=== PATIENT | female | born 1945 | race Caucasian/White ===

== ENCOUNTER → 2017-10-17 08:13 | Outpatient (CLI) | payer MEDICARE, SELFPAY ==
[2017-10-17 09:01] LABS: Absolute Lymphocyte Count 2.62 X10^3/ul (0.83-4.51); Basophil# 0.03 X10^3/uL; Basophil% 0.5 % (0-1); Eosinophil# 0.18 X10^3/uL; Eosinophils% 2.9 % (0-5); Hematocrit 42.8 % (37-47); Hemoglobin 14.3 g/dl (12.0-15.0); Lymphocyte # 2.62 X10^3/ul (4.0); Lymphocyte % 41.9 % (19-41); Mean Corp Hgb Conc 33.4 g/gl (32-36); Mean Corpuscular Hgb 28.7 pg (27.0-32.0); Mean Corpuscular Volume 85.9 fL (81-99); Mean Platelet Vol. 11.5 fl (6.2-12.0); Monocyte# 0.44 X10^3/uL; Neutrophil # 2.98 X10^3/uL (2.7-7.7); Neutrophil % 47.5 % (47-70); Platelet Count 228 K/mm3 (150-450); RBC Distribution Width CV 13.9 % (11.6-14.6); RBC Distribution Width SD 43.3 fl (35.1-43.9); Red Blood Count 4.98 M/mm3 (4.2-5.4); White Blood Count 6.3 K/mm3 (4.4-11.0)
[2017-10-17 09:02] LABS: POSITIVE COUNT NO; POSITIVE DIFFERENTIAL NO; POSITIVE MORPHOLOGY NO
[2017-10-17 09:30] LABS: Anion Gap 2 (5-15); BUN 17 mg/dL (7-18); BUN/Creat Ratio 20.1 RATIO (10-20); Calcium,Total 8.8 mg/dL (8.5-10.1); Chloride 107 mmol/L (98-107); Creatinine, Serum 0.84 mg/dL (0.55-1.02); EST Glomerular Filtration Rate 70 mL/min (>60); Est Glom Filt Rate - Afr Amer 85 mL/min (>60); Glucose 89 mg/dL (74-106); Potassium 4.4 mmol/L (3.5-5.1); Sodium Level 141 mmol/L (136-145)
== END ==
PROVIDERS: PCP Family Medicine; Visit Provider Orthopaedic Surgery
DX: Z01.818 Encounter for other preprocedural examination (principal)
CPT/HCPCS: 36415; 80048; 85025; 93005

== ENCOUNTER 2021-03-10 11:26 | Outpatient (CLI) | payer MEDICARE, SELFPAY ==
[2021-03-10 11:32] VITALS: BP 163/74; PULSE 68; RESP 16; TEMP 36.4; O2SAT 99; BMI 26.4
[2021-03-10] MEDS: 0.9% Saline Lock 10 ML Syringe IV (11:41)
[2021-03-10 12:51] VITALS: BP 149/72; PULSE 70; RESP 16; TEMP 37; O2SAT 97
[2021-03-10 13:42] VITALS: BP 153/80; PULSE 65; RESP 16; TEMP 36.7; O2SAT 98
== END 2021-03-10 23:59 | disposition home or self-care (01) ==
LOC: MS3OUT 11:28 → MS3 11:28
PROVIDERS: PCP Family Medicine; Referring Provider Nurse Practitioner Adult Health; Visit Provider Nurse Practitioner Adult Health
DX: Z23 Encounter for immunization (principal); U07.1 COVID-19
CPT/HCPCS: J7050; M0245; Q0245; A4216

== ENCOUNTER 2021-05-18 10:02 | Outpatient (CLI) | payer BC, SELFPAY ==
--- NOTE | 2021-05-18 10:04 | BI_ITS ---
MAMMOGRAPHY - BILATERAL SCREENING REASON FOR EXAM: Female, 75 years old. Routine annual screening examination. PERTINENT HISTORY: Non-contributory. TECHNIQUE: Digital bilateral breast opal (3D mammographic acquisition) in the CC and MLO projections. 2-D mediolateral oblique (MLO) and craniocaudad (CC) views of both breasts were obtained. CAD: Full Field Digital Mammography with Computer Added Detection was performed. COMPARISON: Comparison is made with prior outside examination dated 08/13/2018 and 06/12/2016. FINDINGS: Breast Composition: The breasts are heterogeneously dense, which may obscure small masses. There are no dominant masses or suspicious calcifications. Stable calcified nodular density in the retroareolar region of the left breast. No other significant abnormalities are identified. There has been no significant change since the prior study. BI/SCRN MAMM (CAD)W/OPAL BILAT IMPRESSION: Stable bilateral screening mammogram. Yearly follow-up mammogram recommended. (A) ASSESSMENT CATEGORY: BIRADS Category 2: Benign. A letter regarding these results will be sent to the patient by the facility within 30 days. Approximately 10% of breast cancers are not detected by mammography. A normal mammogram should not delay biopsy of a clinically suspicious abnormality. [id number] Electronically Signed: Vargas Yancey MD at 11:07 EDT ,
== END 2021-05-18 23:59 | disposition home or self-care (01) ==
LOC: OPBI 10:03
PROVIDERS: PCP Family Medicine; Visit Provider Internal Medicine
DX: Z12.31 Encounter for screening mammogram for malignant neoplasm of breast (principal)
CPT/HCPCS: 77063; 77067

== ENCOUNTER 2021-05-31 08:01 | Outpatient (CLI) | payer BC, SELFPAY ==
[2021-05-31 12:16] LABS: Absolute Lymphocyte Count 2.52 X10^3/uL (0.83-4.51); Absolute Neutrophil Count 3.7 X10^3/uL (2.0-7.7); Basophil# 0.04 X10^3/uL; Basophil% 0.6 % (0-1); Eosinophil# 0.21 X10^3/uL; Hematocrit 40.2 % (37-47); Lymphocyte # 2.52 X10^3/ul (0.83-4.51); Lymphocyte % 36.3 % (19-41); Mean Corp Hgb Conc 32.3 g/dL (32-36); Mean Corpuscular Volume 86.5 fL (81-99); Mean Platelet Vol. 11.6 fl (6.2-12.0); Monocyte# 0.48 X10^3/uL; Monocyte% 6.9 % (0-10); NRBC Flagged by Analyzer 0 % (0-5); Neutrophil # 3.68 X10^3/uL (2.7-7.7); Neutrophil % 53.1 % (47-70); Platelet Count 251 K/mm3 (150-450); RBC Distribution Width CV 14.6 % (11.6-14.6); Red Blood Count 4.65 M/mm3 (4.2-5.4); White Blood Count 6.9 K/mm3 (4.4-11.0)
[2021-05-31 12:40] LABS: Vitamin D,25 Hydroxy 50.4 ng/mL
[2021-05-31 12:48] LABS: ALB/GLOB Ratio 1.1 RATIO (0.9-2.4); AST(SGOT) 19 U/L (15-37); Alanine Aminotransfer ALT/SGPT 32 U/L (13-56); Albumin, Serum 3.5 g/dL (3.2-5.0); Alkaline Phosphatase 85 U/L (45-117); Anion Gap 3 (5-15); BUN 23 mg/dL (7-18); BUN/Creat Ratio 24.6 RATIO (10-20); Calcium,Total 8.9 mg/dL (8.5-10.1); Chloride 109 mmol/L (98-107); Cholesterol 254 mg/dL (200); Creatinine, Serum 0.94 mg/dL (0.55-1.02); EST Glomerular Filtration Rate 62 mL/min (>60); Est Glom Filt Rate - Afr Amer 75 mL/min (>60); Globulin 3.2 g/dL (2.2-4.2); Glucose 97 mg/dL (74-106); High Density Lipoprotein 64 mg/dL; Magnesium 2.1 mg/dL (1.6-2.6); Potassium 4.1 mmol/L (3.5-5.1); Protein, Total 6.7 g/dL (6.4-8.2); Sodium Level 140 mmol/L (136-145); T4 Free Direct 0.93 ng/dL (0.76-1.46); Thyroid Stim Hormone (TSH) 1.75 uIU/mL (0.358-3.74); Triglycerides 140 mg/dL; Very Low Density Lipoprotein 28 mg/dL (5-40)
== END 2021-05-31 23:59 | disposition home or self-care (01) ==
LOC: BIMLAB 08:03
PROVIDERS: PCP Internal Medicine; Referring Provider Internal Medicine; Visit Provider Internal Medicine
DX: I10 Essential (primary) hypertension (principal); E78.5 Hyperlipidemia, unspecified; F41.9 Anxiety disorder, unspecified; J45.909 Unspecified asthma, uncomplicated
CPT/HCPCS: 36415; 80053; 80061; 82306; 83735; 84439; 84443; 84481; 85025

== ENCOUNTER → 2021-09-14 | Outpatient (CLI) | payer MEDICARE, SELFPAY ==
[2021-09-14 13:55] LABS: Bacteria 0 SEEN /hpf (None Seen); Mucous, Urine 0 SEEN /hpf (<or=2+); Red Blood Cells-Urine 0 SEEN /hpf (0-5); Squamous Epithelial Cells - UA 0 SEEN /hpf (5-10); White Blood Cells 0 SEEN /hpf (0-5)
[2021-09-14 15:01] LABS: Absolute Lymphocyte Count 2.82 X10^3/uL (0.83-4.51); Absolute Neutrophil Count 4.1 X10^3/uL (2.0-7.7); Basophil# 0.06 X10^3/uL; Basophil% 0.8 % (0-1); Eosinophil# 0.15 X10^3/uL; Eosinophils% 1.9 % (0-5); Hematocrit 40.2 % (37-47); Lymphocyte # 2.82 X10^3/ul (0.83-4.51); Lymphocyte % 36.2 % (19-41); Mean Corp Hgb Conc 32.3 g/dL (32-36); Mean Corpuscular Hgb 28.5 pg (27.0-32.0); Mean Corpuscular Volume 88.2 fL (81-99); Mean Platelet Vol. 11.4 fl (6.2-12.0); Monocyte# 0.59 X10^3/uL; Monocyte% 7.6 % (0-10); NRBC Flagged by Analyzer 0 % (0-5); Neutrophil # 4.13 X10^3/uL (2.7-7.7); Neutrophil % 53.1 % (47-70); Platelet Count 251 K/mm3 (150-450); RBC Distribution Width CV 14.3 % (11.6-14.6); Red Blood Count 4.56 M/mm3 (4.2-5.4); White Blood Count 7.8 K/mm3 (4.4-11.0)
[2021-09-14 15:03] LABS: Color, Urine Yellow (Yellow); Glucose, Dipstick Normal (Normal); Ketone-Dipstick Negative (Negative); Leukocyte Esterase-Dipstick Negative /ul (Negative); Nitrite-Dipstick Negative (Negative); Occult Blood-Urine Negative /ul (Negative); Protein-Dipstick 15 mg/dl (Negative); Urine Bilirubin Dipstick Negative (Negative); Urine Clarity Clear (Clear); Urine Urobilinogen Normal (Normal); Urine pH 6.5 (5.0 - 8.0)
[2021-09-14 15:17] LABS: ALB/GLOB Ratio 1.1 RATIO (0.9-2.4); AST(SGOT) 17 U/L (15-37); Alanine Aminotransfer ALT/SGPT 29 U/L (13-56); Albumin, Serum 3.5 g/dL (3.2-5.0); Alkaline Phosphatase 92 U/L (45-117); Anion Gap 5 (5-15); BUN 18 mg/dL (7-18); BUN/Creat Ratio 15.4 RATIO (10-20); Calcium,Total 8.7 mg/dL (8.5-10.1); Chloride 104 mmol/L (98-107); Creatinine, Serum 1.17 mg/dL (0.55-1.02); EST Glomerular Filtration Rate 48 mL/min (>60); Est Glom Filt Rate - Afr Amer 58 mL/min (>60); Globulin 3.1 g/dL (2.2-4.2); Glucose 97 mg/dL (74-106); Potassium 4.4 mmol/L (3.5-5.1); Protein, Total 6.6 g/dL (6.4-8.2); Sodium Level 139 mmol/L (136-145)
== END | disposition home or self-care (01) ==
LOC: BIMLAB 13:50
PROVIDERS: PCP Internal Medicine; Referring Provider Physician Assistant; Visit Provider Physician Assistant
DX: R10.9 Unspecified abdominal pain (principal)
CPT/HCPCS: 36415; 80053; 81001; 85025; 87086; 87088

== ENCOUNTER → 2021-10-04 | Outpatient (CLI) | payer MEDICARE, SELFPAY ==
--- NOTE | 2021-10-04 11:45 | US_ITS ---
EXAM: US RETROPERITONEAL LIMITED, RENAL CLINICAL INDICATION: R Flank, lower abdominal pain TECHNIQUE: Limited grayscale and color Doppler sonographic evaluation of the retroperitoneum was performed. This report was created using [employer] technology. COMPARISON: None. FINDINGS: RIGHT KIDNEY: Right kidney measures 5.5 x 3.7 x 5.2 cm. The right renal cortex measures 1.1 cm. The prominence of the right renal pelvis measuring 1.5 cm. No shadowing calculus. No perinephric collection is demonstrated. LEFT KIDNEY: The left kidney measures 10.1 x 5.1 x 4.4 cm. Left renal cortex measures 1.4 cm. No hydronephrosis. No shadowing calculus. No perinephric collection is demonstrated. BLADDER: The bladder measures 9.6 x 1.0 x 8.6 cm for volume of 477 mL. The bladder wall measures 2 mm. Bilateral ureteral jets are present. US/Kidney and Bladder IMPRESSION: No acute findings in the retroperitoneum. Electronically Signed: Nico Palacios MD at 14:44 EDT ,
== END | disposition home or self-care (01) ==
LOC: US 11:44
PROVIDERS: PCP Internal Medicine; Referring Provider Internal Medicine; Visit Provider Internal Medicine
DX: R10.30 Lower abdominal pain, unspecified (principal)
CPT/HCPCS: 76770

== ENCOUNTER 2022-03-14 09:31 | Day surgery (SDC) | payer MEDICARE, SELFPAY ==
[2022-03-14 09:57] VITALS: BP 131/85; PULSE 70; RESP 18; TEMP 36.7; O2SAT 99; BMI 30.4
[2022-03-14] MEDS: Lactated Ringers 1,000 ML 15 ML IV (10:00)
--- NOTE | 2022-03-14 10:30 | HP.PCM_ITS ---
History and Physical Date of Admission: 03/14/22 Intake Vital Signs ? 09/14/2212:21 02/10/2208:19 02/24/2208:22 Height 5 ft 1 in 5 ft 1 in 5 ft 1 in Weight: ? ? 160 lb BMI ? ? 30.2 BP ? ? 147/84 H Blood Pressure Location ? ? Rt brachial Position ? ? Sitting Respiration ? ? 18 Intake Visit Reasons:?GERD/EGD Chief Complaint: GERD Medical Front Desk Specialist Required: No Is patient in pain?: No Allergies shellfish derived Allergy (Severe, Verified 02/23/22 08:23) SOBamoxicillin Allergy (Verified 02/23/22 08:23) Unknownerythromycin base [From Staticin] Allergy (Verified 02/23/22 08:23) Unknownethyl alcohol [From Staticin] Allergy (Verified 02/23/22 08:23) Unknowniodine Allergy (Verified 02/23/22 08:23) UnknownPenicillins Allergy (Verified 02/23/22 08:23) UnknownSulfa (Sulfonamide Antibiotics) Allergy (Verified 02/23/22 08:23) Unknown Medications CoQ10 PO 03/29/21 [History Confirmed 02/23/22] ascorbic acid (vitamin C) 1,000 mg tablet 1 g PO Q6H 03/29/21 [History Confirmed 02/23/22] lisinopril 5 mg tablet 10 mg PO DAILY #90 tabs 03/29/21 [Rx Confirmed 02/23/22] multivit with kugfkaow-vekq-TW-lutein 8 mg iron-400 mcg-300 mcg tablet (Centrum Silver Women) 1 tab PO DAILY 03/29/21 [History Confirmed 02/23/22] multivitamin with minerals (Hair,Skin and Nails tablet) 1 tab PO DAILY 03/29/21 [History Confirmed 02/23/22] omega-3 fatty acids 1,000 mg capsule 1,000 mg PO DAILY 03/29/21 [History Confirmed 02/23/22] vitamin B complex (B Complex-Vitamin B12 tablet) 1 tab PO DAILY 03/29/21 [History Confirmed 02/23/22] vitamin E (dl, acetate) 450 mg (1,000 unit) capsule 450 mg PO DAILY 03/29/21 [History Confirmed 02/23/22] ergocalciferol (vitamin D2) 1,250 mcg (50,000 unit) capsule 1,250 mcg PO QWEEK #12 caps 08/01/21 [Rx Confirmed 02/23/22] albuterol sulfate 90 mcg/actuation aerosol inhaler 2 inh inhalation Q6H PRN shortness of breath or wheezing #8.5 grams 11/16/21 [Rx Confirmed 02/23/22] probiotic PO 12/26/21 [History Confirmed 02/23/22] trazodone 100 mg tablet 100 mg PO QHS PRN insomnia #30 tabs 02/09/22 [Rx Confirmed 02/23/22] fluticasone propionate 110 mcg/actuation HFA aerosol inhaler (Flovent HFA) 110 mcg inhalation BID #12 grams 02/22/22 [Rx Confirmed 02/23/22] PFSH Medical History? Anxiety Hearing problem Hypertension Seasonal allergies Trigger finger Surgical History? History of carpal tunnel release History of cataract extraction History of tonsillectomy Family History? Mother Colon cancer Cancer Heart diseaseGrandmother Colon cancer CancerSister CancerBrother Heart disease Mental disorderFather?? ,? 85 yrs old Dementia Social History? Smoking Status:? Never smoker alcohol intake:? never substance use type:? does not use what type of physical activity do you participate in:? none HPI HPI HPI: Is a 76-year-old female here for epigastric pain and reflux.? Patient reports is been going on for 2 years.? She says it is intermittent.? She occasionally has epigastric pain occasionally right upper quadrant pain.? She is also had left upper quadrant pain in the past.? She also says that she experiences burning in the chest.? Patient is not on a PPI at home. ROS General General: Yes weight change and fatigue; No appetite, colon cancer, breast cancer or weakness HEENT HEENT: No difficulty swallowing, eye injury, eye surgery, swollen glands or hoarseness Endo Endocrine: No thyroid disease, diabetes mellitus, thyroid cancer, Hair loss, heat intolerance or cold intolerance Skin Skin: No rash or changing moles Breast Breast: No left breast lump, right breast lump, nipple discharge, breast pain, abnormal mammogram, abnormal US or breast enlargement Musc Musculoskeletal: No back problems, arthritis, rheumatoid arthritis, gout or joint pain Cardio Cardiovascular: Yes high blood pressure; No murmur, pacemaker, heart disease, atrial fibrillation, heart attack, heart stent, palpitations, shortness of breat with exertion or chest pain Psych Psychiatric: Yes depression and anxiety; No hearing voices Resp Respiratory: Yes shortness of breath, No sleep apnea, No cough, No COPD, Yes asthma, No emphysema and No wheezing Gastro Gastrointestinal: Yes abdominal pain, No nausea or vomiting, No diarrhea, No constipation, No blood in stool, Yes acid reflux, Yes hemorrhoids, No ulcers, No gallbladder problem and No black,tarry stools Damon Hematologic: No blood thinners, No blood disorders, No bleeding, No anemia and No blood clots Neuro Neurologic: No system reviewed and no additional complaints, except as documented, No as per HPI, No abnormal gait, No abnormal hearing, No abnormal movements, No abnormal speech, No behavioral changes, No burning sensations, No confusion, No convulsions, No disequilibrium, No dizziness, No localized weakness, No frequent falls, No headache(s), No lack of coordination, No loss of vision, No memory loss, No numbness, No other visual disturbances, No radicular pain, No restless legs, No sensory deficit, No syncope, No tingling, No tremor(s), No weakness and No other Exam Const General: cooperative Orientation: alert and oriented x3 HENMT Head: normal to inspection Neck Neck: normal visual inspection and full ROM Chest Chest palpation & inspection: normal inspection of the chest Resp Effort & Inspection: normal respiratory effort Auscultation: clear to auscultation bilaterally Cardio Rate: regular rate Rhythm: regular rhythm GI Inspection: non-distended Palpation: soft and nontender Skin General: no rashes or lesions noted Neuro General: patient alert and patient oriented x3 Extrem General: full ROM Psych Appearance: grossly normal Mental Status: mental status grossly normal Assessment and Plan Assessment and Plan (1) Chronic GERD: ?Status:?Chronic (2) Epigastric pain: ?Status:?Acute ? ? ? Orders: Orders EGD Today ? ? Plan Patient has been having epigastric pain and symptoms of GERD.? She was sent here for EGD to evaluate. I explained endoscopy in detail to the patient.? I explained the risks including but not limited to stroke or heart attack with anesthesia, perforation of the GI tract, bleeding, infection.? I explained that any of these could necessitate further emergency surgery.? The patient understands and all questions were answered sufficiently.? The patient wishes to proceed with procedure. Chirag Matthews MD Pager: [facility] [address] [place] [address] [address] [place] [address] Office: I have examined the patient and the H&P has been reviewed. There are no clinical changes since date of exam.
--- NOTE | 2022-03-14 10:45 | EGD_PTH ---
PATIENT: THOMAS HARDY LOC: EN U#:[id number] AGE/SX: 76/F ROOM: RE03/14/[address]: Dr. Chirag Matthews MD : 1945 BED: DIS: 03/14/2022 SPEC #: [id number] RECD: 03/14/22 11:51 STATUS: YRN RAJ #: [id number] TRINIDAD: 03/14/22 10:[address]: Chirag Matthews DEPT: SURGICAL PATHOLOGY RECD BY: Felicitas Ulrich ENTERED: 03/14/22 12:43 SP TYPE: EGD BIOPSY OT DR: Dr. Claudette Garrison MD Tissues: Gastric mucous membrane Procedures: Surgery Specimen Level IV HEADER OPERATION: EGD with biopsy ([facility] [place], [place]) PRE-OP DIAGNOSIS: Chronic GERD, epigastric pain TISSUE SUBMITTED: Antrum biopsy for H. pylori and path MICROSCOPIC DIAGNOSIS Gastric antrum, biopsy: Mild chronic gastritis. See comment. AM:maurice 03/15/2022 COMMENT The results of immunohistochemistry for Helicobacter pylori will be reported separately ([id number]). MICROSCOPIC DESCRIPTION Slides are reviewed. GROSS DESCRIPTION Received in fixative is one container labeled with the patient's name and designated antrum biopsy. The specimen consists of two irregular fragments of light soares soft tissue that in aggregate measure 0.6 x 0.3 x 0.1 cm. The specimen is totally submitted in one cassette. / SJ:maurice 03/14/2022 TC:3 CPT: 66741
--- NOTE | 2022-03-14 10:45 | IMM_PTH ---
PATIENT: THOMAS HARDY LOC: EN U#:[id number] AGE/SX: 76/F ROOM: RE03/14/[address]: Dr. Chirag Matthews MD : 1945 BED: DIS: 03/14/2022 SPEC #: [id number] RECD: 03/14/22 13:31 STATUS: YRN RERuss #: [id number] TRINIDAD: 03/14/22 10:[address]: Chirag Matthews DEPT: IMMUNOHISTOCHEMISTRY RECD BY: Michaela Silva ENTERED: 03/14/22 13:32 SP TYPE: IMMUNO OTHR DR: Dr. Claudette Garrison MD Tissues: Stomach, NOS Procedures: H Pylori (initial) PHYSICIAN & INSTITUTION [place] [id number] SPECIMEN INFORMATION: Tissue Source: Antrum biopsy Clinical Info: Chronic GERD, epigastric pain Specimen Number: [id number] CPT code: 26887 METHODOLOGY: Deparaffinized sections of prefer/formalin-fixed tissue or PAP/DQ stained slides are incubated with monoclonal/polyclonal antibodies/oligonucleotide probes. Localization is made via biotin free immunoperoxidase method. Appropriate controls are performed and reacted as expected. Results on target cell population are indicated in the following table: RESULTS: ANTIBODY / CLONE RESULT H Pylori (polyclonal) negative These tests were developed and their performance characteristics determined by [facility]. They may not have been cleared or approved by the U.S. Food and Drug Administration. The FDA has determined that such clearance or approval is not necessary. The above immunohistochemical/dualISH markers are ordered and reviewed by the Pathologist. INTERPRETATION: Antrum, biopsy: Negative for Helicobacter pylori organisms. AM:maurice 03/15/2022
[2022-03-14 10:50] VITALS: BP 127/59; BP 131/85; PULSE 88; RESP 16; TEMP 36.6; O2SAT 96
--- NOTE | 2022-03-14 10:53 | OP.EGD_ITS ---
Patient Name: Soledad Cheema Procedure Date: 03/14/2022 10:32 AM Date of : 1945 Age: 76 Procedure: Upper GI endoscopy Indications: Epigastric abdominal pain, Esophageal reflux Providers: Chirag Matthews MD Referring MD: Chirag Matthews MD Medicines: Monitored Anesthesia Care Patient Profile: This is a 76 year old female. Refer to note in patient chart for documentation of history and physical. Complications: No immediate complications. Estimated blood loss: Minimal. Procedure: Pre-Anesthesia Assessment: - Prior to the procedure, a History and Physical was performed, and patient medications and allergies were reviewed. The patient's tolerance of previous anesthesia was also reviewed. The risks and benefits of the procedure and the sedation options and risks were discussed with the patient. All questions were answered, and informed consent was obtained. Prior Anticoagulants: The patient has taken no previous anticoagulant or antiplatelet agents. After reviewing the risks and benefits, the patient was deemed in satisfactory condition to undergo the procedure. After obtaining informed consent, the endoscope was passed under direct vision. Throughout the procedure, the patient's blood pressure, pulse, and oxygen saturations were monitored continuously. The gastroscope was introduced through the mouth, and advanced to the third part of duodenum. The upper GI endoscopy was accomplished without difficulty. The patient tolerated the procedure well. Scope In: 10:42:46 AM Scope Out: 10:45:26 AM Total Procedure Duration Time 0 hours 2 minutes 40 seconds Findings: A medium-sized hiatal hernia was present. The stomach was normal. Biopsies were taken with a cold forceps for Helicobacter pylori testing. The examined duodenum was normal. Impression: - Medium-sized hiatal hernia. - Normal stomach. Biopsied. - Normal examined duodenum. Recommendation: - Discharge patient to home. - Resume previous diet. - Continue present medications. - Use Prilosec (omeprazole) 40 mg PO daily. - Return to my office PRN. Procedure Code(s): --- Professional --- 42215, Esophagogastroduodenoscopy, flexible, transoral; with biopsy, single or multiple Diagnosis Code(s): --- Professional --- K44.9, Diaphragmatic hernia without obstruction or gangrene R10.13, Epigastric pain K21.9, Gastro-esophageal reflux disease without esophagitis CPT copyright 2017 [employer]. All rights reserved. The codes documented in this report are preliminary and upon braille coder review may be revised to meet current compliance requirements. Chirag Matthews MD 03/14/2022 10:53:06 AM This report has been signed electronically. Number of Addenda: 0 Note Initiated On: 03/14/2022 10:32 AM
--- NOTE | 2022-03-14 10:54 | OP.CCLET_ITS ---
03/14/2022 Claudette Garrison [facility] [address] [place] [address] Re : Upper GI endoscopy procedure for Soledad Cheema Dear Dr. Garrison This procedure was performed on Monday, March 14, 2022. My impressions and recommendations are as follows: Impressions : - Medium-sized hiatal hernia. - Normal stomach. Biopsied. - Normal examined duodenum. Recommendations : - Discharge patient to home. - Resume previous diet. - Continue present medications. - Use Prilosec (omeprazole) 40 mg PO daily. - Return to my office PRN. My findings are described in the full procedure note, which is enclosed. If I can be of further assistance, please feel free to contact me at Doctor phone number(s): , Work: . Sincerely, Chirag Matthews MD 03/14/2022 10:53:06 AM This report has been signed electronically.
[2022-03-14 10:55] VITALS: BP 121/53; BP 131/85; PULSE 88; RESP 16; O2SAT 95
[2022-03-14 11:00] VITALS: BP 115/57; BP 131/85; PULSE 86; RESP 16; O2SAT 95
[2022-03-14 11:05] VITALS: BP 117/65; BP 131/85; PULSE 80; RESP 16; TEMP 37.1; O2SAT 96
[2022-03-14 11:28] VITALS: BP 131/85
== END 2022-03-14 11:57 | disposition home or self-care (01) ==
LOC: EN 09:37 → AC 09:38
PROVIDERS: PCP Internal Medicine; Referring Provider Internal Medicine; Visit Provider Surgery
PROC: 0DJ08ZZ Inspection of Upper Intestinal Tract, Via Natural or Artificial Opening Endoscopic (ICD-10-PCS; CPT 43235; principal; 2022-03-14 10:40)
DX: K29.50 Unspecified chronic gastritis without bleeding (principal); K21.9 Gastro-esophageal reflux disease without esophagitis; K44.9 Diaphragmatic hernia without obstruction or gangrene; I10 Essential (primary) hypertension; Z79.899 Other long term (current) drug therapy; Z80.0 Family history of malignant neoplasm of digestive organs
CPT/HCPCS: 43239; 88305; 88342; J7120; J2405

== ENCOUNTER → 2022-03-31 | Outpatient (CLI) | payer MEDICARE, SELFPAY ==
--- NOTE | 2022-03-31 07:45 | US_ITS ---
STUDY: ABDOMINAL ULTRASOUND - RIGHT UPPER QUADRANT REASON FOR VISIT: Female, 76 years old . Right upper quadrant/epigastric pain. TECHNIQUE: Ultrasound evaluation of the right upper quadrant was performed with real-time and static noe-scale imaging. TECHNICAL QUALITY: Adequate. COMPARISON: None. FINDINGS: Liver: The liver measures 15.8 cm. There is increased echogenicity consistent with fatty infiltration. The bile ducts are within normal limits. There is hepatic color flow. The direction of portal flow is hepatopetal. There is no demonstrated mass lesion. Gallbladder: Normal distended gallbladder. The gallbladder wall measures 2.0 mm. There is a negative sonographic Chan''s sign. There is no pericholecystic fluid. There are no gallstones. Common Bile Duct (C.B.D.): The common bile duct measures 5.0 mm. Pancreas: Normal size of the head, body and tail of the pancreas. There is normal echogenicity of the pancreas. There is no demonstrated pancreatic mass or cyst. Right Kidney: Normal size of the right kidney. The right kidney measures 9.8 cm x 4.2 cm x 4.6 cm. Normal renal cortex. The right cortex measures 1.2 cm. There is no demonstrated renal mass or cyst. There is no right hydronephrosis. US/Gallbladder IMPRESSION: Fatty infiltration of the liver. Electronically Signed: Vargas Yancey MD at 14:16 EST ,
== END | disposition home or self-care (01) ==
PROVIDERS: PCP Internal Medicine; Visit Provider Surgery
DX: R10.13 Epigastric pain (principal); K21.9 Gastro-esophageal reflux disease without esophagitis
CPT/HCPCS: 76705

== ENCOUNTER → 2022-04-26 | Outpatient (CLI) | payer MEDICARE, SELFPAY ==
--- NOTE | 2022-04-26 09:32 | NM_ITS ---
CLINICAL: 76-year-old female with history of right upper quadrant abdominal pain. RADIONUCLIDE HEPATOBILIARY SCINTIGRAPHY COMPARISON: Gallbladder ultrasound report 03/31/2022 FINDINGS: Following the intravenous administration of 5.4 mCi of 99m Tc Mebrofenin, hepatobiliary images reveal:. 1. Relatively prompt and homogeneous radiopharmaceutical concentration is noted by a normal sized liver. No parenchymal defects are identified. 2. Gallbladder activity is identified at 15 minutes post radiopharmaceutical administration. 3. Intestinal tract is not visualized are 60 minutes of pre-CCK sequential image acquisition. Small bowel is observed following CCK infusion. 4. Washout of the radiopharmaceutical by the hepatic parenchyma is qualitatively normal. Cholecystokinin (0.02 ug/kg) was administered intravenously over a 30-minute period. The post CCK gallbladder ejection fraction calculated at 20 minutes following Cholecystokinin administration was noted to be 71.0 % (normal greater than 35%). During 30 minutes of post CCK imaging, there is scintigraphic evidence of refilling of the gallbladder. ND/Hepatobilliary Img w/Pharm Int IMPRESSION: 1. A gallbladder ejection fraction calculated to be greater than 35% following the administration of Cholecystokinin makes the probability of functional hepatobiliary disease (gallbladder dyskinesia) and/or organic hepatobiliary disease (chronic acalculous cholecystitis and/or cystic duct syndrome) to be low. (Cruz Mcdaniel et al, Journal of Nuclear Medicine 32:1695, 1991). 2. A normal gallbladder ejection fraction with refilling of the gallbladder following CCK administration may represent the presence of Sphincter of Oddi dysfunction. Correlation with Sphincter of Oddi manometry may be of benefit. (Palak, J Nucl Med 38:1824, 1997). Electronically Signed: Mat Vital, at 23:29 EST ,
== END | disposition home or self-care (01) ==
LOC: NM 09:32
PROVIDERS: PCP Internal Medicine; Visit Provider Internal Medicine
DX: R10.11 Right upper quadrant pain (principal)
CPT/HCPCS: 78227; A9537; J2805

== ENCOUNTER → 2022-05-12 | Outpatient (CLI) | payer MEDICARE, SELFPAY ==
--- NOTE | 2022-05-12 08:32 | CT_ITS ---
STUDY: CT ABDOMEN AND PELVIS WITH CONTRAST REASON FOR EXAM: Female, 76 years old. Diffuse abdominal pain RADIATION DOSAGE (If Supplied By Facility): CTDIvol = ( 21.69 ) mGy, DLP = ( 1004.58 ) mGycm TECHNIQUE: Transaxial images were obtained from the dome of the diaphragm to the symphysis pubis with oral contrast. Oral and amp; IV Readi-CAT and amp; 100mL Isovue-300 was administered. Sagittal and coronal images were reconstructed. Individualized dose optimization techniques were used for this CT. COMPARISON: None. FINDINGS: The visualized lung bases are unremarkable, there is a calcified granuloma in the left lung base. The visualized portions of the heart are within normal limits. Mild fatty infiltration of liver noted. Normal gallbladder and extrahepatic biliary system. Normal spleen. Normal pancreas. Normal bilateral adrenal glands. Normal right kidney. Normal left kidney. Normal visualized stomach. Normal small intestine. Routine stool noted in the colon with scattered sigmoid diverticulosis, no CT evidence of acute diverticulitis. There is non-visualization of the appendix. Normal abdominal aorta. Normal inferior vena cava. Normal retroperitoneum. Normal urinary bladder. The uterus is present, the endometrium cannot be accurately evaluated with CT. No suspicious cystic mass or free fluid. Small fat-containing inguinal hernias noted. There are diffuse degenerative changes of the visualized lumbar spine. CT/Abdomen/Pelvis WITH Contrast IMPRESSION: Mild fatty infiltration of the liver, no discrete lesion Sigmoid diverticulosis, no CT evidence of acute diverticulitis. Uterus is present, the endometrium cannot be accurately evaluated with CT. No free intraperitoneal fluid, air, or suspicious adenopathy Electronically Signed: Shayan Odonnell MD at 9:20 EDT ,
[2022-05-12 11:50] LABS: CREATININE FINGERSTICK < 0.9 mg/dL (0.55-1.02); EGFR FINGERSTICK > 60.0000 mL/min (>60)
== END | disposition home or self-care (01) ==
LOC: CT 08:30
PROVIDERS: PCP Internal Medicine; Referring Provider Surgery; Visit Provider Surgery
DX: R10.9 Unspecified abdominal pain (principal)
CPT/HCPCS: 74177; Q9967

== ENCOUNTER → 2022-07-06 | Outpatient (CLI) | payer MEDICARE, SELFPAY ==
--- NOTE | 2022-07-06 06:54 | ECHOD_ITS ---
Reason For Study: ARRHYTHMIA Procedure This was a 2D Doppler, Color Flow transthoracic echocardiogram. Exam performed in department. Left Ventricle Normal LV size. Left ventricular systolic function is normal. The estimated ejection fraction is 60 %. Stage 1 diastolic dysfunction. No regional wall motion abnormalities noted. Right Ventricle Normal RV size. Normal systolic function. Atria Normal left atrium. Normal right atrium. Mitral Valve Normal mitral valve. Tricuspid Valve Normal tricuspid valve. Mild (1+) tricuspid valve insufficiency. Pulmonary artery systolic pressure is 34 mmHg. Aortic Valve Trisinus/trileaflet aortic valve. Pulmonic Valve Normal pulmonic valve. Great Vessels Normal aortic root. The pulmonary artery is normal size. Normal inferior vena cava. Pericardium/Pleural No pericardial effusion. MMode/2D Measurements & Calculations LVIDd: 3.9 cm IVSd: 1.1 cm Ao root diam: 3.2 cm LVIDs: 2.5 cm LVPWd: 1.0 cm RVDd: 2.7 cm FS: 36.0 % LAV(MOD-bp): 49.4 ml LVAd ap4: 24.5 cm2 LVAd ap2: 21.9 cm2 LAV(MOD-bp) Indexed: 28.2 ml/m2 LVLd ap4: 7.1 cm LVLd ap2: 7.2 cm LAV(MOD-sp2): 40.5 ml EDV(MOD-sp4): 70.0 ml EDV(MOD-sp2): 55.6 ml LAV(MOD-sp4): 50.5 ml EDV(sp4-el): 71.6 ml EDV(sp2-el): 56.5 ml LVAs ap4: 13.6 cm2 LVAs ap2: 12.0 cm2 LVLs ap4: 5.6 cm LVLs ap2: 5.8 cm ESV(MOD-sp4): 27.2 ml ESV(MOD-sp2): 21.5 ml ESV(sp4-el): 27.9 ml ESV(sp2-el): 21.3 ml EF(MOD-sp4): 61.2 % EF(MOD-sp2): 61.3 % EF(sp4-el): 61.1 % SV(MOD-sp4): 42.8 ml SV(MOD-sp2): 34.1 ml SV(sp4-el): 43.7 ml LA dimension(2D): 3.4 cm LA A4 area: 17.1 cm2 RA A4 area: 11.1 cm2 Time Measurements MV dec time: 0.35 sec Doppler Measurements & Calculations MV E max brennen: 77.6 cm/sec Lat Peak E' Brennen: 9.5 cm/sec Med Peak E' Brennen: 6.3 cm/sec MV A max brennen: 127.1 cm/sec E/E' lat: 8.2 E/E' med: 12.4 MV E/A: 0.61 MV dec slope: 222.9 cm/sec2 Ao V2 max: 177.5 cm/sec LV V1 max: 125.5 cm/sec Ao max P.6 mmHg LV V1 max P.3 mmHg Ao V2 mean: 123.8 cm/sec LV V1 mean P.5 mmHg Ao mean P.0 mmHg LV V1 mean: 87.6 cm/sec Ao V2 VTI: 39.2 cm LV V1 VTI: 28.4 cm AV (velocity ratio): 0.72 PA V2 max: 132.0 cm/sec TR max brennen: 265.1 cm/sec TR max P.1 mmHg ECHO/Echo Complete Interpretation Summary Normal LV size. Left ventricular systolic function is normal. The estimated ejection fraction is 60 %. Stage 1 diastolic dysfunction. Mild (1+) tricuspid valve insufficiency. Ordering Physician: Jaxon Mandel Referring Physician: Claudette Garrison Performed By: Dianne Frost, MOHSEN, RVT
--- NOTE | 2022-07-06 17:16 | STRESSREP ---
Stress Test Report Pharmacologic myocardial perfusion stress test. 76-year-old lady with a history of a left bundle branch block and shortness of breath Resting EKG demonstrates sinus rhythm with a rate of 64 bpm. Resting blood pressure is 138/90 mmHg. 0.4 mg of regadenoson was infused per usual protocol followed by rapid intravenous saline flush injection. Continuous EKG monitoring was performed. The maximum heart rate was 107 bpm which was 74% of max impacted heart rate the maximum workload was 1 metabolic equivalent. At rest there were no ST or T wave changes noted to suggest ischemia and at peak infusion nonspecific ST changes were noted which did not meet the criteria for ischemia. No clinical angina is noted. The final blood pressure was 150/82 mmHg. Myocardial perfusion protocol. 11.8 mCi of technetium 99m sestamibi was injected at rest. 0.4 mg of regadenoson was infused per usual protocol. At peak infusion 33.9 mCi of technetium 99m sestamibi was injected stress images were obtained stress and rest images were reconstructed and compared in the short axis vertical long and horizontal long axis. Gated images were also obtained. Perfusion SPECT analysis: Review of the stress images demonstrate normal uptake of tracer noted in all areas of the myocardium. The resting images similar demonstrated normal uptake of tracer noted in all areas of the myocardium. No areas of reversibility are noted to suggest ischemia and no previous infarct is noted. Gated SPECT analysis: The gated ejection fraction is 85%. Conclusion: Normal pharmacologic myocardial perfusion stress test. Preserved ejection fraction.
== END | disposition home or self-care (01) ==
LOC: CVS 06:53
PROVIDERS: PCP Internal Medicine; Referring Provider Internal Medicine Cardiovascular Disease; Visit Provider Internal Medicine Cardiovascular Disease
DX: R94.31 Abnormal electrocardiogram [ECG] [EKG] (principal); I44.7 Left bundle-branch block, unspecified
CPT/HCPCS: 78452; 93017; 93306; A9500; A4216; J2785

== ENCOUNTER → 2022-07-12 | Outpatient (CLI) | payer MEDICARE, SELFPAY ==
--- NOTE | 2022-07-12 08:32 | BI_ITS ---
MAMMOGRAPHY - BILATERAL SCREENING REASON FOR EXAM: Female, 76 years old. Routine annual screening examination. PERTINENT HISTORY: Non-contributory. TECHNIQUE: Digital bilateral breast opal (3D mammographic acquisition) in the CC and MLO projections. 2-D mediolateral oblique (MLO) and craniocaudad (CC) views of both breasts were obtained. CAD: Full Field Digital Mammography with Computer Added Detection was performed. COMPARISON: Comparison is made with prior study dated May 18, 2021 and June 12, 2016. FINDINGS: Breast Composition: The breasts are heterogeneously dense, which may obscure small masses. There are no dominant masses or suspicious calcifications. Stable densely calcified nodular density in the retroareolar region of the left breast. No other significant abnormalities are identified. There has been no significant change since the prior study. BI/SCRN MAMM (CAD)W/OPAL BILAT IMPRESSION: Stable bilateral screening mammogram. Yearly follow-up mammogram recommended. (A) ASSESSMENT CATEGORY: BIRADS Category 2: Benign. A letter regarding these results will be sent to the patient by the facility within 30 days. Approximately 10% of breast cancers are not detected by mammography. A normal mammogram should not delay biopsy of a clinically suspicious abnormality. [id number] Electronically Signed: Vargas Yancey MD at 10:06 EDT ,
== END | disposition home or self-care (01) ==
LOC: OPBI 08:31
PROVIDERS: PCP Internal Medicine; Referring Provider Internal Medicine; Visit Provider Internal Medicine
DX: Z12.31 Encounter for screening mammogram for malignant neoplasm of breast (principal)
CPT/HCPCS: 77063; 77067

== ENCOUNTER 2022-07-20 01:02 | Inpatient (IN) | payer MEDICARE, SELFPAY ==
[2022-07-20] VITALS (15 sets, daily range): BP systolic 127–165; BP diastolic 67–96; PULSE 71–104; RESP 14–21; TEMP 36.4–36.9; O2SAT 93–100; BMI 31.7
--- NOTE | 2022-07-20 01:35 | RAD_ITS ---
EXAM: XR CHEST, 1 VIEW CLINICAL INDICATION: CHEST PAIN TECHNIQUE: Frontal view of the chest. COMPARISON: No relevant prior studies available. FINDINGS: LUNGS AND PLEURAL SPACES: Findings of remote granulomatous infection are noted with calcified granulomas in the left lower lung. Minimal pulmonary interstitial thickening, most likely fibrotic changes. No acute pulmonary infiltrates or pleural effusions. HEART: Heart size is minimally enlarged with normal pulmonary vasculature. MEDIASTINUM: Thoracic aorta is minimally elongated and calcific. There is no mediastinal widening. BONES/JOINTS: Mild thoracic degenerative spurring. Mildly accentuated thoracic kyphosis. Severe degenerative narrowing of one of the intervertebral disc spaces at about T12/L1 level, with vacuum disc phenomenon and endplate sclerosis. No acute osseous abnormality. SOFT TISSUES: Unremarkable. RAD/Chest PA and Lateral IMPRESSION: Chronic findings as noted above. No radiographic evidence of acute cardiopulmonary disease. Electronically Signed: Fly Fuentes MD at 2:51 EDT ,
--- NOTE | 2022-07-20 05:31 | ED.VIS.CHEST ---
HPI History of Present Illness Chief Complaint: Chest Pain Informant: patient and EMS Narrative Narrative: Thank late entry to the downtime. T-sheet filled out also dictated on downtime forms. Brief no intermittent left-sided chest pain since 3 PM. 11 PM left arm jaw pain. No dyspnea nausea. Status post aspirin by EMS. Symptom-free during my exam. Hypertension and hyperlipidemia history. Normal pharmacological stress test 2 weeks ago. Prior Similar Symptoms: No PFSH PFSH Medical History Acute flank pain Anxiety COVID-19 Epigastric pain Gastric reflux Hearing problem History of stress test Lower abdominal pain Non-smoker Seasonal allergies Trigger finger Home Medications CoQ10 1 ea PO DAILY 03/29/21 [History Last Taken Unknown] ascorbic acid (vitamin C) 1,000 mg tablet 1 g PO Q6H 03/29/21 [History Last Taken Unknown] multivit with ulopazlj-oibf-UA-lutein 8 mg iron-400 mcg-300 mcg tablet (Centrum Silver Women) 1 tab PO DAILY 03/29/21 [History Last Taken Unknown] omega-3 fatty acids 1,000 mg capsule 1,000 mg PO DAILY 03/29/21 [History Last Taken Unknown] vitamin B complex (B Complex-Vitamin B12 tablet) 1 tab PO DAILY 03/29/21 [History Last Taken Unknown] vitamin E (dl, acetate) 450 mg (1,000 unit) capsule 450 mg PO DAILY 03/29/21 [History Last Taken Unknown] ergocalciferol (vitamin D2) 1,250 mcg (50,000 unit) capsule 1,250 mcg PO QWEEK #12 caps 08/01/21 [Rx Last Taken Unknown] probiotic 1 ea PO DAILY 12/26/21 [History Last Taken Unknown] omeprazole 40 mg capsule,delayed release 40 mg PO DAILY #60 caps 03/14/22 [Rx Last Taken Unknown] albuterol sulfate 90 mcg/actuation aerosol inhaler 2 inh inhalation Q8H shortness of breath or wheezing 05/11/22 [History Last Taken Unknown] lisinopril 10 mg tablet 10 mg PO DAILY #90 tabs 05/11/22 [Rx Last Taken Unknown] Flovent HFA 110 mcg/actuation aerosol inhaler (fluticasone propionate) See Rx Instructions inhalation .COMPLEX #12 grams 05/23/22 [Rx Last Taken Unknown] Allergy/AdvReac Type Severity Reaction Status Date / Time shellfish derived Allergy Severe SOB Verified 06/15/22 09:41 amoxicillin Allergy Unknown Verified 06/15/22 09:41 erythromycin base Allergy Unknown Verified 06/15/22 09:41 [From Staticin] ethyl alcohol [From Staticin] Allergy Unknown Verified 06/15/22 09:41 Penicillins Allergy Unknown Verified 06/15/22 09:41 Sulfa (Sulfonamide Allergy Unknown Verified 06/15/22 09:41 Antibiotics) statin AdvReac Pain in Uncoded 06/15/22 09:58 joints Family History Mother Colon cancer Cancer Heart disease Grandmother Colon cancer Cancer Sister Cancer Brother Heart disease Mental disorder Father , 85 yrs old Dementia Surgical History History of carpal tunnel release History of cataract extraction History of tonsillectomy Social History Smoking Status: Never smoker alcohol intake: never substance use type: does not use what type of physical activity do you participate in: none ROS ROS ED Constitutional Constitutional ED: Denies chills, fever(s) or sweats Eyes Eyes: Denies change in vision ENT ENT ED: Denies dysphagia or sore throat Cardiovascular Cardiovascular: Reports chest pain; Denies leg edema, palpitations or racing heartbeat Respiratory/Chest Respiratory/Chest: Denies cough, dyspnea or dyspnea on exertion Gastrointestinal Gastrointestinal: Denies abdominal pain, diarrhea, nausea or vomiting Genitourinary Genitourinary ED: Denies dysuria, hematuria or urinary frequency Musculoskeletal Musculoskeletal: Denies back pain, extremity pain or neck pain Integumentary Denies rash or wounds Neurologic Neurologic: Denies headache(s), paresthesias or weakness EXAM Physical Exam Const Positive well nourished and well developed General Appearance ED: well developed and NAD HEENT Reports moist mucous membranes normocephalic and atraumatic Eyes PERRL, EOMs intact bilaterally and conjunctivae normal General Eye ED: Yes normal appearance of both eyes Neck no lymphadenopathy and supple General: Negative for tenderness Chest Wall Chest: Negative for tenderness Resp normal respiratory effort and normal air movement Effort and Inspection: symmetric chest movement; Negative for respiratory distress Cardio regular rate, regular rhythm and no murmurs Peripheral Pulses: pulses 2+ throughout GI normal to inspection, nondistended, normoactive bowel sounds and non-tender Palpation: Negative for guarding or rebound tenderness present Back/Spine no CVA tenderness and no thoracic nor lumbar tenderness Extremity normal to inspection General Extremety ED: Negative for edema or tenderness General Extremity: Negative for edema Neuro oriented x3 and no sensory deficits noted Sensorium / Orientation: awake and alert Skin no rashes or lesions noted and no wounds Heart Score History: Moderately Suspicious ECG: Nonspecific Repolarization Age: >/= 65 years Risk Factors: 1 or 2 Risk Factors Troponin: >/=3 x Normal Limit Score: 7 MDM MDM MDM Narrative Medical decision making narrative: Interventions / MDM: Differential diagnosis: Acute coronary syndrome, NSTEMI Diagnosis considered but do not suspect: N/A My EKG interpretation: Sinus with new T wave inversions V4 to V6. Repeat EKG T wave inversion new V3. Imaging independently reviewed and interpreted by myself: N/A External documents reviewed: Stress and echocardiogram from 2 weeks ago normal. Test considered but not ordered:N/A ED course: Chest pains with new T wave inversions. Symptom-free. Aspirin by EMS. Initial troponin elevated at 638. Normal creatinine normal hemoglobin and platelets. Chest x-ray per radiology report negative. Unable to review due to downtime. Patient updated symptoms into her left shoulder blade EKG repeat T wave inversion on V3 there is no ST changes. Discussed with on-call marketing reps sports and entertainment Dr. Mandel, history and findings. Request Lovenox therapeutic. Plan for catheterization in the morning. Discussed with hospitalist service for admission. Re-evaluation: stable Disposition discussed with patient/family/significant other: Patient and significant other Case discussed with consulting clinician: Dr. Mandel, Dr. Menchaca Radiography Diagnostic Testing: Clinical Impression(s) from Imaging Studies Chest X-Ray 07/20/22 01:35 IMPRESSION: Chronic findings as noted above. No radiographic evidence of acute cardiopulmonary disease. Electronically Signed: Fly Fuentes MD at 2:51 EDT , Critical Care Time Critical Care Time: Yes Critical care time (excluding procedures): 30-74 minutes, Discussing w/Patient &/or Family/Product Development Consultant, Discussing w/Consultants, Arranging Admission or Transfer and Performing Direct Patient Care at Bedside Discharge Plan Dx/Rx/DC Orders Clinical Impression: Non-ST elevation UT (NSTEMI), Chest pain, Acute coronary syndrome Disposition Disposition: Acute Care [facility]
--- NOTE | 2022-07-20 07:01 | PCM.CONS.C ---
Assessment & Plan Assessment/Plan (1) Non-ST elevation [place] (NSTEMI): PLAN: She presented with a non-ST elevation myocardial infarction and underwent a cardiac catheterization this morning which demonstrated high-grade LAD lesion. She also had a moderate right coronary artery lesion. She will undergo PCI of the above and afterwards will be treated with beta-johnna and high intensity statin. (2) LBBB (left bundle branch block): PLAN: She has a left bundle branch block which appears to be new. We will continue current medical therapy. Thank you for allowing me to participate in the care of your patient. Please don't hesitate to call if any issues arise. HPI Consult Data Date of Consult: 07/20/22 HPI Narrative HPI Narrative: THOMAS HARDY, is a 76 F who presents to the emergency room complaining of chest discomfort radiating to her left arm and the left side of her jaw. She had been seen in the cardiology office in May of this year with no previous cardiac history who has been having some epigastric discomfort and thought that it was time for her to get a cardiac evaluation done.? She does have a history of hypertension as well as some shortness of breath with exertion.? She has also gained a significant amount of weight.? She did have a coronary calcium score performed in May 2018 demonstrating a total calcium score of 0.? She also had a lipid profile performed with a total cholesterol 254 HDL of 64 and LDL of 162.? She has not been tolerant of any statins.? She has had no dizziness or diaphoresis no near syncope or syncope.? Her physical exam here today demonstrates clear lung paula regular rate and rhythm and no pedal edema.? An electrocardiogram done demonstrated sinus rhythm with a rate of 73 bpm and left bundle branch block which is new. She underwent a pharmacologic myocardial perfusion stress test which was noted to be normal. She has had some stress in her family but then presented to the emergency room her EKG demonstrated left bundle branch block and her cardiac enzymes came back as abnormal. [facility] Medical History Acute flank pain Anxiety COVID-19 Epigastric pain Gastric reflux Hearing problem History of stress test Lower abdominal pain Non-smoker Seasonal allergies Trigger finger Home Medications albuterol sulfate 90 mcg/actuation aerosol inhaler 2 inh inhalation Q8H shortness of breath or wheezing 05/11/22 [History Last Taken 07/19/22] ergocalciferol (vitamin D2) 1,250 mcg (50,000 unit) capsule 50,000 unit PO QWEEK supplement 07/20/22 [History Last Taken Unknown] fluticasone propionate 110 mcg/actuation HFA aerosol inhaler (Flovent HFA) See Rx Instructions inhalation .COMPLEX shortness of breath 07/20/22 [History Last Taken Unknown] lisinopril 10 mg tablet 10 mg PO DAILY blood pressure 07/20/22 [History Last Taken 07/19/22] omeprazole 40 mg capsule,delayed release 40 mg PO DAILY GI 07/20/22 [History Last Taken 07/19/22] Allergy/AdvReac Type Severity Reaction Status Date / Time shellfish derived Allergy Severe SOB Verified 06/15/22 09:41 amoxicillin Allergy Unknown Verified 06/15/22 09:41 erythromycin base Allergy Unknown Verified 06/15/22 09:41 [From Staticin] ethyl alcohol [From Staticin] Allergy Unknown Verified 06/15/22 09:41 Penicillins Allergy Unknown Verified 06/15/22 09:41 Sulfa (Sulfonamide Allergy Unknown Verified 06/15/22 09:41 Antibiotics) [id number] Reductase AdvReac Pain in Verified 07/20/22 05:36 Inhibitor joints Family History Mother Colon cancer Cancer Heart disease Grandmother Colon cancer Cancer Sister Cancer Brother Heart disease Mental disorder Father , 85 yrs old Dementia Surgical History History of carpal tunnel release History of cataract extraction History of tonsillectomy Social History Smoking Status: Never smoker alcohol intake: never substance use type: does not use what type of physical activity do you participate in: none ROS Constitutional Constitutional: Denies fever(s) or weight loss Eyes Eyes: Reports systems reviewed and no addt'l complaints, except as documented ENT HEENT: Reports systems reviewed and no addt'l complaints, except as documented Cardiovascular Cardiovascular: Reports chest pain at rest; Denies chest pain with activity, dyspnea at rest, dyspnea on exertion, edema, palpitations or paroxysmal nocturnal dyspnea Respiratory/Chest Respiratory/Chest: Denies dyspnea on exertion, productive cough, shortness of breath at rest or shortness of breath with exertion Gastrointestinal Gastrointestinal: Denies change in bowel habits, nausea, vomiting or weight changes Genitourinary Genitourinary: Denies difficulty urinating Musculoskeletal Musculoskeletal: Denies joint stiffness or muscle weakness Integumentary Integumentary: Denies lesions Neurologic Neurologic: Denies dizziness or syncope Psychiatric Psychiatric: Denies anxiety Endocrine Endocrinology: Denies excessive sweating or fatigue Hematologic/Lymphatic Hematologic/Lymphatic: Denies anemia Allergic/Immunologic Allergic/Immunologic: Denies seasonal rhinorrhea Physical Exam Const alert, oriented x3 and no apparent distress General Appearance: cooperative HEENT hearing grossly normal bilaterally Head and Scalp: atraumatic Eyes EOMs intact bilaterally Neck General: normal visual inspection Chest inspection of chest normal and palpation of chest normal Resp normal respiratory effort Auscultation: clear to auscultation bilaterally Cardio regular rate, regular rhythm, S1 normal heart sound and S2 normal heart sound Jugular Venous Distention: JVD GI normal to inspection, nondistended, normoactive bowel sounds Extremity normal capillary refill and no pedal edema Peripheral Pulses: Yes pulses 2+ throughout and femoral pulses present Skin no rashes or lesions noted Neuro oriented x3 and CN's II-XII intact bilaterally Psych Appearance: grossly normal and appropriate Risk Stratification Risk Stratification Applicable: Yes Age >/= 65: Yes >/= 3 CAD Risk Factors (HTN, HLD, DM, family hx of CAD, or current smoker): Yes Aspirin Use in the Past 7 Days: No Severe Angina (>/= episodes in 24 hours): Yes EKG ST Changes >/= 0.5mm: No Positive Cardiac Marker: Yes JOSEFA Risk Stratification Score: 4 JOSEFA % Risk: 20% Risk Objective Data Vital Signs: Vital Signs Temp Pulse Resp BP Pulse Ox O2 Del Method 97.8 F 91 15 152/82 H 97 Room Air 07/20/22 03:37 07/20/22 03:37 07/20/22 03:37 07/20/22 03:37 07/20/22 03:37 07/20/22 03:37 Oxygen Delivery Method Room Air Weight: 167 lb 15.876 oz Body Mass Index (BMI) 31.7 Lab / Micro Data Result Diagrams: 07/20/22 07:45 07/20/22 07:45 Cardiology Labs/Tests Rhythm: EKG: ECHO: Stress Test: Cardiac Cath: PCI: CT Surgery: Holter monitor: EPS: PPM: CXR: Chest CT Scan: Radiography Diagnostic Testing: Radiology Impression Chest X-Ray 07/20/22 01:35 IMPRESSION: Chronic findings as noted above. No radiographic evidence of acute cardiopulmonary disease. Electronically Signed: Fly Fuentes MD at 2:51 EDT ,
--- NOTE | 2022-07-20 07:58 | NURSING ---
to lab aide per bed pt family lizbet
[2022-07-20 07:59] LABS: Absolute Lymphocyte Count 2.63 X10^3/uL (0.83-4.51); Absolute Neutrophil Count 5.1 X10^3/uL (2.0-7.7); Basophil# 0.05 X10^3/uL; Basophil% 0.6 % (0-1); Eosinophil# 0.13 X10^3/uL; Eosinophils% 1.5 % (0-5); Hematocrit 39.3 % (37-47); Hemoglobin 12.8 g/dL (12.0-15.0); Lymphocyte # 2.63 X10^3/ul (0.83-4.51); Lymphocyte % 30.9 % (19-41); Mean Corp Hgb Conc 32.6 g/dL (32-36); Mean Corpuscular Hgb 27.9 pg (27.0-32.0); Mean Corpuscular Volume 85.6 fL (81-99); Mean Platelet Vol. 11.2 fl (6.2-12.0); Monocyte# 0.59 X10^3/uL; Monocyte% 6.9 % (0-10); NRBC Flagged by Analyzer 0 % (0-5); Neutrophil # 5.08 X10^3/uL (2.7-7.7); Neutrophil % 59.7 % (47-70); Platelet Count 258 K/mm3 (150-450); RBC Distribution Width CV 14.2 % (11.6-14.6); RBC Distribution Width SD 44.5 fl (35.1-43.9); Red Blood Count 4.59 M/mm3 (4.2-5.4); White Blood Count 8.5 K/mm3 (4.4-11.0)
[2022-07-20 08:26] LABS: Anion Gap 5 (5-15); BUN 18 mg/dL (7-18); BUN/Creat Ratio 24.5 RATIO (10-20); Calcium,Total 8.3 mg/dL (8.5-10.1); Chloride 113 mmol/L (98-107); Cholesterol 252 mg/dL (200); Creatinine, Serum 0.74 mg/dL (0.55-1.02); EST Glomerular Filtration Rate 82 mL/min (>60); Est Glom Filt Rate - Afr Amer 99 mL/min (>60); Estimated Creatinine Clearance 36.12 ml/min; Glucose 107 mg/dL (74-106); High Density Lipoprotein 59 mg/dL; Potassium 4.1 mmol/L (3.5-5.1); Sodium Level 144 mmol/L (136-145); Triglycerides 110 mg/dL; Very Low Density Lipoprotein 22 mg/dL (5-40)
[2022-07-20 08:31] LABS: Troponin-I HS 2213 pg/mL (3.0-54.0)
--- NOTE | 2022-07-20 09:30 | PN.HOSP_ITS ---
Reason for Visit Reason for Visit: Diagnoses Non-ST elevation (NSTEMI) myocardial infarction (07/20/22) Left bundle-branch block, unspecified (07/20/22) Subjective Subjective Presently laying in bed not having chest pain but when she was up moving earlier had some tingling to her back and arm as she had prior to arrival. 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 Objective Data Objective Data Vital Signs: Vital Signs Temp Pulse Resp BP Pulse Ox O2 Del Method 97.6 F L 83 16 150/77 H 97 Room Air 07/20/22 07:34 07/20/22 07:34 07/20/22 07:34 07/20/22 07:34 07/20/22 07:34 07/20/22 07:38 Oxygen Delivery Method Room Air Weight: 76.2 kg Body Mass Index (BMI) 31.7 Lab / Micro Data Result Diagrams: 07/20/22 07:45 07/20/22 07:45 Labs: Laboratory Results - last 24 hr 07/20/22 07:45: WBC 8.5, RBC 4.59, Hgb 12.8, Hct 39.3, MCV 85.6, MCH 27.9, MCHC 32.6, RDW Std Deviation 44.5 H, RDW Coeff of Cesar 14.2, Plt Count 258, MPV 11.2, Immature Gran % (Auto) 0.400, Neut % (Auto) 59.7, Lymph % (Auto) 30.9, Perkins % (Auto) 6.9, Eos % (Auto) 1.5, Baso % (Auto) 0.6, Absolute Neuts (auto) 5.1, Absolute Lymphs (auto) 2.63, Nucleated RBC % 0 07/20/22 07:45: Sodium 144, Potassium 4.1, Chloride 113 H, Carbon Dioxide 26.0, Anion Gap 5, BUN 18, Creatinine 0.74, Estim Creat Clear Calc 36.12, Est GFR (MDRD) Af Amer 99, Est GFR (MDRD) Non-Af 82, BUN/Creatinine Ratio 24.5 H, Glucose 107 H, Calcium 8.3 L, Triglycerides 110, Cholesterol 252 H, LDL Cholesterol 171 H, VLDL Cholesterol 22, HDL Cholesterol 59 07/20/22 07:45: Troponin I High Sens 2213 H* Radiography Diagnostic Testing: Radiology Impression Chest X-Ray 07/20/22 01:35 IMPRESSION: Chronic findings as noted above. No radiographic evidence of acute cardiopulmonary disease. Electronically Signed: Fly Fuentes MD at 2:51 EDT , Physical Exam Narrative General: Alert, oriented, no apparent distress HEENT: Atraumatic, normocephalic Eyes: Anicteric, normal conjunctiva, extraocular movements grossly intact Neck: Supple Respiratory: Clear to auscultation bilaterally, normal respiratory effort Cardiovascular: Regular rate and rhythm GI: Soft, nontender, nondistended Extremities: No edema Musculoskeletal: Moving all extremities Neuro: No overt focal neurological deficits Skin: No rashes appreciated Psych: Tearful Assessment & Plan Assessment/Plan (1) Non-ST elevation [place] (NSTEMI): (2) LBBB (left bundle branch block): PLAN: Plan #NSTEMI -Concern for type I with chest pain and elevated troponin -Heart cath with high-grade LAD lesion and moderate RCA -We will undergo PCI and be medically treated with beta-johnna high intensity statin -Continue aspirin as well, Brilinta, lisinopril -Cardiology following -Echo ordered #GERD -Continue PPI #DVT ppx: SCDs Didi Cox MD Time spent in the patient's overall evaluation,decision-making process, review of diagnostic data, adjustment of management, discussion with other providers, nursing nursing and ancillary staff involved in patient's care documentation, 30 minutes Charges/Coding Visit Charges Inpatient E&M: 13180 [facility] L2
--- NOTE | 2022-07-20 10:00 | EKG12_ITS ---
Test Reason : AM EKG Blood Pressure : / mmHG Vent. Rate : 074 BPM Atrial Rate : 074 BPM P-R Int : 128 ms QRS Dur : 118 ms QT Int : 484 ms P-R-T Axes : 033 011 145 degrees QTc Int : 537 ms Normal sinus rhythm Incomplete left bundle branch block ST & T wave abnormality, consider anterolateral ischemia Prolonged QT Abnormal ECG When compared with ECG of 20-JUL-2022 03:47, MANUAL COMPARISON REQUIRED, DATA IS UNCONFIRMED Confirmed by BRENDA NEELY, MANDY ([id number]), commissioning editor AMA TALAVERA ([id number]) on 07/21/2022 1:31:15 PM Referred By: Confirmed By:MANDY GUTIERREZ MD
[2022-07-20 10:02] LABS: BUN 22 mg/dL (7-18); BUN/Creat Ratio 27.2 RATIO (10-20); Creatinine, Serum 0.81 mg/dL (0.55-1.02); EST Glomerular Filtration Rate 73 mL/min (>60); Est Glom Filt Rate - Afr Amer 88 mL/min (>60); Estimated Creatinine Clearance 44.59 ml/min; Glucose 115 mg/dL (74-106)
[2022-07-20 10:04] LABS: Chloride 112 mmol/L (98-107); Potassium 3.9 mmol/L (3.5-5.1); Sodium Level 143 mmol/L (136-145); Troponin-I HS 658 pg/mL (3.0-54.0)
[2022-07-20 10:05] LABS: Anion Gap 5 (5-15)
[2022-07-20 10:07] LABS: Troponin-I HS 1648 pg/mL (3.0-54.0)
[2022-07-20] MEDS: 0.9% Normal Saline 1,000 ML 70 ML IV (10:18)
[2022-07-20 10:26] LABS: Absolute Lymphocyte Count 2.16 X10^3/uL (0.83-4.51); Absolute Neutrophil Count 3.5 X10^3/uL (2.0-7.7); Basophil# 0.04 X10^3/uL; Basophil% 0.6 % (0-1); Eosinophil# 0.19 X10^3/uL; Hematocrit 35.8 % (37-47); Lymphocyte # 2.16 X10^3/ul (0.83-4.51); Lymphocyte % 33.8 % (19-41); Mean Corp Hgb Conc 33.5 g/dL (32-36); Mean Corpuscular Hgb 28.7 pg (27.0-32.0); Mean Corpuscular Volume 85.6 fL (81-99); Mean Platelet Vol. 10.6 fl (6.2-12.0); Monocyte# 0.53 X10^3/uL; Monocyte% 8.3 % (0-10); NRBC Flagged by Analyzer 0 % (0-5); Neutrophil # 3.46 X10^3/uL (2.7-7.7); Neutrophil % 54.1 % (47-70); Platelet Count 219 K/mm3 (150-450); RBC Distribution Width CV 14.2 % (11.6-14.6); Red Blood Count 4.18 M/mm3 (4.2-5.4); White Blood Count 6.4 K/mm3 (4.4-11.0)
[2022-07-20] MEDS: Carvedilol 3.125 MG TABLET PO ×2 (11:13→20:58)
[2022-07-20] MEDS: Lisinopril 5 MG Tablet PO (11:13)
[2022-07-20] MEDS: Pantoprazole Sodium 40 MG Tablet PO (11:13)
--- NOTE | 2022-07-20 11:18 | CL.D_ITS ---
Patient Name: THOMAS HARDY Study Date: 07/20/2022 Performing: Jaxon Mandel MD Ht: 61 inches 154.94 cm : 1945 Wt: 167.99 lbs 76.2 kg Age: 76 Gender: female BSA: 1.75 PROCEDURE(S) PERFORMED DC01-(34471)LHC/COR/LV IC12-(22938/C9600)JUSTINO W/WO PTCA, SINGLE CORONARY ARTERY CLINICAL PROFILE AND INDICATIONS Indications: Worsening Angina Heart Failure: None Stress/Imaging Date: 07/06/22Stress Test with SPECT MPI: Negative CAD Presentations: Non-STEMI. Symptom onset Date/Time: 07/20/22 Time Not Available CONCLUSIONS High-grade single-vessel LAD disease with mild to moderate right coronary artery stenosis. Left ventricular systolic dysfunction out of proportion to coronary disease. RECOMMENDATIONS Referred for immediate PCI DESCRIPTION OF PROCEDURE The patient arrived to the procedure lab. The risks and benefits of the procedure as well as a full description of our services here and current unavailability of surgical backup were fully explained to the patient and/or their significant other prior to the catheterization. The Timeout was completed, verifying the correct patient and procedure. The patient's procedural site was prepped and draped in the usual fashion. Local anesthetic was given subcutaneously to right radial region with Lidocaine 2%. Using a modified Seldinger technique, arterial access was obtained via the right radial artery, a 6Fr sheath was inserted. Left Coronary Artery selective angiography was performed in multiple views using a 5 Fr. 4.0 [place] catheter. Right Coronary Artery selective angiography was then performed in multiple views using a 5 Fr. 4.0 [place] catheter. Left Ventriculography was performed in MAYA projection using a 5 Fr. Pigtail catheter. LV to AO pullback pressures were then recorded.The arterial sheath was pulled and a TR Band was applied for hemostasis w/ 9ml air CORONARY ANGIOGRAPHY DOMINANCE: Right Dominant LEFT HEART ASSESSMENT Left Ventricular Ejection Fraction: by LV Gram 40 % Anterior Hypokinesis - Severe Depressed Left Ventricular systolic function Consistent with Takotsubo cardiomyopathy. LEFT MAIN: Angiographically normal LEFT ANTERIOR DESCENDING ARTERY: MID LAD: EcCentric 80% soft plaque stenosis. CIRCUMFLEX ARTERY: Angiographically normal RIGHT CORONARY ARTERY: Moderate 40% significant disease noted COMPLICATIONS No Complications PROCEDURE MEDICATIONS Versed 1 mg IV Fentanyl 50 mcg IV Oxygen: 2 L/min via nasal cannula Baby Aspirin (81mg) 1 Tabs PO 07/20/2022 08:14:00 Benadryl 50 mg IV 07/20/2022 08:14:08 Brilinta 180 mg PO @ 07/20/2022 08:49:14 Heparin given IA 07/20/2022 08:26:17 Heparin 3000 unit(s) IV 07/20/2022 09:06:20 Nitro 100 mcg IC 07/20/2022 09:09:16 Solu-medrol 125 mg IV 07/20/2022 08:14:17 SUMMARY OF HEMODYNAMIC DATA Time AIR REST ECG 08:07:10 AO 151/83 (113) SA 08:40:52 LV 152/36, 44 08:46:16 LV 158/38, 45 08:46:23 LV 163/40, 48 08:46:51 LV 142/36, 44 08:47:30 LV 158/40, 46 08:47:38 LVp 161/41, 53 08:47:43 AOp 164/99 (127) 08:47:48 AO 174/99 (131) 09:00:17 Signed By Jaxon Mandel MD On 07/20/2022 11:17:43 Signed By Jaxon Mandel MD On 07/20/2022 08:57:44 Jaxon Mandel MD
--- NOTE | 2022-07-20 11:19 | CL.I_ITS ---
Patient Name: THOMAS HARDY Study Date: 07/20/2022 Performing: Elías Rubalcava MD Ht: 61 inches 154.94 cm : 1945 Wt: 167.99 lbs 76.2 kg Age: 76 Gender: female BSA: 1.75 PROCEDURE(S) PERFORMED IC12-(25553/C9600)JUSTINO W/WO PTCA, SINGLE CORONARY ARTERY CLINICAL PROFILE AND CO-MORBIDITIES Indications: Worsening Angina Heart Failure: None Stress/Imaging Date: 07/06/22 Stress Test with SPECT MPI: Negative CAD Presentations: Non-STEMI. Symptom onset Date/Time: 07/20/22 Time Not Available CONCLUSIONS Successful JUSTINO to mLAD RECOMMENDATIONS DESCRIPTION OF PROCEDURE The patient arrived to the procedure lab. The risks and benefits of the procedure as well as a full description of our services here and current unavailability of surgical backup were fully explained to the patient and/or their significant other prior to the catheterization. The Timeout was completed, verifying the correct patient and procedure. The patient's procedural site was prepped and draped in the usual fashion. Local anesthetic was given subcutaneously to right radial region with Lidocaine 2% Using a modified Seldinger technique,arterial access was obtained via the right radial artery, a 6Fr sheath was inserted. Left Coronary Artery selective angiography was performed in multiple views using a 5 Fr. 4.0 [place] catheter. Right Coronary Artery selective angiography was then performed in multiple views using a 5 Fr. 4.0 [place] catheter. Left Ventriculography was performed in MAYA projection using a 5 Fr. Pigtail catheter. LV to AO pullback pressures were then recorded.The images were reviewed and options discussed. A decision was then made to proceed with an Intervention, IVUS or other adjunct procedure. XB 3.0 Guide catheter was inserted and engaged into the LCA. BMW Guide wire was advanced to the LAD. Resolute Nithin 2.75x12 Drug Eluting stent was inserted. Angiogram performed post stent deployment. The arterial sheath was pulled and a TR Band was applied for hemostasis w/ 9ml air INTERVENTION INFORMATION LESION SITE: LAD (Mid) Lesion Complexity: High/C, chronic total occlusion: No, lesion at bifurcation: No, thrombus present: No, lesion length: 11 mm, culprit lesion: No, Previously treated lesion: No Pre Stenosis: 80 % Pre intervention JOSEFA flow: 3 PROCEDURE: Drug Eluting Stent Post Stenosis: 0 % Post intervention JOSEFA flow: 3 Lesion Devices: Monae .014 190cm BMW Brillion Straight Cordis 6 Fr XB3.0 100cm Guide Catheter Medtronic Resolute Nithin RX JUSTINO 2.75x12 COMPLICATIONS No Complications PROCEDURE MEDICATIONS Versed 1 mg IV Fentanyl 50 mcg IV Oxygen: 2 L/min via nasal cannula Baby Aspirin (81mg) 1 Tabs PO 07/20/2022 08:14:00 Benadryl 50 mg IV 07/20/2022 08:14:08 Brilinta 180 mg PO @ 07/20/2022 08:49:14 Heparin given IA 07/20/2022 08:26:17 Heparin 3000 unit(s) IV 07/20/2022 09:06:20 Nitro 100 mcg IC 07/20/2022 09:09:16 Solu-medrol 125 mg IV 07/20/2022 08:14:17 SUMMARY OF HEMODYNAMIC DATA Time AIR REST ECG 08:07:10 AO 151/83 (113) SA 08:40:52 LV 152/36, 44 08:46:16 LV 158/38, 45 08:46:23 LV 163/40, 48 08:46:51 LV 142/36, 44 08:47:30 LV 158/40, 46 08:47:38 LVp 161/41, 53 08:47:43 AOp 164/99 (127) 08:47:48 AO 174/99 (131) 09:00:17 Signed By Elías Rubalcava MD On 07/20/2022 11:18:29 Signed By Elías Rubalcava MD On 07/20/2022 11:12:03 Elías Rubalcava MD
[2022-07-20] MEDS: Albuterol 2.5 MG/3 ML VIAL.NEB. INHALATION ×2 (11:20→19:09)
--- NOTE | 2022-07-20 12:18 | CRPHASE1_ITS ---
Patient Communication Former Patient:: Phase I PHII Cardiac Rehab Discussed with Patient:: Yes Guide to Cardiac Rehab Given to Patient:: Yes Cardiac Rehab Facility Choice List Given to Patient:: Yes Para Operator:: Tonia Rubalcava Refer Phase II Cardiac Rehab:: Yes Guide to Cardiac Rehab Mailed to Patient by CR Staff:: Yes Cardiac Rehabilitation Info Cardiac Rehabilitation Program Information: Cardiac Rehab The cardiac rehab team at [facility] consists of highly skilled exercise physiologists, nurses, respiratory therapists and physicians working together with you. Our purpose is to help you have a full recovery and achieve the goals you set for yourself. Over the years many of our patients have returned to activities they assumed they would never do again! We can help restore your confidence and motivation to make lifestyle changes that can have a significant impact on your health and quality of life! We can help answer questions and concerns you may have about exercise, lifestyle, medications, diet, stress and anxiety which are common following a hospitalization. WE monitor ECG and vital signs during exercise and discuss your progress with you and report to your physician(s). Cardiac Rehab is proven to help reduce readmissions, improve functional capacity and lower recurrence of problems with your heart. Our Cardiac Rehab program is Certified by the [place] [employer]-Vascular and Pulmonary [employer] (AACVPR) and Accredited by the [place] [employer] through our [facility]. You can contact us at . We invite you to call us with your questions or to get started in our program. If you have other questions or concerns be sure to ask your physician/provider during your follow-up visit. WE look forward to seeing you!
--- NOTE | 2022-07-20 12:19 | CRPH1.INSTRU ---
General Education CAD and cardiac anatomy and function:: Patient communicates acknowledgment Explanation of diagnoses and procedures:: Patient communicates acknowledgment Sign/Symptoms of [place]:: Patient communicates acknowledgment Antiplatelet therapy: Patient communicates acknowledgment Smoking Patient Nicotine/Smoking Risk Factors Are:: Non-smoker Recommendations Include:: Second-hand smoke recommendation Nicotine/Smoking Response Code:: Patient communicates acknowledgment Dyslipidemia Recommendations Include:: Lipid profile not available Dyslipidemia Response Code:: Patient communicates acknowledgment Overweight/Obesity Patient Overweight/Obesity Risk Factors Are:: Obesity - > or = 30 Recommendations Include:: Weight loss of 5-10%, Reduced calorie diet, Exercise 5-7 times/week Overweight/Obesity:: Patient communicates acknowledgment Hypertension Recommendations Include:: Maintain BP <130/85 Hypertension:: Patient communicates acknowledgment Heart Disease Recommendations Include:: Educated family members of their risk Heart Disease Response Code:: Patient communicates acknowledgment Diabetes Patient Diabetes Risk Factors Are:: No documented hx of diabetes Diabetes:: Patient communicates acknowledgment Metabolic Syndrome Recommendations Include:: Does not meet criteria Metabolic Syndrome Response Code:: Patient communicates acknowledgment Sedentary Recommendations Include:: Benefits of regular exercise, Monitored Outpatient Cardiac Rehab Sedentary Response Code:: Patient communicates acknowledgment Stress Recommendations Include:: Identification of stressors, and assessment of coping skills, Stress management techniques Stress Response Code:: Patient communicates acknowledgment
--- NOTE | 2022-07-20 14:30 | CASEMGMT ---
RN CM Face to Face with patient for initial transition planning/care coordination assessment. RN CM introduced self and role at [facility]. Patient lying in bed, alert and oriented. Patient willing to participate in assessment and is able to answer all questions appropriately. Care providers, pharmacy, and demographics verified. Patient wishes to discharge home, denies need for home health at this time. Patient states she has no further needs or concerns at this time. CM to follow for discharge planning needs that may arise. PCP: Bladimir Specialists: Ministerio ore grader Preferred Pharmacy: [email or web address] Insurance: [facility] Prescription Benefit: yes Living Will/HPOA: yes, Elvis Cheema LNOK: , son Living Arrangements: Patient lives with in a single story home with 2 steps to enter the home. Patient states she is independent at home. Transportation: self, DME/HHC: Patient denies DME in the home. No preivous HHC or SNF. Disposition Plan: Patient to discharge home with family support and follow-up plans in place. Sri GUTIERREZ, RN, CM
[2022-07-20] MEDS: TICAGRELOR 90 MG TABLET PO (20:58)
[2022-07-21 03:00] VITALS: BP 145/78; PULSE 95; RESP 17; TEMP 36.6; O2SAT 98
[2022-07-21] MEDS: Albuterol 2.5 MG/3 ML VIAL.NEB. INHALATION ×2 (03:37→10:28)
[2022-07-21 03:38] VITALS: PULSE 75; RESP 18
[2022-07-21 05:48] LABS: Hematocrit 40.2 % (37-47); Hemoglobin 13.1 g/dL (12.0-15.0); Mean Corp Hgb Conc 32.6 g/dL (32-36); Mean Corpuscular Volume 85.9 fL (81-99); Mean Platelet Vol. 11.3 fl (6.2-12.0); Platelet Count 279 K/mm3 (150-450); RBC Distribution Width CV 14.2 % (11.6-14.6); Red Blood Count 4.68 M/mm3 (4.2-5.4); White Blood Count 14.7 K/mm3 (4.4-11.0)
[2022-07-21 06:29] LABS: ALB/GLOB Ratio 1.1 RATIO (0.9-2.4); AST(SGOT) 17 U/L (15-37); Alanine Aminotransfer ALT/SGPT 27 U/L (13-56); Albumin, Serum 3.1 g/dL (3.2-5.0); Alkaline Phosphatase 95 U/L (45-117); Anion Gap 8 (5-15); BUN 19 mg/dL (7-18); BUN/Creat Ratio 22.3 RATIO (10-20); Calcium,Total 8.6 mg/dL (8.5-10.1); Chloride 110 mmol/L (98-107); Creatinine, Serum 0.85 mg/dL (0.55-1.02); EST Glomerular Filtration Rate 69 mL/min (>60); Est Glom Filt Rate - Afr Amer 83 mL/min (>60); Estimated Creatinine Clearance 42.49 ml/min; Globulin 2.9 g/dL (2.2-4.2); Glucose 109 mg/dL (74-106); Sodium Level 143 mmol/L (136-145)
[2022-07-21 09:00] VITALS: BP 128/106; PULSE 70; RESP 18; TEMP 36.6; O2SAT 98
[2022-07-21] MEDS: Aspirin E.C. 81 MG Tablet PO (09:13)
[2022-07-21] MEDS: Pantoprazole Sodium 40 MG Tablet PO (09:14)
[2022-07-21] MEDS: TICAGRELOR 90 MG TABLET PO (09:14)
[2022-07-21] MEDS: Carvedilol 3.125 MG TABLET PO (09:14)
[2022-07-21] MEDS: Lisinopril 5 MG Tablet PO (09:14)
[2022-07-21 10:28] VITALS: PULSE 80; RESP 18; O2SAT 99
--- NOTE | 2022-07-21 11:59 | DS.PCM_ITS ---
Providers Date of Admission: 07/20/22 Date of Discharge: 07/21/22 Primary Care Physician: Dr. Claudette Garrison MD Consultations 07/20/22 05:37 Consult: Cardiology Routine Consulting Provider: Ancelmo Menchaca Reason for Consult: NSTEMI EMERGENT Consult: No MD Notified: Yes Date Notified: 07/20/22 Time Notified: 05:37 Method of Notification: ED Physician Initiated Reason For Visit: NSTEMI Diagnosis Discharge Diagnosis (1) Non-ST elevation NV (NSTEMI): Status: Acute Code(s): I21.4 - Non-ST elevation (NSTEMI) myocardial infarction (2) LBBB (left bundle branch block): Status: Acute Code(s): I44.7 - Left bundle-branch block, unspecified (3) History of coronary artery stent placement: Status: Acute Code(s): Z95.5 - Presence of coronary angioplasty implant and graft (4) Takotsubo cardiomyopathy: Status: Acute Code(s): I51.81 - Takotsubo syndrome Plan #NSTEMI type I #Coronary artery disease with stent to LAD 07/20/2022 Medications at Discharge Home Medications albuterol sulfate 90 mcg/actuation aerosol inhaler 2 inh inhalation Q8H shortness of breath or wheezing 05/11/22 ergocalciferol (vitamin D2) 1,250 mcg (50,000 unit) capsule 50,000 unit PO QWEEK supplement 07/20/22 fluticasone propionate 110 mcg/actuation HFA aerosol inhaler (Flovent HFA) See Rx Instructions inhalation .COMPLEX shortness of breath 07/20/22 lisinopril 10 mg tablet 10 mg PO DAILY blood pressure 07/20/22 omeprazole 40 mg capsule,delayed release 40 mg PO DAILY GI 07/20/22 aspirin 81 mg tablet,delayed release 81 mg PO BREAKFAST 30 days #30 tabs carvedilol 3.125 mg tablet 3.125 mg PO BID 30 days #60 tabs 07/21/22 ticagrelor 90 mg tablet (Brilinta) 90 mg PO BID 30 days #60 tabs 07/21/22 Hospital Course Procedures - (Heart cath) Summary of Care Provided Minutes Spent on Discharge: 32 Hospital Course: 76-year-old female with history of anxiety presented to [facility] 07/19/2022 due to left-sided chest pain that started at 3 PM that day and at 11 PM she had left arm and jaw pain and presented to the hospital. She was given aspirin and EMS and was symptom-free at the time of evaluation. Had normal pharmacologic stress test 2 weeks prior but in ED had elevated troponin of 638 and EKG with T wave inversions on V3 but no ST changes. Given therapeutic Lovenox and cardiology consulted. She had heart cath with high- grade single-vessel LAD disease with mild to moderate right coronary artery stenosis and an EF of 40% with anterior hypokinesis consistent with Takotsubo cardiomyopathy. She had PCI to LAD and started on aspirin, Brilinta, lisinopril. Discussed with cardiology and they can repeat formal echo in 3 months. On day of discharge patient feeling well with no complaints and symptoms completely resolved. Discharge instructions as follows: -You will need to follow-up with cardiology upon discharge, please call the office of Dr. Mandel upon discharge to schedule your hospital follow-up appointment ) -Several additional medications been added to your medication list.? You will need to take carvedilol and Brilinta twice daily and aspirin 81 mg once daily.? These prescriptions have been sent to [facility] pharmacy on file -Do only light and easy activities for 2 to 3 days after your stent placement, ask for help with chores and errands while you recover and have someone drive you to your appointments. -Unless your job involves lifting you may return to normal activities within 2 days -Please take your medications as prescribed, do not skip doses -Check your incisions every day for signs of infection which would include redness, swelling, leaking.? It is normal to have a small bruise or bump where the catheter was placed but a bruise that is getting larger is not normal.? Please tell your healthcare team about this.? Please proceed to the emergency department if you have uncontrollable bleeding from the site. -It is important to eat a diet that is low in fat, salt, and cholesterol -You will be set up with cardiac rehab upon discharge, it is important that you follow-up -Okay to shower from the day after your heart catheterization but keep your incision site clean and dry. -Please call your primary care provider's office upon discharge to schedule a hospital follow up within 1 week. -For any concerning signs or symptoms please call 911 or proceed to the nearest emergency department Physical Exam Narrative General: Alert, oriented, no apparent distress HEENT: Atraumatic, normocephalic Eyes: Anicteric, normal conjunctiva, extraocular movements grossly intact Neck: Supple Respiratory: Clear to auscultation bilaterally, normal respiratory effort Cardiovascular: Regular rate and rhythm GI: Soft, nontender, nondistended Extremities: No edema Musculoskeletal: Moving all extremities Neuro: No overt focal neurological deficits Skin: No rashes appreciated Psych: Cooperative Weight / BMI Weight Weight: 76.2 kg Body Mass Index (BMI) 31.7 ABG / Lab / Microbiology Data Result Diagrams: 07/21/22 05:32 07/21/22 05:32 Laboratory: Laboratory Results - last 24 hr 07/21/22 05:32: WBC 14.7 H, RBC 4.68, Hgb 13.1, Hct 40.2, MCV 85.9, MCH 28.0, MCHC 32.6, RDW Std Deviation 44.0 H, RDW Coeff of Cesar 14.2, Plt Count 279, MPV 11.3 07/21/22 05:32: Sodium 143, Potassium 4.0, Chloride 110 H, Carbon Dioxide 25.0, Anion Gap 8, BUN 19 H, Creatinine 0.85, Estim Creat Clear Calc 42.49, Est GFR (MDRD) Af Amer 83, Est GFR (MDRD) Non-Af 69, BUN/Creatinine Ratio 22.3 H, Glucose 109 H, Calcium 8.6, Total Bilirubin 0.70, AST 17, ALT 27, Alkaline Phosphatase 95, Total Protein 6.0 L, Albumin 3.1 L, Globulin 2.9, Albumin/Globulin Ratio 1.1 D/C Instructions Discharge Diet: - (DASH diet) Call your doctor if your incision/area has: Increased Redness and Foul Smelling Discharge Call your doctor if you observe: Fever of 101 or Higher, Numbness or Tingling, Dizziness, Chest pain and Increased palpitations (irregular heartbeat) Meaningful Use Info Meaningful Use Diagnoses (Choose all that apply): AMI AMI/Post PCI/Angioplasty Aspirin given w/in 24hrs of arrival?: Yes ASA at discharge?: Yes Statins at discharge?: Yes Neo/ARB at discharge?: Yes Beta Donnell at discharge?: Yes Done w/ Acute NV measure.: Yes Discharge Plan Admission Admit Date/Time: 07/20/22 05:35 Primary Reason for Your Visit: Chest pain Attending Provider: Didi Cox Primary Care Provider: Claudette Garrison Consulting Providers: Ancelmo Menchaca Instructions Patient Instructions: Heart Attack Dc Additional Instructions / Restrictions: DISCHARGE INSTRUCTIONS PLEASE READ *Please take this with you to your next doctors appointment* -You will need to follow-up with cardiology upon discharge, please call the office of Dr. Mandel upon discharge to schedule your hospital follow-up appointment ) -Several additional medications been added to your medication list. You will need to take carvedilol and Brilinta twice daily and aspirin 81 mg once daily. These prescriptions have been sent to [facility] pharmacy on file -Do only light and easy activities for 2 to 3 days after your stent placement, ask for help with chores and errands while you recover and have someone drive you to your appointments. -Unless your job involves lifting you may return to normal activities within 2 days -Please take your medications as prescribed, do not skip doses -Check your incisions every day for signs of infection which would include redness, swelling, leaking. It is normal to have a small bruise or bump where the catheter was placed but a bruise that is getting larger is not normal. Please tell your healthcare team about this. Please proceed to the emergency department if you have uncontrollable bleeding from the site. -It is important to eat a diet that is low in fat, salt, and cholesterol -You will be set up with cardiac rehab upon discharge, it is important that you follow-up -Okay to shower from the day after your heart catheterization but keep your incision site clean and dry. -Please call your primary care provider's office upon discharge to schedule a hospital follow up within 1 week. -For any concerning signs or symptoms please call 911 or proceed to the nearest emergency department Discharge Orders/Prescriptions Prescriptions: New aspirin 81 mg Tablet,Delayed Release (Dr/Ec) 81 mg PO BREAKFAST 30 Days Qty: 30 0RF carvedilol 3.125 mg Tablet 3.125 mg PO BID 30 Days Qty: 60 0RF Brilinta 90 mg Tablet 90 mg PO BID 30 Days Qty: 60 0RF Continued albuterol sulfate 90 mcg/actuation HFA aerosol inhaler 2 inh inhalation Q8H ergocalciferol (vitamin D2) 1,250 mcg (50,000 unit) capsule 50,000 unit PO QWEEK Label Comments: 1 CAPSULE BY MOUTH ONCE WEEKLY omeprazole 40 mg capsule,delayed release(DR/EC) 40 mg PO DAILY lisinopril 10 mg tablet 10 mg PO DAILY fluticasone propionate [Flovent HFA] 110 mcg/actuation HFA aerosol inhaler See Rx Instructions inhalation .COMPLEX Rx Instructions: inhaled 4x daily; Name brand only 30 day supply 12 refills Referrals / Follow Up: Jaxon Mandel MD [Med Staff - Active Staff] - Within 2 Weeks (You will need to follow-up with cardiology upon discharge, please call the office of Dr. Mandel upon discharge to schedule your hospital follow-up appointment (ph [phone])) Claudette Garrison MD [Primary Care Provider] - Within 1 Week Disposition Disposition (needs filled in before D/C Order can be placed): Home, Self Care Charges/Coding Visit Charges Inpatient E&M: 70533 Disch Hosp >30min
--- NOTE | 2022-07-21 12:13 | CASEMGMT ---
Patient is discharging on Brilinta. Brilinta savings card provided to patient. Patient had no further questions or concerns at this time.
== END 2022-07-21 13:50 | disposition home or self-care (01) | DRG 247 ==
LOC: ED 04:43 → PCU 06:09
PROVIDERS: Specialist; Admitting Provider Hospitalist; Emergency Provider Emergency Medicine; PCP Internal Medicine; Visit Provider Internal Medicine
DX: I21.4 Non-ST elevation (NSTEMI) myocardial infarction (principal); I51.81 Takotsubo syndrome; I25.10 Atherosclerotic heart disease of native coronary artery without angina pectoris; I10 Essential (primary) hypertension; E78.5 Hyperlipidemia, unspecified; K21.9 Gastro-esophageal reflux disease without esophagitis; Z79.899 Other long term (current) drug therapy; Z95.5 Presence of coronary angioplasty implant and graft
CPT/HCPCS: 36415; 71046; 80048; 80053; 80061; 84484; 85025; 85027; 92928; 93005; 93458; 94640; 96372; 99152; 99153; 99285; J7030; A4216; C1769; C1874; C1887; C1894; C9600; J1327; Q9967

== ENCOUNTER → 2022-08-09 | Outpatient (CLI) | payer MEDICARE, SELFPAY ==
--- NOTE | 2022-08-09 14:08 | CR.ITP_ITS ---
Diagnosis - General Information Admitting Diagnosis: PCI w/coronary stenting Secondary Diagnosis: GERD, Hearing problems, Anxiety, COVID-19 2 years ago. Personal Learning Style:: Written Barriers to Learning: Hearing Impairment Stage of change r/t lifestyle modifications:: Action Gave educational material for:: Treating Heart Disease, Emotions & Heart Disease, Stress Management & Relaxation, Sleep Disorders & Heart Disease, How The Heart Works, What it means to have Heart Disease, How Coronary Artery Disease is Diagnosed, Heart Procedures, What Heart Medications Do, Risk Factors & Modifications, Living an Active Life, Nutrition - Education/Goals Individual Counseling: Initial Assessment: Overweight/Obesity Cardiac Rehabilitation Goals: 1. Maintain the individual as the primary focus of care. 2. To improve the patient's quality of life. 3. Identification of cardiac risk factors and provide cardiac risk factor management. 4. Enhance the psychosocial status of the patient. 5. Reconditioning enough to allow the patient to resume customary activities. 6. Control symptoms of cardiac disease Personal Goals: Initial Assessment: Improve management of stress and emotions, Improve energy level, Improve knowledge of cardiac disease, Improve muscle strength and endurance, Improve diet and eating habits (eat healthier), Control risk factors (learn risk factor modification) Scale for measuring improvement of personal goals: Enter appropriate number in Comments. 2 = Unchanged. 3 = Slightly Better. 4 = Moderate Improvement. 5 = Met my Goal - Diagnosis & Disease Process Outcomes/Goals: Pt IDs own risk factors & lifestyle modifications by Session 10, Verbalizes symptoms of angina & response by session 3., Pt independently manages Plan/Interventions: Assist Pt to ID & engage in lifestyle modification to reduce CVD risk, Instruct on individual risk factors, Review symptoms of angina & emergency actions, Review secondary diagnosis & identify educational needs. - Safety Referral to Physical Therapy: No Referral to [facility] Case Management: No Fall Risk Assessed:: Yes Assistive Devices:: None Exercise - Initial Assessment - Visit Date of Eval: 08/09/22 Session #:: 0 - Pre-cardiac rehab evaluation Mets: Pre-: >7 METS for 30 minutes by discharge - Physician Prescribed Exercise Modalities: Treadmill, Airdyne, NuStep Frequency: 3x/week for 12 weeks [36 sessions] Intensity: 60-80% of age predicted maximum heart rate reserve Duration: 30 - 45 minutes Current METSs:: 3.0 Target Heart Rate:: 86-101 Resting Blood Pressure: 128/77 EKG Type: NSR Current Physical Activity or Exercising minutes: Active during the day - Outcomes & Goals Goals:: Verbalizes understanding of THR, RPE & goal METS by session 6, Documents in home exercise log/reports 30 min aerobic 5 day/wk by DC, Demonstrates accurate pulse taking by DC - Intervention & Plan Exercise Program Goals: Instruct on personal THR & RPE, Instruct on MET level & personal MET goal, Show patient to take own pulse /validate performance until accurate, Instruct on home exercise - Physical Activity Home Exercise Physical Activity - Home Exercise: Safe Exercise, Warm-up, Self-monitoring, Cool-Down, Home Exercise > 30 min Daily, Sitting Time <3 hours/daily - Outcomes & Goals Outcomes/Goals: Demonstrates correct Warm-up/exercise Cool-Down (S3) if = 2.5 METs, Verbalizes symptoms of exercise intolerance by Session 3 (S3), Demonstrate safe equipment use (S3) & follows exercise prescrition (6) - Intervention & Plan Plan/Intervention: Instruct warm-up & cool-down if exercising at > 2 METs, Instruct on symptoms of exercise intolerance & actions to take, Instruct & monitor on saf, Assess intial functional capacity & safety risk Nutrition - Initial Assessment - Program Goals Nutrition Program Goals: LDL <100 optimal. 100 - 129 Near optimal. 130 - 159 Borderline High. 160 - 189 High. Total Cholesterol <200 desirable. 200 - 239 Borderline High. >/= 240 High. HDL < 40 Low >/=60 High. Triglycerides <150 desirable. <199 optimal. VlDL 5 - 40. HgbA1C <7%. BMI <25 Patient has diagnosis of Hyperlipidemia (ICD E78)?: Yes - Visit Date of Assessment:: 08/09/22 Session #:: 0 - Cholesterol/Lipids (Other Core Measures) Triglycerides (mg/dL): 110 Total Cholesterol (mg/dL): 252 LDL Cholesterol (mg/dL): 171 HDL Cholesterol (mg/dL): 59 Determine presence & major risk factors that modify LDL goal: Hypertension or hypertensive medication, Family history of premature CHD in Male < 55 years: female <65 yearsFa, Age men > 45 years; women >/= 55 years Outcomes/Goals: Pt IDs own risk factors & lifestyle modifications by Session 10, Verbalizes symptoms of angina & response by session 3., Pt independently manages Intervention/Plan: Instruct on personal lipid levels & lipid goals/NCEP guidelines, Instruct on cholesterol Referral to dietitian:: Yes - Diabetes (Other Core Measures) Diabetes Type: Not Applicable - Weight Mgt (Other Care) Not Applicable: No Height: 5 ft 1 in Weight:: 167 lb BMI: 31.5 Diagnosis Overweight/Obesity BMI> 30% ICD-10 E66: Yes Diagnosis High BMI/Morbid Obesity BMI> 35% ICD-10 Z68: No Outcomes/Goals: Pt sets, maintains & shows weight loss goal & trend during rehab Intervention/Plan: Instruct on ideal BMI & set weight loss goal w/patient, Assist pt to ID & incorporate diet changes for weight loss by S9, Refer to Structured Weight Loss program as appropriate, Encourage goal of using 250- 300dcal per session for weight loss - Healthy Eating Habits Will attend diet classes:: Yes Outcomes/Goals:: Consume diet rich in vegs,fruits,whole grain/high fiber,fish,lean meat, Limit sat/trans fats,cholesterol & added salts & sugars Intervention/Plan:: Assess current eating habits - Education Gave educational materials for:: Healthy eating Nutrition - 30-Day Assessment Nutrition - 60-Day Assessment Nutrition - 90-Day Assessment Nutrition - Final Assessment Core - Initial Assessment - Visit Date of Eval: 08/09/22 Session #:: 0 - Medication Compliance Preventative Medication(s):: Aspirin, Clopidogrel/P2Y12 inhibit, Statin/lipid, Beta johnna H/O mental health issues: depression, anxiety, or addiction?: No Doesn?t believe in the benefits of treatment?: No Believes medications are unnecessary or harmful?: No Has a concern about medication side effects?: No Expresses concern over the cost of medications?: No Outcomes/Goals: Verbalizes medications,desired effect & common side effects @ DC, Pt self-reports following medication regimen, Keeps card in wallet w/medications listed by DC Interventions/plans: Instruct on medication effects & side effects, Review medication list w/patient every two weeks, Instruct importance of taking meds as ordered & assist problem solving - Tobacco Use Tobacco Use: Non-smoker - Hypertension Hypertension Diagnosis:: Hypertension ICD-10 I10 Resting Blood Pressure:: 128/77 [place] [employer] Hypertension Guidelines: [place] [employer] Hypertension Guidelines. Normal BP Less than 120/80. Elevated BP 120/80. Hypertension Stage 1: BP 130-139/80-89. Hypertesnion Stage 2: BP 140 or higher/90 or higher. Hypertension Crisis: BP higher than 180/120 Outcomes/Goals: Able to verbalize/achieve optimal blood pressure <130/80, Incorporates diet changes & exercise for blood pressure control by DC Interventions/plan: Instruct on optimal blood pressure, hypertension & medications, Instruct on effects of sodium, alcohol, stress, exercise &hypertension - Tobacco Cessation Referral Smoking Cessation Referral:: No Individual Education/Counseling:: No Education Schedule Given:: Yes Core - 30-Day Assessment Core - 60-Day Assessment Core - 90 Day Assessment Core - Final Assessment Psychosocial - Initial Assess - VIsit Date of Eval: 08/09/22 Session #:: 0 Not Applicable: Yes History of previous Mental disease:: No History of Emotional Disorders: Anxious - Psychosocial Test Tool Used:: [employer] Power QOL Cardiac, PHQ-9 Questionnaire phq-9 Severity: Severity. 1-4 Minimal Depression. 5-9 Mild Depression. 10-14 Moderate Depression. 15-19 Moderately Sever Depression. 20-27 Severe Depression. Rule: - Referral to Behavioral Health PS - Interventions: Yes Attend Stress Management Classes, No Referral to Behavioral Health if PHQ-9 score >9:, No Referral to [facility], No Referral to Physician if PHQ-9 if score is 5-9: - Outcomes/Goals: See list Psychosocial Outcomes/Goals:: ID's personal stressors & 2 strategies to manage stress by discharge - Intervention/Plan: See List Interventions/Plan:: Assess stressors,coping strategies & signs of derpression on admission, Instruct/assist pt to develop coping & personal stress Mgt strategies, Instruct patient to recognize signs & symptoms of depression, Instruct patient to recog Psychosocial - 30-Day Assess Psychosocial - 60-Day Assess Psychosocial - 90-Day Assess Psychosocial - Final Assessmen Patient Health Questionnaire Initial Assessment 1. Little interest or pleasure in doing things: Not at all 2. Feeling down, depressed, or hopeless: More than half the days 3. Trouble falling or staying asleep, or sleeping too much: Several days 4. Feeling tired or having little energy: Nearly every day 5. Poor appetite or overeating: More than half the days 6. Feeling bad about yourself -- or that you are a failure or have let yourself or your family down: Several days 7. Trouble concentrating on things, such as reading the newspaper or watching television: Several days 8. Moving or speaking so slowly that other people could have noticed. Or the opposite - being so fidgety or restless that you have been moving around a lot more than usual: Not at all 9. Thoughts that you would be better off , or of hurting yourself in some way: Not at all Total Score: 10 CARMITA-Q SV Test - Statements CAD is a disease of the arteries in the heart: False Examples of risk factors for heart disease: True Angina is chest pain or discomfort: I Don't Know The benefits of resistance training include: True Eating more meat and dairy products: False Anti-platelet medications such as aspirin are important: True The only effective way to manage stress: False An exercise warm-up slowly increases heart rate: I Don't Know Prepared, processed foods usually have high sodium: True Depression is common after a heart attack: True The statin medications lower cholesterol: True To control blood pressure, lower the amount of sodium: True If someone gets chest discomfort during walking: False Transfats are partially hydrogenated vegetable oils: True Sleep apnea that is not treated increases the risk: I Don't Know To control cholesterol, one should become a vegetarian: False Someone knows if he/she is exercising at the right level: False Diabetes cannot be prevented with exercise & health eating: False Stress is a large risk for heart attack: True A diet that can help lower blood pressure is rich in: True - Total Score Total Correct Responses: 16 Self-Efficacy Initial Assessment We would like to know how confident you are in doing certain activities. Please select your confidence level for:: Select your confidence level for the following using the scale 1-10 where 1 is not at all confident and 10 is totally confident. Your score is the average of all 6 responses. Fatigue: How confident are you that you can keep the fatigue caused by your disease from interfering with the things you want to do? Select Number: 5 Physical Discomfort or Pain: How confident are you that you can keep the physical discomfort or pain of your disease from interfering with the things you want to do? Select Number: 5 Emotional Distress: How confident are you that you can keep the emotional distress caused by your disease from interfering with the things you want to do? Select Number: 3 Other Symptoms or Health Problems: How confident are you that you can keep other symptoms or health problems from interfering with the things you want to do? Select Number: 4 Different Tasks and Activities: How confident are you that you can do the different tasks and activities needed to manage your health condition so as to reduce your need to see a doctor? Select Number: 7 Medication: How confident are you that you can do things other than just taking medication to reduce how much your illness affects your everyday life? Select Number: 4 Total Score:: 4 Nutrition Survey - Nutrition Survey Initial Have you lost >10 lbs over the past 2 months without trying?: No Are you following a special diet at home for diabetes, low fat, or low salt?: No Are you interested in meeting with a dietitian for help understanding your diet?: Yes Do you eat less than 3 meals a day?: Yes Do you eat fatty meats (kent, sausage, ribs, etc), fried foods, desserts, large amounts of salad dressings, margarine, butter, or cheese most days?: Yes Do you have food allergies? [Enter types in comment field]: Yes - Shellfish Do you eat in restaurants more than 3 times a week?: Yes Do you season food with salt, seasoning salt, or garlic salt?: Yes Do you used canned, boxed, frozen meals, or soups, seasoning packets?: Yes Total Score:: 7
--- NOTE | 2022-08-09 14:09 | PCM.CR.HP2 ---
CR - History & Physical - General Arrival date:: 08/09/22 Arrival time:: 14:10 Date of Referral:: 07/20/22 Date of CR Evaluation:: 08/09/22 Referring Physician: Dr. Mandel Primary Diagnosis: PCI /coronary stenting - History of Present Cardiac Event Onset Date: Enter Onset Date of cardiac illnesses in Comment field below Acute Myocardial Infarction within 12 months:: Yes - NSTEMI w/eleveated cardiac enzymes PTCA or coronary stenting:: Yes Type of Symptoms:: Acute flank pain radiating to left arm, brought to ER by squad adn admitted. Normal stress test then had heart cath. Interventions with present event:: Heart cath preliminary to PCI intervention Were there any complications?: Bruising up forearm from site of cath - Sleep Disorder Evaluation Hx of Sleep Apnea: No Do you snore loudly (louder than talking or can be heard through closed doors)?: Yes Do you often feel tired/ fatigued/ sleepy during daytime?: Yes Has anyone observed you stop breathing during sleep?: No History of Hypertension (for STOP score): No STOP Results: Positive - Medications Home Medications: Ambulatory Orders Medication Instructions Recorded ergocalciferol (vitamin D2) 1,250 50,000 unit PO QWEEK supplement 07/20/22 mcg (50,000 unit) capsule fluticasone propionate 110 See Rx Instructions inhalation 07/20/22 mcg/actuation HFA aerosol inhaler .COMPLEX shortness of breath (Flovent HFA) lisinopril 10 mg tablet 10 mg PO DAILY blood pressure 07/20/22 omeprazole 40 mg capsule,delayed 40 mg PO DAILY GI 07/20/22 release aspirin 81 mg tablet,delayed 81 mg PO BREAKFAST 30 days #30 tabs 07/21/22 release carvedilol 3.125 mg tablet 3.125 mg PO BID 30 days #60 tabs 07/21/22 ticagrelor 90 mg tablet (Brilinta) 90 mg PO BID 30 days #60 tabs 07/21/22 albuterol sulfate 90 mcg/actuation 2 inh inhalation Q8H PRN shortness 07/27/22 aerosol inhaler of breath or wheezing - Allergies Allergies/Adverse Reactions: Allergies shellfish derived Allergy (Severe, Verified 07/27/22 09:48) SOB amoxicillin Allergy (Verified 07/27/22 09:48) Unknown erythromycin base [From Staticin] Allergy (Verified 07/27/22 09:48) Unknown ethyl alcohol [From Staticin] Allergy (Verified 07/27/22 09:48) Unknown Penicillins Allergy (Verified 07/27/22 09:48) Unknown Sulfa (Sulfonamide Antibiotics) Allergy (Verified 07/27/22 09:48) Unknown Ulmxssp-[id number] Reductase Inhibitor Adverse Reaction (Verified 07/27/22 09:48) Pain in joints Advanced Directives - Advanced Directives Power of Machinist Apprentice: Yes Living Will: Yes Advance Directives Information Provided: No Advance Directives on File: No - Patient does not believe they are on file. DNR Order?:: No - MOLST See MOLST form: No Past Medical History - Covid-19 Screening Fever: No Unexplained muscle aches: No Current respiratory symptoms: Yes - H/O allergies Upper respiratory infections symptoms: Yes - Seasonal Allergies - chronic rhinitis Gastro-intestinal symptoms: Yes - H/O GERD Fzw-Tocw-Affrza symptoms: No Has tested positive for COVID-19 in last 30 days: No Date of testin08/09/22 - Patient had one vaccination, no other vaccines or Boosters Had contact w/person w/symptoms or Covid-19 (+) last 14 days: No Has High Risk Exposures ID'd by Health dept/Inf Control team: No 65 years or older:: Yes Lives in Assisted Living facility:: No Has a chronic lung disease or moderate to severe asthma:: No Has a serious heart condition:: No Immunocompromised:: No Severely obese (Body Mass Index of 40 or higher):: No Diabetic:: No Has chronic kidney disease undergoing dialysis:: No Has liver disease:: No - Past Medical Illness Medical History: Past Medical History (Last Reviewed 07/27/22 @ 09:50 by Kevin Saravia) Acute flank pain R10.9 Anxiety F41.9 Atherosclerosis of coronary artery of un[place] heart without angina pectoris I25.10 Chest pain R07.9 COVID-19 U07.1 Epigastric pain R10.13 Gastric reflux K21.9 Hearing problem H91.90 History of stress test Z92.89 >20 yrs ago LBBB (left bundle branch block) I44.7 Lower abdominal pain R10.30 Non-smoker Z78.9 Seasonal allergies J30.2 Trigger finger M65.30 - Past Surgical History Surgical History: Past Surgical History (Last Reviewed 07/27/22 @ 09:50 by Kevin Saravia) History of carpal tunnel release Z98.890 History of cataract extraction Z98.49 History of coronary artery stent placement Onset Date: 07/20/22 Z95.5 [id number] w/ 2.75 x 12mm Resolute Nithin RX JUSTINO 07/20/22 History of tonsillectomy Z90.89 - Family History Summary Family History: Family History (Last Reviewed 07/27/22 @ 09:50 by Kevin Saravia) Mother Colon cancer Cancer Heart disease Grandmother Colon cancer Cancer Sister Cancer Brother Heart disease Mental disorder Father , 85 yrs old Dementia Social History - Smoking History Smoking Status: Never smoker Hx Tobacco Use: No Hx Smoking Exposure: Yes - both parents smoked as a child - Alcohol Use Alcohol Usage: No - Substance Abuse Hx Substance Use: No - Occupation Occupation (List type of work in comments):: 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 Left click = Reports ([place]) Review of Present Symptoms: Reports: Shortness of Breath at Rest, Shortness of Breath with Exertion - worsens with activities, Fatigue, Appetite - Normal - Okay for me but it's not good, Sleep - Normal. Denies: Angina, Dizziness/Lightheadedness, Heart Arrhythmia/Irregularities, Appetite - Special Diet, Sexual Changes - Pain Is Patient Pain Free?: Yes Pain Location: none Pain Level: 0/10 Risk Factor Assessment - Vital Signs Temperature: 98.4 F Respiratory Rate: 14 Pulse Ox: 97 Blood Pressure: 128/77 - Pulse Pulse Rate: 65 Pulse Rhythm: Regular - Hypertension Blood Pressure Sitting - Left Arm: 128/77 - Stress Stress: Recent - Blood Cholesterol/Lipids Total Cholesterol (mg/dL) Goal = less than 200 mg/dL: 252 HDL Cholesterol (mg/dL) Goal = less than 40 mg/dL: 59 LDL Cholesterol (mg/dL) Goal = less than 70 mg/dL: 171 Triglycerides (mg/dL) Goal = less than 150 mg/dL: 110 - Obesity Height: 5 ft 1 in Weight:: 167 lb Weight in Pounds: 167.0 lbs Weight Source: Stated by Patient Body Mass Index (BMI): 31.5 Nutritional Referral for Obesity: Yes - Physical Inactivity Physical Inactivity: None - but is ohysically active - Risk Stratification Risk Guidelines: Lowest Risk: Risk Factor for Smoking, Risk Factor for Diabetes, Risk Factor for Hypertension, Risk Factor for Sedentary Lifestyle, Risk Factor for Depression, Moderate Risk: Risk Factor for Dyslipidemia, Highest Risk: Risk Factor for Obesity - Family History Family History: Family History (Last Reviewed 07/27/22 @ 09:50 by Kevin Saravia) Mother Colon cancer Cancer Heart disease Grandmother Colon cancer Cancer Sister Cancer Brother Heart disease Mental disorder Father Dementia Motivation - Motivation to Participate On a scale of 1 to 10, how prepared are you to commit to attending program?: 9 What do you see as barriers to successfully being able to complete the program?: job What do you see as the benefits of succesfully completing the program? In other words, what do you hope to get out of participating in the program?: Health, getting better, taking better care of myself Are there issues you are dealing with that will interfere with completing the program?: no Do you have a spouse or signficant other, family or friends who will help support you to complete the program?: Yes
[2022-08-09 14:47] VITALS: BP 128/77; PULSE 65; RESP 14; TEMP 36.9; O2SAT 97; BMI 31.5
[2022-08-09 15:27] VITALS: BP 128/77; BMI 31.5
== END | disposition home or self-care (01) ==
LOC: CR 13:46
PROVIDERS: PCP Internal Medicine; Referring Provider Internal Medicine Cardiovascular Disease; Visit Provider Internal Medicine Cardiovascular Disease
DX: Z95.5 Presence of coronary angioplasty implant and graft (principal)

== ENCOUNTER → 2022-08-24 | Outpatient (CLI) | payer MEDICARE, SELFPAY ==
[2022-08-09 15:27] VITALS: BMI 31.5
--- NOTE | 2022-08-25 10:55 | PFT ---
INTRODUCTION: The patient is a 76-year-old female that presents for pulmonary function studies secondary to a diagnosis of dyspnea. Respiratory therapy reported good patient effort. Bronchodilators were used during testing. INTERPRETATION: Forced expiration spirometry demonstrates the presence of a severe large airways obstructive ventilatory defect. There was a significant response to aerosolized bronchodilators. Spirograms are of fair quality but do not plateau indicating slow emptying of the lungs. Body plethysmography was performed and revealed an elevated RV to 198% of predicted, indicative of underlying air trapping. Diffusing capacity by single breath CO was reduced to 48% of predicted. 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
== END | disposition home or self-care (01) ==
PROVIDERS: PCP Internal Medicine; Referring Provider Internal Medicine; Visit Provider Internal Medicine
DX: R06.09 Other forms of dyspnea (principal)
CPT/HCPCS: 94060; 94726; 94729

== ENCOUNTER 2022-08-25 09:30 | Outpatient (RCR) | payer MEDICARE, SELFPAY ==
[2022-08-09 15:04] VITALS: BMI 31.5
== END 2022-08-25 23:59 ==
LOC: CR 09:30
PROVIDERS: PCP Internal Medicine; Referring Provider Internal Medicine Cardiovascular Disease; Visit Provider Internal Medicine Cardiovascular Disease
DX: I25.10 Atherosclerotic heart disease of native coronary artery without angina pectoris (principal); Z95.5 Presence of coronary angioplasty implant and graft; I21.4 Non-ST elevation (NSTEMI) myocardial infarction
CPT/HCPCS: 93798

== ENCOUNTER 2022-09-25 09:30 | Outpatient (RCR) | payer MEDICARE, SELFPAY ==
[2022-08-09 15:27] VITALS: BMI 31.5
--- NOTE | 2022-09-08 11:42 | CR.ITP_ITS ---
Exercise - Initial Assessment Visit Session #:: 11 Nutrition - Initial Assessment Weight Mgt (Other Care) Height: 5 ft 1 in Weight:: 162 lb 8 oz BMI: 30.7 Psychosocial - Initial Assess VIsit Date of Eval: 09/08/22 Session #:: 11 History of Emotional Disorders: Anxious Target Goals Target Goals Patient Health Questionnaire PHQ-9 Screening 30-Day Re-eval Assessment: 1. Little interest or pleasure in doing things: Not at all 2. Feeling down, depressed, or hopeless: More than half the days 3. Trouble falling or staying asleep, or sleeping too much: Several days 4. Feeling tired or having little energy: Nearly every day 5. Poor appetite or overeating: More than half the days 6. Feeling bad about yourself -- or that you are a failure or have let yourself or your family down: Several days 7. Trouble concentrating on things, such as reading the newspaper or watching television: Several days 8. Moving or speaking so slowly that other people could have noticed. Or the opposite - being so fidgety or restless that you have been moving around a lot more than usual: Not at all 9. Thoughts that you would be better off , or of hurting yourself in some way: Not at all Total Score: 10 Self-Efficacy 6-Item Scale 30-Day Re-eval Assessment: We would like to know how confident you are in doing certain activities. Please select your confidence level for: Fatigue Select Number: 5 Physical Discomfort or Pain Select Number: 5 Emotional Distress Select Number: 3 Other Symptoms or Health Problems Select Number: 4 Different Tasks and Activities Select Number: 7 Medication Select Number: 4 Total Score:: 4 Nutrition Survey Nutrition Survey Instructions Scoring Instructions Exercise - 30-day Assessment Visit Date of Eval: 09/08/22 Session #:: 11 Physician Prescribed Exercise Modalities: Treadmill, NuStep and SciFit Frequency: 3x/week for 12 weeks [36 sessions] Intensity: 60-80% of age predicted maximum heart rate reserve Current METSs:: 3.5 Target Heart Rate:: 86-101 Current RPE:: 12-16 Maximum Excercise HR:: 104 Resting Blood Pressure: 148/74 Maximum Exercise Blood Pressure: 174/84 EKG Type: NSAR to ST with twave inversion and rare pac Outcomes & Goals Goals:: Verbalizes understanding of THR, RPE & goal METS by session 6, Documents in home exercise log/reports 30 min aerobic 5 day/wk by DC, Demonstrates accurate pulse taking by DC and Other additional outcome/goals: see below Intervention & Plan Exercise Program Goals: Instruct on personal THR & RPE, Instruct on MET level & personal MET goal, Show patient to take own pulse /validate performance until ac curate, Instruct on home exercise and Other additional plan/int 30-day Reassessments 30 day Reassessments:: Progressing Reassessment Notes & Comments:: pulse taking demonstrated Physical Activity Home Exercise Physical Activity - Home Exercise: Safe Exercise, Warm-up, Self-monitoring, Cool-Down, Home Exercise > 30 min Daily and Sitting Time <3 hours/daily Outcomes & Goals Outcomes/Goals: Demonstrates correct Warm-up/exercise Cool-Down (S3) if = 2.5 METs, Verbalizes symptoms of exercise intolerance by Session 3 (S3), Demonstrate safe equipment use (S3) & follows exercise prescrition (6) and Other: See below Intervention & Plan Plan/Intervention: Instruct warm-up & cool-down if exercising at > 2 METs, Instruct on symptoms of exercise intolerance & actions to take, Instruct & monitor on saf, Assess intial functional capacity & safety risk and Other See below 30-day Reassessments 30 day Reassessments:: Progressing Reassessment Notes & Comments:: walking at home encouraged Nutrition - 30-Day Assessment Program Goals Nutrition Program Goals Patient has diagnosis of Hyperlipidemia (ICD E78)?: Yes Visit Date of Eval: 09/08/22 Session #:: 11 Cholesterol/Lipids (Other Core Measures) Determine presence & major risk factors that modify LDL goal: Hypertension or hypertensive medication, Low HDL cholesterol <40 mg/dL*, Family history of premature CHD in Male < 55 years: female <65 yearsFa and Age men > 45 years; women >/= 55 years Outcomes/Goals: Pt IDs own risk factors & lifestyle modifications by Session 10, Verbalizes symptoms of angina & response by session 3., Pt independently manages and Other Additional Outcomes/Goals: Intervention/Plan: Advocate for lipid panel cholesterol medication if applicable, Instruct on personal lipid levels & lipid goals/NCEP guidelines, Instruct on cholesterol and Other additional plan/int Referral to dietitian:: Yes 30-day Reassessments:: Progressing Reassessment Notes & Comments:: risk factors reviewed Diabetes (Other Core Measures) Diabetes Type: Not Applicable Weight Mgt (Other Care) Height: 5 ft 1 in Weight:: 162 lb 8 oz BMI: 30.7 Diagnosis Overweight/Obesity BMI> 30% ICD-10 E66: Yes Diagnosis High BMI/Morbid Obesity BMI> 35% ICD-10 Z68: No Outcomes/Goals: Pt sets, maintains & shows weight loss goal & trend during rehab and Other additional outcomes/goals Intervention/Plan: Instruct on ideal BMI & set weight loss goal w/patient, Assist pt to ID & incorporate diet changes for weight loss by S9, Refer to Structured Weight Loss program as appropriate, Encourage goal of using 250- 300dcal per session for weight loss and Other additional plan/interventions 30 day Reassessments:: Progressing Reassessment Notes & Comments:: pt attending nutrition class Healthy Eating Habits Outcomes/Goals:: Consume diet rich in vegs,fruits,whole grain/high fiber,fish, lean meat, Limit sat/trans fats,cholesterol & added salts & sugars and Other additional outcome/goals: Intervention/Plan:: Assess current eating habits and Other Additional osmar n/interventions 30-day Reassessments:: Progressing Reassessment Notes & Comments:: pt attending nutrition class Education Gave educational materials for:: Signs & symptoms of hypoglycemia, Signs & symptoms of hyperglycemia, Relate diabetes to coronary artery disease and Healthy eating Nutrition - 60-Day Assessment Weight Mgt (Other Care) Height: 5 ft 1 in Weight:: 162 lb 8 oz BMI: 30.7 Core - 30-Day Assessment Visit Date of Eval: 09/08/22 Session #:: 11 Medication Compliance Preventative Medication(s):: Aspirin, Clopidogrel/P2Y12 inhibit, Statin/lipid and Beta johnna H/O mental health issues: depression, anxiety, or addiction?: No Doesn?t believe in the benefits of treatment?: No Believes medications are unnecessary or harmful?: No Has a concern about medication side effects?: No Expresses concern over the cost of medications?: No Outcomes/Goals: Verbalizes medications,desired effect & common side effects @ DC, Pt self-reports following medication regimen, Keeps card in wallet w/medications listed by DC and Other additional outcome/goals: Interventions/plans: Instruct on medication effects & side effects, Review medication list w/patient every two weeks, Instruct importance of taking meds as ordered & assist problem solving and Other additional 30-day Reassessments:: Progressing Reassessment Notes & Comments:: pt encouraged to take meds Tobacco Use Tobacco Use: Non-smoker Hypertension Hypertension Diagnosis:: Hypertension ICD-10 I10 Resting Blood Pressure:: 148/74 [employer] Hypertension Guidelines Peak Exercise Blood Pressure:: 174/84 Outcomes/Goals: Able to verbalize/achieve optimal blood pressure <130/80, Incorporates diet changes & exercise for blood pressure control by DC and Other additional outcomes/goals Interventions/plan: Instruct on optimal blood pressure, hypertension & medications, Instruct on effects of sodium, alcohol, stress, exercise &hypertension and Other additional plan/interventions 30 day Reassessments:: Progressing Reassessment Notes & Comments:: pt encouraged to take his meds Tobacco Cessation Referral Individual Education/Counseling:: No Education Schedule Given:: Yes Core - Final Assessment Hypertension [employer] Hypertension Guidelines Reassessment Notes & Comments:: pt encouraged to take his meds Core - 90 Day Assessment Hypertension [employer] Hypertension Guidelines Reassessment Notes & Comments:: pt encouraged to take his meds Psychosocial - 30-Day Assess Target Goals Target Goals Psychosocial - 60-Day Assess Target Goals Target Goals Psychosocial - 90-Day Assess Target Goals Target Goals Psychosocial - Final Assessmen Target Goals Target Goals Nutrition - 90-Day Assessment Weight Mgt (Other Care) Height: 5 ft 1 in Weight:: 162 lb 8 oz BMI: 30.7 Nutrition - Final Assessment Weight Mgt (Other Care) Height: 5 ft 1 in Weight:: 162 lb 8 oz BMI: 30.7
[2022-09-08 11:57] VITALS: BP 148/74; BMI 30.7
== END 2022-09-25 23:59 ==
LOC: CR 09:30
PROVIDERS: PCP Internal Medicine; Referring Provider Internal Medicine Cardiovascular Disease; Visit Provider Internal Medicine Cardiovascular Disease
DX: Z95.5 Presence of coronary angioplasty implant and graft (principal); I21.4 Non-ST elevation (NSTEMI) myocardial infarction; I25.10 Atherosclerotic heart disease of native coronary artery without angina pectoris
CPT/HCPCS: 93798

== ENCOUNTER 2022-10-07 00:30 | Emergency (ER) | payer MEDICARE, SELFPAY ==
[2022-09-08 11:57] VITALS: BMI 30.7
[2022-10-07 00:32] VITALS: BP 215/88; PULSE 62; RESP 18; TEMP 36.2; O2SAT 100; BMI 30.2
--- NOTE | 2022-10-07 00:35 | EKG12_ITS ---
Test Reason : CP Blood Pressure : / mmHG Vent. Rate : 062 BPM Atrial Rate : 062 BPM P-R Int : 124 ms QRS Dur : 116 ms QT Int : 450 ms P-R-T Axes : 020 001 125 degrees QTc Int : 456 ms Normal sinus rhythm Cannot rule out Anterior infarct , age undetermined ST & T wave abnormality, consider lateral ischemia Abnormal ECG Confirmed by ALBA NEELY, DA ([id number]), graphic editor GREG CALLE ([id number]) on 10/09/2022 8:51:29 AM Referred By: Jennifer Confirmed By:CALIXTO WILLIS MD
--- NOTE | 2022-10-07 00:35 | RAD_ITS ---
INDICATION: chest pain EXAMINATION/TECHNIQUE: X-RAY - XR Chest 1 View COMPARISON: 07/20/2022. FINDINGS: LINES/DEVICES: None. LUNGS: No consolidation or evidence of an effusion. No evidence of edema or a pneumothorax. Stable calcified left lower lung granuloma. MEDIASTINUM AND CARDIOVASCULAR STRUCTURES: Cardiac silhouette is normal in size and contour. Mediastinum is unremarkable. BONES AND SOFT TISSUES: No acute abnormality. RAD/Chest 1 View (Portable) IMPRESSION: No evidence of acute cardiopulmonary disease. Electronically Signed: Arthur Husain DO at 1:14 EDT ,
[2022-10-07 00:58] LABS: Absolute Lymphocyte Count 3.79 X10^3/uL (0.83-4.51); Absolute Neutrophil Count 3.3 X10^3/uL (2.0-7.7); Basophil# 0.06 X10^3/uL; Basophil% 0.7 % (0-1); Eosinophil# 0.31 X10^3/uL; Eosinophils% 3.8 % (0-5); Hematocrit 42.1 % (37-47); Hemoglobin 13.7 g/dL (12.0-15.0); Lymphocyte # 3.79 X10^3/ul (0.83-4.51); Lymphocyte % 46.7 % (19-41); Mean Corp Hgb Conc 32.5 g/dL (32-36); Mean Corpuscular Hgb 28.4 pg (27.0-32.0); Mean Corpuscular Volume 87.3 fL (81-99); Mean Platelet Vol. 11.4 fl (6.2-12.0); Monocyte# 0.65 X10^3/uL; NRBC Flagged by Analyzer 0 % (0-5); Neutrophil % 40.7 % (47-70); Platelet Count 233 K/mm3 (150-450); RBC Distribution Width CV 13.8 % (11.6-14.6); RBC Distribution Width SD 44.1 fl (35.1-43.9); Red Blood Count 4.82 M/mm3 (4.2-5.4); White Blood Count 8.1 K/mm3 (4.4-11.0)
--- NOTE | 2022-10-07 01:03 | ED.VIS.CHEST ---
HPI History of Present Illness Chief Complaint: Chest Pain [facility] Medical History Acute flank pain Anxiety Atherosclerosis of coronary artery of enterprise heart without angina pectoris Chest pain COVID-19 Epigastric pain Gastric reflux Hearing problem History of stress test LBBB (left bundle branch block) Lower abdominal pain Non-smoker Seasonal allergies Trigger finger Home Medications fluticasone propionate 110 mcg/actuation HFA aerosol inhaler (Flovent HFA) See Rx Instructions inhalation .COMPLEX shortness of breath 07/20/22 [History Last Taken Unknown] aspirin 81 mg tablet,delayed release 81 mg PO BREAKFAST #90 tabs 08/15/22 [Rx Last Taken Unknown] clopidogrel 75 mg tablet (Plavix) 75 mg PO QDAY #93 tabs 08/15/22 [Rx Last Taken Unknown] lisinopril 20 mg tablet 20 mg PO DAILY blood pressure #90 tabs 08/15/22 [Rx Last Taken Unknown] ergocalciferol (vitamin D2) 1,250 mcg (50,000 unit) capsule 50,000 unit PO QWEEK supplement #12 caps 09/14/22 [Rx Last Taken Unknown] albuterol sulfate 90 mcg/actuation aerosol inhaler 2 inh inhalation Q8H PRN shortness of breath or wheezing #8.5 grams 09/18/22 [Rx Last Taken Unknown] carvedilol 3.125 mg tablet 6.25 mg (2 x 3.125 mg) PO BID 90 days #360 tabs 09/18/22 [Rx Last Taken Unknown] famotidine 40 mg tablet (Pepcid) 40 mg PO DAILY #90 tabs 09/18/22 [Rx Last Taken Unknown] Allergy/AdvReac Type Severity Reaction Status Date / Time shellfish derived Allergy Severe SOB Verified 10/07/22 00:31 amoxicillin Allergy Unknown Verified 08 00:31 erythromycin base Allergy Unknown Verified 10/07/22 00:31 [From Staticin] ethyl alcohol [From Staticin] Allergy Unknown Verified 10/07/22 00:31 Penicillins Allergy Unknown Verified 10/07/22 00:31 Sulfa (Sulfonamide Allergy Unknown Verified 10/07/22 00:31 Antibiotics) [id number] Reductase AdvReac Pain in Verified 10/07/22 00:31 Inhibitor joints Family History Mother Colon cancer Cancer Heart disease Grandmother Colon cancer Cancer Sister Cancer Brother Heart disease Mental disorder Father , 85 yrs old Dementia Surgical History History of carpal tunnel release History of cataract extraction History of coronary artery stent placement (07/20/22) History of tonsillectomy Social History Smoking Status: Never smoker alcohol intake: never substance use type: does not use what type of physical activity do you participate in: none EXAM Physical Exam Const Vital Signs: 10/07/22 00:32 10/07/22 00:32 10/07/22 00:48 Temperature 97.1 F L Temperature Source Temporal Pulse Rate 62 Respiratory Rate 18 Respiratory Effort Short of Breath Blood Pressure 215/88 H Blood Pressure Mean 130 Pulse Ox 100 Oxygen Delivery Method Room Air Heart Score History: Slightly/Non-Suspicious ECG: Nonspecific Repolarization Age: >/= 65 years Troponin: >/=3 x Normal Limit Score: 5 MDM MDM MDM Narrative Medical decision making narrative: HISTORY OF PRESENT ILLNESS: 76-year-old female here with chest pain that started approximately 2 and half hours prior to arrival. Notes she had a heart attack approximately 2 months ago. She further states she notes a catching on her left breast. Denies any pleuritic chest pain. Denies any syncope. Denies any radiating component. Denies any bleeding diathesis. The patient denies recent surgery in the last 4 weeks or immobilization in the last 3 days, denies previous diagnosis of DVT or PE, hemoptysis, unilateral leg swelling or malignancy with treatment the last 6 months. No estrogen use noted. Patient denies sudden onset of pain, no tearing sensation, no migratory symptoms, no new numbness, weakness or loss of sensation. Patient denies family history or personal history of Marfan syndrome or Luisa-Danlos. denies any cough fever or chills. REVIEW OF SYSTEMS: Pertinent positives: Chest pain Pertinent negatives: Shortness of breath, fatigue, focal weakness PHYSICAL EXAM: Nursing triage notes reviewed, Vital signs reviewed Constitutional: please see mdm HENT: MMM Eyes: Pupils equal round and reactive to light, Extraocular muscles intact Neck: No stridor, no JVD, full neck ROM Lungs: Clear to auscultation, No wheezing or rales. No increased work of breathing, no conversational dyspnea, no accessory muscle use, no nasal flaring. No respiratory distress noted Heart: Regular rate and rhythm, No murmurs, No rubs and No gallops, 2+ distal pulses (radial, femoral, posterior tibial) in all extremities Abdomen: Soft, there is no tenderness, rigidity, rebound or guarding, no obvious peritoneal signs, no palpable pulsatile abdominal masses, no auscultated abdominal bruit : No CVAT Extremities: No edema Neuro: No focal neurological deficits, cranial nerves II through XII intact, 5/5 strength in all extremities. Intact sensation to light touch in all extremities, 2+ reflexes bilateral patella tendons. Normal gait. No ataxia. Skin: No rash or lesions noted MEDICAL DECISION MAKING: Chief Complaint: Chest pain External records reviewed: Reviewed the patient's catheterization report from 07/20/[address] Mandel, diagnosed with NSTEMI at that time noted high-grade LAD disease. Patient underwent PCI at that time. Factors affecting care: Takotsubo's cardiomyopathy, CAD status post stent, asthma, anxiety, hyperlipidemia, GERD Social determinants of health: Elderly ALL IMAGES (IF OBTAINED) HAVE BEEN PERSONALLY REVIEWED AND INTERPRETED BY MYSELF. EKG with normal sinus rhythm, left axis deviation, normal intervals, no obvious STEMI however there are T wave inversions noted laterally, similar to prior EKG in June 2022 MDM Narrative: Patient initially hypertensive otherwise hemodynamically stable, afebrile and nontoxic-appearing. There are no focal cardiopulmonary abnormalities noted on exam. I considered the following differential diagnosis: ACS, arrhythmia, anemia, electrolyte disturbance, pneumonia, PE, dissection, hypertensive emergency Initial EKG, troponin x2 was negative for STEMI or evidence of NSTEMI. She had no significant anemia, electrolyte abnormalities. Chest x-ray negative for pneumonia or evidence of heart failure. Given the patient's recent catheterization history of hypertension, advanced age her heart score was 5 (moderate risk, 12 to 16.6% risk of Mace over the next 6 weeks). My clinical gestalt tells me her risk is even higher given recent stent. I communicated this to the patient. I offered the patient admission. Patient stated she felt fine now would like to go home and follow-up as an outpatient. Elevated blood pressure reading was communicated to the patient as well. We discussed risk and benefits discussed risk of heart attack, stroke, loss of life or limb. Patient expressed understanding. Patient was alert and oriented x3 and had capacity to make own medical decisions and was discharged in stable condition to follow with her PCP and her drafter assistant the next available appointment. Strict return precautions were discussed. The patient and/or family, caregivers express understanding. The patient and/or family, caregivers agrees with the plan. Shared decision making: I will have a discussion with the patient and or visitors regarding risk/benefits of further testing or admission. They will be made aware of of the risk/benefits inherent in this decision they will be given the opportunity to voice understanding. Total critical care time today provided was at least 0 minutes. This excludes separately billable procedures. Critical care time (if documented) is secondary to the patient having high probability of clinically significant/life threatening deterioration in the patient's condition which required my urgent intervention. Lab Data Labs: Laboratory Results - last 24 hr 10/07/22 10/07/22 00:49 03:00 WBC 8.1 RBC 4.82 Hgb 13.7 Hct 42.1 MCV 87.3 MCH 28.4 MCHC 32.5 RDW Std Deviation 44.1 H RDW Coeff of Cesar 13.8 Plt Count 233 MPV 11.4 Immature Gran % (Auto) 0.100 Neut % (Auto) 40.7 L Lymph % (Auto) 46.7 H [place] % (Auto) 8.0 Eos % (Auto) 3.8 Baso % (Auto) 0.7 Absolute Neuts (auto) 3.3 Absolute Lymphs (auto) 3.79 Nucleated RBC % 0 Sodium 139 Potassium 4.0 Chloride 107 Carbon Dioxide 29.0 Anion Gap 3 L BUN 16 Creatinine 1.04 H Estim Creat Clear Calc 34.73 Est GFR (MDRD) Af Amer 66 Est GFR (MDRD) Non-Af 55 L BUN/Creatinine Ratio 15.4 Glucose 102 Calcium 9.1 Troponin I High Sens 5 6 Radiography Diagnostic Testing: Clinical Impression(s) from Imaging Studies Chest X-Ray 10/07/22 00:35 IMPRESSION: No evidence of acute cardiopulmonary disease. Electronically Signed: Arthur Husain DO at 1:14 EDT , Discharge Plan Triage Chief Complaint: Chest Pain ED Provider: Parminder Rodriguez Dx/Rx/DC Orders Clinical Impression: Chest pain, History of heart artery stent, History of CAD (coronary artery disease), Hypertension Instructions: Chest Pain [facility] Prescriptions: No Action clopidogrel [Plavix] 75 mg tablet 75 mg PO QDAY Qty: 93 3RF Rx Instructions: 300mg once on day one (4 pills), 75mg daily starting day 2 (1 pill) aspirin 81 mg tablet,delayed release (DR/EC) 81 mg PO BREAKFAST Qty: 90 3RF lisinopril 20 mg tablet 20 mg PO DAILY Qty: 90 3RF fluticasone propionate [Flovent HFA] 110 mcg/actuation HFA aerosol inhaler See Rx Instructions inhalation .COMPLEX Rx Instructions: inhaled 4x daily; Name brand only 30 day supply 12 refills ergocalciferol (vitamin D2) 1,250 mcg (50,000 unit) capsule 50,000 unit PO QWEEK Qty: 12 3RF albuterol sulfate 90 mcg/actuation HFA aerosol inhaler 2 inh inhalation Q8H PRN (Reason: shortness of breath or wheezing) Qty: 8.5 2RF famotidine [Pepcid] 40 mg tablet 40 mg PO DAILY Qty: 90 1RF carvedilol 3.125 mg tablet 6.25 mg PO BID 90 Days Qty: 360 3RF Primary Care Provider: Claudette Garrison Referrals: Claudette Garrison MD [Primary Care Provider] - Activity Restrictions/Additional Instructions: Thank you for trusting us with your care today! Please take Tylenol (2 pills, 650 mg) every 6 hours as needed for pain and/or fever control. Please return to the emergency department if your symptoms change or worsen. Specifically develop worsening chest pain, chest pressure, shortness of breath, fatigue, decreased exercise tolerance, numbness, tingling, if you lose consciousness. Please follow with your primary care physician and/or drafter assistant for further outpatient evaluation and management.
[2022-10-07 01:22] LABS: Anion Gap 3 (5-15); BUN 16 mg/dL (7-18); BUN/Creat Ratio 15.4 RATIO (10-20); Calcium,Total 9.1 mg/dL (8.5-10.1); Chloride 107 mmol/L (98-107); Creatinine, Serum 1.04 mg/dL (0.55-1.02); EST Glomerular Filtration Rate 55 mL/min (>60); Est Glom Filt Rate - Afr Amer 66 mL/min (>60); Estimated Creatinine Clearance 34.73 ml/min; Glucose 102 mg/dL (74-106); Sodium Level 139 mmol/L (136-145); Troponin-I HS (w/2H Reflex) 5 pg/mL (3.0-54.0)
[2022-10-07 02:55] LABS: Reflex Troponin-HS? (from REC) Y
[2022-10-07 03:29] LABS: Troponin-I HS 6 pg/mL (3.0-54.0)
[2022-10-07] MEDS: Aspirin 325 MG Tablet PO (03:48)
[2022-10-07 03:49] VITALS: BP 127/78; PULSE 79; RESP 18; O2SAT 98
== END 2022-10-07 03:58 | disposition home or self-care (01) ==
PROVIDERS: Emergency Provider Emergency Medicine; PCP Internal Medicine; Visit Provider Emergency Medicine
DX: R07.9 Chest pain, unspecified (principal); E78.5 Hyperlipidemia, unspecified; I10 Essential (primary) hypertension; I25.10 Atherosclerotic heart disease of native coronary artery without angina pectoris; J45.909 Unspecified asthma, uncomplicated; F41.9 Anxiety disorder, unspecified; K21.9 Gastro-esophageal reflux disease without esophagitis; I25.2 Old myocardial infarction; Z95.5 Presence of coronary angioplasty implant and graft
CPT/HCPCS: 71045; 80048; 84484; 85025; 93005; 99285; A4216

== ENCOUNTER 2022-10-23 09:30 | Outpatient (RCR) | payer MEDICARE, SELFPAY ==
[2022-09-08 11:57] VITALS: BMI 30.7
[2022-09-26 00:39] VITALS: BP 148/74
--- NOTE | 2022-10-09 11:20 | CR.ITP_ITS ---
Nutrition - Initial Assessment Weight Mgt (Other Care) Height: 5 ft 1 in Weight:: 160 lb BMI: 30.2 Psychosocial - Initial Assess Target Goals Target Goals Patient Health Questionnaire PHQ-9 Screening 60-Day Re-eval Assessment: 1. Little interest or pleasure in doing things: Not at all 2. Feeling down, depressed, or hopeless: More than half the days 3. Trouble falling or staying asleep, or sleeping too much: Several days 4. Feeling tired or having little energy: Nearly every day 5. Poor appetite or overeating: More than half the days 6. Feeling bad about yourself -- or that you are a failure or have let yourself or your family down: Several days 7. Trouble concentrating on things, such as reading the newspaper or watching television: Several days 8. Moving or speaking so slowly that other people could have noticed. Or the opposite - being so fidgety or restless that you have been moving around a lot more than usual: Not at all 9. Thoughts that you would be better off , or of hurting yourself in some way: Not at all Total Score: 10 Self-Efficacy 6-Item Scale 60-Day Re-eval Assessment: We would like to know how confident you are in doing certain activities. Please select your confidence level for: Fatigue Select Number: 5 Physical Discomfort or Pain Select Number: 5 Emotional Distress Select Number: 3 Other Symptoms or Health Problems Select Number: 4 Different Tasks and Activities Select Number: 7 Medication Select Number: 4 Total Score:: 4 Nutrition Survey Nutrition Survey Instructions Scoring Instructions Exercise - 60-day Assessment Visit Date of Eval: 10/09/22 Session #:: 24 Physician Prescribed Exercise Modalities: Treadmill, NuStep and SciFit Frequency: 3x/week for 12 weeks [36 sessions] Intensity: 60-80% of age predicted maximum heart rate reserve Duration: 30 - 45 minutes Current METSs:: 4 Target Heart Rate:: 94-123 Current RPE:: 12-13 Maximum Excercise HR:: 99 Resting Blood Pressure: 144/82 Maximum Exercise Blood Pressure: 160/88 EKG Type: NSR/BBB with Twave inversion. Rare/isolated pac's and pvc's Outcomes & Goals Goals:: Verbalizes understanding of THR, RPE & goal METS by session 6, Documents in home exercise log/reports 30 min aerobic 5 day/wk by DC, Demonstrates accurate pulse taking by DC and Other additional outcome/goals: see below Intervention & Plan Exercise Program Goals: Instruct on personal THR & RPE, Instruct on MET level & personal MET goal, Show patient to take own pulse /validate performance until accurate, Instruct on home exercise and Other additional plan/int 30-day Reassessments 30 day Reassessments:: Progressing Reassessment Notes & Comments:: RPE explained Physical Activity Home Exercise Physical Activity - Home Exercise: Safe Exercise, Warm-up, Self-monitoring, Cool-Down, Home Exercise > 30 min Daily and Sitting Time <3 hours/daily Outcomes & Goals Outcomes/Goals: Demonstrates correct Warm-up/exercise Cool-Down (S3) if = 2.5 METs, Verbalizes symptoms of exercise intolerance by Session 3 (S3), Demonstrate safe equipment use (S3) & follows exercise prescrition (6) and Other: See below Intervention & Plan Plan/Intervention: Instruct warm-up & cool-down if exercising at > 2 METs, Instruct on symptoms of exercise intolerance & actions to take, Instruct & monitor on saf, Assess intial functional capacity & safety risk and Other See below 30-day Reassessments 30 day Reassessments:: Progressing Reassessment Notes & Comments:: warm up encouraged Nutrition - 30-Day Assessment Weight Mgt (Other Care) Height: 5 ft 1 in Weight:: 160 lb BMI: 30.2 Nutrition - 60-Day Assessment Program Goals Nutrition Program Goals Patient has diagnosis of Hyperlipidemia (ICD E78)?: Yes Visit Date of Eval: 10/09/22 Session #:: 24 Cholesterol/Lipids (Other Core Measures) Determine presence & major risk factors that modify LDL goal: Hypertension or hypertensive medication, Low HDL cholesterol <40 mg/dL*, Family history of premature CHD in Male < 55 years: female <65 yearsFa and Age men > 45 years; women >/= 55 years Outcomes/Goals: Pt IDs own risk factors & lifestyle modifications by Session 10, Verbalizes symptoms of angina & response by session 3., Pt independently manages and Other Additional Outcomes/Goals: Intervention/Plan: Advocate for lipid panel cholesterol medication if applicable, Instruct on personal lipid levels & lipid goals/NCEP guidelines, Instruct on cholesterol and Other additional plan/int Referral to dietitian:: Yes 30-day Reassessments:: Progressing Reassessment Notes & Comments:: pt to attend nutrition class Diabetes (Other Core Measures) Diabetes Type: Not Applicable Weight Mgt (Other Care) Height: 5 ft 1 in Weight:: 160 lb BMI: 30.2 Diagnosis Overweight/Obesity BMI> 30% ICD-10 E66: Yes Diagnosis High BMI/Morbid Obesity BMI> 35% ICD-10 Z68: No Outcomes/Goals: Pt sets, maintains & shows weight loss goal & trend during rehab and Other additional outcomes/goals Intervention/Plan: Instruct on ideal BMI & set weight loss goal w/patient, Assist pt to ID & incorporate diet changes for weight loss by S9, Refer to Structured Weight Loss program as appropriate, Encourage goal of using 250- 300dcal per session for weight loss and Other additional plan/interventions 30 day Reassessments:: Progressing Reassessment Notes & Comments:: pt has lost weight Healthy Eating Habits Will attend diet classes:: Yes Outcomes/Goals:: Consume diet rich in vegs,fruits,whole grain/high fiber,fish,l solo meat, Limit sat/trans fats,cholesterol & added salts & sugars and Other additional outcome/goals: Intervention/Plan:: Assess current eating habits and Other Additional plan /interventions 30-day Reassessments:: Progressing Reassessment Notes & Comments:: pt to attend nutrition class Education Gave educational materials for:: Signs & symptoms of hypoglycemia, Signs & symptoms of hyperglycemia, Relate diabetes to coronary artery disease and Healthy eating Core - 60-Day Assessment Visit Date of Eval: 10/09/22 Session #:: 24 Medication Compliance Preventative Medication(s):: Aspirin, Clopidogrel/P2Y12 inhibit, Statin/lipid and Beta johnna H/O mental health issues: depression, anxiety, or addiction?: No Doesn?t believe in the benefits of treatment?: No Believes medications are unnecessary or harmful?: No Has a concern about medication side effects?: No Expresses concern over the cost of medications?: No Outcomes/Goals: Verbalizes medications,desired effect & common side effects @ DC, Pt self-reports following medication regimen, Keeps card in wallet w/medications listed by DC and Other additional outcome/goals: Interventions/plans: Instruct on medication effects & side effects, Review medication list w/patient every two weeks, Instruct importance of taking meds as ordered & assist problem solving and Other additional 30-day Reassessments:: Progressing Reassessment Notes & Comments:: pt encouraged to take her meds Tobacco Use Tobacco Use: Non-smoker Hypertension Hypertension Diagnosis:: Hypertension ICD-10 I10 Resting Blood Pressure:: 144/82 [place] [employer] Hypertension Guidelines Peak Exercise Blood Pressure:: 160/88 Outcomes/Goals: Able to verbalize/achieve optimal blood pressure <130/80, Incorporates diet changes & exercise for blood pressure control by DC and Other additional outcomes/goals Interventions/plan: Instruct on optimal blood pressure, hypertension & medications, Instruct on effects of sodium, alcohol, stress, exercise &hypertension and Other additional plan/interventions 30 day Reassessments:: Progressing Reassessment Notes & Comments:: pt is encouraged to take her meds Tobacco Cessation Referral Smoking Cessation Referral:: No Individual Education/Counseling:: No Education Schedule Given:: Yes Psychosocial - 30-Day Assess Target Goals Target Goals Psychosocial - 60-Day Assess VIsit Date of Eval: 10/09/22 Session #:: 24 History of Emotional Disorders: Anxious Target Goals Target Goals Psychosocial - 90-Day Assess Target Goals Target Goals Psychosocial - Final Assessmen Target Goals Target Goals Nutrition - 90-Day Assessment Weight Mgt (Other Care) Height: 5 ft 1 in Weight:: 160 lb BMI: 30.2 Nutrition - Final Assessment Weight Mgt (Other Care) Height: 5 ft 1 in Weight:: 160 lb BMI: 30.2
[2022-10-09 11:31] VITALS: BP 144/82; BMI 30.2
== END 2022-10-26 23:59 ==
LOC: CR 09:30
PROVIDERS: PCP Internal Medicine; Referring Provider Internal Medicine Cardiovascular Disease; Visit Provider Internal Medicine Cardiovascular Disease
DX: I25.10 Atherosclerotic heart disease of native coronary artery without angina pectoris (principal); Z95.5 Presence of coronary angioplasty implant and graft; I21.4 Non-ST elevation (NSTEMI) myocardial infarction
CPT/HCPCS: 93798

== ENCOUNTER 2022-11-10 09:30 | Outpatient (RCR) | payer MEDICARE, SELFPAY ==
[2022-10-09 11:31] VITALS: BMI 30.2
[2022-10-27 00:38] VITALS: BP 144/82; BP 148/74
--- NOTE | 2022-11-08 07:16 | CR.ITP_ITS ---
Nutrition - Initial Assessment Weight Mgt (Other Care) Height: 5 ft 1 in Weight:: 160 lb BMI: 30.2 Psychosocial - Initial Assess Target Goals Target Goals Patient Health Questionnaire PHQ-9 Screening 90-Day Re-eval Assessment: 1. Little interest or pleasure in doing things: Not at all 2. Feeling down, depressed, or hopeless: More than half the days 3. Trouble falling or staying asleep, or sleeping too much: Several days 4. Feeling tired or having little energy: Nearly every day 5. Poor appetite or overeating: More than half the days 6. Feeling bad about yourself -- or that you are a failure or have let yourself or your family down: Several days 7. Trouble concentrating on things, such as reading the newspaper or watching television: Several days 8. Moving or speaking so slowly that other people could have noticed. Or the opposite - being so fidgety or restless that you have been moving around a lot more than usual: Not at all 9. Thoughts that you would be better off , or of hurting yourself in some way: Not at all Total Score: 10 Self-Efficacy 6-Item Scale 90-Day Re-eval Assessment: We would like to know how confident you are in doing certain activities. Please select your confidence level for: Fatigue Select Number: 5 Physical Discomfort or Pain Select Number: 5 Emotional Distress Select Number: 3 Other Symptoms or Health Problems Select Number: 4 Different Tasks and Activities Select Number: 7 Medication Select Number: 4 Total Score:: 4 Nutrition Survey Nutrition Survey Instructions Scoring Instructions Exercise - 90-day Assessment Visit Date of Eval: 11/08/22 Session #:: 34 Physician Prescribed Exercise Modalities: Treadmill, NuStep and SciFit Frequency: 3x/week for 12 weeks [36 sessions] Intensity: 60-80% of age predicted maximum heart rate reserve Duration: 30 - 45 minutes Current METSs:: 4 Target Heart Rate:: 94-123 Current RPE:: 12-14 Maximum Excercise HR:: 94 Resting Blood Pressure: 118/78 Maximum Exercise Blood Pressure: 134/80 EKG Type: SB to NSR w/BBB w/Twave inversion Outcomes & Goals Goals:: Verbalizes understanding of THR, RPE & goal METS by session 6, Documents in home exercise log/reports 30 min aerobic 5 day/wk by DC, Demonstrates accurate pulse taking by DC and Other additional outcome/goals: see below Intervention & Plan Exercise Program Goals: Instruct on personal THR & RPE, Instruct on MET level & personal MET goal, Show patient to take own pulse /validate performance until accurate, Instruct on home exercise and Other additional plan/int 30-day Reassessments 30 day Reassessments:: Met Physical Activity Home Exercise Physical Activity - Home Exercise: Safe Exercise, Warm-up, Self-monitoring, Cool-Down, Home Exercise > 30 min Daily and Sitting Time <3 hours/daily Outcomes & Goals Outcomes/Goals: Demonstrates correct Warm-up/exercise Cool-Down (S3) if = 2.5 METs, Verbalizes symptoms of exercise intolerance by Session 3 (S3), Demonstrate safe equipment use (S3) & follows exercise prescrition (6) and Other: See below Intervention & Plan Plan/Intervention: Instruct warm-up & cool-down if exercising at > 2 METs, Instruct on symptoms of exercise intolerance & actions to take, Instruct & monitor on saf, Assess intial functional capacity & safety risk and Other See below 30-day Reassessments 30 day Reassessments:: Met Nutrition - 30-Day Assessment Program Goals Nutrition Program Goals Patient has diagnosis of Hyperlipidemia (ICD E78)?: Yes Visit Date of Eval: 11/08/22 Session #:: 34 Cholesterol/Lipids (Other Core Measures) Determine presence & major risk factors that modify LDL goal: Hypertension or hypertensive medication, Low HDL cholesterol <40 mg/dL*, Family history of premature CHD in Male < 55 years: female <65 yearsFa and Age men > 45 years; women >/= 55 years Outcomes/Goals: Pt IDs own risk factors & lifestyle modifications by Session 10, Verbalizes symptoms of angina & response by session 3., Pt independently manages and Other Additional Outcomes/Goals: Intervention/Plan: Advocate for lipid panel cholesterol medication if applicable, Instruct on personal lipid levels & lipid goals/NCEP guidelines, Instruct on cholesterol and Other additional plan/int Diabetes (Other Core Measures) Diabetes Type: Not Applicable Weight Mgt (Other Care) Height: 5 ft 1 in Weight:: 160 lb BMI: 30.2 Diagnosis Overweight/Obesity BMI> 30% ICD-10 E66: Yes Outcomes/Goals: Pt sets, maintains & shows weight loss goal & trend during rehab and Other additional outcomes/goals Intervention/Plan: Instruct on ideal BMI & set weight loss goal w/patient, Assist pt to ID & incorporate diet changes for weight loss by S9, Refer to Structured Weight Loss program as appropriate, Encourage goal of using 250- 300dcal per session for weight loss and Other additional plan/interventions Healthy Eating Habits Will attend diet classes:: Yes Outcomes/Goals:: Consume diet rich in vegs,fruits,whole grain/high fiber,fish,lean meat, Limit sat/trans fats,cholesterol & added salts & sugars and Other additional outcome/goals: Intervention/Plan:: Assess current eating habits and Other Additional plan/interventions 30-day Reassessments:: Met Education Gave educational materials for:: Signs & symptoms of hypoglycemia, Signs & symptoms of hyperglycemia, Relate diabetes to coronary artery disease and Healthy eating Nutrition - 60-Day Assessment Weight Mgt (Other Care) Height: 5 ft 1 in Weight:: 160 lb BMI: 30.2 Core - 90 Day Assessment Visit Date of Eval: 11/08/22 Session #:: 34 Medication Compliance Preventative Medication(s):: Aspirin, Clopidogrel/P2Y12 inhibit, Ticagrelor/P2Y1 2 inhibitor and Statin/lipid Doesn?t believe in the benefits of treatment?: No Believes medications are unnecessary or harmful?: No Has a concern about medication side effects?: No Expresses concern over the cost of medications?: No Outcomes/Goals: Verbalizes medications,desired effect & common side effects @ DC, Pt self-reports following medication regimen, Keeps card in wallet w/medications listed by DC and Other additional outcome/goals: Interventions/plans: Instruct on medication effects & side effects, Review medication list w/patient every two weeks, Instruct importance of taking meds as ordered & assist problem solving and Other additional 30-day Reassessments:: Met Tobacco Use Tobacco Use: Non-smoker Hypertension Hypertension Diagnosis:: Hypertension ICD-10 I10 Resting Blood Pressure:: 118/78 [place] [employer] Hypertension Guidelines Peak Exercise Blood Pressure:: 134/80 Outcomes/Goals: Able to verbalize/achieve optimal blood pressure <130/80, Incorporates diet changes & exercise for blood pressure control by DC and Other additional outcomes/goals Interventions/plan: Instruct on optimal blood pressure, hypertension & medications, Instruct on effects of sodium, alcohol, stress, exercise &hypertension and Other additional plan/interventions 30 day Reassessments:: Met Tobacco Cessation Referral Smoking Cessation Referral:: No Individual Education/Counseling:: No Education Schedule Given:: Yes Psychosocial - 30-Day Assess Target Goals Target Goals Psychosocial - 60-Day Assess Target Goals Target Goals Psychosocial - 90-Day Assess VIsit Date of Eval: 11/08/22 Session #:: 34 History of Emotional Disorders: Anxious Target Goals Target Goals Psychosocial - Final Assessmen Target Goals Target Goals Nutrition - 90-Day Assessment Weight Mgt (Other Care) Height: 5 ft 1 in Weight:: 160 lb BMI: 30.2 Nutrition - Final Assessment Weight Mgt (Other Care) Height: 5 ft 1 in Weight:: 160 lb BMI: 30.2
[2022-11-08 07:20] VITALS: BP 118/78
[2022-11-08 07:25] VITALS: BP 118/78; BMI 30.2
== END 2022-11-25 23:59 ==
LOC: CR 09:30
PROVIDERS: PCP Internal Medicine; Referring Provider Internal Medicine Cardiovascular Disease; Visit Provider Internal Medicine Cardiovascular Disease
DX: I25.10 Atherosclerotic heart disease of native coronary artery without angina pectoris (principal); Z95.5 Presence of coronary angioplasty implant and graft; I21.4 Non-ST elevation (NSTEMI) myocardial infarction
CPT/HCPCS: 93798

== ENCOUNTER → 2022-11-20 | Outpatient (CLI) | payer MEDICARE, SELFPAY ==
[2022-10-09 11:31] VITALS: BMI 30.2
[2022-11-08 07:25] VITALS: BMI 30.2
--- NOTE | 2022-11-20 12:42 | ECHOL_ITS ---
Reason For Study: TAKOTSUBO SYNDROME Procedure This was a limited 2D transthoracic echocardiogram. Exam performed in department. Left Ventricle Normal LV size. Left ventricular systolic function is normal. The estimated ejection fraction is 65 %. No regional wall motion abnormalities noted. Right Ventricle Normal RV size. Normal systolic function. Atria Normal left atrium. Normal right atrium. Aortic Valve Trisinus/trileaflet aortic valve. Mild focal aortic valve calcification. Great Vessels Normal aortic root. The pulmonary artery is normal size. Normal inferior vena cava. Pericardium/Pleural No pericardial effusion. MMode/2D Measurements & Calculations LVIDd: 3.9 cm IVSd: 1.0 cm Ao root diam: 2.9 cm LVIDs: 2.0 cm LVPWd: 1.0 cm RVDd: 2.8 cm FS: 48.3 % LAV(MOD-bp): 57.2 ml LVAd ap4: 24.6 cm2 LVAd ap2: 25.5 cm2 LAV(MOD-bp) Indexed: 33.9 ml/m2 LVLd ap4: 7.7 cm LVLd ap2: 7.6 cm LAV(MOD-sp2): 50.5 ml EDV(MOD-sp4): 65.4 ml EDV(MOD-sp2): 70.5 ml LAV(MOD-sp4): 58.6 ml EDV(sp4-el): 66.6 ml EDV(sp2-el): 72.2 ml LVAs ap4: 14.3 cm2 LVAs ap2: 13.0 cm2 LVLs ap4: 6.0 cm LVLs ap2: 6.1 cm ESV(MOD-sp4): 29.2 ml ESV(MOD-sp2): 24.3 ml ESV(sp4-el): 29.0 ml ESV(sp2-el): 23.6 ml EF(MOD-sp4): 55.3 % EF(MOD-sp2): 65.5 % EF(sp4-el): 56.5 % SV(MOD-sp4): 36.2 ml SV(MOD-sp2): 46.2 ml SV(sp4-el): 37.6 ml LA A4 area: 18.8 cm2 LA dimension(2D): 3.0 cm RA A4 area: 12.9 cm2 ECHO/Echo, Limited Study Interpretation Summary Normal LV size. Left ventricular systolic function is normal. The estimated ejection fraction is 65 %. Compared to previous study, the left ventricular systolic function is the same. . Ordering Physician: Karen Sanabria Referring Physician: Claudette Garrison Performed By: Dianne Frost RDCS, RVT
== END | disposition home or self-care (01) ==
PROVIDERS: PCP Internal Medicine; Referring Provider Nurse Practitioner Gerontology; Visit Provider Nurse Practitioner Gerontology
DX: I51.81 Takotsubo syndrome (principal)
CPT/HCPCS: 93308

== ENCOUNTER → 2022-12-12 | Outpatient (CLI) | payer MEDICARE, SELFPAY ==
[2022-11-08 07:25] VITALS: BMI 30.2
[2022-12-12 08:19] LABS: Absolute Lymphocyte Count 2.19 X10^3/uL (0.83-4.51); Absolute Neutrophil Count 3.2 X10^3/uL (2.0-7.7); Basophil# 0.04 X10^3/uL; Basophil% 0.6 % (0-1); Eosinophil# 0.21 X10^3/uL; Eosinophils% 3.4 % (0-5); Hematocrit 42.3 % (37-47); Hemoglobin 13.4 g/dL (12.0-15.0); Lymphocyte # 2.19 X10^3/ul (0.83-4.51); Lymphocyte % 35.5 % (19-41); Mean Corp Hgb Conc 31.7 g/dL (32-36); Mean Corpuscular Hgb 27.9 pg (27.0-32.0); Mean Corpuscular Volume 87.9 fL (81-99); Mean Platelet Vol. 11.5 fl (6.2-12.0); Monocyte# 0.51 X10^3/uL; Monocyte% 8.3 % (0-10); NRBC Flagged by Analyzer 0 % (0-5); Neutrophil % 51.9 % (47-70); Platelet Count 240 K/mm3 (150-450); RBC Distribution Width CV 14.6 % (11.6-14.6); RBC Distribution Width SD 47.3 fl (35.1-43.9); Red Blood Count 4.81 M/mm3 (4.2-5.4); White Blood Count 6.2 K/mm3 (4.4-11.0)
[2022-12-12 08:46] LABS: Insulin 13.4 mU/L (2.6-37.6); Vitamin D,25 Hydroxy 45.9 ng/mL
[2022-12-12 08:59] LABS: ALB/GLOB Ratio 1.1 RATIO (0.9-2.4); AST(SGOT) 9 U/L (15-37); Alanine Aminotransfer ALT/SGPT 22 U/L (13-56); Albumin, Serum 3.4 g/dL (3.2-5.0); Alkaline Phosphatase 95 U/L (45-117); Anion Gap 6 (5-15); BUN 17 mg/dL (7-18); BUN/Creat Ratio 20.1 RATIO (10-20); Calcium,Total 8.9 mg/dL (8.5-10.1); Chloride 110 mmol/L (98-107); Cholesterol 249 mg/dL (200); Creatinine, Serum 0.85 mg/dL (0.55-1.02); EST Glomerular Filtration Rate 69 mL/min (>60); Est Glom Filt Rate - Afr Amer 84 mL/min (>60); Globulin 3.1 g/dL (2.2-4.2); Glucose 96 mg/dL (74-106); High Density Lipoprotein 66 mg/dL; Potassium 4.1 mmol/L (3.5-5.1); Protein, Total 6.5 g/dL (6.4-8.2); Sodium Level 142 mmol/L (136-145); Thyroid Stim Hormone (TSH) 1.41 uIU/mL (0.358-3.74); Triglycerides 96 mg/dL; Very Low Density Lipoprotein 19 mg/dL (5-40)
[2022-12-12 11:48] LABS: Hemoglobin A1c 5.5 % (3.8-5.6)
== END | disposition home or self-care (01) ==
LOC: LAB 07:46
PROVIDERS: PCP Internal Medicine; Referring Provider Internal Medicine; Visit Provider Internal Medicine
DX: R63.5 Abnormal weight gain (principal); I10 Essential (primary) hypertension; E55.9 Vitamin D deficiency, unspecified; K21.9 Gastro-esophageal reflux disease without esophagitis; R73.9 Hyperglycemia, unspecified; Z13.220 Encounter for screening for lipoid disorders
CPT/HCPCS: 36415; 80053; 80061; 82306; 83036; 83525; 84443; 85025

== ENCOUNTER → 2023-02-14 | Outpatient (CLI) | payer MEDICARE, SELFPAY ==
[2023-01-19 11:08] VITALS: BMI 30.2
== END | disposition home or self-care (01) ==
LOC: LABSPEC 10:18
PROVIDERS: PCP Internal Medicine; Referring Provider Physician Assistant Surgical; Visit Provider Physician Assistant Surgical
DX: N39.0 Urinary tract infection, site not specified (principal)
CPT/HCPCS: 87086; 87088

== ENCOUNTER 2023-04-03 00:19 | Emergency (ER) | payer MEDICARE, SELFPAY ==
[2023-01-19 11:08] VITALS: BMI 30.2
[2023-04-03 00:20] VITALS: BP 202/89; PULSE 70; RESP 16; TEMP 36.2; O2SAT 98; BMI 30.4
--- OUTSIDE RECORDS SUMMARY | 2023-04-03 00:40 | XMS RPT_ITS | CCD ---
Author Name Unknown Address [address] [place] [address] Organization [facility] Care Team Providers Care Manager Ship Name Role Phone JUAN CARLOS ÁLVAREZ DR Attending Unavailable JUAN CARLOS ÁLVAREZ DR Primary Care Unavailable JUAN CARLOS ÁLVAREZ DR Admitting Unavailable Results Test Name Value Interpretation Reference Range Facil ity Encounters Encounter Date Encounter Type Care Provider Facility Start: 01-24-2022 End: 01-24-2022 ambulatory JUAN CARLOS [facility]LVAREZ [facility] Payers Date Payer Category Payer Unknown [id number] Medicare [id number] Clinical Notes 05-28-2020 to 04-29-2021 Note Date & Type Note Facility 04-29-2021 Note HNO ID: [id number] Author: Chris MCGINNIS Service: ? Author Type: ? Type: Progress Notes Filed: 04/29/2021 1:40 PM Note Text: POPULATION HEALTH NAVIGATION OUTREACH Action/FYI Patient no longer sees PCP at [facility]. Pt identified by name and : YES, via phone Outreach Outcome/Action Spoke to patient or caregiver: PCP confirmed / updated PCP field updated Navigation Signature: Chris MCGINNIS April 29, 2021 1:32 PM POPULATION HEALTH NAVIGATION OUTREACH Action/FYI Left msg AND sent mychart. Pt identified by name and : NO Outreach Outcome/Action Unable to reach patient: Left message MyChart message sent Reason for Outreach Care Gap or Scheduling/Wellness visits Payer: Payor: JULISSA BLUE CROSS [employer] BLUE [employer]IELD / Plan: ANTHEM MED[employer]LUE HMO / Product Type: HMO / Care Gap Reviewed:: Follow-up appointment Controlling Blood Pressure Reminder: Reminder note to check Health Maintenance for items below Health Maintenance items due: SPIROMETRY Never done HEPATITIS C SCREENING Never done BP CONTROLLED (<130/80) Never done SHINGRIX VACCINE(2 of 3) due on 12/29/2011 DTAP,TDAP,TD(2 - Td or Tdap) due on 09/05/2017 ADVANCE DIRECTIVE DISCUSSION Never done COVID-19 VACCINE(2 - Pfizer 3-dose series) due on 03/08/2021 Message Sent to Practice: No Navigation Signature: Chris Handy [facility] April 29, 2021 12:25 PM [facility] 04-29-2021 Note Patient Outreach (NE TNAV) THOMAS HARDY ([id number]) 1945 F Date Time Provider Department 04/29/21 CHRIS HANDY ([facility]) CHARLENE During your visit today, we recorded the following information about you: Chris Handy [facility] 04/29/2021 1:40 PM Addendum POPULATION HEALTH NAVIGATION OUTREACH Action/FYI Patient no longer sees PCP at [facility]. Pt identified by name and : YES, via phone Outreach Outcome/Action Spoke to patient or caregiver: PCP confirmed / updated PCP field updated Navigation Signature: Chris Handy [facility] April 29, 2021 1:32 PM POPULATION HEALTH NAVIGATION OUTREACH Action/FYI Left msg AND sent Thirstyhart. Pt identified by name and : NO Outreach Outcome/Action Unable to reach patient: Left message MyChart message sent Reason for Outreach Care Gap or Scheduling/Wellness visits Payer: Payor: hyaqu AND [employer] / Plan: [employer] HMO / Product Type: HMO / Care Gap Reviewed:: Follow-up appointment Controlling Blood Pressure Reminder: Reminder note to check Health Maintenance for items below Health Maintenance items due: SPIROMETRY Never done HEPATITIS C SCREENING Never done BP CONTROLLED (<130/80) Never done SHINGRIX VACCINE(2 of 3) due on 12/29/2011 DTAP,TDAP,TD(2 - Td or Tdap) due on 09/05/2017 ADVANCE DIRECTIVE DISCUSSION Never done COVID-19 VACCINE(2 - Pfizer 3-dose series) due on 03/08/2021 Message Sent to Practice: No Navigation Signature: Chris Handy [facility] April 29, 2021 12:25 PM Allergies As of Date: 04/29/2021 Noted Allergy Reaction AMOXICILLIN 02/06/2005 2 - Rash 9 - Itching PENICILLINS 02/06/2005 2 - Rash 9 - Itching SULFA (SULFONAMIDE ANTIBIOTICS) 02/06/2005 2 - Rash 9 - Itching ATORVASTATIN 09/30/2014 5 - Intolerance Comments: joint pain hand R IODINE 04/06/2005 7 - Swelling Comments: swelling to shellfish [id number] REDUCTASE INHIBIT*03/06/2018 17 - Myalgia Date Reviewed: 03/22/2021 Reviewed by: Debra Mancuso MA - Fully Assessed Reason for Visit: Population Health Navigation Outreach [3910] Cmt: Julissa outreach Prescriptions as of 04/29/2021 - sertraline (ZOLOFT) 50 mg tablet Take 1 tablet by mouth once daily. - fluticasone (FLOVENT) 110 mcg/actuation inhaler Inhale 2 Puffs as instructed twice daily. - omeprazole (PRILOSEC) 20 mg capsule TAKE 1 CAPSULE BY MOUTH EVERY DAY NEEDED - albuterol HFA (VENTOLIN HFA) 90 mcg/actuation inhaler Inhale 2 Puffs as instructed every 4 hours as needed for wheezing/shortness of breath. - L. acidophilus-L. rhamnosus (FLORAJEN WOMEN) 15 billion cell cap Take 1 capsule by mouth once daily. - ergocalciferol 50,000 unit capsule (VITAMIN D2, DRISDOL) Take 1 capsule by mouth one time a week. TAKE ON MONDAYS - ascorbic acid, vitamin C, (VITAMIN C) 500 mg tablet Take 500 mg by mouth once daily. - VITAMIN E ACETATE ORAL Take by mouth. - lisinopril (PRINIVIL) 10 mg tablet Take 1 tablet by mouth once daily. - coenzyme Q10 (COQ-10) 100 mg cap capsule Take 100 mg by mouth twice daily. - omega-3 fatty acids/vitamin e(FISH OIL 1,000 MG CAP) 2 cap daily - DAILY MULTIVITAMIN TAB Take one(1) tablet daily. Problem List As Of Date 04/29/2021 Noted Resolved Unspecified asthma(493.90) [J45.909] 07/25/2005 11/06/2015 Adjustment disorder with depressed mood [F43.21]07/25/2005 Allergic rhinitis, cause unspecified [J30.9] 09/22/2005 01/16/2017 Essential hypertension [I10] 01/01/2007 Mixed hyperlipidemia [E78.2] 04/10/2007 Unspecified Osteoporosis [M81.0] 04/10/2007 01/26/2009 ATROPHIC VAGINITIS [N95.2] 04/28/2008 Disorder of bone and cartilage [M89.9, M94.9] 04/28/2008 Osteopenia [M85.80] 01/26/2009 Lesion of nose [J34.89] 07/07/2010 01/16/2017 Osteoarthritis [M19.90] 05/17/2012 11/06/2015 Idiopathic scoliosis and kyphoscoliosis [M41.20]04/09/2013 Backache, unspecified [M54.9] 04/09/2013 01/16/2017 Primary osteoarthritis involving multiple joint*11/06/2015 Adhesive bursitis of left shoulder [M75.02] 04/08/2018 Acute pain of right shoulder [M25.511] 04/08/2018 Moderate persistent asthma, uncomplicated [J45.*04/23/2020 Encounter Status:Closed by CHRIS PEÑA on 04/29/21 [facility] 03-22-2021 Note HNO ID: [id number] Author: RT Enrico(R) Service: Nuclear Medicine Author Type: Technologist Type: Progress Notes Filed: 03/22/2021 2:22 PM Note Text: Radiology Service Progress Note PATIENT NAME: Thomas Hardy DATE OF SERVICE: March 22, 2021 TIME: 2:13 PM PATIENT IDENTITY VERIFICATION COMPLETED USING TWO (2) IDENTIFIERS: Name and Date of confirmed by patient verbally. FALL SCREENING: Has the patient had 2 falls in the last year or 1 fall with injury or currently using an Ambulatory Assistive Device (Walker, Cane, Wheelchair, Crutches, etc.)? No PATIENT GENDER DATA: Female. status: : No status: NO. PATIENT RELEVANT IMPLANT DATA REVIEWED: Not Applicable RADIOLOGY DEPARTMENT: General X-ray: Exam(s) Completed: Chest X-Ray PERIPHERAL IV DATA: Not applicable SIGNED BY: Jillian Romero, (R) March 22, 2021 2:13 PM [facility] 03-22-2021 Note HNO ID: [id number] Author: Annalise Stanley APRN.LATIN TEACHER Service: ? Author Type: Nurse Practitioner Type: Progress Notes Filed: 03/22/2021 3:39 PM Note Text: This note was created using NoteWriter. Subjective Thomas Hardy is a 75 year old female. 75 year old female with PMH HTN, hyperlipidemia, asthma, and scoliosis presents with concerns for cough and sinus pain Acute onset of symptoms 1 month ago +cold like symptoms. +sore throat +nasal congestion +cough +sinus pressure. States 16 days ago tested positive for COVID. She underwent monoclonal ATB therapy, 1 1/2 weeks ago Has utilized Mucinex and Coricidin D. Presents today with continued cough and sinus pressure just want to make sure nothing in my chest The history is provided by the patient. No english as a second language teacher was used. Cough This is a new problem. The current episode started more than 1 week ago. The problem occurs constantly. The problem has not changed since onset.The cough is non-productive. There has been no fever. Associated symptoms include ear congestion and headaches. Pertinent negatives include no chest pain, no chills, no sweats, no weight loss, no ear pain, no rhinorrhea, no sore throat, no myalgias, no shortness of breath, no wheezing and no eye redness. She has tried nothing for the symptoms. She is not a smoker. Her past medical history is significant for asthma. Her past medical history does not include bronchitis, pneumonia, bronchiectasis, COPD or emphysema. Past medical history comments: COVID. PAST MEDICAL HISTORY Diagnosis Date - Arthritis - Asthma - Disorder of bone and cartilage, unspecified - Diverticulosis of colon (without mention of hemorrhage) - Dysthymic disorder Depression (non-psychotic)/anxiety - Family history of malignant neoplasm of gastrointestinal tract - Unspecified asthma(493.90) - Unspecified essential hypertension PAST SURGICAL HISTORY Procedure Laterality Date - COLONOSCOPY FLX DX W/COLLJ SPEC WHEN PFRMD 2000 flex sigmoid - COLONOSCOPY FLX DX W/COLLJ SPEC WHEN PFRMD 12/03/2008 - COLONOSCOPY FLX DX W/COLLJ SPEC WHEN PFRMD 12/15/2013 Colonoscopy - COLONOSCOPY FLX DX W/COLLJ SPEC WHEN PFRMD 03/24/2019 Colonoscopy - COLONOSCOPY FLX DX W/COLLJ SPEC WHEN PFRMD 09/21/2020 - DILATION AND CURETTAGE DXAND/THER NONOBSTETRIC Dilation AND curettage - NEUROPLASTY AND/TRANSPOS MEDIAN NRV CARPAL TUNNE 1976 AND 1977 Carpal tunnel decomp - PAST SURGICAL HISTORY OF RT. WRIST TENDON RELEASE - PAST SURGICAL HISTORY OF 07/2004 trigger thumb/lt. - TONSILLECTOMY HX - TONSILLECTOMY PRIMARY/SECONDARY Tonsillectomy ALLERGIES Amoxicillin, Penicillins, Sulfa (Sulfonamide Antibiotics), Atorvastatin, Iodine, and Wsaqanq-Xyw-Eee Reductase Inhibitors MEDICATIONS doxycycline (VIBRA-TABS) 100 mg tablet Take 1 tablet by mouth twice daily for 10 days. sertraline (ZOLOFT) 50 mg tablet Take 1 tablet by mouth once daily. fluticasone (FLOVENT) 110 mcg/actuation inhaler Inhale 2 Puffs as instructed twice daily. omeprazole (PRILOSEC) 20 mg capsule TAKE 1 CAPSULE BY MOUTH EVERY DAY NEEDED albuterol HFA (VENTOLIN HFA) 90 mcg/actuation inhaler Inhale 2 Puffs as instructed every 4 hours as needed for wheezing/shortness of breath. L. acidophilus-L. rhamnosus (FLORAJEN WOMEN) 15 billion cell cap Take 1 capsule by mouth once daily. ergocalciferol 50,000 unit capsule (VITAMIN D2, DRISDOL) Take 1 capsule by mouth one time a week. TAKE ON MONDAYS ascorbic acid, vitamin C, (VITAMIN C) 500 mg tablet Take 500 mg by mouth once daily. VITAMIN E ACETATE ORAL Take by mouth. lisinopril (PRINIVIL) 10 mg tablet Take 1 tablet by mouth once daily. coenzyme Q10 (COQ-10) 100 mg cap capsule Take 100 mg by mouth twice daily. omega-3 fatty acids/vitamin e(FISH OIL 1,000 MG CAP) 2 cap daily DAILY MULTIVITAMIN TAB Take one(1) tablet daily. FAMILY HISTORY Problem Relation Age of Onset - Colon Cancer Mother 85 - Heart Mother colon cancer - Alzheimer's Disease Father AGE 83 - Colon Cancer Maternal Grandmother - Cancer Maternal Grandmother colon Social History Tobacco Use - Smoking status: Never Smoker - Smokeless tobacco: Never Used Substance Use Topics - Alcohol use: No - Drug use: No Review of Systems Constitutional: Negative for chills, diaphoresis, fatigue, fever and weight loss. HENT: Positive for congestion, postnasal drip, sinus pressure and sinus pain. Negative for ear pain, rhinorrhea and sore throat. Eyes: Negative for pain, discharge, redness and itching. Respiratory: Positive for cough. Negative for apnea, choking, chest tightness, shortness of breath and wheezing. Cardiovascular: Negative for chest pain, palpitations and leg swelling. Gastrointestinal: Negative for abdominal pain, diarrhea, nausea and vomiting. Musculoskeletal: Negative for arthralgias, back pain and myalgias. Skin: Negative for color change, pallor, rash and wound. (more content not included)... [facility] 03-06-2021 Note HNO ID: [id number] Author: Asha Leal APRN.LATIN TEACHER Service: ? Author Type: Nurse Practitioner Type: Progress Notes Filed: 03/06/2021 8:33 AM Note Text: CC: Patient presents with: Cough: sinus pressure, fever, chills, body aches x1 week HPI: Thomas Hardy is a 75 year old female who presents to the office with complaint of cough, nonproductive and sinus symptoms for a week. Symptoms are worsening Associated symptoms includes body aches, fever and chills. Denies dyspnea, nausea, vomiting and diarrhea. Treatments tried include nothing so far. with no relief of symptoms. Sick contacts: unknown. History of asthma, frequent episodes of bronchitis, chronic bronchitis, bronchiectasis or COPD: No Smoker: No Seasonal/environmental allergies: No The ROS is otherwise negative. The patient's pmh, medications, allergies, and past visits are reviewed. PHYSICAL EXAM: BP 128/82 Pulse (!) 122 Temp (!) 38.2 ?C (100.7 ?F) Resp 22 Wt 66.6 kg (146 lb 12.8 oz) SpO2 93% BMI 27.74 kg/m? General appearance: alert, cooperative, pleasant, in no acute distress Head: Normocephalic Eyes: EOM's intact, conjunctiva pink and moist, no icterus, sclera white, non-injected Heart: Negative. RRR without obvious murmur, gallop, or rubs. No ectopy. Lungs: clear to auscultation, without rales or wheeze, good air exchange PAST MEDICAL HISTORY Diagnosis Date - Arthritis - Asthma - Disorder of bone and cartilage, unspecified - Diverticulosis of colon (without mention of hemorrhage) - Dysthymic disorder Depression (non-psychotic)/anxiety - Family history of malignant neoplasm of gastrointestinal tract - Unspecified asthma(493.90) - Unspecified essential hypertension PAST SURGICAL HISTORY Procedure Laterality Date - COLONOSCOP W/ OR W/O [facility] SPEC 2000 flex sigmoid - COLONOSCOP W/ OR W/O [facility] SPEC 12/03/2008 - COLONOSCOP W/ OR W/O [facility] SPEC 12/15/2013 Colonoscopy - COLONOSCOP W/ OR W/O [facility] SPEC 03/24/2019 Colonoscopy - COLONOSCOP W/ OR W/O [facility] SPEC 09/21/2020 - DANDC, DIAG AND/OR THERAPEUTIC Dilation AND curettage - PAST SURGICAL HISTORY OF RT. WRIST TENDON RELEASE - PAST SURGICAL HISTORY OF 07/2004 trigger thumb/lt. - REMOVAL OF TONSILS,<12 Y/O Tonsillectomy - REVISE MEDIAN N/CARPAL TUNNEL SURG 1976 AND 1977 Carpal tunnel decomp - TONSILLECTOMY HX ALLERGIES Amoxicillin, Penicillins, Sulfa (Sulfonamide Antibiotics), Atorvastatin, Iodine, and Tojzdpz-Jnt-Cse Reductase Inhibitors MEDICATIONS predniSONE (DELTASONE) 20 mg tablet Take 2 tablets by mouth once daily for 4 days. sertraline (ZOLOFT) 50 mg tablet Take 1 tablet by mouth once daily. fluticasone (FLOVENT) 110 mcg/actuation inhaler Inhale 2 Puffs as instructed twice daily. omeprazole (PRILOSEC) 20 mg capsule TAKE 1 CAPSULE BY MOUTH EVERY DAY NEEDED albuterol HFA (VENTOLIN HFA) 90 mcg/actuation inhaler Inhale 2 Puffs as instructed every 4 hours as needed for wheezing/shortness of breath. L. acidophilus-L. rhamnosus (FLORAJEN WOMEN) 15 billion cell cap Take 1 capsule by mouth once daily. ergocalciferol 50,000 unit capsule (VITAMIN D2, DRISDOL) Take 1 capsule by mouth one time a week. TAKE ON MONDAYS ascorbic acid, vitamin C, (VITAMIN C) 500 mg tablet Take 500 mg by mouth once daily. VITAMIN E ACETATE ORAL Take by mouth. lisinopril (PRINIVIL) 10 mg tablet Take 1 tablet by mouth once daily. coenzyme Q10 (COQ-10) 100 mg cap capsule Take 100 mg by mouth twice daily. omega-3 fatty acids/vitamin e(FISH OIL 1,000 MG CAP) 2 cap daily DAILY MULTIVITAMIN TAB Take one(1) tablet daily. FAMILY HISTORY Problem Relation Age of Onset - Colon Cancer Mother 85 - Heart Mother colon cancer - Alzheimer's Disease Father AGE 83 - Colon Cancer Maternal Grandmother - Cancer Maternal Grandmother colon Social History Tobacco Use - Smoking status: Never Smoker - Smokeless tobacco: Never Used Substance Use Topics - Alcohol use: No - Drug use: No ASSESSMENT/PLAN: 1. Suspected COVID-19 virus infection - ICD9: V01.79, ICD10: Z20.822 - COVID WITH FLUA+B, ROUTINE Prescription instructions reviewed with patient as applicable. Prednisone bust prescribed. Potential red flag symptoms discussed with the patient. Reviewed appropriate action plan to take if red flag symptoms occur. Patient agreeable to treatment plan. Asha Leal APRN.[facility] 02-14-2021 Note HNO ID: [id number] Author: Sameer Randhawa MD Service: ? Author Type: Physician Type: Progress Notes Filed: 02/14/2021 5:59 PM Note Text: Patient presents with: Headache: loss of smell x 11:00am, exposure HPI: Noticed loss of smell today. Positive symptoms: improved headache, loss of smell, Negative symptoms: Cough, Shortness of breath, Sore throat, Nasal Congestion, Rhinorrhea, Fever, Chills, Malaise, Nausea, Vomiting, Diarrhea, Has not had known COVID-19 disease or vaccine (planning to get the vaccine today). She went out to eat with a friend who tested positive for Covid last week. MEDICATIONS: Current Outpatient Medications Medication Sig - sertraline (ZOLOFT) 50 mg tablet Take 1 tablet by mouth once daily. - fluticasone (FLOVENT) 110 mcg/actuation inhaler Inhale 2 Puffs as instructed twice daily. - omeprazole (PRILOSEC) 20 mg capsule TAKE 1 CAPSULE BY MOUTH EVERY DAY NEEDED - albuterol HFA (VENTOLIN HFA) 90 mcg/actuation inhaler Inhale 2 Puffs as instructed every 4 hours as needed for wheezing/shortness of breath. - ergocalciferol 50,000 unit capsule (VITAMIN D2, DRISDOL) Take 1 capsule by mouth one time a week. TAKE ON MONDAYS - ascorbic acid, vitamin C, (VITAMIN C) 500 mg tablet Take 500 mg by mouth once daily. - VITAMIN E ACETATE ORAL Take by mouth. - coenzyme Q10 (COQ-10) 100 mg cap capsule Take 100 mg by mouth twice daily. - omega-3 fatty acids/vitamin e(FISH OIL 1,000 MG CAP) 2 cap daily - DAILY MULTIVITAMIN TAB Take one(1) tablet daily. - L. acidophilus-L. rhamnosus (FLORAJEN WOMEN) 15 billion cell cap Take 1 capsule by mouth once daily. - lisinopril (PRINIVIL) 10 mg tablet Take 1 tablet by mouth once daily. No current facility-administered medications for this visit. ALLERGIES: ALLERGIES Allergen Reactions - Amoxicillin Rash, Itching - Penicillins Rash, Itching - Sulfa (Sulfonamide * Rash, Itching - Atorvastatin Intolerance joint pain hand R - Iodine Swelling swelling to shellfish - Eskfize-Yzq-Oby Red* Myalgia VITALS: BP 122/80 Pulse 62 Temp 36.9 ?C (98.5 ?F) Resp 16 Wt 66.2 kg (146 lb) SpO2 96% BMI 27.59 kg/m? PHYSICAL EXAM: GEN: Pleasant, in no acute distress. HEENT: PERRL, EOMI, conjunctiva clear Neck: supple, no thyromegaly, no lymphadenopathy LUNGS: No cough, no increased WOB ASSESSMENT/PLAN: 1. Loss of sense of smell - ICD9: 781.1, ICD10: R43.0 (primary diagnosis) 2. Exposure to confirmed case of COVID-19 - ICD9: V01.79, ICD10: Z20.822 - suspect COVID-19. - Discussed supportive care treatment with home isolation, rest, cold medicine, and analgesia. - Red flags to seek further treatment include chest pain, shortness of breath, and lethargy; in the ER if severe. Vaccine may be received once feeling better. - 2019 CORONAVIRUS Sameer Randhawa MD [facility] 10-19-2020 Note HNO ID: [id number] Author: Vladimir Max PA-C Service: ? Author Type: Physician Trimming Cutter Type: Progress Notes Filed: 10/19/2020 10:19 AM Note Text: 74 year old female with c/o Current meds: Sertraline 50mg daily Change in medication No. Currently in counseling? No. Any Medication side effects? No. Sleep disturbance? No. Sleeping well. Loss of interest in usual pleasurable activities?No. Sense of guilt, shame, low self esteem?No. Energy: good though tired after all day work at [place]. Trouble with concentration? No. Changes in appetite? No. Changes in weight? No Psychomotor retardation: No Suicidal thoughts: No Racing thoughts? No. Interpersonal/ family conflicts? No. Irritability? No. HTN: Current meds: Lisinopril 10mg daily Patient is compliant with meds Yes Monitors bp at home: No. If yes, readings: Denies side effects: No. Chest pain: No. Dyspnea: No. Edema: No. Palpitations: No. Syncope: No. Headache: No. Dizziness: No. Last 3 Encounter BP Readings: Date: BP: 10/18/2020 140/74 08/09/2020 137/67 08/09/2020 130/68 Last 2 Encounter Wt Readings: Date: Wt: 10/18/2020 63 kg (139 lb) 08/09/2020 66.6 kg (146 lb 12.8 oz) Asthma Current meds: Albuterol MDI Fluticasone 110mcg 2 puffs q12h PULM: Worsening shortness of breath: No. Has had rough season this year Cough: Yes. Wheezing: occasional. Smoking: No. Compliant with medications: No. Using rescue inhaler twice a day most of the summer but tapering off recently. No chest pain, leg swelling Dr. Katelyn Canales. Diverticulosis Bowels are back to normal Eating well Lost 13lbs but has stabilized. Cataract October Dr. Dasilva, [facility] [place] Dr. Bosch. HISTORIES FAMILY HISTORY Problem Relation Age of Onset - Colon Cancer Mother 85 - Heart Mother colon cancer - Alzheimer's Disease Father AGE 83 - Colon Cancer Maternal Grandmother - Cancer Maternal Grandmother colon PAST MEDICAL HISTORY Diagnosis Date - Arthritis - Asthma - Disorder of bone and cartilage, unspecified - Diverticulosis of colon (without mention of hemorrhage) - Dysthymic disorder Depression (non-psychotic)/anxiety - Family history of malignant neoplasm of gastrointestinal tract - Unspecified asthma(493.90) - Unspecified essential hypertension PAST SURGICAL HISTORY Procedure Laterality Date - COLONOSCOP W/ OR W/O [facility] SPEC 2000 flex sigmoid - COLONOSCOP W/ OR W/O [facility] SPEC 12/03/2008 - COLONOSCOP W/ OR W/O [facility] SPEC 12/15/2013 Colonoscopy - COLONOSCOP W/ OR W/O [facility] SPEC 03/24/2019 Colonoscopy - COLONOSCOP W/ OR W/O [facility] SPEC 09/21/2020 - DANDC, DIAG AND/OR THERAPEUTIC Dilation AND curettage - PAST SURGICAL HISTORY OF RT. WRIST TENDON RELEASE - PAST SURGICAL HISTORY OF 07/2004 trigger thumb/lt. - REMOVAL OF TONSILS,<12 Y/O Tonsillectomy - REVISE MEDIAN N/CARPAL TUNNEL SURG 1976 AND 1977 Carpal tunnel decomp - TONSILLECTOMY HX Social History Tobacco Use - Smoking status: Never Smoker - Smokeless tobacco: Never Used Substance Use Topics - Alcohol use: No - Drug use: No ACTIVE PROBLEM LIST Adjustment Disorder With Depressed Mood Essential Hypertension Mixed Hyperlipidemia Postmenopausal Atrophic Vaginitis Disorder of Bone and Cartilage Osteopenia Scoliosis (And Kyphoscoliosis), Idiopathic Primary Osteoarthritis Involving Multiple Joints Adhesive Bursitis of Left Shoulder Acute Pain of Right Shoulder Moderate Persistent Asthma, Uncomplicated Current Outpatient Medications Medication Sig Dispense Refill - omeprazole (PRILOSEC) 20 mg capsule Take 1 capsule by mouth as needed. 30 capsule 2 - polyethylene glycol 3350 (MIRALAX, GLYCOLAX) 17 gram/dose powder Use as directed for Miralax / Gatorade Bowel Prep Kit 238 g 0 - Bisacodyl (DULCOLAX) 5 mg tab Use as directed for Miralax / Gatorade Bowel Prep Kit 4 tablet 0 - L. acidophilus-L. rhamnosus (FLORAJEN WOMEN) 15 billion cell cap Take 1 capsule by mouth once daily. 30 capsule 0 - ergocalciferol 50,000 unit capsule (VITAMIN D2, DRISDOL) Take 1 capsule by mouth one time a week. TAKE ON MONDAYS 4 capsule 12 - sertraline (ZOLOFT) 50 mg tablet Take 1 tablet by mouth once daily. (Patient not taking: Reported on 10/18/2020 ) 30 tablet 5 - ascorbic acid, vitamin C, (VITAMIN C) 500 mg tablet Take 500 mg by mouth once daily. - VITAMIN E ACETATE ORAL Take by mouth. - lisinopril (PRINIVIL) 10 mg tablet Take 1 tablet by mouth once daily. 90 tablet 3 - albuterol HFA (VENTOLIN HFA) 90 mcg/actuation inhaler Inhale 2 Puffs as instructed every 4 hours as needed for Wheezing/Shortness of Breath. 18 g 5 - fluticasone (FLOVENT) 110 mcg/actuation inhaler Inhale 2 Puffs as instructed twice daily. 1 Inhaler 12 - coenzyme Q10 (COQ-10) 100 mg cap capsule Take 100 mg by mouth twice daily. - omega-3 fatty acids/vitamin e(FISH OIL 1,000 MG CAP) 2 cap daily 1 0 - DAILY M (more content not included)... [facility] 10-18-2020 Note HNO ID: [id number] Author: Katelyn Canales APRN.LATIN TEACHER Service: ? Author Type: Nurse Practitioner Type: Progress Notes Filed: 10/18/2020 4:23 PM Note Text: DEPARTMENT OF GASTROENTEROLOGY - FOLLOW UP VISIT HISTORY OF PRESENT ILLNESS Thomas Hardy is a 74 year old female who presents today for follow up of colonoscopy. The patient was seen by Nanette on for upper endoscopy for symptoms of Clinically significant diarrhea of unexplained origin. The procedures were performed with Midazolam 5 mg IV, Fentanyl 100 micrograms IV sedation. The procedure report has been reviewed and findings as follows: Impression: ? - The examined portion of the ileum was normal. ? - The entire examined colon is normal. Biopsied. ? - Diverticulosis in the entire examined colon. ? - The distal rectum and anal verge are normal on ? retroflexion view. FINAL DIAGNOSIS 1. Terminal ileum, biopsy (A) - Small bowel mucosa with no diagnostic abnormality. 2. Random colon, biopsy (B) - Colonic mucosa with focally increased intraepithelial lymphocytes (see comment). COMMENT 2. 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 However, intraepithelial lymphocytosis is a nonspecific histologic finding that can also be seen in the setting of infection or in association with certain medications, including NSAIDs. Correlation with clinical and endoscopic findings is recommended. Reports symptoms of resolved having formed BM daily. Having heartburn, regurgitation with certain spices and foods - She is not taking anything currently except will take TUMS is symptoms of reflux happens at bedtime. I have reviewed the procedure and pathology reports, as well as the images, with the patient. Discussed with patient follow up colonoscopy in 5 years for colon cancer surveillance d/t family history of first degree relative mother diagnosed with colon cancer. PAST MEDICAL HISTORY Diagnosis Date - Arthritis - Asthma - Disorder of bone and cartilage, unspecified - Diverticulosis of colon (without mention of hemorrhage) - Dysthymic disorder Depression (non-psychotic)/anxiety - Family history of malignant neoplasm of gastrointestinal tract - Unspecified asthma(493.90) - Unspecified essential hypertension PAST SURGICAL HISTORY Procedure Laterality Date - COLONOSCOP W/ OR W/O [facility] SPEC 2000 flex sigmoid - COLONOSCOP W/ OR W/O [facility] SPEC 12/03/2008 - COLONOSCOP W/ OR W/O [facility] SPEC 12/15/2013 Colonoscopy - COLONOSCOP W/ OR W/O [facility] SPEC 03/24/2019 Colonoscopy - COLONOSCOP W/ OR W/O [facility] SPEC 09/21/2020 - DANDC, DIAG AND/OR THERAPEUTIC Dilation AND curettage - PAST SURGICAL HISTORY OF RT. WRIST TENDON RELEASE - PAST SURGICAL HISTORY OF 07/2004 trigger thumb/lt. - REMOVAL OF TONSILS,<12 Y/O Tonsillectomy - [facility] N/CARPAL TUNNEL SURG 1976 AND 1977 Carpal tunnel decomp - TONSILLECTOMY HX Current Outpatient Medications Medication Sig Dispense Refill - ergocalciferol 50,000 unit capsule (VITAMIN D2, DRISDOL) Take 1 capsule by mouth one time a week. TAKE ON MONDAYS 4 capsule 12 - ascorbic acid, vitamin C, (VITAMIN C) 500 mg tablet Take 500 mg by mouth once daily. - VITAMIN E ACETATE ORAL Take by mouth. - lisinopril (PRINIVIL) 10 mg tablet Take 1 tablet by mouth once daily. 90 tablet 3 - albuterol HFA (VENTOLIN HFA) 90 mcg/actuation inhaler Inhale 2 Puffs as instructed every 4 hours as needed for Wheezing/Shortness of Breath. 18 g 5 - fluticasone (FLOVENT) 110 mcg/actuation inhaler Inhale 2 Puffs as instructed twice daily. 1 Inhaler 12 - coenzyme Q10 (COQ-10) 100 mg cap capsule Take 100 mg by mouth twice daily. - omega-3 fatty acids/vitamin e(FISH OIL 1,000 MG CAP) 2 cap daily 1 0 - DAILY MULTIVITAMIN TAB Take one(1) tablet daily. 0 - omeprazole (PRILOSEC) 20 mg capsule Take 1 capsule by mouth as needed. 30 capsule 2 - polyethylene glycol 3350 (MIRALAX, GLYCOLAX) 17 gram/dose powder Use as directed for Miralax / Gatorade Bowel Prep Kit 238 g 0 - Bisacodyl (DULCOLAX) 5 mg tab Use as directed for Miralax / Gatorade Bowel Prep Kit 4 tablet 0 - L. acidophilus-L. rhamnosus (FLORAJEN WOMEN) 15 billion cell cap Take 1 capsule by mouth once daily. 30 capsule 0 - sertraline (ZOLOFT) 50 mg tablet Take 1 tablet by mouth once daily. (Patient not taking: Reported on 10/18/2020 ) 30 tablet 5 No current facility-administered medications for this visit. ALLERGIES Allergen Reactions - Amoxicillin Rash, Itching - Penicillins Rash, Itching - Sulfa (Sulfonamide * Rash, Itching - Atorvastatin Intolerance joint pain hand R - Iodine Swelling swelling to shellfish - Vycgvae-Qrf-Cyh Red* Myalgia PHYSICAL EXAMINATION BP 140/74 Pulse 61 Wt 139 lb (63.1kg) SpO2 97% Gen (more content not included)... [facility] 07-28-2020 Note HNO ID: [id number] Author: Sandra Chang PA-C Service: ? Author Type: Physician Trimming Cutter Type: Progress Notes Filed: 07/28/2020 12:57 PM Note Text: This note was created using NoteWriter. Subjective Thomas Hardy is a 74 year old female. HPI Patient presents with diarrhea for 2 weeks. She had called her doctor who suggested she try an [id number] antidiarrheal. She used that for 5 days ago and it did seem to work for a few days but yesterday the diarrhea started back again. She states she is having 3 or 4 bouts of watery stools a day. No blood in her stool. She denies abdominal pain or back pain. No fever or chills. No vomiting or nausea. States she is drinking and eating but sometimes when she eats it just goes straight through her. She denies any recent antibiotics. No recent travel. She does have well water at home. She denies any other contacts being sick. No one at home is sick. She does eat out 1-2 times per week. She did have a normal colonoscopy in 2019. She denies chronic diarrhea. No lightheadedness or dizziness. She denies any medication changes recently. Review of Systems Constitutional: Negative. HENT: Negative. Respiratory: Negative. Cardiovascular: Negative. Gastrointestinal: Positive for diarrhea. Negative for abdominal pain, blood in stool, nausea and vomiting. All other systems reviewed and are negative. PAST MEDICAL HISTORY Diagnosis Date - Disorder of bone and cartilage, unspecified - Diverticulosis of colon (without mention of hemorrhage) - Dysthymic disorder Depression (non-psychotic)/anxiety - Family history of malignant neoplasm of gastrointestinal tract - Unspecified asthma(493.90) - Unspecified essential hypertension Current Outpatient Medications Medication Sig Dispense Refill - ergocalciferol 50,000 unit capsule (VITAMIN D2, DRISDOL) Take 1 capsule by mouth one time a week. TAKE ON MONDAYS 4 capsule 12 - sertraline (ZOLOFT) 50 mg tablet Take 1 tablet by mouth once daily. 30 tablet 5 - ascorbic acid, vitamin C, (VITAMIN C) 500 mg tablet Take 500 mg by mouth once daily. - VITAMIN E ACETATE ORAL Take by mouth. - lisinopril (PRINIVIL) 10 mg tablet Take 1 tablet by mouth once daily. 90 tablet 3 - albuterol HFA (VENTOLIN HFA) 90 mcg/actuation inhaler Inhale 2 Puffs as instructed every 4 hours as needed for Wheezing/Shortness of Breath. 18 g 5 - fluticasone (FLOVENT) 110 mcg/actuation inhaler Inhale 2 Puffs as instructed twice daily. 1 Inhaler 12 - coenzyme Q10 (COQ-10) 100 mg cap capsule Take 100 mg by mouth twice daily. - omega-3 fatty acids/vitamin e(FISH OIL 1,000 MG CAP) 2 cap daily 1 0 - DAILY MULTIVITAMIN TAB Take one(1) tablet daily. 0 - L. acidophilus-L. rhamnosus (FLORAJEN WOMEN) 15 billion cell cap Take 1 capsule by mouth once daily. 30 capsule 0 No current facility-administered medications for this visit. PAST SURGICAL HISTORY Procedure Laterality Date - COLONOSCOP W/ OR W/O [facility] SPEC 2000 flex sigmoid - COLONOSCOP W/ OR W/O [facility] SPEC 12/03/08 - COLONOSCOP W/ OR W/O [facility] SPEC 12/15/13 Colonoscopy - COLONOSCOP W/ OR W/O [facility] SPEC 03/24/2019 Colonoscopy - DANDC, DIAG AND/OR THERAPEUTIC Dilation AND curettage - PAST SURGICAL HISTORY OF RT. WRIST TENDON RELEASE - PAST SURGICAL HISTORY OF 07/31 trigger thumb/lt. - REMOVAL OF TONSILS,<12 Y/O Tonsillectomy - [facility] N/CARPAL TUNNEL SURG 1976 AND 1977 Carpal tunnel decomp FAMILY HISTORY Problem Relation Age of Onset - Heart Mother colon cancer - Alzheimer's Disease Father AGE 83 - Cancer Maternal Grandmother colon Social History Tobacco Use - Smoking status: Never Smoker - Smokeless tobacco: Never Used Substance Use Topics - Alcohol use: No - Drug use: No Objective BP 112/86 Pulse 63 Temp 36.4 ?C (97.6 ?F) (Left Tympanic) Resp 16 Wt 68.6 kg (151 lb 3.2 oz) SpO2 95% BMI 28.18 kg/m? Physical Exam Vitals reviewed. Constitutional: Appearance: Normal appearance. HENT: Head: Normocephalic and atraumatic. Mouth/Throat: Mouth: Mucous membranes are moist. Pharynx: Oropharynx is clear. Cardiovascular: Rate and Rhythm: Normal rate and regular rhythm. Heart sounds: Normal heart sounds. Pulmonary: Effort: Pulmonary effort is normal. Breath sounds: Normal breath sounds. Abdominal: General: Abdomen is flat. There is no distension. Palpations: Abdomen is soft. Tenderness: There is no abdominal tenderness. There is no guarding or rebound. Skin: General: Skin is warm and dry. Findings: No rash. Neurological: Mental Status: She is alert. Assessment and Plan ASSESSMENT/PLAN: 1. Diarrhea, unspecified type - ICD9: 787.91, ICD10: R19.7 Will check stool studies. Start probiotic. Will check cmp as well to assess electrolytes. Encouraged to push fluids. May use loperamide sparingly. If not improving could consider primary care vs GI followup. Patient agreeable with this plan (more content not included)... [facility] 07-12-2020 Note HNO ID: [id number] Author: Vladimir Max PA-C Service: ? Author Type: Physician Trimming Cutter Type: Progress Notes Filed: 08/10/2020 4:17 AM Note Text: Audio only was used for evaluation of this patient. Location of patient: [place] Patient was offered a virtual/telemedicine appointment in lieu of an office visit due to recommendations to reduce patient exposure to COVID-19. Patient is aware of limitations of performing the visit without a face to face visit in the office setting and agrees. Patient was offered a virtual/telemedicine appointment in lieu of an office visit due to recommendations to reduce patient exposure to COVID-19. Patient is aware of limitations of performing the visit without a face to face visit in the office setting and agrees. 74 year old female with c/o Still has some shakiness, not as bad as 3-4 weeks ago: only if holding something Still having a few sleepless nights. Anxiety is well controlled, a few times felt she might get anxious but was able to manage. Back to work on weekends. A lot happier with this medication. Brother . Sister with bone marrow transplant HISTORIES FAMILY HISTORY Problem Relation Age of Onset - Heart Mother colon cancer - Alzheimer's Disease Father AGE 83 - Cancer Maternal Grandmother colon PAST MEDICAL HISTORY Diagnosis Date - Disorder of bone and cartilage, unspecified - Diverticulosis of colon (without mention of hemorrhage) - Dysthymic disorder Depression (non-psychotic)/anxiety - Family history of malignant neoplasm of gastrointestinal tract - Unspecified asthma(493.90) - Unspecified essential hypertension PAST SURGICAL HISTORY Procedure Laterality Date - COLONOSCOP W/ OR W/O [facility] SPEC 2000 flex sigmoid - COLONOSCOP W/ OR W/O [facility] SPEC 12/03/08 - COLONOSCOP W/ OR W/O [facility] SPEC 12/15/13 Colonoscopy - COLONOSCOP W/ OR W/O [facility] SPEC 03/24/2019 Colonoscopy - DANDC, DIAG AND/OR THERAPEUTIC Dilation AND curettage - PAST SURGICAL HISTORY OF RT. WRIST TENDON RELEASE - PAST SURGICAL HISTORY OF 07/31 trigger thumb/lt. - REMOVAL OF TONSILS,<12 Y/O Tonsillectomy - [facility] N/CARPAL TUNNEL SURG 1976 AND 1977 Carpal tunnel decomp Social History Tobacco Use - Smoking status: Never Smoker - Smokeless tobacco: Never Used Substance Use Topics - Alcohol use: No - Drug use: No ACTIVE PROBLEM LIST Adjustment Disorder With Depressed Mood Essential Hypertension Mixed Hyperlipidemia Postmenopausal Atrophic Vaginitis Disorder of Bone and Cartilage Osteopenia Scoliosis (And Kyphoscoliosis), Idiopathic Primary Osteoarthritis Involving Multiple Joints Adhesive Bursitis of Left Shoulder Acute Pain of Right Shoulder Moderate Persistent Asthma, Uncomplicated Current Outpatient Medications Medication Sig Dispense Refill - ergocalciferol 50,000 unit capsule (VITAMIN D2, DRISDOL) Take 1 capsule by mouth one time a week. TAKE ON MONDAYS 4 capsule 12 - sertraline (ZOLOFT) 50 mg tablet Take 1 tablet by mouth once daily. 30 tablet 5 - sertraline (ZOLOFT) 25 mg tablet Take 1 tablet by mouth once daily. 30 tablet 2 - ascorbic acid, vitamin C, (VITAMIN C) 500 mg tablet Take 500 mg by mouth once daily. - VITAMIN E ACETATE ORAL Take by mouth. - lisinopril (PRINIVIL) 10 mg tablet Take 1 tablet by mouth once daily. 90 tablet 3 - albuterol HFA (VENTOLIN HFA) 90 mcg/actuation inhaler Inhale 2 Puffs as instructed every 4 hours as needed for Wheezing/Shortness of Breath. 18 g 5 - fluticasone (FLOVENT) 110 mcg/actuation inhaler Inhale 2 Puffs as instructed twice daily. 1 Inhaler 12 - coenzyme Q10 (COQ-10) 100 mg cap capsule Take 100 mg by mouth twice daily. - omega-3 fatty acids/vitamin e(FISH OIL 1,000 MG CAP) 2 cap daily 1 0 - DAILY MULTIVITAMIN TAB Take one(1) tablet daily. 0 No current facility-administered medications for this visit. SPIROMETRY Never done SHINGRIX VACCINE(2 of 3) due on 12/29/2011 ADVANCE DIRECTIVE DISCUSSION due on 12/29/2013 DTAP,TDAP,TD(2 - Td or Tdap) due on 09/05/2017 DEPRESSION SCREENING due on 05/17/2018 MAMMOGRAM due on 08/14/2019 EXAM: There were no vitals taken for this visit. Pleasant adult woman in no acute distress. Alert and oriented all spheres. Normal affect and cognition. Speech normal. No deficits to learning or comprehension. Speaking in full sentences. ASSESSMENT/PLAN: 1. Panic attack - ICD9: 300.01, ICD10: F41.0 (primary diagnosis) 2. Adjustment disorder with depressed mood - ICD9: 309.0, ICD10: F43.21 Doing well on sertraline. Continue med, recheck 3 months 3. Tremor - ICD9: 781.0, ICD10: R25.1 Sounds like essential tremor, very sporadic Not identifies in literature r/t sertraline. Evaluate in person if persistent or worsening. Call time 7 minutes Vladimir Max PA-C [facility] 06-14-2020 Note HNO ID: [id number] Author: Vladimir Gunter (Teo) Mansoor Service: ? Author Type: Physician Trimming Cutter Type: Progress Notes Filed: 06/14/2020 9:31 AM Note Text: 74 year old female with c/o PSYCH: Current medications (s): sertraline 25mg daily Recent change in therapy? Yes. If yes, what results? Brother in hospital x 12 days, going into hospice. Went back to work [employer] twice yesterday. Today shaking, cold sweat, still no calmed down. Last mirtazepine was 06/02/20 Currently in counseling? No. If yes, summary of recent therapy: Currently tolerating medications well: No . If no, complicactions: Side effects: Yes. Sleep issues: Sleeping more. Interest/ Activity: normal Guilt/ Self image: no problems Energy changes: No. Appetite changes: No. Has lost 2 lbs. Current depression: No. Current anxiety: Yes. Suicidal ideation: No. HISTORIES FAMILY HISTORY Problem Relation Age of Onset - Heart Mother colon cancer - Alzheimer's Disease Father AGE 83 - Cancer Maternal Grandmother colon PAST MEDICAL HISTORY Diagnosis Date - Disorder of bone and cartilage, unspecified - Diverticulosis of colon (without mention of hemorrhage) - Dysthymic disorder Depression (non-psychotic)/anxiety - Family history of malignant neoplasm of gastrointestinal tract - Unspecified asthma(493.90) - Unspecified essential hypertension PAST SURGICAL HISTORY Procedure Laterality Date - COLONOSCOP W/ OR W/O [facility] SPEC 2000 flex sigmoid - COLONOSCOP W/ OR W/O [facility] SPEC 12/03/08 - COLONOSCOP W/ OR W/O [facility] SPEC 12/15/13 Colonoscopy - COLONOSCOP W/ OR W/O [facility] SPEC 03/24/2019 Colonoscopy - DANDC, DIAG AND/OR THERAPEUTIC Dilation AND curettage - PAST SURGICAL HISTORY OF RT. WRIST TENDON RELEASE - PAST SURGICAL HISTORY OF 07/31 trigger thumb/lt. - REMOVAL OF TONSILS,<12 Y/O Tonsillectomy - [facility] N/CARPAL TUNNEL SURG 1976 AND 1977 Carpal tunnel decomp Social History Tobacco Use - Smoking status: Never Smoker - Smokeless tobacco: Never Used Substance Use Topics - Alcohol use: No - Drug use: No ACTIVE PROBLEM LIST Adjustment Disorder With Depressed Mood Essential Hypertension Mixed Hyperlipidemia Postmenopausal Atrophic Vaginitis Disorder of Bone and Cartilage Osteopenia Scoliosis (And Kyphoscoliosis), Idiopathic Primary Osteoarthritis Involving Multiple Joints Adhesive Bursitis of Left Shoulder Acute Pain of Right Shoulder Moderate Persistent Asthma, Uncomplicated Current Outpatient Medications Medication Sig Dispense Refill - sertraline (ZOLOFT) 25 mg tablet Take 1 tablet by mouth once daily. 30 tablet 2 - ascorbic acid, vitamin C, (VITAMIN C) 500 mg tablet Take 500 mg by mouth once daily. - VITAMIN E ACETATE ORAL Take by mouth. - mirtazapine (REMERON) 15 mg tablet Take 1 tablet by mouth daily at bedtime. 90 tablet 1 - lisinopril (PRINIVIL) 10 mg tablet Take 1 tablet by mouth once daily. 90 tablet 3 - albuterol HFA (VENTOLIN HFA) 90 mcg/actuation inhaler Inhale 2 Puffs as instructed every 4 hours as needed for Wheezing/Shortness of Breath. 18 g 5 - ergocalciferol 50,000 unit capsule (VITAMIN D2, DRISDOL) Take 1 capsule by mouth one time a week. TAKE ON MONDAYS 4 capsule 12 - fluticasone (FLOVENT) 110 mcg/actuation inhaler Inhale 2 Puffs as instructed twice daily. 1 Inhaler 12 - coenzyme Q10 (COQ-10) 100 mg cap capsule Take 100 mg by mouth twice daily. - omega-3 fatty acids/vitamin e(FISH OIL 1,000 MG CAP) 2 cap daily 1 0 - DAILY MULTIVITAMIN TAB Take one(1) tablet daily. 0 No current facility-administered medications for this visit. SPIROMETRY Completed SHINGRIX VACCINE(2 of 3) due on 12/29/2011 ADVANCE DIRECTIVE DISCUSSION due on 12/29/2013 DTAP,TDAP,TD(2 - Td) due on 09/05/2017 DEPRESSION SCREENING due on 05/17/2018 MAMMOGRAM due on 08/14/2019 EXAM: There were no vitals taken for this visit. Pleasant adult woman in no acute distress. Alert and oriented all spheres. Normal affect and cognition. Speech normal. No deficits to learning or comprehension. Speaking in full sentences. ASSESSMENT/PLAN: 1. Panic attack - ICD9: 300.01, ICD10: F41.0 (primary diagnosis) - SERTRALINE 50 MG TABLET 2. Adjustment disorder with depressed mood - ICD9: 309.0, ICD10: F43.21 - SERTRALINE 50 MG TABLET Again reviewed onset of action, 3-4 weeks for med to stabililize. May take at night. Has ativan for emergencies. Patient agreeable and doesn't want to be dependent on ativan again. 11 minute call [facility] 05-28-2020 Note HNO ID: [id number] Author: Vladimir Gunter (Pa-C) Mansoor Service: ? Author Type: Physician Trimming Cutter Type: Progress Notes Filed: 05/28/2020 2:19 PM Note Text: 74 year old female with c/o Had screening blood flow carotid duplex and NOAH's at [facility]: suggested moderate carotid artery disease. Wants further evaluation A little lightheaded once awhile. No syncope. Weaning off mirtazepine. Night before last didn't slep at all but first time in 2-3 weeks. Had caffeine that afternoon. Think sertraline is working. No panic episodes. HISTORIES FAMILY HISTORY Problem Relation Age of Onset - Heart Mother colon cancer - Alzheimer's Disease Father AGE 83 - Cancer Maternal Grandmother colon PAST MEDICAL HISTORY Diagnosis Date - Disorder of bone and cartilage, unspecified - Diverticulosis of colon (without mention of hemorrhage) - Dysthymic disorder Depression (non-psychotic)/anxiety - Family history of malignant neoplasm of gastrointestinal tract - Unspecified asthma(493.90) - Unspecified essential hypertension PAST SURGICAL HISTORY Procedure Laterality Date - COLONOSCOP W/ OR W/O [facility] SPEC 2000 flex sigmoid - COLONOSCOP W/ OR W/O [facility] SPEC 12/03/08 - COLONOSCOP W/ OR W/O [facility] SPEC 12/15/13 Colonoscopy - COLONOSCOP W/ OR W/O [facility] SPEC 03/24/2019 Colonoscopy - DANDC, DIAG AND/OR THERAPEUTIC Dilation AND curettage - PAST SURGICAL HISTORY OF RT. WRIST TENDON RELEASE - PAST SURGICAL HISTORY OF 07/31 trigger thumb/lt. - REMOVAL OF TONSILS,<12 Y/O Tonsillectomy - [facility] N/CARPAL TUNNEL SURG 1976 AND 1977 Carpal tunnel decomp Social History Tobacco Use - Smoking status: Never Smoker - Smokeless tobacco: Never Used Substance Use Topics - Alcohol use: No - Drug use: No ACTIVE PROBLEM LIST Adjustment Disorder With Depressed Mood Essential Hypertension Mixed Hyperlipidemia Postmenopausal Atrophic Vaginitis Disorder of Bone and Cartilage Osteopenia Scoliosis (And Kyphoscoliosis), Idiopathic Primary Osteoarthritis Involving Multiple Joints Adhesive Bursitis of Left Shoulder Acute Pain of Right Shoulder Moderate Persistent Asthma, Uncomplicated Current Outpatient Medications Medication Sig Dispense Refill - sertraline (ZOLOFT) 25 mg tablet Take 1 tablet by mouth once daily. 30 tablet 2 - ascorbic acid, vitamin C, (VITAMIN C) 500 mg tablet Take 500 mg by mouth once daily. - VITAMIN E ACETATE ORAL Take by mouth. - mirtazapine (REMERON) 15 mg tablet Take 1 tablet by mouth daily at bedtime. 90 tablet 1 - lisinopril (PRINIVIL) 10 mg tablet Take 1 tablet by mouth once daily. 90 tablet 3 - albuterol HFA (VENTOLIN HFA) 90 mcg/actuation inhaler Inhale 2 Puffs as instructed every 4 hours as needed for Wheezing/Shortness of Breath. 18 g 5 - ergocalciferol 50,000 unit capsule (VITAMIN D2, DRISDOL) Take 1 capsule by mouth one time a week. TAKE ON MONDAYS 4 capsule 12 - fluticasone (FLOVENT) 110 mcg/actuation inhaler Inhale 2 Puffs as instructed twice daily. 1 Inhaler 12 - coenzyme Q10 (COQ-10) 100 mg cap capsule Take 100 mg by mouth twice daily. - omega-3 fatty acids/vitamin e(FISH OIL 1,000 MG CAP) 2 cap daily 1 0 - DAILY MULTIVITAMIN TAB Take one(1) tablet daily. 0 No current facility-administered medications for this visit. SPIROMETRY Completed SHINGRIX VACCINE(2 of 3) due on 12/29/2011 ADVANCE DIRECTIVE DISCUSSION due on 12/29/2013 DTAP,TDAP,TD(2 - Td) due on 09/05/2017 DEPRESSION SCREENING due on 05/17/2018 MAMMOGRAM due on 08/14/2019 EXAM: BP 112/62 Pulse 80 Resp 16 Pleasant adult woman in no acute distress. Alert and oriented all spheres. Normal affect and cognition. Speech normal. No deficits to learning or comprehension. Skin warm, dry, pink to lips and nailbeds. Normal turgor. Respirations regular and unlabored. Carotids 2/4+ without bruits. Chest CTA. HRRR without murmur or gallop. Extrem: no clubbing or cyanosis. Edema: none. Extremities are warm and pink with prompt capillary refill. ASSESSMENT/PLAN: 1. Lightheadedness - ICD9: 780.4, ICD10: R42 (primary diagnosis) 2. Abnormal carotid duplex scan - ICD9: 794.39, ICD10: R94.39 - US CAROTID ARTERIES [facility] See orders and/or patient instructions. Patient ( or Guardian) expressed understanding of instructions on review. Vladimir Max PA-C [facility] Summary Purpose Family History No Family History Records FoundNo Family History Records Found Advance Directives No Advanced Directives Records FoundNo Advanced Directives Records Found Additional Source Comments INFORMATION SOURCE (unrecogn ized section and content) DATE CREATED AUTHOR AUTHOR'S ORGANIZ ATION 01/25/2022 [facility] PERTAINING TO PATIENTS WHO ARE OR HAVE BEEN ENROLLED IN A CHEMICAL DEPENDENCY/SUBSTANCEABUSE PROGRAM, SOME INFORMATION MAY BE OMITTED. This clinical summary was aggregated from multiple sources. Caution should be exercised in using it in the provision of clinical care. This summary normalizes information from multiple sources, and as a consequence, information in this document may materially change the coding, format and clinical context of patient data. In addition, data may be omitted in some cases. CLINICAL DECISIONS SHOULD BE BASED ON THE PRIMARY CLINICAL RECORDS. [facility]. provides no warranty or guarantee of the accuracy or completeness of information in this document.
--- NOTE | 2023-04-03 00:57 | RAD_ITS ---
INDICATION: chest pain EXAMINATION/TECHNIQUE: X-RAY - XR Chest 1 View COMPARISON: 10/07/2022. FINDINGS: LINES/DEVICES: None. LUNGS: No consolidation or evidence of an effusion. No evidence of edema or a pneumothorax. Calcified granuloma in the left lower lobe. MEDIASTINUM AND CARDIOVASCULAR STRUCTURES: Round contour of right hilum. Mediastinum is unremarkable. BONES AND SOFT TISSUES: No acute abnormality. RAD/Chest 1 View (Portable) IMPRESSION: 1. No evidence of acute cardiopulmonary disease. 2. Rounded contour of the right hilum possibly representing a prominent right main pulmonary artery. Recommend follow-up with CT of the chest. Electronically Signed: Arthur Husain DO at 1:55 EST ,
--- NOTE | 2023-04-03 00:58 | EDS_ITS ---
HPI History of Present Illness Chief Complaint: Chest Pain Informant: patient Onset/Context/Timing Onset: Today (around 2 hrs prior to eval) Activity at onset: gradual, onset and activity on onset (rest, lying down) Timing: Continuous Quality: Positive for Dull Location: Left Chest (With radiation into the periscapular area and left shoulder with tingling down the left upper extremity ) Current Severity: Mild Maximum Severity: Moderate Worsened By: Nothing; Not Worsened By Breathing Relieved By: Nothing Associated Symptoms: Positive for Dyspnea (a little) and - (chills); Negative for Nausea, Vomiting, Diaphoresis, Cough, Lightheadedness or Palpitations Narrative Narrative: 77-year-old female states she started having left-sided chest discomfort with radiation down her left arm, dull nonpleuritic discomfort, feels the same as it did last June when she needed a stent placed. She states there was another artery that had a 40% blockage that did not need stenting at that time. No recent illness. No leg pain or swelling. She is coming compliant with her aspirin and clopidogrel, she took an extra baby aspirin tonight prior to coming here but no other medications. The discomfort is still there but mild. [facility] Medical History Acute flank pain Anxiety Atherosclerosis of coronary artery of [place] heart without angina pectoris Chest pain COVID-19 Epigastric pain Gastric reflux Hearing problem History of stress test Impacted cerumen of both ears LBBB (left bundle branch block) Lower abdominal pain Non-smoker Otitis externa of both ears Seasonal allergies Trigger finger Home Medications ergocalciferol (vitamin D2) 1,250 mcg (50,000 unit) capsule 50,000 unit PO QWEEK supplement #12 caps 09/14/22 [Rx Last Taken Unknown] albuterol sulfate 90 mcg/actuation aerosol inhaler 2 inh inhalation Q8H PRN shortness of breath or wheezing #8.5 grams 09/18/22 [Rx Last Taken Unknown] budesonide-formoterol HFA 160 mcg-4.5 mcg/actuation aerosol inhaler (Symbicort) 2 puff inhalation BID #10.2 grams 10/26/22 [Rx Last Taken Unknown] aspirin 81 mg tablet,delayed release 81 mg PO BREAKFAST #90 tabs 11/13/22 [Rx Last Taken Unknown] clopidogrel 75 mg tablet (Plavix) 75 mg PO QDAY #90 tabs 11/13/22 [Rx Last Taken Unknown] lisinopril 20 mg tablet 20 mg PO DAILY blood pressure #90 tabs 01/01/23 [Rx Last Taken Unknown] ezetimibe 10 mg tablet (Zetia) 10 mg PO DAILY #30 tabs 01/25/23 [Rx Last Taken Unknown] famotidine 40 mg tablet (Pepcid) 40 mg PO DAILY #90 tabs 03/14/23 [Rx Last Taken Unknown] carvedilol 6.25 mg tablet 12.5 mg (2 x 6.25 mg) PO BID #60 tabs 04/03/23 [Rx Last Taken Unknown] isosorbide mononitrate 30 mg tablet,extended release 24 hr 30 mg PO DAILY #30 tabs 04/03/23 [Rx Last Taken Unknown] Allergy/AdvReac Type Severity Reaction Status Date / Time shellfish derived Allergy Severe SOB Verified 04/03/23 00:19 amoxicillin Allergy Unknown Verified 04/03/23 00:19 erythromycin base Allergy Unknown Verified 04/03/23 00:19 [From Staticin] ethyl alcohol [From Staticin] Allergy Unknown Verified 04/03/23 00:19 Penicillins Allergy Unknown Verified 04/03/23 00:19 Sulfa (Sulfonamide Allergy Unknown Verified 04/03/23 00:19 Antibiotics) Vyuqfax-UKC-NjM Reductase AdvReac Pain in Verified 04/03/23 00:19 Inhibitor joints Family History Mother Colon cancer Cancer Heart disease Grandmother Colon cancer Cancer Sister Cancer Brother Heart disease Mental disorder Father , 85 yrs old Dementia Surgical History History of carpal tunnel release History of cataract extraction History of coronary artery stent placement (07/20/22) History of tonsillectomy Social History Smoking Status: Never smoker alcohol intake: never substance use type: does not use what type of physical activity do you participate in: none ROS ROS ED Constitutional Constitutional ED: Reports chills; Denies fever(s) Eyes Eyes: Denies change in vision or diplopia ENT ENT ED: Denies rhinorrhea or sore throat Cardiovascular Cardiovascular: Reports as per HPI, chest pain and radiating jaw, neck or arm pain; Denies orthopnea or palpitations Respiratory/Chest Respiratory/Chest: Denies cough, dyspnea on exertion or orthopnea Gastrointestinal Gastrointestinal: Denies abdominal pain, diarrhea, nausea or vomiting Genitourinary Genitourinary ED: Denies dysuria or hematuria Musculoskeletal Musculoskeletal: Denies back pain or neck pain Integumentary Denies abscess or rash Neurologic Neurologic: Denies headache(s), paresthesias or weakness Psychiatric Psychiatric: Denies anxiety or suicidal thoughts EXAM Physical Exam Const Vital Signs: 04/03/23 00:20 04/03/23 00:22 04/03/23 01:04 Temperature 97.2 F L Temperature Source Temporal Pulse Rate 70 Respiratory Rate 16 Respiratory Effort Normal Non-Labored Blood Pressure 202/89 H Blood Pressure Mean 126 Pulse Ox 98 Oxygen Delivery Method Room Air Room Air 04/03/23 01:38 04/03/23 01:47 04/03/23 03:18 Temperature 97.5 F L 97.5 F L Temperature Source Temporal Pulse Rate 57 L 71 69 Respiratory Rate 11 L 15 13 Respiratory Effort Blood Pressure 168/78 H 134/68 H 134/68 H Blood Pressure Mean 108 90 90 Pulse Ox 100 99 99 Oxygen Delivery Method Room Air Room Air Positive well nourished and well developed General Appearance ED: well developed and NAD HEENT Reports moist mucous membranes normocephalic and atraumatic Eyes PERRL and EOMs intact bilaterally Neck full ROM and supple Chest Wall inspection of chest normal and palpation of chest normal Resp normal respiratory effort and clear to auscultation bilaterally Cardio regular rate, regular rhythm and no murmurs Peripheral Pulses: pulses 2+ throughout GI non-tender and non-distended Auscultation: normoactive bowel sounds Palpation: soft Back/Spine no CVA tenderness General Back: other FROM Extremity normal to inspection General Extremety ED: Negative for edema, pulses abnormal or tenderness General Extremity: Negative for edema or pulses abnormal Neuro oriented x3, CN's II-XII intact bilaterally and no sensory deficits noted Sensorium / Orientation: awake and alert Motor Exam: strength 5/5 throughout Skin no rashes or lesions noted and no wounds Heart Score History: Highly Suspicious ECG: Nonspecific Repolarization Age: >/= 65 years Risk Factors: >/= 3 Risk Factors or History of CAD Troponin: </= Normal Limit Score: 7 MDM MDM MDM Narrative Medical decision making narrative: Aspirin and nitroglycerin ordered. However, patient said her chest was feeling better and declined an offer for nitroglycerin, and on reevaluation after her initial round of testing returned, she states she is almost completely better, but still has some residual discomfort in her left arm but the tingling is gone. Since she did not get the nitroglycerin and her blood pressure on recheck is still around 200 systolic, I am ordering hydralazine, her heart score is high, she and at this point tells me that she has had this discomfort several times last month, and she also had it for months or so ago, she was sent home from the ER this past month never followed up with anybody. She is high risk, has a history of coronary disease and will discuss with hospitalist for inpatient observation further evaluation, patient is understandably concerned. Hospitalist asked me to discuss with cardiology. Dr. Espinosa was on-call, discus sed with him, we did a second troponin and it came back basically normal, the initial measurement at 5 and the second measurement 2 hours later at 6 for a delta of 1 both in the single digits which is very reassuring. Given this, he states he does not think that she needs to have a urgent/emergent heart cath, and recommends doing some medication changes and having the patient follow-up in the office. I discussed this with the patient and she is comfortable with that. The patient states that she was on lisinopril 10 mg before her heart attack, and subsequently she has been on lisinopril 20 mg and her blood pressure has been somewhat elevated compared to her normal ever since. We gave her hydralazine which brought her high blood pressure down to 134/68. Dr. Espinosa advised doubling her lisinopril, doubling her Coreg, and adding Imdur. Patient states she is not wanting to increase her lisinopril if possible, I am fine with leaving that alone at 20 mg for now and doubling her Coreg to 12.5 mg twice daily and adding Imdur 30 and following up as an outpatient. She is comfortable with that plan. History & Record Review Additional record(s) reviewed:: Prior outpatient record (Cardiology December 2022: Continue medical management, RCA 40% lesion on catheterization 06/2022, [facility]) Lab Data Attestation: I reviewed the patient's lab results. Labs: Laboratory Results - last 24 hr 04/03/23 04/03/23 00:31 03:00 WBC 8.1 RBC 4.78 Hgb 13.4 Hct 40.5 MCV 84.7 MCH 28.0 MCHC 33.1 RDW Std Deviation 42.5 RDW Coeff of Cesar 13.6 Plt Count 245 MPV 11.1 Immature Gran % (Auto) 0.400 Neut % (Auto) 46.6 L Lymph % (Auto) 40.7 [place] % (Auto) 9.0 Eos % (Auto) 2.8 Baso % (Auto) 0.5 Absolute Neuts (auto) 3.8 Absolute Lymphs (auto) 3.29 Nucleated RBC % 0 APTT 28.7 Sodium 141 Potassium 4.3 Chloride 109 H Carbon Dioxide 27.0 Anion Gap 5 BUN 21 H Creatinine 0.91 Estim Creat Clear Calc 47.31 Est GFR (MDRD) Af Amer 77 Est GFR (MDRD) Non-Af 64 BUN/Creatinine Ratio 23.2 H Glucose 112 H Calcium 9.1 Troponin I High Sens 5 6 Radiography Chest X-Ray - ED: 1 View, Read by ED Physician, No Acute Disease and Chronic Changes Diagnostic Testing: Clinical Impression(s) from Imaging Studies Chest X-Ray 04/03/23 00:57 IMPRESSION: 1. No evidence of acute cardiopulmonary disease. 2. Rounded contour of the right hilum possibly representing a prominent right main pulmonary artery. Recommend follow-up with CT of the chest. Electronically Signed: Arthur Husain DO at 1:55 EST , Rhythm Strip Rhythm Strip: Sinus Rhythm Rate: 70 Ectopy: None EKG Initial EKG: Attestation: I personally reviewed and interpreted this EKG as follows: Interpretation: Sinus Rhythm, No Acute Injury Pattern, LBBB (incomplete) and Inverted T-Waves (1, aVL) Prior: Unchanged Management Discussion w/another healthcare provider: Hospitalist Discharge Plan Triage Chief Complaint: Chest Pain ED Provider: Samir Donald Dx/Rx/DC Orders Clinical Impression: Chest pain, History of coronary artery stent placement, History of CAD (coronary artery disease), Accelerated hypertension Instructions: Hypertension Dc, ED Chest Pain, Uncertain Cause Prescriptions: New isosorbide mononitrate 30 mg tablet extended release 24 hr 30 mg PO DAILY Qty: 30 0RF Continued budesonide-formoterol [Symbicort] 160-4.5 mcg/actuation HFA aerosol inhaler 2 puff inhalation BID Qty: 10.2 6RF ezetimibe [Zetia] 10 mg tablet 10 mg PO DAILY Qty: 30 11RF ergocalciferol (vitamin D2) 1,250 mcg (50,000 unit) capsule 50,000 unit PO QWEEK Qty: 12 3RF albuterol sulfate 90 mcg/actuation HFA aerosol inhaler 2 inh inhalation Q8H PRN (Reason: shortness of breath or wheezing) Qty: 8.5 2RF aspirin 81 mg tablet,delayed release (DR/EC) 81 mg PO BREAKFAST Qty: 90 3RF clopidogrel [Plavix] 75 mg tablet 75 mg PO QDAY Qty: 90 3RF lisinopril 20 mg tablet 20 mg PO DAILY Qty: 90 3RF famotidine [Pepcid] 40 mg tablet 40 mg PO DAILY Qty: 90 1RF Changed carvedilol 6.25 mg tablet 12.5 mg PO BID Qty: 60 11RF Rx Instructions: must administer with a meal/food Primary Care Provider: Claudette Garrison Referrals: Claudette Garrison MD [Primary Care Provider] - Bobo Espinosa MD [Med Staff - Active Staff] - As soon as possible (call for appt) Disposition Disposition: Home, Self Care
[2023-04-03] MEDS: Aspirin 81 MG TAB.CHEW 162 MG PO (01:02)
[2023-04-03 01:04] LABS: Absolute Lymphocyte Count 3.29 X10^3/uL (0.83-4.51); Absolute Neutrophil Count 3.8 X10^3/uL (2.0-7.7); Basophil# 0.04 X10^3/uL; Basophil% 0.5 % (0-1); Eosinophil# 0.23 X10^3/uL; Eosinophils% 2.8 % (0-5); Hematocrit 40.5 % (37-47); Hemoglobin 13.4 g/dL (12.0-15.0); Lymphocyte # 3.29 X10^3/ul (0.83-4.51); Lymphocyte % 40.7 % (19-41); Mean Corp Hgb Conc 33.1 g/dL (32-36); Mean Corpuscular Volume 84.7 fL (81-99); Mean Platelet Vol. 11.1 fl (6.2-12.0); Monocyte# 0.73 X10^3/uL; NRBC Flagged by Analyzer 0 % (0-5); Neutrophil # 3.76 X10^3/uL (2.7-7.7); Neutrophil % 46.6 % (47-70); Platelet Count 245 K/mm3 (150-450); RBC Distribution Width CV 13.6 % (11.6-14.6); RBC Distribution Width SD 42.5 fl (35.1-43.9); Red Blood Count 4.78 M/mm3 (4.2-5.4); White Blood Count 8.1 K/mm3 (4.4-11.0)
[2023-04-03 01:09] LABS: Partial Thromboplast Time 28.7 Seconds (24.1-36.2)
[2023-04-03 01:19] LABS: Anion Gap 5 (5-15); BUN 21 mg/dL (7-18); BUN/Creat Ratio 23.2 RATIO (10-20); Calcium,Total 9.1 mg/dL (8.5-10.1); Chloride 109 mmol/L (98-107); Creatinine, Serum 0.91 mg/dL (0.55-1.02); EST Glomerular Filtration Rate 64 mL/min (>60); Est Glom Filt Rate - Afr Amer 77 mL/min (>60); Estimated Creatinine Clearance 47.31 ml/min; Glucose 112 mg/dL (74-106); Potassium 4.3 mmol/L (3.5-5.1); Sodium Level 141 mmol/L (136-145); Troponin-I HS (w/2H Reflex) 5 pg/mL (3.0-54.0)
[2023-04-03 01:38] VITALS: BP 168/78; PULSE 57; RESP 11; TEMP 36.4; O2SAT 100
[2023-04-03] MEDS: hydrALAZINE 20 MG/ML Vial 10 MG IV (01:43)
[2023-04-03 01:47] VITALS: BP 134/68; PULSE 71; RESP 15; TEMP 36.4; O2SAT 99
[2023-04-03 03:00] LABS: Reflex Troponin-HS? (from REC) Y
[2023-04-03] MEDS: Mag Hydrox/Al Hydrox/Simeth 30 ML UDC PO (03:16)
[2023-04-03 03:18] VITALS: BP 134/68; PULSE 69; RESP 13; O2SAT 99
[2023-04-03 03:18] LABS: Troponin-I HS 6 pg/mL (3.0-54.0)
== END 2023-04-03 03:42 | disposition home or self-care (01) ==
PROVIDERS: Emergency Provider Emergency Medicine; PCP Internal Medicine; Visit Provider Emergency Medicine
DX: R07.9 Chest pain, unspecified (principal); Z95.5 Presence of coronary angioplasty implant and graft; I25.10 Atherosclerotic heart disease of native coronary artery without angina pectoris; I10 Essential (primary) hypertension; K21.9 Gastro-esophageal reflux disease without esophagitis; Z79.82 Long term (current) use of aspirin; Z79.899 Other long term (current) drug therapy
CPT/HCPCS: 71045; 80048; 84484; 85025; 85730; 93005; 96374; 99285; A4216

== ENCOUNTER → 2023-04-23 | Outpatient (CLI) | payer MEDICARE, SELFPAY ==
[2023-01-19 11:08] VITALS: BMI 30.2
--- NOTE | 2023-04-23 12:20 | RAD_ITS ---
INDICATION: shortness of breath EXAMINATION/TECHNIQUE: X-RAY - XR Chest 2 Views COMPARISON: April 03 2023. FINDINGS: LINES/DEVICES: None. LUNGS: Lungs are symmetrically hyperexpanded with coarsened interstitium. No consolidation, florid edema or effusion. No pneumothorax. Left lateral lower lung calcified granuloma. MEDIASTINUM AND CARDIOVASCULAR STRUCTURES: Cardiac silhouette not enlarged. BONES AND SOFT TISSUES: Unremarkable. RAD/Chest PA and Lateral IMPRESSION: Findings compatible with chronic obstructive pulmonary disease. No radiographic evidence of consolidative pneumonia or florid edema. Electronically Signed: Harish Hampton MD at 23:08 EST ,
[2023-04-23 13:11] LABS: Anion Gap 4 (5-15); BUN 26 mg/dL (7-18); BUN/Creat Ratio 31.7 RATIO (10-20); Calcium,Total 9.1 mg/dL (8.5-10.1); Chloride 110 mmol/L (98-107); Creatinine, Serum 0.82 mg/dL (0.55-1.02); EST Glomerular Filtration Rate 72 mL/min (>60); Est Glom Filt Rate - Afr Amer 87 mL/min (>60); Glucose 107 mg/dL (74-106); Potassium 4.5 mmol/L (3.5-5.1); Sodium Level 139 mmol/L (136-145)
[2023-04-23 13:19] LABS: BNP,B-Type NATRIURETIC PEPTIDE 48.7 pg/mL (0-100)
[2023-04-23 14:15] LABS: AST(SGOT) 12 U/L (15-37); Alanine Aminotransfer ALT/SGPT 23 U/L (13-56); Albumin, Serum 3.4 g/dL (3.2-5.0); Alkaline Phosphatase 89 U/L (45-117); Bilirubin, Direct 0.13 mg/dL (0.00-0.30); Cholesterol 207 mg/dL (200); Globulin 2.9 g/dL (2.2-4.2); High Density Lipoprotein 64 mg/dL; Protein, Total 6.3 g/dL (6.4-8.2); Triglycerides 158 mg/dL; Very Low Density Lipoprotein 32 mg/dL (5-40)
--- OUTSIDE RECORDS SUMMARY | 2023-04-23 20:32 | XMS RPT_ITS | CCD ---
Author Name Unknown Address [address] [place] [address] Organization [facility] Care Team Providers Care Telegraph Service Clerk Name Role Phone JUAN CARLOS ÁLVAREZ DR Attending Unavailable JUAN CARLOS ÁLVAREZ DR Primary Care Unavailable JUAN CARLOS ÁLVAREZ DR Admitting Unavailable Results Test Name Value Interpretation Reference Range Facil ity Encounters Encounter Date Encounter Type Care Provider Facility Start: 01-24-2022 End: 01-24-2022 ambulatory JUAN CARLOS ÁLVAREZ Nav [facility] Payers Date Payer Category Payer Unknown [id number] Medicare [id number] Clinical Notes 05-28-2020 to 04-29-2021 Note Date & Type Note Facility 04-29-2021 Note HNO ID: [id number] Author: Chris MCGINNIS Service: ? Author Type: ? Type: Progress Notes Filed: 04/29/2021 1:40 PM Note Text: POPULATION HEALTH NAVIGATION OUTREACH Action/FYI Patient no longer sees PCP at [facility]. Pt identified by name and : [...] to Practice: No Navigation Signature: Chris Handy [facility] April 29, 2021 12:25 PM [facility] 04-29-2021 Note Patient Outreach (NE TNAV) THOMAS HARDY ([id number]) 1945 F Date Time Provider Department 04/29/21 CHRIS HANDY ([facility]) CHARLENE During your visit today, we recorded the following information about you: Chris Handy [facility] 04/29/2021 1:40 PM Addendum POPULATION HEALTH NAVIGATION OUTREACH Action/FYI Patient no longer sees PCP at [facility]. Pt identified by name and : YES, via phone Outreach Outcome/Action Spoke to patient or caregiver: PCP confirmed / updated PCP field updated Navigation Signature: Chris Handy [facility] April 29, 2021 1:32 PM POPULATION HEALTH NAVIGATION OUTREACH Action/FYI Left msg AND sent Eleven Jameshart. Pt identified by name and : NO Outreach Outcome/Action Unable to reach patient: Left message MyChart message sent Reason for Outreach Care Gap or Scheduling/Wellness visits Payer: Payor: [employer] / Plan: [employer] HMO / Product Type: HMO / Care [...] 7 - Swelling Comments: swelling to shellfish [id number] REDUCTASE INHIBIT*03/06/2018 17 - Myalgia Date Reviewed: [...] Encounter Status:Closed by CHRIS PEÑA on 04/29/21 [facility] 03-22-2021 Note HNO ID: [id number] Author: RT Enrico(R) Service: Nuclear Medicine Author [...] Romero, (R) March 22, 2021 2:13 PM [facility] 03-22-2021 Note HNO ID: [id number] Author: Annalise Stanley APRN.BRAIN SURGEON Service: ? Author Type: Nurse Practitioner Type: [...] history is provided by the patient. No translator and interpreter was used. Cough This is a new [...] Penicillins, Sulfa (Sulfonamide Antibiotics), Atorvastatin, Iodine, and Udagfmm-Xmw-Qmx Reductase Inhibitors MEDICATIONS doxycycline (VIBRA-TABS) 100 mg [...] rash and wound. (more content not included)... [facility] 03-06-2021 Note HNO ID: [id number] Author: Asha Leal APRN.BRAIN SURGEON Service: ? Author Type: Nurse Practitioner Type: [...] Laterality Date - COLONOSCOP W/ OR W/O [facility] SPEC 2000 flex sigmoid - COLONOSCOP W/ OR W/O [facility] SPEC 12/03/2008 - COLONOSCOP W/ OR W/O [facility] SPEC 12/15/2013 Colonoscopy - COLONOSCOP W/ OR W/O [facility] SPEC 03/24/2019 Colonoscopy - COLONOSCOP W/ OR W/O [facility] SPEC 09/21/2020 - DANDC, DIAG AND/OR THERAPEUTIC Dilation AND curettage - PAST SURGICAL HISTORY OF RT. WRIST TENDON RELEASE - PAST SURGICAL HISTORY OF 07/2004 trigger thumb/lt. - REMOVAL OF TONSILS,<12 Y/O Tonsillectomy - [facility] N/CARPAL TUNNEL SURG 1976 AND 1977 Carpal tunnel decomp - TONSILLECTOMY HX ALLERGIES Amoxicillin, Penicillins, Sulfa (Sulfonamide Antibiotics), Atorvastatin, Iodine, and Ldrtrqs-Bzl-Xjo Reductase Inhibitors MEDICATIONS predniSONE (DELTASONE) 20 mg [...] Patient agreeable to treatment plan. Asha Leal APRN.[facility] 02-14-2021 Note HNO ID: [id number] Author: Sameer Randhawa MD Service: ? Author [...] - Iodine Swelling swelling to shellfish - Nhxgnjw-Knz-Wpm Red* Myalgia VITALS: BP 122/80 Pulse 62 [...] better. - 2019 CORONAVIRUS Sameer Randhawa MD [facility] 10-19-2020 Note HNO ID: [id number] Author: Vladimir Max PA-C Service: ? Author Type: Physician Monument Installer Type: Progress Notes Filed: 10/19/2020 10:19 AM [...] but has stabilized. Cataract October Dr. Dasilva, [facility] [place] Dr. Bosch. HISTORIES FAMILY HISTORY Problem Relation [...] Laterality Date - COLONOSCOP W/ OR W/O [facility] SPEC 2000 flex sigmoid - COLONOSCOP W/ OR W/O [facility] SPEC 12/03/2008 - COLONOSCOP W/ OR W/O [facility] SPEC 12/15/2013 Colonoscopy - COLONOSCOP W/ OR W/O [facility] SPEC 03/24/2019 Colonoscopy - COLONOSCOP W/ OR W/O [facility] SPEC 09/21/2020 - DANDC, DIAG AND/OR THERAPEUTIC [...] - DAILY M (more content not included)... [facility] 10-18-2020 Note HNO ID: [id number] Author: Katelyn Canales APRN.BRAIN SURGEON Service: ? Author Type: Nurse Practitioner Type: [...] Laterality Date - COLONOSCOP W/ OR W/O [facility] SPEC 2000 flex sigmoid - COLONOSCOP W/ OR W/O [facility] SPEC 12/03/2008 - COLONOSCOP W/ OR W/O [facility] SPEC 12/15/2013 Colonoscopy - COLONOSCOP W/ OR W/O [facility] SPEC 03/24/2019 Colonoscopy - COLONOSCOP W/ OR W/O [facility] SPEC 09/21/2020 - DANDC, DIAG AND/OR THERAPEUTIC [...] - Iodine Swelling swelling to shellfish - Yjmcoxe-Tdv-Lir Red* Myalgia PHYSICAL EXAMINATION BP 140/74 Pulse 61 Wt 139 lb (63.1kg) SpO2 97% Gen (more content not included)... [facility] 07-28-2020 Note HNO ID: [id number] Author: Sandra Chang PA-C Service: ? Author Type: Physician Monument Installer Type: Progress Notes Filed: 07/28/2020 12:57 PM Note Text: This note was created using NoteWriter. Subjective Thomas Hardy is a 74 year old female. HPI Patient presents with diarrhea for 2 weeks. She had called her doctor who suggested she try an hmbl-bqe-elpjish antidiarrheal. She used that for 5 days [...] Laterality Date - COLONOSCOP W/ OR W/O [facility] SPEC 2000 flex sigmoid - COLONOSCOP W/ OR W/O [facility] SPEC 12/03/08 - COLONOSCOP W/ OR W/O [facility] SPEC 12/15/13 Colonoscopy - COLONOSCOP W/ OR W/O [facility] SPEC 03/24/2019 Colonoscopy - DANDC, DIAG AND/OR [...] with this plan (more content not included)... [facility] 07-12-2020 Note HNO ID: [id number] Author: Vladimir Max PA-C Service: ? Author Type: Physician Monument Installer Type: Progress Notes Filed: 08/10/2020 4:17 AM Note Text: Audio only was used for evaluation of this patient. Location of patient: [place] Patient was offered a virtual/telemedicine appointment in [...] Laterality Date - COLONOSCOP W/ OR W/O [facility] SPEC 2000 flex sigmoid - COLONOSCOP W/ OR W/O [facility] SPEC 12/03/08 - COLONOSCOP W/ OR W/O [facility] SPEC 12/15/13 Colonoscopy - COLONOSCOP W/ OR W/O [facility] SPEC 03/24/2019 Colonoscopy - DANDC, DIAG AND/OR [...] Call time 7 minutes Vladimir Max PA-C [facility] 06-14-2020 Note HNO ID: [id number] Author: Vladimir Gunter (Teo) Mansoor Service: ? Author Type: Physician Monument Installer Type: Progress Notes Filed: 06/14/2020 9:31 AM Note Text: 74 year old female with c/o PSYCH: Current medications (s): sertraline 25mg daily Recent change in therapy? Yes. If yes, what results? Brother in hospital x 12 days, going into hospice. Went back to work [employer] twice yesterday. Today shaking, cold sweat, still [...] Laterality Date - COLONOSCOP W/ OR W/O [facility] SPEC 2000 flex sigmoid - COLONOSCOP W/ OR W/O [facility] SPEC 12/03/08 - COLONOSCOP W/ OR W/O [facility] SPEC 12/15/13 Colonoscopy - COLONOSCOP W/ OR W/O [facility] SPEC 03/24/2019 Colonoscopy - DANDC, DIAG AND/OR [...] dependent on ativan again. 11 minute call [facility] 05-28-2020 Note HNO ID: [id number] Author: Vladimir Gunter (Pa-C) Mansoor Service: ? Author Type: Physician Monument Installer Type: Progress Notes Filed: 05/28/2020 2:19 PM Note Text: 74 year old female with c/o Had screening blood flow carotid duplex and NOAH's at community outreach [facility]: suggested moderate carotid artery disease. Wants further [...] Laterality Date - COLONOSCOP W/ OR W/O [facility] SPEC 2000 flex sigmoid - COLONOSCOP W/ OR W/O [facility] SPEC 12/03/08 - COLONOSCOP W/ OR W/O [facility] SPEC 12/15/13 Colonoscopy - COLONOSCOP W/ OR W/O [facility] SPEC 03/24/2019 Colonoscopy - DANDC, DIAG AND/OR [...] of instructions on review. Vladimir Max PA-C [facility] Summary Purpose Family History No Family History Records FoundNo Family History Records Found Advance Directives No Advanced Directives Records FoundNo Advanced Directives Records Found Additional Source Comments INFORMATION SOURCE (unrecogn ized section and content) DATE CREATED AUTHOR AUTHOR'S ORGANIZ ATION 01/25/2022 [facility] FOR RECORDS PERTAINING TO PATIENTS WHO [...] BE BASED ON THE PRIMARY CLINICAL RECORDS. [facility]. provides no warranty or guarantee of the accuracy or completeness of information in this document.
== END | disposition home or self-care (01) ==
PROVIDERS: Physician Assistant Medical; PCP Internal Medicine; Referring Provider Nurse Practitioner Acute Care; Visit Provider Nurse Practitioner Acute Care
DX: R06.09 Other forms of dyspnea (principal); E78.5 Hyperlipidemia, unspecified; I10 Essential (primary) hypertension
CPT/HCPCS: 36415; 71046; 80048; 80061; 80076; 83880

== ENCOUNTER → 2023-04-25 | Outpatient (CLI) | payer MEDICARE, SELFPAY ==
[2023-01-19 11:08] VITALS: BMI 30.2
[2023-04-25 09:20] LABS: AST(SGOT) 11 U/L (15-37); Alanine Aminotransfer ALT/SGPT 23 U/L (13-56); Albumin, Serum 3.6 g/dL (3.2-5.0); Alkaline Phosphatase 91 U/L (45-117); Bilirubin, Direct 0.17 mg/dL (0.00-0.30); Cholesterol 227 mg/dL (200); Globulin 3.1 g/dL (2.2-4.2); High Density Lipoprotein 72 mg/dL; Protein, Total 6.7 g/dL (6.4-8.2); Triglycerides 115 mg/dL; Very Low Density Lipoprotein 23 mg/dL (5-40)
== END | disposition home or self-care (01) ==
LOC: LAB 08:10
PROVIDERS: PCP Internal Medicine; Visit Provider Physician Assistant Medical
DX: E78.2 Mixed hyperlipidemia (principal)
CPT/HCPCS: 36415; 80061; 80076

== ENCOUNTER → 2023-06-07 | Outpatient (CLI) | payer MEDICARE, SELFPAY ==
[2023-01-19 11:08] VITALS: BMI 30.2
--- NOTE | 2023-06-09 12:13 | STRESSREP_ITS ---
Stress Test Report Date: 06/07/2023 Procedure: Pharmacologic stress nuclear imaging study Indications: Dyspnea on exertion Consent: Per the patient Procedure: The patient underwent pharmacologic (Regadenoson) evaluation with a peak heart rate of 109 beats per minute (76%predicted maximal heart rate) and a peak blood pressure of 152/86 mmHg. The baseline ECG demonstrated normal sinus rhythm, left bundle branch block. EKG during lexiscan infusion revealed no significant ischemic changes. EKG post infusion revealed no significant ischemic changes [There were no cardiac dysrhythmias pretest, during pharmacologic infusion, or recovery]. [There was no complaint of chest discomfort during pharmacologic infusion or recovery]. The examination was discontinued secondary to completion of protocol. Impression: 1. Lexiscan stress test test is negative for Lexiscan infusion induced EKG changes of ischemia. 2. Lexiscan stress test test is negative for Lexiscan infusion induced chest pain. 3. Results of the nuclear portion of the test is as below Myocardial perfusion imaging study: Technique: The patient was injected with 11.9 millicuries of technetium 99m Cardiolite and subsequently rest SPECT Cardiolite nuclear imaging was obtained in the horizontal long, vertical long, and short axis views. The patient underwent pharmacologic [Regadenoson 0.4mg] evaluation. Please see above for details. The patient was injected with 33.8 millicuries of technetium 99m Cardiolite and subsequently stress SPECT Cardiolite nuclear imaging was obtained in the horizontal long, vertical long, and short axis views. A gated Cardiolite study at peak stress was obtained. Interpretation: Rest and stress SPECT Cardiolite nuclear imaging status post realignment, normalization, and attenuation correction demonstrate no evidence of significant ischemia or infarction. Gated images reveal no significant regional wall motion abnormalities. The reported LVEF is greater than 70%. Impression: 1. There is no evidence of significant ischemia or infarction. 2. Estimated ejection fraction is greater than 70%. This note was generated with [employer] software. It may contain incorrect words, spelling, and punctuation that were not noted in checking the note before signing.
== END | disposition home or self-care (01) ==
LOC: CVS 06:29
PROVIDERS: PCP Internal Medicine; Referring Provider Nurse Practitioner Gerontology; Visit Provider Nurse Practitioner Gerontology
DX: R06.09 Other forms of dyspnea (principal)
CPT/HCPCS: 78452; 93017; A9500; J2785

== ENCOUNTER → 2023-07-16 | Outpatient (CLI) | payer MEDICARE, SELFPAY ==
[2023-01-19 11:08] VITALS: BMI 30.2
--- NOTE | 2023-07-16 09:49 | BI_ITS ---
MAMMOGRAPHY - BILATERAL SCREENING 3-D TOMOSYNTHESIS REASON FOR EXAM: Female, 77 years old. Breast cancer screening PERTINENT HISTORY: No significant family history. TECHNIQUE: 2-D mammograms and 3-D Tomosynthesis of the breast (s) were performed. CAD was performed. COMPARISON: 07/12/2022 FINDINGS: The breast composition is heterogeneously dense that can obscure small breast masses. Scattered benign calcifications are seen. No dense spiculated masses or suspicious microcalcifications are identified. No architectural distortion is identified. There is no skin thickening or retraction. There has been no significant change since the prior study. BI/SCRN MAMM (CAD)W/OPAL BILAT IMPRESSION: No mammographic signs of malignancy. Routine yearly mammograms recommended. ASSESSMENT CATEGORY: BIRADS Category 1: Negative. A letter regarding these results will be sent to the patient by the facility within 30 days. FOLLOW UP RECOMMENDATION: Yearly follow up mammogram recommended. (A) Approximately 10% of breast cancers are not detected by mammography. A normal mammogram should not delay biopsy of a clinically suspicious abnormality. Electronically Signed: Mat Mata MD at 14:07 EDT ,
== END | disposition home or self-care (01) ==
LOC: OPBI 09:49
PROVIDERS: PCP Internal Medicine; Referring Provider Internal Medicine; Visit Provider Internal Medicine
DX: Z12.31 Encounter for screening mammogram for malignant neoplasm of breast (principal)
CPT/HCPCS: 77063; 77067

== ENCOUNTER 2023-07-20 20:22 | Inpatient (IN) | payer MEDICARE, SELFPAY ==
[2023-01-19 11:08] VITALS: BMI 30.2
[2023-07-20] VITALS (14 sets, daily range): BP systolic 123–156; BP diastolic 65–102; PULSE 74–91; RESP 12–20; TEMP 36.1–36.6; O2SAT 96–99; BMI 32.0
--- NOTE | 2023-07-20 20:34 | EKG12_ITS ---
Test Reason : ADM EKG Blood Pressure : / mmHG Vent. Rate : 079 BPM Atrial Rate : 079 BPM P-R Int : 116 ms QRS Dur : 122 ms QT Int : 408 ms P-R-T Axes : 043 019 082 degrees QTc Int : 467 ms Normal sinus rhythm Non-specific intra-ventricular conduction delay Nonspecific T wave abnormality Abnormal ECG When compared with ECG of 20-JUL-2023 20:24, MANUAL COMPARISON REQUIRED, DATA IS UNCONFIRMED Confirmed by ALBA NEELY, DA ([id number]), telegraph editor AMA TALAVERA ([id number]) on 07/26/2023 6:39:17 AM Referred By: Adria Kern Confirmed By:CALIXTO WILLIS MD
--- NOTE | 2023-07-20 20:38 | RAD_ITS ---
EXAM: XR CHEST, 1 VIEW CLINICAL INDICATION: chest pain TECHNIQUE: Frontal view of the chest. COMPARISON: 04/23/2023 FINDINGS: LUNGS AND PLEURAL SPACES: There is a calcified granuloma in the left lung base. No pneumothorax. No effusion. HEART: Unremarkable. Cardiac silhouette not enlarged. MEDIASTINUM: Central airways and mediastinal contour are unremarkable. BONES/JOINTS: Unremarkable. No acute fracture. SOFT TISSUES: Unremarkable. RAD/Chest 1 View (Portable) IMPRESSION: No acute findings in the chest. Electronically Signed: Nico Palacios MD at 21:18 EDT ,
[2023-07-20 20:47] LABS: Absolute Lymphocyte Count 3.53 X10^3/uL (0.83-4.51); Absolute Neutrophil Count 8.1 X10^3/uL (2.0-7.7); Basophil# 0.02 X10^3/uL; Basophil% 0.2 % (0-1); Eosinophil# 0.01 X10^3/uL; Eosinophils% 0.1 % (0-5); Hematocrit 40.2 % (37-47); Hemoglobin 13.9 g/dL (12.0-15.0); Lymphocyte # 3.53 X10^3/ul (0.83-4.51); Lymphocyte % 27.3 % (19-41); Mean Corp Hgb Conc 34.6 g/dL (32-36); Mean Corpuscular Hgb 29.1 pg (27.0-32.0); Mean Corpuscular Volume 84.3 fL (81-99); Mean Platelet Vol. 11.6 fl (6.2-12.0); Monocyte# 1.24 X10^3/uL; Monocyte% 9.6 % (0-10); NRBC Flagged by Analyzer 0 % (0-5); Neutrophil # 8.09 X10^3/uL (2.7-7.7); Neutrophil % 62.4 % (47-70); Platelet Count 334 K/mm3 (150-450); RBC Distribution Width SD 43.2 fl (35.1-43.9); Red Blood Count 4.77 M/mm3 (4.2-5.4); White Blood Count 12.9 K/mm3 (4.4-11.0)
--- NOTE | 2023-07-20 20:53 | EDS_ITS ---
HPI <Dr. Ronald Staley MD - Last Filed: 07/20/23 21:56> History of Present Illness Chief Complaint: Chest Pain Detail of Chief Complaint: Patient presents with burning chest discomfort rating to left shoulder and Informant: patient Onset/Context/Timing Onset: Hours Activity at onset: sudden and rest Timing: Intermittent (Duration 45 minutes.) Quality: Positive for Aching, Burning and Indigestion Location: Substernal Current Severity: Gone Maximum Severity: Severe Worsened By: Exertion Relieved By: Nothing Associated Symptoms: Positive for Nausea, Diaphoresis, Dyspnea and Lightheadedness; Negative for Vomiting, Cough, Fever, Acid Reflux or Palpitations Narrative Narrative: Patient states she was along well with her . She developed aching burning indigestion pain that was severe with diaphoresis, shortness of breath, nausea and radiation to the left shoulder and arm. This was the pain she experienced last year on July 19 when she was diagnosed with an SC. She had a stent placed. She believes it was in her LAD. Will review prior records. Review of prior records indicates the stent was placed on July 20. Patient is presently pain-free. She denies headache, visual, ocular auditory symptoms. She presently denies chest pain or shortness of breath. She denies nausea. She denies black or maroon-colored stool. She denies urologic symptoms. Patient had a stress test 2 to 3 months ago that was normal. She had a stress test prior to her SC that was normal. Prior Similar Symptoms: Yes and With Prior SC Recent Illness/Hospitalization: No CVD Risk Factors: Positive for Hypertension, Diabetes and Hypercholesterolemia; Negative for Smoking PE Risk Factors: Negative for Recent Travel/Surgery, Recent Immobilization, Prior DVT or PE, Cancer or OCP + Smoking + >/=35 TAD Risk Factors: Positive for Hypertension; Negative for Marfan's Syndrome or Family History [facility] <Dr. Ronald Staley MD - Last Filed: 07/20/23 21:56> [facility] Medical History Viral URI Otitis externa of both ears Impacted cerumen of both ears Atherosclerosis of coronary artery of unga heart without angina pectoris Chest pain LBBB (left bundle branch block) Gastric reflux Non-smoker History of stress test Epigastric pain Lower abdominal pain Acute flank pain Trigger finger Hearing problem Anxiety Seasonal allergies COVID-19 Home Medications ?Medication ?Instructions ?Recorded ?Last Taken ?Type aspirin 81 mg tablet,delayed 81 mg PO BREAKFAST #90 tabs 11/13/22 Unknown Rx release clopidogrel 75 mg tablet (Plavix) 75 mg PO QDAY #90 tabs 11/13/22 Unknown Rx lisinopril 20 mg tablet 20 mg PO DAILY blood pressure #90 01/01/23 Unknown Rx tabs ezetimibe 10 mg tablet (Zetia) 10 mg PO DAILY #30 tabs 01/25/23 Unknown Rx famotidine 40 mg tablet (Pepcid) 40 mg PO DAILY #90 tabs 03/14/23 Unknown Rx carvedilol 6.25 mg tablet 6.25 mg PO BID 04/04/23 Unknown History albuterol sulfate 90 mcg/actuation 2 inh inhalation Q8H PRN shortness 05/04/23 Unknown Rx aerosol inhaler of breath or wheezing #8.5 grams ergocalciferol (vitamin D2) 1,250 50,000 unit PO QWEEK supplement 05/04/23 Unknown Rx mcg (50,000 unit) capsule #12 caps amlodipine 5 mg tablet 5 mg PO QHS #90 tabs 05/10/23 Unknown Rx isosorbide mononitrate 30 mg 30 mg PO QAM #90 tabs 05/10/23 Unknown Rx tablet,extended release 24 hr budesonide-formoterol HFA 160 2 puff inhalation BID #10.2 grams 06/04/23 Unknown Rx mcg-4.5 mcg/actuation aerosol inhaler (Symbicort) Allergy/AdvReac Type Severity Reaction Status Date / Time shellfish derived Allergy Severe SOB Verified 07/20/23 20:23 amoxicillin Allergy Unknown Verified 07/20/23 20:23 erythromycin base (From Allergy Unknown Verified 07/20/23 20:23 Staticin) ethyl alcohol (From Staticin) Allergy Unknown Verified 07/20/23 20:23 Penicillins Allergy Unknown Verified 07/20/23 20:23 Sulfa (Sulfonamide Allergy Unknown Verified 07/20/23 20:23 Antibiotics) [id number] Reductase AdvReac Pain in Verified 07/20/23 20:23 Inhibitor joints Family History Mother Colon cancer Cancer Heart disease Grandmother Colon cancer Cancer Sister Cancer Brother Heart disease Mental disorder Father , 85 yrs old Dementia Surgical History History of coronary artery stent placement (07/20/22) History of cataract extraction History of carpal tunnel release History of tonsillectomy Social History Smoking Status: Never smoker alcohol intake: never substance use type: does not use caffeine: Yes Type: carbonated beverages and coffee Number of servings: 1 what type of physical activity do you participate in: none ROS <Dr. Ronald Staley MD - Last Filed: 07/20/23 21:56> ROS ED Constitutional Constitutional ED: Denies chills, fever(s), subjective, sweats or weight loss Eyes Eyes: Reports none ENT ENT ED: Denies ear pain or rhinorrhea Cardiovascular Cardiovascular: Reports as per HPI, chest pain and palpitations; Denies orthopnea, paroxysmal nocturnal dyspnea or racing heartbeat Respiratory/Chest Respiratory/Chest: Reports dyspnea, dyspnea on exertion and other Details: Dyspnea got worse with walking from the bench to her car which was 3 blocks. ; Denies cough, orthopnea or paroxysmal nocturnal dyspnea Gastrointestinal Gastrointestinal: Reports abdominal pain; Denies constipation, melena, nausea or vomiting Genitourinary Genitourinary ED: Denies dysuria, hematuria or urinary frequency Musculoskeletal Musculoskeletal: Denies arthralgias or myalgias Integumentary Denies rash Neurologic Neurologic: Denies headache(s), paresthesias or weakness Endocrine Endocrinology: Denies cold intolerance or heat intolerance Hematologic/Lymphatic Hematologic/Lymphatic: Denies easy bleeding or easy bruising Allergic/Immunologic Allergic/Immunologic ED: Denies mouth swelling or tongue swelling EXAM <Dr. Ronald Staley MD - Last Filed: 07/20/23 21:56> Physical Exam Const Vital Signs: 07/20/23 20:23 07/20/23 20:28 07/20/23 20:38 Temperature 97 F L Temperature Source Temporal Pulse Rate 91 Respiratory Rate 17 Blood Pressure 156/102 H 154/84 H Blood Pressure Mean 120 107 Pulse Ox 99 Oxygen Delivery Method Room Air 07/20/23 21:23 07/20/23 22:00 07/20/23 22:08 Temperature Temperature Source Pulse Rate 76 80 86 Respiratory Rate 19 H 16 20 H Blood Pressure 153/84 H 145/90 H Blood Pressure Mean 107 108 Pulse Ox 97 96 98 Oxygen Delivery Method Room Air Room Air 07/20/23 22:15 07/20/23 22:27 07/20/23 22:30 Temperature Temperature Source Pulse Rate 82 90 Respiratory Rate 19 H 17 Blood Pressure 154/82 H 144/76 H Blood Pressure Mean 101 95 Pulse Ox 98 98 Oxygen Delivery Method Room Air 07/20/23 22:45 07/20/23 23:00 07/20/23 23:00 Temperature 98 F Temperature Source Pulse Rate 74 75 74 Respiratory Rate 13 12 16 Blood Pressure 123/76 H 123/76 H Blood Pressure Mean 89 91 Pulse Ox 97 97 97 Oxygen Delivery Method Room Air 07/20/23 23:35 Temperature Temperature Source Pulse Rate 77 Respiratory Rate Blood Pressure 130/65 H Blood Pressure Mean Pulse Ox Oxygen Delivery Method Positive well nourished and well developed General Appearance ED: well developed and NAD HEENT Reports TM's clear and moist mucous membranes normocephalic and atraumatic Tympanic Membrane ED: Yes TM's clear Eyes PERRL and EOMs intact bilaterally General Eye ED: Yes pale conjunctiva and scleral icterus Neck no lymphadenopathy, supple and no JVD Chest Wall inspection of chest normal and palpation of chest normal Resp normal respiratory effort and clear to auscultation bilaterally Cardio regular rate, regular rhythm, S1 normal heart sound, S2 normal heart sound and no murmurs Peripheral Pulses: pulses 2+ throughout GI normal to inspection, nondistended, normoactive bowel sounds, soft to palpation, non-tender, non-distended and no masses; Negative for hepatosplenomegaly Back/Spine no CVA tenderness Extremity normal to inspection General Extremety ED: Negative for edema or pulses abnormal General Extremity: Negative for edema or pulses abnormal Neuro oriented x3 and CN's II-XII intact bilaterally Sensorium / Orientation: awake and alert Psych mental status grossly normal Mood & Affect: Negative for depressed or anxious Skin no rashes or lesions noted and no wounds <Dr. Jesus Andujar, DO - Last Filed: 07/21/23 00:06> Physical Exam Const Vital Signs: 07/20/23 20:23 07/20/23 20:28 07/20/23 20:38 Temperature 97 F L Temperature Source Temporal Pulse Rate 91 Respiratory Rate 17 Blood Pressure 156/102 H 154/84 H Blood Pressure Mean 120 107 Pulse Ox 99 Oxygen Delivery Method Room Air 07/20/23 21:23 07/20/23 22:00 07/20/23 22:08 Temperature Temperature Source Pulse Rate 76 80 86 Respiratory Rate 19 H 16 20 H Blood Pressure 153/84 H 145/90 H Blood Pressure Mean 107 108 Pulse Ox 97 96 98 Oxygen Delivery Method Room Air Room Air 07/20/23 22:15 07/20/23 22:27 07/20/23 22:30 Temperature Temperature Source Pulse Rate 82 90 Respiratory Rate 19 H 17 Blood Pressure 154/82 H 144/76 H Blood Pressure Mean 101 95 Pulse Ox 98 98 Oxygen Delivery Method Room Air 07/20/23 22:45 07/20/23 23:00 07/20/23 23:00 Temperature 98 F Temperature Source Pulse Rate 74 75 74 Respiratory Rate 13 12 16 Blood Pressure 123/76 H 123/76 H Blood Pressure Mean 89 91 Pulse Ox 97 97 97 Oxygen Delivery Method Room Air 07/20/23 23:35 Temperature Temperature Source Pulse Rate 77 Respiratory Rate Blood Pressure 130/65 H Blood Pressure Mean Pulse Ox Oxygen Delivery Method <Dr. Ronald Staley MD - Last Filed: 07/20/23 21:56> Heart Score History: Highly Suspicious ECG: Nonspecific Repolarization Age: >/= 65 years Risk Factors: >/= 3 Risk Factors or History of CAD Score: 7 <Dr. Jesus Andujar DO - Last Filed: 07/21/23 00:06> Heart Score Score: 7 MDM <Dr. Ronald Staley MD - Last Filed: 07/20/23 21:56> MDM MDM Narrative Medical decision making narrative: Patient has a very concerning story for non-ST elevation SC. Since she is pain- free she was not treated with nitroglycerin paste or drip. She was given baby aspirin she generally takes 81 mg daily. She is on Plavix. Chest x-ray was obtained to assess for any pulmonary pathology or mediastinal pathology. CBC to assess H&H. BMP to assess renal function. Troponin and 2-hour troponin. Patient was informed that she will require admission to the hospital. History & Record Review Additional record(s) reviewed:: Prior inpatient record, Prior outpatient record, Prior ED visit and Prior labs Lab Data Attestation: I reviewed the patient's lab results. Lab results narrative: White count is 12.9 thousand. H&H is unremarkable. Differential is normal. Basic metabolic panel is unremarkable. BUN is elevated at 40 with creatinine 1.14 with an estimated GFR 49. Glucose is elevated 148 with a normal CO2 anion gap. First troponin is normal at 15. Second is pending. Labs: Laboratory Results - last 24 hr 07/20/23 07/20/23 20:25 22:26 WBC 12.9 H RBC 4.77 Hgb 13.9 Hct 40.2 MCV 84.3 MCH 29.1 MCHC 34.6 RDW Std Deviation 43.2 RDW Coeff of Cesar 14.0 Plt Count 334 MPV 11.6 Immature Gran % (Auto) 0.400 Neut % (Auto) 62.4 Lymph % (Auto) 27.3 [place] % (Auto) 9.6 Eos % (Auto) 0.1 Baso % (Auto) 0.2 Absolute Neuts (auto) 8.1 H Absolute Lymphs (auto) 3.53 Nucleated RBC % 0 PT 13.5 INR 1.0 APTT 24.4 Sodium 139 Potassium 4.7 Chloride 107 Carbon Dioxide 22.0 Anion Gap 10 BUN 40 H Creatinine 1.14 H Estim Creat Clear Calc 38.75 Est GFR (MDRD) Af Amer 59 L Est GFR (MDRD) Non-Af 49 L BUN/Creatinine Ratio 35.1 H Glucose 148 H Calcium 9.3 Troponin I High Sens 15 1018 H* Radiography Chest X-Ray - ED: 1 View, Read by ED Physician, Unchanged, Normal, Heart, Lungs (Chronic changes.), Mediastinum and Bony Structures Diagnostic Testing: Clinical Impression(s) from Imaging Studies Chest X-Ray 07/20/23 20:38 IMPRESSION: No acute findings in the chest. Electronically Signed: Nico Palacios MD at 21:18 EDT , EKG Initial EKG: Attestation: I personally reviewed and interpreted this EKG as follows: Interpretation: Sinus Rhythm (Rate is 92. There is evidence of an incomplete right bundle branch block. [place] interval 234 ms. QS duration 106 ms. QT duration 360 ms. [place] is normal. There is no ossific ST-T wave changes. Will need to compare to prior.) <Dr. Jesus Andujar, DO - Last Filed: 07/21/23 00:06> [facility] Lab Data Labs: Laboratory Results - last 24 hr 07/20/23 07/20/23 20:25 22:26 WBC 12.9 H RBC 4.77 Hgb 13.9 Hct 40.2 MCV 84.3 MCH 29.1 MCHC 34.6 RDW Std Deviation 43.2 RDW Coeff of Cesar 14.0 Plt Count 334 MPV 11.6 Immature Gran % (Auto) 0.400 Neut % (Auto) 62.4 Lymph % (Auto) 27.3 [place] % (Auto) 9.6 Eos % (Auto) 0.1 Baso % (Auto) 0.2 Absolute Neuts (auto) 8.1 H Absolute Lymphs (auto) 3.53 Nucleated RBC % 0 PT 13.5 INR 1.0 APTT 24.4 Sodium 139 Potassium 4.7 Chloride 107 Carbon Dioxide 22.0 Anion Gap 10 BUN 40 H Creatinine 1.14 H Estim Creat Clear Calc 38.75 Est GFR (MDRD) Af Amer 59 L Est GFR (MDRD) Non-Af 49 L BUN/Creatinine Ratio 35.1 H Glucose 148 H Calcium 9.3 Troponin I High Sens 15 1018 H* Radiography Diagnostic Testing: Clinical Impression(s) from Imaging Studies Chest X-Ray 07/20/23 20:38 IMPRESSION: No acute findings in the chest. Electronically Signed: Nico Palacios MD at 21:18 EDT , Chest x-ray as interpreted by the emergency medicine physician reveals no acute infiltrate pneumothorax or pleural effusion Management Discussion w/another healthcare provider: Hospitalist and Liner Helper Treatment and Re-Evaluation :: Patient was signed out to me while awaiting her delta troponin. Her initial troponin was 15 but the delta had elevated to 1018 correlating with a non-STEMI. This fits her history of present illness and the fact she had a heart cath secondary to CAD and 80% blockage roughly 1 year ago. The case was discussed with lead printer Dr. Espinosa who recommends a heparin drip and Nitropaste. At this time as the patient is pain-free there is no need for emergent heart catheterization however this will most likely occur over the next 1 to 2 days. Plan of care was discussed with the patient who is agreeable to it. Medicine/hospitalist was contacted secondary to the need for admission who agrees to except the patient at this time <Dr. Jesus Andujar, DO - Last Filed: 07/21/23 00:06> Critical Care Time Critical Care Time: Yes Critical care time (excluding procedures): Discussing w/Patient &/or Family/Can Filling And Closing Machine Tender, Discussing w/Consultants and - (Please note critical care time of 31 minutes) Discharge Plan Triage Chief Complaint: Chest Pain ED Provider: Jesus Andujar Dx/Rx/DC Orders Clinical Impression: Acute non-ST elevation myocardial infarction (NSTEMI), Benign essential hypertension, HLD (hyperlipidemia), CAD (coronary artery disease) Prescriptions: No Action ezetimibe [Zetia] 10 mg tablet 10 mg PO DAILY Qty: 30 11RF carvedilol 6.25 mg tablet 6.25 mg PO BID Rx Instructions: must administer with a meal/food aspirin 81 mg tablet,delayed release (DR/EC) 81 mg PO BREAKFAST Qty: 90 3RF clopidogrel [Plavix] 75 mg tablet 75 mg PO QDAY Qty: 90 3RF lisinopril 20 mg tablet 20 mg PO DAILY Qty: 90 3RF famotidine [Pepcid] 40 mg tablet 40 mg PO DAILY Qty: 90 1RF ergocalciferol (vitamin D2) 1,250 mcg (50,000 unit) capsule 50,000 unit PO QWEEK Qty: 12 3RF albuterol sulfate 90 mcg/actuation HFA aerosol inhaler 2 inh inhalation Q8H PRN (Reason: shortness of breath or wheezing) Qty: 8.5 2RF isosorbide mononitrate 30 mg tablet extended release 24 hr 30 mg PO QAM Qty: 90 3RF amlodipine 5 mg tablet 5 mg PO QHS Qty: 90 3RF budesonide-formoterol [Symbicort] 160-4.5 mcg/actuation HFA aerosol inhaler 2 puff inhalation BID Qty: 10.2 6RF Primary Care Provider: Claudette Garrison Referrals: Claudette Garrison MD [Primary Care Provider] - Print Language: Turkish Disposition Disposition: Acute Care Hospital [facility]
[2023-07-20 21:07] LABS: Anion Gap 10 (5-15); BUN 40 mg/dL (7-18); BUN/Creat Ratio 35.1 RATIO (10-20); Calcium,Total 9.3 mg/dL (8.5-10.1); Chloride 107 mmol/L (98-107); Creatinine, Serum 1.14 mg/dL (0.55-1.02); EST Glomerular Filtration Rate 49 mL/min (>60); Est Glom Filt Rate - Afr Amer 59 mL/min (>60); Estimated Creatinine Clearance 38.75 ml/min; Glucose 148 mg/dL (74-106); Potassium 4.7 mmol/L (3.5-5.1); Sodium Level 139 mmol/L (136-145); Troponin-I HS (w/2H Reflex) 15 pg/mL (3.0-54.0)
[2023-07-20 22:43] LABS: Reflex Troponin-HS? (from REC) Y
[2023-07-20 23:07] LABS: Troponin-I HS 1018 pg/mL (3.0-54.0)
[2023-07-20] MEDS: Heparin Injection (Vial) 5,000 UNIT/ML VIAL 4000 UNIT IV (23:33)
[2023-07-20] MEDS: HEPARIN/D5w 25,000 UNITS 25,000 UNITS/250 ML IV.SOLN. 9 UNITS CONT INF (23:33)
[2023-07-20] MEDS: Nitroglycerin Oint 1 INCH PACKET TD (23:35)
[2023-07-20 23:40] LABS: Partial Thromboplast Time 24.4 Seconds (24.1-36.2); Prothrombin Time (Protime)PT. 13.5 SECONDS (11.7-14.9)
[2023-07-21] VITALS (16 sets, daily range): BP systolic 107–146; BP diastolic 61–88; PULSE 64–80; RESP 15–18; TEMP 36.4; O2SAT 95–100; BMI 30.7
--- NOTE | 2023-07-21 00:01 | HP.PCM.HOS_ITS ---
HPI - General General Date of Admission: 07/21/23 Date of Service: 07/21/23 Chief Complaint: Chest Pain. HPI Narrative THOMAS HARDY, is a 77 F with a past medical history of essential hypertension, hyperlipidemia; with intolerance to statins on ezetimibe, obesity; BMI 32 this admission, CAD; s/p LAD stent on BASA and Plavix (06/2022), history of Takotsubo's cardiomyopathy, chronic LBBB, history of asthma-COPD overlap syndrome; on Symbicort and as needed albuterol, history of COVID-19, history of cataract; s/p extraction, history of vitamin D deficiency, generalized anxiety, GERD, osteoarthritis and recent negative Lexiscan nuclear stress test in March 2023 who presents who presents to [facility] ER complaining of chest pain. Ms. Hardy reports her symptoms began earlier in the day while she was walking with her about 3 blocks from a bench to her car when she noted an aching, burning indigestion-type pain that was severe and radiating to her Left shoulder and arm with nothing seeming to make the pain better or worse. She also admits to associated shortness of breath, diaphoresis and nausea with darkened urine but no dysuria. She denies associated fever, chills, vomiting, diarrhea or constipation and she states she is chest pain-free at this time. In the ER she was noted to have an initial troponin of 15 pg/mL followed by a second troponin of 1,018 pg/mL and a third troponin of 2,425 pg/mL consistent with non-ST elevation OR with incidentally noted leukocytosis of 12.9 present on admission likely due to acute stress response and she was then admitted to the PCU for ongoing care for stay that is expected to extend beyond 2 midnights. [facility] Medical History Viral URI Otitis externa of both ears Impacted cerumen of both ears Atherosclerosis of coronary artery of [place] heart without angina pectoris Chest pain LBBB (left bundle branch block) Gastric reflux Non-smoker History of stress test Epigastric pain Lower abdominal pain Acute flank pain Trigger finger Hearing problem Anxiety Seasonal allergies COVID-19 Home Medications ?Medication ?Instructions ?Recorded ?Last Taken ?Type aspirin 81 mg tablet,delayed 81 mg PO BREAKFAST #90 tabs 11/13/22 Unknown Rx release clopidogrel 75 mg tablet (Plavix) 75 mg PO QDAY #90 tabs 11/13/22 Unknown Rx lisinopril 20 mg tablet 20 mg PO DAILY blood pressure #90 01/01/23 Unknown Rx tabs ezetimibe 10 mg tablet (Zetia) 10 mg PO DAILY #30 tabs 01/25/23 Unknown Rx famotidine 40 mg tablet (Pepcid) 40 mg PO DAILY #90 tabs 03/14/23 Unknown Rx carvedilol 6.25 mg tablet 6.25 mg PO BID 04/04/23 Unknown History albuterol sulfate 90 mcg/actuation 2 inh inhalation Q8H PRN shortness 05/04/23 Unknown Rx aerosol inhaler of breath or wheezing #8.5 grams ergocalciferol (vitamin D2) 1,250 50,000 unit PO QWEEK supplement 05/04/23 07/20/23 08:00 Rx mcg (50,000 unit) capsule #12 caps amlodipine 5 mg tablet 5 mg PO QHS #90 tabs 05/10/23 Unknown Rx isosorbide mononitrate 30 mg 30 mg PO QAM #90 tabs 05/10/23 Unknown Rx tablet,extended release 24 hr budesonide-formoterol HFA 160 2 puff inhalation BID #10.2 grams 06/04/23 Unknown Rx mcg-4.5 mcg/actuation aerosol inhaler (Symbicort) Allergy/AdvReac Type Severity Reaction Status Date / Time shellfish derived Allergy Severe SOB Verified 07/20/23 20:23 amoxicillin Allergy Unknown Verified 07/20/23 20:23 erythromycin base (From Allergy Unknown Verified 07/20/23 20:23 Staticin) ethyl alcohol (From Staticin) Allergy Unknown Verified 07/20/23 20:23 Penicillins Allergy Unknown Verified 07/20/23 20:23 Sulfa (Sulfonamide Allergy Unknown Verified 07/20/23 20:23 Antibiotics) [facility]ubm-RKC-IzC Reductase AdvReac Pain in Verified 07/20/23 20:23 Inhibitor joints Family History Mother Colon cancer Cancer Heart disease Grandmother Colon cancer Cancer Sister Cancer Brother Heart disease Mental disorder Father , 85 yrs old Dementia Surgical History History of coronary artery stent placement (07/20/22) History of cataract extraction History of carpal tunnel release History of tonsillectomy Social History Smoking Status: Never smoker alcohol intake: never substance use type: does not use caffeine: Yes Type: carbonated beverages and coffee Number of servings: 1 what type of physical activity do you participate in: none ROS ROS Narrative Review of systems: General: Patient denies fever or chills. HENT: Denies headache, denies stuffy nose, denies sore throat EYES: Denies changes in vision or discharge from eyes. Resp: Patient admits to shortness of breath that coincided with her chest pain with dyspnea getting worse with exertion. Cardiac: Patient admits to chest pain as per HPI. GI: Denies abdominal pain, denies changes in bowel, had some nausea : Patient admits to darkened urine for the past few days but she denies dysuria as per HPI. Extremity: Denies swelling Musculoskeletal: Feels somewhat generally weak and unwell but denies arthralgias or myalgias. Neuro: Patient denies associated headache, paresthesias or focal neurologic deficits. Heme: Denies any bleeding or bruising Skin: Denies rashes Psychiatric: No complaints voiced related uncontrolled depression or anxiety. Endocrine: No polyuria, polydipsia or polyphagia. The rest of the 14 point ROS was negative except for positives in HPI. Vital Signs Vital Signs Vital Signs: 07/20/23 20:23 07/20/23 20:28 07/20/23 20:38 Temperature 97 F L Temperature Source Temporal Pulse Rate 91 Respiratory Rate 17 Blood Pressure 156/102 H 154/84 H Blood Pressure Mean 120 107 Pulse Ox 99 Oxygen Delivery Method Room Air 07/20/23 21:23 07/20/23 22:00 07/20/23 22:08 Temperature Temperature Source Pulse Rate 76 80 86 Respiratory Rate 19 H 16 20 H Blood Pressure 153/84 H 145/90 H Blood Pressure Mean 107 108 Pulse Ox 97 96 98 Oxygen Delivery Method Room Air Room Air 07/20/23 22:15 07/20/23 22:27 07/20/23 22:30 Temperature Temperature Source Pulse Rate 82 90 Respiratory Rate 19 H 17 Blood Pressure 154/82 H 144/76 H Blood Pressure Mean 101 95 Pulse Ox 98 98 Oxygen Delivery Method Room Air 07/20/23 22:45 07/20/23 23:00 07/20/23 23:00 Temperature 98 F Temperature Source Pulse Rate 74 75 74 Respiratory Rate 13 12 16 Blood Pressure 123/76 H 123/76 H Blood Pressure Mean 89 91 Pulse Ox 97 97 97 Oxygen Delivery Method Room Air 07/20/23 23:35 Temperature Temperature Source Pulse Rate 77 Respiratory Rate Blood Pressure 130/65 H Blood Pressure Mean Pulse Ox Oxygen Delivery Method Weight Weight: 169 lb 5.04 oz Body Mass Index (BMI) 32.0 Physical Exam Const alert, oriented x3, no apparent distress, average body habitus and healthy appearing General Appearance: cooperative HEENT normocephalic, head/scalp atraumatic, hearing grossly normal bilaterally and moist oral mucous membranes Eyes PERRL and EOMs intact bilaterally Neck no lymphadenopathy and supple Resp normal respiratory effort, no retractions, no use of accessory muscles and clear to auscultation bilaterally Cardio regular rate and regular rhythm GI normal to inspection, nondistended, normoactive bowel sounds, soft to palpation, non-tender, non-distended and hepatosplenomegaly Extremity normal to inspection and full ROM Skin Skin Narrative: Patient has evidence of jaundice or rash. Neuro oriented x3, CN's II-XII intact bilaterally, moves all extremities and no focal motor deficits Sensorium / Orientation: awake, alert, oriented to person, oriented to place and oriented to time Psych affect normal Results Medical Records Data Attestation: I reviewed the patient's medical records Lab / Micro Data Attestation: I reviewed the patient's lab results. 07/20/23 20:25 07/20/23 20:25 Labs: Laboratory Results - last 24 hr 07/20/23 20:25: WBC 12.9 H, RBC 4.77, Hgb 13.9, Hct 40.2, MCV 84.3, MCH 29.1, MCHC 34.6, RDW Std Deviation 43.2, RDW Coeff of Cesar 14.0, Plt Count 334, MPV 11.6, Immature Gran % (Auto) 0.400, Neut % (Auto) 62.4, Lymph % (Auto) 27.3, [place] % (Auto) 9.6, Eos % (Auto) 0.1, Baso % (Auto) 0.2, Absolute Neuts (auto) 8.1 H, Absolute Lymphs (auto) 3.53, Nucleated RBC % 0, PT 13.5, INR 1.0, APTT 24.4, Sodium 139, Potassium 4.7, Chloride 107, Carbon Dioxide 22.0, Anion Gap 10, BUN 40 H, Creatinine 1.14 H, Estim Creat Clear Calc 38.75, Est GFR (MDRD) Af Amer 59 L, Est GFR (MDRD) Non-Af 49 L, BUN/Creatinine Ratio 35.1 H, Glucose 148 H, Calcium 9.3, Troponin I High Sens 15 07/20/23 22:26: Troponin I High Sens 1018 H* Imaging Radiology Impression Chest X-Ray 07/20/23 20:38 IMPRESSION: No acute findings in the chest. Electronically Signed: Nico Palacios MD at 21:18 EDT , Assessment & Plan Assessment/Plan (1) Acute non-ST elevation myocardial infarction (NSTEMI): (2) CAD (coronary artery disease): QUALIFIERS: Coronary Disease-Associated Artery/Lesion type: [place] artery [place] vs. transplanted heart: [place] heart Associated angina: with unstable angina Qualified Code(s): I25.110 - Atherosclerotic heart disease of [place] coronary artery with unstable angina pectoris (3) History of coronary artery stent placement: (4) Asthma-COPD overlap syndrome: (5) SOB (shortness of breath): (6) HLD (hyperlipidemia): QUALIFIERS: Hyperlipidemia type: mixed hyperlipidemia Qualified Code(s): E78.2 - Mixed hyperlipidemia (7) Benign essential hypertension: PLAN: Plan 1. Non-ST elevation OR; evidenced by initial troponin of 15 pg/mL followed by a second troponin of 1,018 pg/mL along with angina provoked by exertion in the setting of known CAD; status post LAD stent (06/2022) and recent negative Lexiscan nuclear stress test in March 2023 with LVEF ~70% - Admit to PCU. Continue baby aspirin and Plavix as previous plus add IV heparin as per cardiology recommendations. We will avoid statins with listed allergy. Serialize troponin. Check echocardiogram to evaluate LVEF. Finally, we will consult [facility] to see this patient on rounds in the a.m. for further recommendations regarding [facility] this admission with help appreciated in advance. 2. Leukocytosis of 12.9 present on admission likely due to acute stress response - Checked UA C&S which was negative for signs of acute infection. Chest x-ray negative for acute infiltrate. Otherwise, continue supportive care and check daily CBC to monitor trend. 3. Essential hypertension - Resume home regimen plus give as needed IV hydralazine for systolic blood pressure greater than 160 mmHg. 4. Hyperlipidemia; with intolerance to statins on ezetimibe - Continue ezetimibe and check lipid profile in light of #1. 5. Obesity; BMI 32 this admission - Weight loss will be recommended. 6. History of Takotsubo's cardiomyopathy - Noted. 7. Chronic LBBB - Noted. 8. History of asthma-COPD overlap syndrome; on Symbicort and as needed albuterol - Stable with no evidence of acute flare at this time. Continue home regimen. 9. History of COVID-19 - Noted. 10. History of cataract; s/p extraction - Noted. 11. History of vitamin D deficiency - Noted. 12. Generalized anxiety - Stable. 13. GERD - Continue famotidine as previous. 14. Osteoarthritis - Give Tylenol as needed. 15. DVT prophylaxis - Patient on IV heparin for #1. Total time: Approximately 75 minutes. Charges/Coding Visit Charges Inpatient E&M: 03297 Init Hosp L3
--- NOTE | 2023-07-21 00:39 | EKG12_ITS ---
Test Reason : POST PCI Blood Pressure : / mmHG Vent. Rate : 064 BPM Atrial Rate : 064 BPM P-R Int : 102 ms QRS Dur : 120 ms QT Int : 470 ms P-R-T Axes : 030 008 081 degrees QTc Int : 484 ms Sinus rhythm with short WA Cannot rule out Anterior infarct , age undetermined Abnormal ECG When compared with ECG of 21-JUL-2023 07:02, MANUAL COMPARISON REQUIRED, DATA IS UNCONFIRMED Confirmed by ALBA NEELY, DA ([id number]), video effects editor AMA TALAVERA ([id number]) on 07/26/2023 6:38:51 AM Referred By: Adria Kern Confirmed By:CALIXTO WILLIS MD
[2023-07-21] MEDS: Albuterol 2.5 MG/3 ML VIAL.NEB. INHALATION ×4 (02:39→20:24)
[2023-07-21 02:51] LABS: Troponin-I HS 2425 pg/mL (3.0-54.0)
[2023-07-21 04:02] LABS: Color, Urine Yellow (Yellow); Glucose, Dipstick Normal (Normal); Ketone-Dipstick Negative (Negative); Leukocyte Esterase-Dipstick Negative /ul (Negative); Nitrite-Dipstick Negative (Negative); Occult Blood-Urine Negative /ul (Negative); Protein-Dipstick Negative (Negative); Specific Gravity, Urine 1.005 (1.002-1.030); Urine Bilirubin Dipstick Negative (Negative); Urine Clarity Clear (Clear); Urine Urobilinogen Normal (Normal)
[2023-07-21 05:51] LABS: Hematocrit 38.5 % (37-47); Hemoglobin 12.5 g/dL (12.0-15.0); Mean Corp Hgb Conc 32.5 g/dL (32-36); Mean Corpuscular Volume 86.3 fL (81-99); Mean Platelet Vol. 11.3 fl (6.2-12.0); Platelet Count 259 K/mm3 (150-450); RBC Distribution Width CV 14.2 % (11.6-14.6); RBC Distribution Width SD 44.7 fl (35.1-43.9); Red Blood Count 4.46 M/mm3 (4.2-5.4); White Blood Count 13.3 K/mm3 (4.4-11.0)
--- NOTE | 2023-07-21 05:55 | ECHOCS_ITS ---
Reason For Study: CHEST PAIN Procedure This was a 2D Doppler, Color Flow transthoracic echocardiogram. Contrast injection was performed. Exam performed portable in patient room. Left Ventricle Mildly dilated left ventricle. The estimated ejection fraction is 25 %. There is evidence of diastolic dysfunction. Base of the LV and mid inferior wall are jhon well. Rest of the LV is severely hypokinetic to akinetic. Right Ventricle Normal RV size. Normal systolic function. Atria The left and right atria are normal. No doppler evidence for ASD. Mitral Valve There is moderate mitral annular calcification. There is no mitral valve stenosis. No mitral valve insufficiency. Tricuspid Valve There is no tricuspid stenosis. Trivial tricuspid valve insufficiency. Pulmonary artery systolic pressure is 30 mmHg. Aortic Valve Trisinus/trileaflet aortic valve. Aortic sclerosis, no stenosis. There is no aortic stenosis. No aortic valve insufficiency. Pulmonic Valve There is no pulmonic valvular stenosis. No pulmonic valve insufficiency. Great Vessels Normal aortic root. Pericardium/Pleural No pericardial effusion. Medication Diluted definity 2.5ml given slow IV push to enhance endocardial definition. MMode/2D Measurements & Calculations LVIDd: 4.0 cm IVSd: 1.1 cm LVOT diam: 1.9 cm LVIDs: 2.4 cm LVPWd: 0.89 cm RVDd: 3.3 cm FS: 40.6 % LVOT area: 2.8 cm2 Ao root diam: 3.0 cm LAV(MOD-bp): 44.2 ml LVAd ap4: 29.8 cm2 LAV(MOD-bp) Indexed: 25.1 ml/m2 LVLd ap4: 7.6 cm LAV(MOD-sp2): 43.3 ml EDV(MOD-sp4): 92.9 ml LAV(MOD-sp4): 39.0 ml EDV(sp4-el): 99.1 ml LVAs ap4: 23.4 cm2 LVLs ap4: 7.2 cm ESV(MOD-sp4): 63.2 ml ESV(sp4-el): 64.4 ml EF(MOD-sp4): 31.9 % EF(sp4-el): 35.0 % LVAd ap2: 32.4 cm2 SV(MOD-sp4): 29.7 ml SV(MOD-sp2): 42.2 ml LVLd ap2: 7.8 cm EDV(MOD-sp2): 107.8 ml EDV(sp2-el): 114.0 ml LVAs ap2: 24.5 cm2 LVLs ap2: 7.4 cm ESV(MOD-sp2): 65.6 ml ESV(sp2-el): 69.4 ml EF(MOD-sp2): 39.1 % SV(sp4-el): 34.6 ml LA dimension(2D): 3.6 cm LA A4 area: 16.1 cm2 RA A4 area: 10.4 cm2 TAPSE: 1.7 cm Time Measurements MV dec time: 0.19 sec Doppler Measurements & Calculations MV E max brennen: 80.5 cm/sec Lat Peak E' Brennen: 8.0 cm/sec Med Peak E' Brennen: 7.2 cm/sec MV A max brennen: 121.9 cm/sec E/E' lat: 10.1 E/E' med: 11.2 MV E/A: 0.66 Ao V2 max: 131.2 cm/sec LV V1 max: 105.7 cm/sec MV dec slope: 432.1 cm/sec2 Ao max P.9 mmHg LV V1 max P.5 mmHg Ao V2 mean: 83.6 cm/sec LV V1 mean P.7 mmHg Ao mean P.3 mmHg LV V1 mean: 77.6 cm/sec Ao V2 VTI: 27.0 cm LV V1 VTI: 21.9 cm AV (velocity ratio): 0.81 DOLORES(I,D): 2.3 cm2 DOLORES(V,D): 2.2 cm2 SV(LVOT): 61.2 ml PA V2 max: 92.6 cm/sec TR max brennen: 271.7 cm/sec TR max P.5 mmHg ECHO/Echo Complete W/ Contrast Interpretation Summary The estimated ejection fraction is 25 %. There is evidence of diastolic dysfunction. Base of the LV and mid inferior wall are jhon well. Rest of the LV is se verely hypokinetic to akinetic. Ordering Physician: Rudi Mirza Referring Physician: Claudette Garrison M.D. Performed By: Kassidy Lamb RDCS
[2023-07-21 06:08] LABS: Scan Indicated on CBC? Y/N NO
[2023-07-21 06:20] LABS: Partial Thromboplast Time 144.7 Seconds (24.1-36.2)
[2023-07-21 06:21] LABS: Troponin-I HS 2329 pg/mL (3.0-54.0)
[2023-07-21 06:29] LABS: ALB/GLOB Ratio 1.2 RATIO (0.9-2.4); AST(SGOT) 19 U/L (15-37); Alanine Aminotransfer ALT/SGPT 25 U/L (13-56); Albumin, Serum 3.2 g/dL (3.2-5.0); Alkaline Phosphatase 71 U/L (45-117); Anion Gap 6 (5-15); BUN 34 mg/dL (7-18); BUN/Creat Ratio 44.6 RATIO (10-20); Calcium,Total 8.4 mg/dL (8.5-10.1); Chloride 111 mmol/L (98-107); Cholesterol 205 mg/dL (200); Creatinine, Serum 0.76 mg/dL (0.55-1.02); EST Glomerular Filtration Rate 78 mL/min (>60); Est Glom Filt Rate - Afr Amer 94 mL/min (>60); Estimated Creatinine Clearance 54.03 ml/min; Globulin 2.7 g/dL (2.2-4.2); Glucose 113 mg/dL (74-106); High Density Lipoprotein 69 mg/dL; Potassium 4.8 mmol/L (3.5-5.1); Protein, Total 5.9 g/dL (6.4-8.2); Sodium Level 141 mmol/L (136-145); Thyroid Stim Hormone (TSH) 1.23 uIU/mL (0.358-3.74); Triglycerides 85 mg/dL; Very Low Density Lipoprotein 17 mg/dL (5-40)
--- NOTE | 2023-07-21 06:49 | EKG12_ITS ---
Test Reason : AM EKG Blood Pressure : / mmHG Vent. Rate : 070 BPM Atrial Rate : 070 BPM P-R Int : 126 ms QRS Dur : 116 ms QT Int : 462 ms P-R-T Axes : 049 007 166 degrees QTc Int : 498 ms Normal sinus rhythm Anterior infarct , age undetermined ST & T wave abnormality, consider inferolateral ischemia Abnormal ECG When compared with ECG of 21-JUL-2023 12:03, MANUAL COMPARISON REQUIRED, DATA IS UNCONFIRMED Confirmed by ALBA NEELY, DA ([id number]), newspaper editor managing AMA TALAVERA ([id number]) on 07/26/2023 6:37:57 AM Referred By: Adria Kern Confirmed By:CALIXTO WILLIS MD
[2023-07-21] MEDS: Budesonide Respules 0.5 MG/2 ML AMPUL.NEB. INHALATION ×2 (07:07→20:24)
--- NOTE | 2023-07-21 08:39 | PCM.CONS.C ---
Assessment & Plan Assessment/Plan (1) Acute non-ST elevation myocardial infarction (NSTEMI): PLAN: The patient's EKG had subtle ST segment elevations in V1 through V3 that now are consistent with an evolving septal infarct with T wave inversions across the precordium and with positive enzymes and an echo showing anterior wall hypokinesis this is consistent with an acute ischemic event. Patient has a history of a previous 2.75 mm stent in the mid LAD in June 2022 and a history of tachycardia sobbing syndrome. Apparently at the time of that stenting procedure her LV dysfunction was out of proportion of the myocardium in jeopardy from the LAD lesion. The patient does not smoke she is never smoked, she has a history of hyperlipidemia and is intolerant of statin therapy due to joint pains. The patient has a history of hypertension that is adequately controlled on her current medical therapy including Coreg and amlodipine. I would recommend the patient undergo urgent left heart catheterization. The procedure risk/benefit and alternatives were explained to the patient in detail she voiced understanding and agrees to proceed. (2) SOB (shortness of breath): PLAN: Patient has a history of COPD and asthma and now with new anterior wall changes there are 3 possibilities of her shortness of breath. Her shortness of breath did improve with aerosol treatment in the emergency room last evening. (3) Benign essential hypertension: PLAN: Patient's blood pressure is adequately controlled on the current medical therapy. She should be continued on the amlodipine and carvedilol. (4) HLD (hyperlipidemia): QUALIFIERS: Hyperlipidemia type: mixed hyperlipidemia Qualified Code(s): E78.2 - Mixed hyperlipidemia PLAN: The patient is intolerant of statin therapy by her report due to his joint pains. She is on ezetimibe. Cholesterol total was 205 triglycerides 85 LDL 119 which is markedly improved from 132 in March 2023. HDL is 69. The patient was not interested in injectable therapy when seen in the office May 2023. PLAN: Plan 1. Urgent left heart catheterization Dr. Rubalcava will be performing the procedure today. 2. Continue current medical therapy except holding IV heparin for cath. 3. Will consider a trial of low-dose statin therapy with coenzyme Q 10 in the ambulatory setting after discharge. HPI Consult Data Date of Consult: 07/21/23 HPI Narrative HPI Narrative: THOMAS HARDY, is a 77 F who presents with a history of episodic chest discomfort that started yesterday around 1500 hrs. It resolved after couple hours then she went out with her last evening and around 1900 hrs. the symptoms recurred. She reported to the emergency room where she was evaluated and given her COPD history and she complaining of shortness of breath was treated with aerosol treatment with resolution of her shortness of breath and improvement in her chest symptoms. An EKG was reportedly negative for any acute ischemic changes. The patient had a history of a negative pharmacologic nuclear stress test May 2023. She does have a diagnosis of chronic obstructive pulmonary disease. She has a history of hypercholesterolemia and a known history of coronary artery disease and actually Takotsubo syndrome as well. She is status post stenting of the mid LAD July 19, 2022. She had represented to the emergency department with chest discomfort March 2023 her troponins were negative x 2 medications were adjusted including adding Imdur and cardiac catheterization as an outpatient was discussed but not undertaken. She subsequently had a negative stress test May 2023. The patient's first set of enzymes were 1000 delta troponin went up to 2000. The patient is EKG showed subtle ST segment elevations in V1 through V3 with prominent T waves. Subsequent EKGs have showed evolving T waves to where they are now inverted in V1 through V3. Echocardiogram done this morning shows anterior wall hypokinesis. The patient continues to complain of some chronic shortness of breath. She reports the chest symptoms she had around 1500 hrs. in 1900 hrs. have markedly improved but have not totally resolved. [facility] Medical History Viral URI Otitis externa of both ears Impacted cerumen of both ears Atherosclerosis of coronary artery of [place] heart without angina pectoris Chest pain LBBB (left bundle branch block) Gastric reflux Non-smoker History of stress test Epigastric pain Lower abdominal pain Acute flank pain Trigger finger Hearing problem Anxiety Seasonal allergies COVID-19 Home Medications ?Medication ?Instructions ?Recorded ?Last Taken ?Type aspirin 81 mg tablet,delayed 81 mg PO BREAKFAST #90 tabs 11/13/22 Unknown Rx release clopidogrel 75 mg tablet (Plavix) 75 mg PO QDAY #90 tabs 11/13/22 Unknown Rx lisinopril 20 mg tablet 20 mg PO DAILY blood pressure #90 01/01/23 Unknown Rx tabs ezetimibe 10 mg tablet (Zetia) 10 mg PO DAILY #30 tabs 01/25/23 Unknown Rx famotidine 40 mg tablet (Pepcid) 40 mg PO DAILY #90 tabs 03/14/23 Unknown Rx carvedilol 6.25 mg tablet 6.25 mg PO BID 04/04/23 Unknown History albuterol sulfate 90 mcg/actuation 2 inh inhalation Q8H PRN shortness 05/04/23 Unknown Rx aerosol inhaler of breath or wheezing #8.5 grams ergocalciferol (vitamin D2) 1,250 50,000 unit PO QWEEK supplement 05/04/23 07/20/23 08:00 Rx mcg (50,000 unit) capsule #12 caps amlodipine 5 mg tablet 5 mg PO QHS #90 tabs 05/10/23 Unknown Rx isosorbide mononitrate 30 mg 30 mg PO QAM #90 tabs 05/10/23 Unknown Rx tablet,extended release 24 hr budesonide-formoterol HFA 160 2 puff inhalation BID #10.2 grams 06/04/23 Unknown Rx mcg-4.5 mcg/actuation aerosol inhaler (Symbicort) Allergy/AdvReac Type Severity Reaction Status Date / Time shellfish derived Allergy Severe SOB Verified 07/20/23 20:23 amoxicillin Allergy Unknown Verified 07/20/23 20:23 erythromycin base (From Allergy Unknown Verified 07/20/23 20:23 Staticin) ethyl alcohol (From Staticin) Allergy Unknown Verified 07/20/23 20:23 Penicillins Allergy Unknown Verified 07/20/23 20:23 Sulfa (Sulfonamide Allergy Unknown Verified 07/20/23 20:23 Antibiotics) [id number]-[id number]-[id number] Reductase AdvReac Pain in Verified 07/20/23 20:23 Inhibitor joints Family History Mother Colon cancer Cancer Heart disease Grandmother Colon cancer Cancer Sister Cancer Brother Heart disease Mental disorder Father , 85 yrs old Dementia Surgical History History of coronary artery stent placement (07/20/22) History of cataract extraction History of carpal tunnel release History of tonsillectomy Social History Smoking Status: Never smoker alcohol intake: never substance use type: does not use caffeine: Yes Type: carbonated beverages and coffee Number of servings: 1 what type of physical activity do you participate in: none ROS Constitutional Constitutional: Reports systems reviewed and no addt'l complaints, except as documented Eyes Eyes: Reports systems reviewed and no addt'l complaints, except as documented ENT HEENT: Reports systems reviewed and no addt'l complaints, except as documented Cardiovascular Cardiovascular: Reports as per HPI Respiratory/Chest Respiratory/Chest: Reports as per HPI Gastrointestinal Gastrointestinal: Reports systems reviewed and no addt'l complaints, except as documented Genitourinary Genitourinary: Reports systems reviewed and no addt'l complaints, except as documented Musculoskeletal Musculoskeletal: Reports systems reviewed and no addt'l complaints, except as documented Integumentary Integumentary: Reports systems reviewed and no addt'l complaints, except as documented Neurologic Neurologic: Reports systems reviewed and no addt'l complaints, except as documented Psychiatric Psychiatric: Reports systems reviewed and no addt'l complaints, except as documented Endocrine Endocrinology: Reports systems reviewed and no addt'l complaints, except as documented Hematologic/Lymphatic Hematologic/Lymphatic: Reports systems reviewed and no addt'l complaints, except as documented Allergic/Immunologic Allergic/Immunologic: Reports systems reviewed and no addt'l complaints, except as documented Physical Exam Const alert and oriented x3 HEENT normocephalic Eyes EOMs intact bilaterally Neck no JVD Chest inspection of chest normal Resp Auscultation: diminished lung sounds bilateral lower Cardio regular rate, regular rhythm, S1 normal heart sound, S2 normal heart sound, no murmurs, no rub and no gallops Peripheral Pulses: radial pulses present bilateral 2+, femoral pulses present bilateral (No bruits), posterior tibial pulses present bilateral 1+ and dorsalis pedis pulses present bilateral 1+ GI soft to palpation and non-tender Extremity no pedal edema Skin no rashes or lesions noted Skin Narrative: Sun exposure soares. Neuro Neuro Narrative: Alert and oriented x 3 Psych mental status grossly normal Risk Stratification Risk Stratification Applicable: Yes Age >/= 65: Yes >/= 3 CAD Risk Factors (HTN, HLD, DM, family hx of CAD, or current smoker): Yes Aspirin Use in the Past 7 Days: Yes Severe Angina (>/= episodes in 24 hours): Yes EKG ST Changes >/= 0.5mm: Yes Positive Cardiac Marker: Yes JOSEFA Risk Stratification Score: 6 JOSEFA % Risk: 41% Risk Charges/Coding Visit Charges Inpatient E&M: 91082 Init Hosp L3 Objective Data Vital Signs: Vital Signs Temp Pulse Resp BP Pulse Ox O2 Del Method 97.6 F L 80 16 128/81 H 98 Room Air 07/21/23 05:39 07/21/23 07:08 07/21/23 07:08 07/21/23 05:39 07/21/23 07:08 07/21/23 07:08 Oxygen Delivery Method Room Air Weight: 162 lb 4.163 oz Body Mass Index (BMI) 30.7 Intake & Output: Intake and Output for Last 24 Hours 07/19/23 07/20/23 07/21/23 23:59 23:59 23:59 Intake Total 0 / 0 61.65 / 61.65 Balance 0 / 0 61.65 / 61.65 Lab / Micro Data Attestation: I reviewed the patient's lab results. 07/21/23 05:30 07/21/23 05:30 Labs: Laboratory Results - last 24 hr 07/20/23 20:25: WBC 12.9 H, RBC 4.77, Hgb 13.9, Hct 40.2, MCV 84.3, MCH 29.1, MCHC 34.6, RDW Std Deviation 43.2, RDW Coeff of Cesar 14.0, Plt Count 334, MPV 11.6, Immature Gran % (Auto) 0.400, Neut % (Auto) 62.4, Lymph % (Auto) 27.3, [place] % (Auto) 9.6, Eos % (Auto) 0.1, Baso % (Auto) 0.2, Absolute Neuts (auto) 8.1 H, Absolute Lymphs (auto) 3.53, Nucleated RBC % 0, PT 13.5, INR 1.0, APTT 24.4, Sodium 139, Potassium 4.7, Chloride 107, Carbon Dioxide 22.0, Anion Gap 10, BUN 40 H, Creatinine 1.14 H, Estim Creat Clear Calc 38.75, Est GFR (MDRD) Af Amer 59 L, Est GFR (MDRD) Non-Af 49 L, BUN/Creatinine Ratio 35.1 H, Glucose 148 H, Calcium 9.3, Troponin I High Sens 15 07/20/23 22:26: Troponin I High Sens 1018 H* 07/21/23 02:16: Troponin I High Sens 2425 H* 07/21/23 03:20: Urine Color Yellow, Urine Clarity Clear, Urine pH 7.0, Ur Specific [place] 1.005, Urine Protein Negative, Urine Glucose (UA) Normal, Urine Ketones Negative, Urine Occult Blood Negative, Urine Nitrite Negative, Urine Bilirubin Negative, Urine Urobilinogen Normal, Ur Leukocyte Esterase Negative 07/21/23 05:30: WBC 13.3 H, RBC 4.46, Hgb 12.5, Hct 38.5, MCV 86.3, MCH 28.0, MCHC 32.5 D, RDW Std Deviation 44.7 H, RDW Coeff of Cesar 14.2, Plt Count 259, MPV 11.3, APTT 144.7 H*, Sodium 141, Potassium 4.8, Chloride 111 H, Carbon Dioxide 24.0, Anion Gap 6, BUN 34 H, Creatinine 0.76, Estim Creat Clear Calc 54.03, Est GFR (MDRD) Af Amer 94, Est GFR (MDRD) Non-Af 78, BUN/Creatinine Ratio 44.6 H, Glucose 113 H, Calcium 8.4 L, Total Bilirubin 0.50, AST 19, ALT 25, Alkaline Phosphatase 71, Troponin I High Sens 2329 H*, Total Protein 5.9 L, Albumin 3.2, Globulin 2.7, Albumin/Globulin Ratio 1.2, Triglycerides 85, Cholesterol 205 H, LDL Cholesterol 119, VLDL Cholesterol 17, HDL Cholesterol 69, TSH 1.23 Rhythm Strip Rhythm Strip: Sinus Rhythm Rate: 80 Cardiology Labs/Tests 07/20/23 20:25: WBC 12.9 H, RBC 4.77, Hgb 13.9, Hct 40.2, MCV 84.3, MCH 29.1, MCHC 34.6, Plt Count 334, MPV 11.6, Immature Gran % (Auto) 0.400, Neut % (Auto) 62.4, Lymph % (Auto) 27.3, [place] % (Auto) 9.6, Eos % (Auto) 0.1, Baso % (Auto) 0.2, Absolute Neuts (auto) 8.1 H, Nucleated RBC % 0, PT 13.5, INR 1.0, APTT 24.4, Sodium 139, Potassium 4.7, Chloride 107, Carbon Dioxide 22.0, Anion Gap 10, BUN 40 H, Creatinine 1.14 H, Est GFR (MDRD) Af Amer 59 L, Est GFR (MDRD) Non-Af 49 L, BUN/Creatinine Ratio 35.1 H, Glucose 148 H, Calcium 9.3 07/21/23 03:20: Urine Color Yellow, Urine Clarity Clear, Urine pH 7.0, Ur Specific [place] 1.005, Urine Protein Negative, Urine Glucose (UA) Normal, Urine Ketones Negative, Urine Occult Blood Negative, Urine Nitrite Negative, Urine Bilirubin Negative, Urine Urobilinogen Normal, Ur Leukocyte Esterase Negative 07/21/23 05:30: WBC 13.3 H, RBC 4.46, Hgb 12.5, Hct 38.5, MCV 86.3, MCH 28.0, MCHC 32.5 D, Plt Count 259, MPV 11.3, APTT 144.7 H*, Sodium 141, Potassium 4.8, Chloride 111 H, Carbon Dioxide 24.0, Anion Gap 6, BUN 34 H, Creatinine 0.76, Est GFR (MDRD) Af Amer 94, Est GFR (MDRD) Non-Af 78, BUN/Creatinine Ratio 44.6 H, Glucose 113 H, Calcium 8.4 L, Total Bilirubin 0.50, Triglycerides 85, Cholesterol 205 H, LDL Cholesterol 119, VLDL Cholesterol 17, HDL Cholesterol 69 Rhythm: EKG: ECHO: Stress Test: Cardiac Cath: PCI: CT Surgery: Holter monitor: EPS: PPM: CXR: Chest CT Scan: Radiography Diagnostic Testing: Radiology Impression Chest X-Ray 07/20/23 20:38 IMPRESSION: No acute findings in the chest. Electronically Signed: Nico Palacios MD at 21:18 EDT ,
--- NOTE | 2023-07-21 08:46 | CASEMGMT ---
RN CM Assessment: Face to Face with pt for initial transition planning/care coordination assessment. RN CM introduced self and role at [facility], pt voices understanding and consents to assessment. Pt is A&O x4 and answers all questions appropriately at this time. Care providers, pharmacy, and demographics verified/updated. Admitting Dx: STEMI PCP: Dr. Garrison Specialists: [facility] Insurance: Anthem Medicare Prescription Benefit: yes LNOK: Spouse Elvis Living Arrangements: Pt lives at home with spouse. Home is a single story ranch with no steps to enter. Pt is independent with ADLs and IADLs. Pt is still working. Transportation: Pt drives self and denies concerns with transportation. DME: None HHC/SNF: No history Pt states no concerns with going home at time of dc. Pt states no further concerns/needs. CM to follow. Advised pt to ask CM if any further question/concerns/needs arise, voices understanding. Pt Goal: Home Plan: Home with no skilled needs. Liyah Barker MSN, RN, CCM
[2023-07-21] MEDS: Carvedilol 6.25 MG Tablet PO ×2 (09:04→17:29)
[2023-07-21] MEDS: Clopidogrel Bisulfate 75 MG Tablet PO (09:04)
[2023-07-21] MEDS: Ezetimibe 10 MG Tablet PO (09:05)
[2023-07-21] MEDS: 0.9% Normal Saline (1000mL) 1,000 ML 15 ML IV (09:05)
[2023-07-21] MEDS: Lisinopril 20 MG Tablet PO (09:05)
[2023-07-21] MEDS: Isosorbide Mononitrate 30 MG Tablet PO (09:05)
[2023-07-21] MEDS: Aspirin E.C. 81 MG Tablet PO (09:05)
[2023-07-21] MEDS: Famotidine 20 MG Tablet PO (09:05)
[2023-07-21] MEDS: 0.9% Saline Lock 10 ML Syringe IV ×2 (09:06→21:37)
--- NOTE | 2023-07-21 10:25 | NURSING ---
Called report to Karen Valverde RN in test lab technician
--- NOTE | 2023-07-21 11:51 | CRPHASE1 ---
Patient Communication Patient Information Former Patient:: Phase I PHII Cardiac Rehab Discussed with Patient:: Yes Guide to Cardiac Rehab Given to Patient:: Yes Cardiac Rehab Facility Choice List Given to Patient:: Yes Communication to Cardiac Rehab Upholstery Covers Inspector:: Tonia Rubalcava Sessions:: 36 sessions - 3 days/wk, 12 weeks Cardiac Rehabilitation Info Program Information Cardiac Rehabilitation Program Information: Cardiac Rehab The cardiac rehab team at [facility] consists of highly skilled exercise physiologists, nurses, respiratory therapists and physicians working together with you. Our purpose is to help you have a full recovery and achieve the goals you set for yourself. Over the years many of our patients have returned to activities they assumed they would never do again! We can help restore your confidence and motivation to make lifestyle changes that can have a significant impact on your health and quality of life! We can help answer questions and concerns you may have about exercise, lifestyle, medications, diet, stress and anxiety which are common following a hospitalization. WE monitor ECG and vital signs during exercise and discuss your progress with you and report to your physician(s). Cardiac Rehab is proven to help reduce readmissions, improve functional capacity and lower recurrence of problems with your heart. Our Cardiac Rehab program is Certified by the [place] [employer]-Vascular and Pulmonary [employer] (AACVPR) and Accredited by the [place] [employer] through our [facility]. You can contact us at . We invite you to call us with your questions or to get started in our program. If you have other questions or concerns be sure to ask your physician/provider during your follow-up visit. WE look forward to seeing you!
--- NOTE | 2023-07-21 11:53 | CRPH1.INSTRU ---
General Education Discussed with Patient CAD and cardiac anatomy and function:: Patient communicates acknowledgment Explanation of diagnoses and procedures:: Patient communicates acknowledgment Sign/Symptoms of [place]:: Patient communicates acknowledgment Antiplatelet therapy: Patient communicates acknowledgment Proper use of NTG-SL: Patient communicates acknowledgment Emergency procedures and activation of EMS: Patient communicates acknowledgment Compliance of all prescribed medications: Patient communicates acknowledgment Smoking Risk Factors Patient Nicotine/Smoking Risk Factors Are:: Never smoked Response Code Nicotine/Smoking Response Code:: Patient communicates acknowledgment Dyslipidemia Risk Factors Patient Dyslipidemia Risk Factors Are:: Total Cholesterol, Triglycerides, HDL and LDL Recommendations Recommendations Include:: Lipid profile not available, Reviewed NCEP/ATP guidelines and Therapeutic Lifestyle Change dietary guidelines Response Code Dyslipidemia Response Code:: Patient communicates acknowledgment Overweight/Obesity Risk Factors Patient Overweight/Obesity Risk Factors Are:: Overweight = 26-29 Recommendations Recommendations Include:: Weight loss of 5-10%, Reduced calorie diet and Exercise 5-7 times/week Response Code Overweight/Obesity:: Patient communicates acknowledgment Hypertension Recommendations Recommendations Include:: Maintain BP <130/85, Decrease/maintain normal body weight and Moderation of ETOH Response Code Hypertension:: Patient communicates acknowledgment Heart Disease Risk Factors Patient Heart Disease Risk Factors Are:: Family history of heart disease < 65 years old and Previous cardiac event Recommendations Recommendations Include:: Educated family members of their risk and Educated family members of importance of prevention of heart disease Response Code Heart Disease Response Code:: Patient communicates acknowledgment Metabolic Syndrome Recommendations Recommendations Include:: Encouraged follow-up with Primary Care Physician Response Code Metabolic Syndrome Response Code:: Patient communicates acknowledgment Sedentary Risk Factors Patient Sedentary Risk Factors Are:: Lack of regular exercise Recommendations Recommendations Include:: Aerobic exercise 5-7 times/week for 20-30 minutes continuously, Benefits of regular exercise, Discussed home walking program and Monitored Outpatient Cardiac Rehab Response Code Sedentary Response Code:: Patient communicates acknowledgment Stress Risk Factors Patient Stress Risk Factors Are:: Patient denies stress as a risk factor Recommendations Recommendations Include:: Identification of stressors, and assessment of coping skills and Stress management techniques Response Code Stress Response Code:: Patient communicates acknowledgment
--- NOTE | 2023-07-21 12:00 | EKG12_ITS ---
Test Reason : Blood Pressure : / mmHG Vent. Rate : 075 BPM Atrial Rate : 075 BPM P-R Int : 112 ms QRS Dur : 106 ms QT Int : 398 ms P-R-T Axes : 023 019 088 degrees QTc Int : 444 ms Normal sinus rhythm Nonspecific ST and T wave abnormality Abnormal ECG When compared with ECG of 21-JUL-2023 01:39, MANUAL COMPARISON REQUIRED, DATA IS UNCONFIRMED Confirmed by ALBA NEELY, DA ([id number]), features editor AMA TALAVERA ([id number]) on 07/26/2023 6:38:42 AM Referred By: Adria Kern Confirmed By:CALIXTO WILLIS MD
--- NOTE | 2023-07-21 12:36 | CL.I_ITS ---
Patient Name: THOMAS HARDY Study Date: 07/21/2023 Performing: Elías Rubalcava MD Ht: 61 inches 154.94 cm : 1945 Wt: 162.5 lbs 73.6 kg Age: 77 Gender: female BSA: 1.73 PROCEDURE(S) PERFORMED DC02-([id number])LHC/COR IC01-([id number])PTCA, SINGLE CORONARY ARTERY CLINICAL PROFILE AND CO-MORBIDITIES Indications: ACS <= 24 hrs, NSTEMI Heart Failure: None CONCLUSIONS CAD as described. Successful Cutting Balloon angioplasty to in-stent restenosis of mid LAD. RECOMMENDATIONS DESCRIPTION OF PROCEDURE The patient arrived to the procedure lab. The risks and benefits of the procedure as well as a full description of our services here and lack of surgical backup were fully explained to the patient and/or their significant other prior to the catheterization. The Timeout was completed, verifying the correct patient and procedure. The patient's procedural site was prepped and draped in the usual fashion. Local anesthetic was given subcutaneously to right radial region with Lidocaine 2%. Using a modified Seldinger technique, arterial access was obtained via the right radial artery, a 6Fr sheath was inserted.. Left Coronary Artery selective angiography was performed in multiple views using a 5 Fr. JL3.5 catheter. Right Coronary Artery selective angiography was then performed in multiple views using a 5 Fr. JR 4 catheterThe images were reviewed and options discussed. A decision was then made to proceed with an Intervention, IVUS or other adjunct procedure. XB 3.0 Guide catheter was inserted and engaged into the LCA. BMW Guide wire was advanced to the LAD. Emerge 2.75x12 Balloon catheter was inserted. PTCA balloon inflated at 8 atms for 11 secs. Angiogram performed post balloon dilatation. Whisper Guide wire was advanced to the LAD. Lanett 2.50x10 Cutting balloon catheter was inserted Lanett 2.50x10 Cutting balloon catheter was inserted Angiogram performed post balloon dilatation. The arterial sheath was pulled and a TR Band was applied for hemostasis w/ 12ml air CORONARY ANGIOGRAPHY DOMINANCE: Right Dominant LEFT MAIN: Mild luminal irregularities LEFT ANTERIOR DESCENDING ARTERY: MID LAD: 99 % instent retenosis CIRCUMFLEX ARTERY: Mild luminal irregularities RIGHT CORONARY ARTERY: MID RCA: 50 % Stenosis INTERVENTION INFORMATION LESION SITE: LAD (Mid) Lesion Complexity: High/C, chronic total occlusion: No, lesion at bifurcation: No, thrombus present: No, lesion length: 12 mm, culprit lesion: Yes, Previously treated lesion: Yes, Timeframe of previous treatment: 6-12 months, Previously treated with a stent: Yes Stent Type: with JUSTINO, In-stent Thrombosis: No, In-stent restenosis: Yes Pre Stenosis: 99 % Pre intervention JOSEFA flow: 2 PROCEDURE: Balloon Angioplasty, Cutting Balloon Angioplasty Post Stenosis: 0 % Post intervention JOSEFA flow: 3 Lesion Devices: Monae .014 190cm BMW [place] Straight Cordis 6 Fr XB3.0 100cm Guide Catheter Andrew Sci EMERGE MR 2.75x12 BALLOON COMPLICATIONS No Complications PROCEDURE MEDICATIONS Versed 0.5 mg IV Fentanyl 25 mcg IV Oxygen: 2 L/min via nasal cannula Benadryl 50 mg IV @ 07/21/2023 10:23:33 Heparin given IA 07/21/2023 10:38:50 Heparin 2000 unit(s) IV 07/21/2023 10:51:16 Nitro 200 mcg IC 07/21/2023 10:59:37 Nitro 200 mcg IC 07/21/2023 11:11:20 Solu-medrol 125 mg IV 07/21/2023 10:23:41 SUMMARY OF HEMODYNAMIC DATA Time AIR REST ECG 10:23:10 AO 114/73 (91) SA 10:44:06 Signed By Elías Rubalcava MD On 07/21/2023 12:35:18 Elías Rubalcava MD
--- NOTE | 2023-07-21 13:38 | PCM.PN.HOSP ---
Reason for Visit Reason for Visit: Diagnoses Mixed hyperlipidemia (07/21/23) Hyperlipidemia, unspecified (07/21/23) Essential (primary) hypertension (07/21/23) Non-ST elevation (NSTEMI) myocardial infarction (07/21/23) Atherosclerotic heart disease of [place] coronary artery without angina pectoris (07/21/23) Atherosclerotic heart disease of [place] coronary artery with unstable angina pectoris (07/21/23) Chronic obstructive pulmonary disease, unspecified (07/21/23) Shortness of breath (07/21/23) Presence of coronary angioplasty implant and graft (07/21/23) Objective Data Objective Data Vital Signs: Vital Signs Temp Pulse Resp BP Pulse Ox O2 Del Method 97.6 F L 77 18 134/68 H 100 Room Air 07/21/23 09:03 07/21/23 13:25 07/21/23 13:25 07/21/23 13:00 07/21/23 13:00 07/21/23 13:00 Oxygen Delivery Method Room Air Weight: 162 lb 4.163 oz Body Mass Index (BMI) 30.7 Intake & Output: Intake and Output for Last 24 Hours 07/19/23 07/20/23 07/21/23 23:59 23:59 23:59 Intake Total 0 / 0 134.65 / 134.65 Balance 0 / 0 134.65 / 134.65 Lab / Micro Data 07/21/23 05:30 07/21/23 05:30 Labs: Laboratory Results - last 24 hr 07/20/23 20:25: WBC 12.9 H, RBC 4.77, Hgb 13.9, Hct 40.2, MCV 84.3, MCH 29.1, MCHC 34.6, RDW Std Deviation 43.2, RDW Coeff of Cesar 14.0, Plt Count 334, MPV 11.6, Immature Gran % (Auto) 0.400, Neut % (Auto) 62.4, Lymph % (Auto) 27.3, [place] % (Auto) 9.6, Eos % (Auto) 0.1, Baso % (Auto) 0.2, Absolute Neuts (auto) 8.1 H, Absolute Lymphs (auto) 3.53, Nucleated RBC % 0, PT 13.5, INR 1.0, APTT 24.4, Sodium 139, Potassium 4.7, Chloride 107, Carbon Dioxide 22.0, Anion Gap 10, BUN 40 H, Creatinine 1.14 H, Estim Creat Clear Calc 38.75, Est GFR (MDRD) Af Amer 59 L, Est GFR (MDRD) Non-Af 49 L, BUN/Creatinine Ratio 35.1 H, Glucose 148 H, Calcium 9.3, Troponin I High Sens 15 07/20/23 22:26: Troponin I High Sens 1018 H* 07/21/23 02:16: Troponin I High Sens 2425 H* 07/21/23 03:20: Urine Color Yellow, Urine Clarity Clear, Urine pH 7.0, Ur Specific Reeves 1.005, Urine Protein Negative, Urine Glucose (UA) Normal, Urine Ketones Negative, Urine Occult Blood Negative, Urine Nitrite Negative, Urine Bilirubin Negative, Urine Urobilinogen Normal, Ur Leukocyte Esterase Negative 07/21/23 05:30: WBC 13.3 H, RBC 4.46, Hgb 12.5, Hct 38.5, MCV 86.3, MCH 28.0, MCHC 32.5 D, RDW Std Deviation 44.7 H, RDW Coeff of Cesar 14.2, Plt Count 259, MPV 11.3, APTT 144.7 H*, Sodium 141, Potassium 4.8, Chloride 111 H, Carbon Dioxide 24.0, Anion Gap 6, BUN 34 H, Creatinine 0.76, Estim Creat Clear Calc 54.03, Est GFR (MDRD) Af Amer 94, Est GFR (MDRD) Non-Af 78, BUN/Creatinine Ratio 44.6 H, Glucose 113 H, Calcium 8.4 L, Total Bilirubin 0.50, AST 19, ALT 25, Alkaline Phosphatase 71, Troponin I High Sens 2329 H*, Total Protein 5.9 L, Albumin 3.2, Globulin 2.7, Albumin/Globulin Ratio 1.2, Triglycerides 85, Cholesterol 205 H, LDL Cholesterol 119, VLDL Cholesterol 17, HDL Cholesterol 69, TSH 1.23 Micro: Microbiology 07/21/23 09:36 Stool Stool Occult Blood (OLLIE) - Final Radiography Diagnostic Testing: Radiology Impression Chest X-Ray 07/20/23 20:38 IMPRESSION: No acute findings in the chest. Electronically Signed: Nico Palacios MD at 21:18 EDT Reading Location ID and State: [facility] / [place] Tel , Service support , Echocardiogram 07/21/23 05:55 Interpretation Summary The estimated ejection fraction is 25 %. There is evidence of diastolic dysfunction. Base of the LV and mid inferior wall are jhon well. Rest of the LV is severely hypokinetic to akinetic. Ordering Physician: Rudi Mirza Referring Physician: Claudette Garrison M.D. Performed By: Kassidy Lamb RDCS Rhythm Strip Rhythm Strip: Sinus Rhythm Rate: 80 Physical Exam Narrative Seen and examined. Patient admitted with shortness of breath and left sided chest pain with radiation to interscapular area after mild walking, as per was not very exertional. She also has a history of asthma/COPD and wheezing and is on inhaler. History of LAD stent about a year ago. In the morning, she still had mild chest pressure on the left side, inframammary region Physical exam General: Alert, Oriented x3, Cooperative HEENT: Atraumatic, PERRLA, EOMI, Normocephalic Oral: Oral mucosa moist. No Gingival or Mucosal Lesions/ Ulcerations Neck: Supple, No JVD, Negative Carotid Bruits Chest wall/Lungs: Air entry diminished in bilateral lung bases. No crepitation/rhonchi Cardiovascular: Regular rate, Regular Rhythm, Normal S1, Normal S2, No M/G/R Abdomen: Bowel Sounds Present, Soft, Non Tender, Non-Distended : No dysuria. No renal angle tenderness. No suprapubic tenderness. Extremities: No edema, Capillary Refill Less than 3 Seconds Skin: No rashes, No breakdown Musculoskeletal: No Tenderness to Palpation of Joints or Extremities Neurological: Cranial nerves II-XII grossly intact, DTR 2+/4. No acute focal neurological deficit. Psych/Mental Status: Normal Affect, Appropriate. Assessment & Plan Assessment/Plan (1) Acute non-ST elevation myocardial infarction (NSTEMI): (2) CAD (coronary artery disease): QUALIFIERS: Coronary Disease-Associated Artery/Lesion type: [place] artery [place] vs. transplanted heart: [place] heart Associated angina: with unstable angina Qualified Code(s): I25.110 - Atherosclerotic heart disease of [place] coronary artery with unstable angina pectoris (3) History of coronary artery stent placement: (4) Asthma-COPD overlap syndrome: (5) SOB (shortness of breath): (6) HLD (hyperlipidemia): QUALIFIERS: Hyperlipidemia type: mixed hyperlipidemia Qualified Code(s): E78.2 - Mixed hyperlipidemia (7) Benign essential hypertension: PLAN: Plan 70-year-old female admitted with intermittent chest discomfort mainly left improbability region with radiation to interscapular area started on the day of admission in afternoon after walking. 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 Twelve-lead EKG shows slight ST elevation in anterior leads about 1 to 2 mm in V1 to V2. Walking. 1. Non-ST elevation [place]: Twelve-lead EKG shows slight [address] elevation and T wave inversion in V1 to V3 suggestive of evolving septal infarct. Positive high-sensitivity troponin enzymes with high delta change. She had negative stress test in May 2023. 2D echo done in the morning shows anterior wall hypokinesis. Cardiac cath was done in the morning. It shows mid LAD, in-stent restenosis, 99% with successful [place] angioplasty. Mid RCA 50%. Circumflex mid luminal irregularities Fasting profile shows LDL 119, HDL 69, total cholesterol 205. TSH normal. Mild leukocytosis probably from non-STEMI. 2. Acute HFrEF due to non-STEMI based on echo findings: 2D echo shows decrease in EF, current echo 25% decreased from 65% in October 2022. Echo also shows evidence of diastolic dysfunction and regional wall motion abnormality. Fortunately clinically patient does not have evidence of of leg swelling or pulmonary edema but she was short of breath at home but not today. BNP ordered. 3. Essential hypertension -blood pressure in normal 130s/68. Heart rate 79/min. Normal sinus rhythm. Resume home regimen plus give as needed IV hydralazine for systolic blood pressure greater than 160 mmHg. 4. Hyperlipidemia; with intolerance to statins on ezetimibe - Continue ezetimibe and check lipid profile in light of #1. 5. Obesity; BMI 32 this admission - Weight loss will be recommended. 6. History of Takotsubo's cardiomyopathy - Noted. 7. Chronic LBBB - Noted. 8. History of asthma-COPD overlap syndrome; on Symbicort and as needed albuterol -no evidence of acute exacerbation. Continue home regimen. Chest x-ray no acute findings 9. History of COVID-19 - Noted. 10. History of cataract; s/p extraction - Noted. 11. History of vitamin D deficiency - Noted. 12. Generalized anxiety - Stable. 13. GERD - Continue famotidine as previous. 14. Osteoarthritis - Give Tylenol as needed. 15. DVT prophylaxis -patient on IV heparin Total time of the visit including total time spent in counseling or coordination of care, (more than 50% of the total time, spent in obtaining medical information from nurses and other ancillary care providers,explaining to the patient about labs, imaging, diagnosis and management of active complex medical conditions), discussion with the forest ranger technician and shipping checker clinical update given to the patient and her , review of labs and imaging is 40 minutes. 07/21/23 09:36 Stool Stool Occult Blood (OLLIE) - Final Laboratory Results 07/20/23 20:25: WBC 12.9 H, RBC 4.77, Hgb 13.9, Hct 40.2, MCV 84.3, MCH 29.1, MCHC 34.6, RDW Std Deviation 43.2, RDW Coeff of Cesar 14.0, Plt Count 334, MPV 11.6, Immature Gran % (Auto) 0.400, Neut % (Auto) 62.4, Lymph % (Auto) 27.3, [place] % (Auto) 9.6, Eos % (Auto) 0.1, Baso % (Auto) 0.2, Absolute Neuts (auto) 8.1 H, Absolute Lymphs (auto) 3.53, Nucleated RBC % 0, PT 13.5, INR 1.0, APTT 24.4, Sodium 139, Potassium 4.7, Chloride 107, Carbon Dioxide 22.0, Anion Gap 10, BUN 40 H, Creatinine 1.14 H, Estim Creat Clear Calc 38.75, Est GFR (MDRD) Af Amer 59 L, Est GFR (MDRD) Non-Af 49 L, BUN/Creatinine Ratio 35.1 H, Glucose 148 H, Calcium 9.3, Troponin I High Sens 15 07/20/23 22:26: Troponin I High Sens 1018 H* 07/21/23 02:16: Troponin I High Sens 2425 H* 07/21/23 03:20: Urine Color Yellow, Urine Clarity Clear, Urine pH 7.0, Ur Specific Reeves 1.005, Urine Protein Negative, Urine Glucose (UA) Normal, Urine Ketones Negative, Urine Occult Blood Negative, Urine Nitrite Negative, Urine Bilirubin Negative, Urine Urobilinogen Normal, Ur Leukocyte Esterase Negative 07/21/23 05:30: WBC 13.3 H, RBC 4.46, Hgb 12.5, Hct 38.5, MCV 86.3, MCH 28.0, MCHC 32.5 D, RDW Std Deviation 44.7 H, RDW Coeff of Cesar 14.2, Plt Count 259, MPV 11.3, APTT 144.7 H*, Sodium 141, Potassium 4.8, Chloride 111 H, Carbon Dioxide 24.0, Anion Gap 6, BUN 34 H, Creatinine 0.76, Estim Creat Clear Calc 54.03, Est GFR (MDRD) Af Amer 94, Est GFR (MDRD) Non-Af 78, BUN/Creatinine Ratio 44.6 H, Glucose 113 H, Calcium 8.4 L, Total Bilirubin 0.50, AST 19, ALT 25, Alkaline Phosphatase 71, Troponin I High Sens 2329 H*, Total Protein 5.9 L, Albumin 3.2, Globulin 2.7, Albumin/Globulin Ratio 1.2, Triglycerides 85, Cholesterol 205 H, LDL Cholesterol 119, VLDL Cholesterol 17, HDL Cholesterol 69, TSH 1.23 Clinical Impression(s) from Imaging Studies Chest X-Ray 07/20/23 20:38 IMPRESSION: No acute findings in the chest. Echocardiogram 07/21/23 05:55 Interpretation Summary The estimated ejection fraction is 25 %. There is evidence of diastolic dysfunction. Base of the LV and mid inferior wall are jhon well. Rest of the LV is severely hypokinetic to akinetic. Charges/Coding Visit Charges Inpatient E&M: 31765 Subs Hosp L3
[2023-07-21 15:31] LABS: BNP,B-Type NATRIURETIC PEPTIDE 316.9 pg/mL (0-100)
[2023-07-21] MEDS: amLODIPine 5 MG Tablet PO (21:35)
[2023-07-22 03:22] VITALS: BP 131/73; PULSE 71; RESP 16; TEMP 36.1; O2SAT 97
[2023-07-22 06:40] VITALS: PULSE 74; RESP 18; O2SAT 98
[2023-07-22 06:49] LABS: Hematocrit 40.9 % (37-47); Hemoglobin 13.6 g/dL (12.0-15.0); Mean Corp Hgb Conc 33.3 g/dL (32-36); Mean Corpuscular Hgb 28.7 pg (27.0-32.0); Mean Corpuscular Volume 86.3 fL (81-99); Mean Platelet Vol. 11.8 fl (6.2-12.0); Platelet Count 280 K/mm3 (150-450); RBC Distribution Width CV 14.2 % (11.6-14.6); RBC Distribution Width SD 45.3 fl (35.1-43.9); Red Blood Count 4.74 M/mm3 (4.2-5.4); White Blood Count 15.8 K/mm3 (4.4-11.0)
[2023-07-22] MEDS: Budesonide Respules 0.5 MG/2 ML AMPUL.NEB. INHALATION (06:57)
[2023-07-22] MEDS: Albuterol 2.5 MG/3 ML VIAL.NEB. INHALATION (06:58)
[2023-07-22 07:15] LABS: ALB/GLOB Ratio 1.1 RATIO (0.9-2.4); AST(SGOT) 14 U/L (15-37); Alanine Aminotransfer ALT/SGPT 24 U/L (13-56); Albumin, Serum 3.2 g/dL (3.2-5.0); Alkaline Phosphatase 75 U/L (45-117); Anion Gap 10 (5-15); BUN 26 mg/dL (7-18); BUN/Creat Ratio 31.2 RATIO (10-20); Calcium,Total 8.8 mg/dL (8.5-10.1); Chloride 106 mmol/L (98-107); Creatinine, Serum 0.83 mg/dL (0.55-1.02); EST Glomerular Filtration Rate 71 mL/min (>60); Est Glom Filt Rate - Afr Amer 85 mL/min (>60); Estimated Creatinine Clearance 52.08 ml/min; Globulin 2.9 g/dL (2.2-4.2); Glucose 118 mg/dL (74-106); Potassium 4.4 mmol/L (3.5-5.1); Protein, Total 6.1 g/dL (6.4-8.2); Sodium Level 138 mmol/L (136-145)
--- NOTE | 2023-07-22 08:42 | PCM.PN.CARD ---
Subjective Subjective The patient reports that she feels well she has been up in the room and in the halls without restrictions. Her EKG shows an evolving anterior lateral infarct. This was a wraparound LAD and there is some dysfunction in the inferior wall as well. She is status post successful intervention into the stented segment of the mid LAD yesterday. She denies any recurrent symptoms she denies any shortness of breath PND orthopnea. She denies any issues with her wrist other than the fact her hand was swollen while the band was in place but is now completely resolved. She denies any symptoms of neurovascular deficits in her hand at this time. Objective Data Vital Signs: Vital Signs Temp Pulse Resp BP Pulse Ox O2 Del Method 96.9 F L 74 18 131/73 H 98 Room Air 07/22/23 03:22 07/22/23 06:40 07/22/23 06:40 07/22/23 03:22 07/22/23 06:40 07/22/23 07:56 Oxygen Delivery Method Room Air Weight: 162 lb 4.163 oz Body Mass Index (BMI) 30.7 Intake & Output: Intake and Output for Last 24 Hours 07/20/23 07/21/23 07/22/23 23:59 23:59 23:59 Intake Total 0 / 0 946.65 / 946.65 Balance 0 / 0 946.65 / 946.65 Lab / Micro Data 07/22/23 05:15 07/22/23 05:15 Labs: Laboratory Results - last 24 hr 07/21/23 05:30: B-Natriuretic Peptide 316.9 H 07/22/23 05:15: WBC 15.8 H, RBC 4.74, Hgb 13.6, Hct 40.9, MCV 86.3, MCH 28.7, MCHC 33.3, RDW Std Deviation 45.3 H, RDW Coeff of Cesar 14.2, Plt Count 280, MPV 11.8, Sodium 138, Potassium 4.4, Chloride 106, Carbon Dioxide 22.0, Anion Gap 10, BUN 26 H, Creatinine 0.83, Estim Creat Clear Calc 52.08, Est GFR (MDRD) Af Amer 85, Est GFR (MDRD) Non-Af 71, BUN/Creatinine Ratio 31.2 H, Glucose 118 H, Calcium 8.8, Total Bilirubin 0.40, AST 14 L, ALT 24, Alkaline Phosphatase 75, Total Protein 6.1 L, Albumin 3.2, Globulin 2.9, Albumin/Globulin Ratio 1.1 Micro: Microbiology 07/21/23 09:36 Stool Stool Occult Blood (OLLIE) - Final Rhythm Strip Rhythm Strip: Sinus Rhythm Rate: 75 Cardiology Labs/Tests 07/21/23 05:30: B-Natriuretic Peptide 316.9 H 07/22/23 05:15: WBC 15.8 H, RBC 4.74, Hgb 13.6, Hct 40.9, MCV 86.3, MCH 28.7, MCHC 33.3, Plt Count 280, MPV 11.8, Sodium 138, Potassium 4.4, Chloride 106, Carbon Dioxide 22.0, Anion Gap 10, BUN 26 H, Creatinine 0.83, Est GFR (MDRD) Af Amer 85, Est GFR (MDRD) Non-Af 71, BUN/Creatinine Ratio 31.2 H, Glucose 118 H, Calcium 8.8, Total Bilirubin 0.40 Rhythm: EKG: ECHO: Stress Test: Cardiac Cath: PCI: CT Surgery: Holter monitor: EPS: PPM: CXR: Chest CT Scan: Radiography Diagnostic Testing: Radiology Impression Echocardiogram 07/21/23 05:55 Interpretation Summary The estimated ejection fraction is 25 %. There is evidence of diastolic dysfunction. Base of the LV and mid inferior wall are jhon well. Rest of the LV is severely hypokinetic to akinetic. Ordering Physician: Rudi Mirza Referring Physician: Claudette Garrison M.D. Performed By: Kassidy Lamb RDCS Physical Exam Const oriented x3 HEENT normocephalic Eyes EOMs intact bilaterally Neck no JVD Chest inspection of chest normal Resp normal respiratory effort and clear to auscultation bilaterally Cardio regular rate, regular rhythm, S1 normal heart sound, S2 normal heart sound, no murmurs, no rub and no gallops Peripheral Pulses: radial pulses present right and left Extremity no pedal edema Skin no rashes or lesions noted Neuro Neuro Narrative: No deficits noted in the right hand. The patient is alert and oriented x 3 Psych mental status grossly normal Assessment & Plan Assessment/Plan (1) Acute non-ST elevation myocardial infarction (NSTEMI): PLAN: The patient's echocardiogram done yesterday showed an ejection fraction estimated 25% with anterior and distal inferior and apical wall motion abnormality. This is very similar to the presentation she had with her initial event June 2022. The patient tolerated the intervention and of her stented segment which was essentially occluded with a 99% stenosis with JOSEFA grade II antegrade flow. This was revascularized and the patient developed diffuse T wave inversions across the precordium and in leads I and aVL and lead II. This is consistent with the distribution of a wraparound LAD. The patient's medications will be altered to increase her Coreg to 12.5 mg twice daily. She is now completely revascularized so the Imdur will be discontinued. The patient will be ambulated on the higher dose of Coreg and if tolerated can be discharged home this afternoon. The plan would be to reevaluate her LV function in 3 months with a limited echocardiogram. She will be continued on the carvedilol 12.5 mg twice daily lisinopril 20 mg daily and her amlodipine. She will be reevaluated in the outpatient setting in 7 to 14 days. If blood pressure is above 120/80 would recommend adding spironolactone at that point in time. If it is not would recommend discontinuing the amlodipine and replacing it with spironolactone. Would like to have on guideline directed medical therapy for LV recovery within 14 days. This would include potentially increasing her lisinopril to 20 mg twice daily maintaining the Coreg at 12.5 mg twice daily and adding spironolactone 12.5 mg daily. This will be titrated in the outpatient setting when she is reevaluated in 7 to 14 days. (2) Abnormal EKG: PLAN: The patient's EKG should be repeated in the office in 7 to 14 days. Currently she has diffuse T wave changes across the precordium and in leads I, aVL and lead II (3) HLD (hyperlipidemia): QUALIFIERS: Hyperlipidemia type: mixed hyperlipidemia Qualified Code(s): E78.2 - Mixed hyperlipidemia PLAN: The patient is intolerant to statins. She has been reluctant to pursue injectable therapies. She has done a really good job of dropping her LDL cholesterol from 132 in March 2023 down to 119 with a combination of ezetimibe and aggressive dietary modifications. Will readdress this once guideline directed medical therapy is achieved for her LV recovery. It appears this was a restenosis and not reaccumulation of atherosclerotic disease. Her other vessels appear to be clear of any significant atherosclerotic disease. PLAN: Plan 1. Will increase Coreg today to 12.5 mg twice daily. Will ambulate the patient and if tolerated can discharge home later this afternoon. 2. The patient should follow-up in the [facility] office in 7 to 14 days she was instructed to call on Sunday for an appointment. 3. At that time we will address further guideline directed medical therapy including increasing lisinopril to 20 mg twice daily, potentially discontinuing amlodipine, and adding spironolactone. 4. After 3 months of guideline directed medical therapy that is maximally tolerated we will repeat a limited echo to reevaluate her LV function. Historically the patient's LV recovered after her initial event June 2022. Charges/Coding Visit Charges Inpatient E&M: 41756 [facility] Hosp L3
[2023-07-22 09:02] VITALS: BP 127/77; PULSE 66; RESP 18; TEMP 36.4; O2SAT 96
[2023-07-22] MEDS: Clopidogrel Bisulfate 75 MG Tablet PO (09:04)
[2023-07-22] MEDS: Carvedilol 12.5 MG Tablet PO (09:04)
[2023-07-22] MEDS: Ezetimibe 10 MG Tablet PO (09:04)
[2023-07-22] MEDS: Aspirin E.C. 81 MG Tablet PO (09:04)
[2023-07-22] MEDS: Lisinopril 20 MG Tablet PO (09:04)
[2023-07-22] MEDS: Famotidine 20 MG Tablet PO (09:05)
--- NOTE | 2023-07-22 10:00 | EKG12_ITS ---
Test Reason : CP Blood Pressure : / mmHG Vent. Rate : 092 BPM Atrial Rate : 092 BPM P-R Int : 134 ms QRS Dur : 106 ms QT Int : 360 ms P-R-T Axes : 050 019 081 degrees QTc Int : 445 ms Normal sinus rhythm Incomplete left bundle branch block Nonspecific T wave abnormality Abnormal ECG Confirmed by Bobo Espinosa ([id number]), editor farm journal GREG CALLE ([id number]) on 07/23/2023 8:05:23 AM Referred By: Confirmed By:Bobo Espinosa
--- NOTE | 2023-07-22 10:41 | PCM.DC ---
Discharge Instructions Follow Up Care Test Results: Test results from this visit will be discussed in further detail at your follow-up appointment, if applicable. Discharge Plan Admission Admit Date/Time: 07/21/23 00:32 Primary Reason for Your Visit: NSTEMI Attending Provider: Adria Kern Primary Care Provider: Claudette Garrison Consulting Providers: Karen Cole; Susan Xie; Blayne Alvarez; Oliver Fernando; Jaxon Mandel; Otf Tinsley; Tia Givens; Bobo Espinosa; Tonia Rubalcava; Tip Scott; Mani Alvarado [employer]; Karen Sanabria [employer] TE[employer]; Rima Smallwood; Rudi Mirza Discharge Orders/Prescriptions Prescriptions: New carvedilol 12.5 mg Tablet 12.5 mg PO BIDCM 30 Days Qty: 60 3RF Rx Instructions: Hold for heart less than 50 or systolic blood pressure less than 100 mmHg. spironolactone 25 mg tablet 12.5 mg PO DAILY Qty: 30 1RF Rx Instructions: Hold for serum potassium more than 5.0 Continued ezetimibe [Zetia] 10 mg tablet 10 mg PO DAILY Qty: 30 11RF aspirin 81 mg tablet,delayed release (DR/EC) 81 mg PO BREAKFAST Qty: 90 3RF clopidogrel [Plavix] 75 mg tablet 75 mg PO QDAY Qty: 90 3RF lisinopril 20 mg tablet 20 mg PO DAILY Qty: 90 3RF famotidine [Pepcid] 40 mg tablet 40 mg PO DAILY Qty: 90 1RF ergocalciferol (vitamin D2) 1,250 mcg (50,000 unit) capsule 50,000 unit PO QWEEK Qty: 12 3RF albuterol sulfate 90 mcg/actuation HFA aerosol inhaler 2 inh inhalation Q8H PRN (Reason: shortness of breath or wheezing) Qty: 8.5 2RF amlodipine 5 mg tablet 5 mg PO QHS Qty: 90 3RF budesonide-formoterol [Symbicort] 160-4.5 mcg/actuation HFA aerosol inhaler 2 puff inhalation BID Qty: 10.2 6RF Discontinued carvedilol 6.25 mg tablet 6.25 mg PO BID Rx Instructions: must administer with a meal/food isosorbide mononitrate 30 mg tablet extended release 24 hr 30 mg PO QAM Qty: 90 3RF Referrals / Follow Up: Claudette Garrison MD [Primary Care Provider] - Bobo Espinosa MD [Med Staff - Active Staff] - Within 2 Weeks Disposition Disposition (needs filled in before D/C Order can be placed): Home, Self Care
--- NOTE | 2023-07-22 11:05 | DS.PCM_ITS ---
Providers Date of Admission: 07/21/23 Date of Discharge: 07/22/23 Primary Care Physician: Dr. Claudette Garrison MD Consultations 07/21/23 01:04 Consult: Cardiology Routine Consulting Provider: Ana Lim Reason for Consult: Non-STEMI EMERGENT Consult: No MD Notified: Yes Date Notified: 07/21/23 Time Notified: 00:35 Method of Notification: ED Physician Initiated Reason For Visit: NON-STEMI Diagnosis Discharge Diagnosis (1) Acute non-ST elevation myocardial infarction (NSTEMI): Status: Acute Code(s): I21.4 - Non-ST elevation (NSTEMI) myocardial infarction (2) Abnormal EKG: Status: Acute Code(s): R94.31 - Abnormal electrocardiogram [ECG] [EKG] (3) HLD (hyperlipidemia): Status: Chronic Code(s): E78.5 - Hyperlipidemia, unspecified Qualifiers: Hyperlipidemia type: mixed hyperlipidemia Qualified Code(s): E78.2 - Mixed hyperlipidemia Plan 70-year-old female admitted with intermittent chest discomfort mainly left improbability region with radiation to interscapular area started on the day of admission in afternoon after walking. History of COPD/asthma and follows association executive. Twelve-lead EKG shows slight ST elevation in anterior leads about 1 to 2 mm in V1 to V2. Walking. 1. Non-ST elevation OH: Twelve-lead EKG shows slight [address] elevation and T wave inversion in V1 to V3 suggestive of evolving septal infarct. Positive high-sensitivity troponin enzymes with high delta change. She had negative stress test in May 2023. 2D echo done in the morning shows anterior wall hypokinesis. Cardiac cath was done in the morning. It shows mid LAD, in- stent restenosis, 99% with successful Cutting Balloon angioplasty. Mid RCA 50%. Circumflex mid luminal irregularities Fasting profile shows LDL 119, HDL 69, total cholesterol 205. TSH normal. Mild leukocytosis probably from non-STEMI. 07/21: Patient is doing good. She does not have chest pain or shortness of breath. Discussed with Dr. Espinosa. Imdur is discontinued and carvedilol dose increased to 12.5 mg twice daily. Started also on spironolactone 12.5 mg daily with hold for serum potassium more than 5.[address] Espinosa. Follow-up in cardiology clinic in about 2 weeks. Patient already on lisinopril. 2. Acute HFrEF due to non-STEMI based on echo findings: 2D echo shows decrease in EF, current echo 25% decreased from 65% in October 2022. Echo also shows evidence of diastolic dysfunction and regional wall motion abnormality. Fortunately clinically patient does not have evidence of of leg swelling or pulmonary edema but she was short of breath at home but not today. BNP ordered. 3. Essential hypertension -blood pressure in normal 130s/68. Heart rate 79/min. Normal sinus rhythm. Resume home regimen plus give as needed IV hydralazine for systolic blood pressure greater than 160 mmHg. 4. Hyperlipidemia; with intolerance to statins on ezetimibe - Continue ezetimibe and check lipid profile in light of #1. 5. Obesity; BMI 32 this admission - Weight loss will be recommended. 6. History of Takotsubo's cardiomyopathy - Noted. 7. Chronic LBBB - Noted. 8. History of asthma-COPD overlap syndrome; on Symbicort and as needed albuterol -no evidence of acute exacerbation. Continue home regimen. Chest x- ray no acute findings 9. History of COVID-19 - Noted. 10. History of cataract; s/p extraction - Noted. 11. History of vitamin D deficiency - Noted. 12. Generalized anxiety - Stable. 13. GERD - Continue famotidine as previous. 14. Osteoarthritis - Give Tylenol as needed. 15. DVT prophylaxis -patient on IV heparin Total time of the visit including total time spent in counseling or coordination of care, (more than 50% of the total time, spent in obtaining medical information from nurses and other ancillary care providers,explaining to the patient about labs, imaging, diagnosis and management of active complex medical conditions), discussion with the preventative maintenance technician and security services manager clinical update given to the patient and her , review of labs and imaging is 40 minutes. 07/21/23 09:36 Stool Stool Occult Blood (OLLIE) - Final Laboratory Results 07/20/23 20:25: WBC 12.9 H, RBC 4.77, Hgb 13.9, Hct 40.2, MCV 84.3, MCH 29.1, MCHC 34.6, RDW Std Deviation 43.2, RDW Coeff of Cesar 14.0, Plt Count 334, MPV 11.6, Immature Gran % (Auto) 0.400, Neut % (Auto) 62.4, Lymph % (Auto) 27.3, [place] % (Auto) 9.6, Eos % (Auto) 0.1, Baso % (Auto) 0.2, Absolute Neuts (auto) 8.1 H, Absolute Lymphs (auto) 3.53, Nucleated RBC % 0, PT 13.5, INR 1.0, APTT 24.4, Sodium 139, Potassium 4.7, Chloride 107, Carbon Dioxide 22.0, Anion Gap 10, BUN 40 H, Creatinine 1.14 H, Estim Creat Clear Calc 38.75, Est GFR (MDRD) Af Amer 59 L, Est GFR (MDRD) Non-Af 49 L, BUN/Creatinine Ratio 35.1 H, Glucose 148 H, Calcium 9.3, Troponin I High Sens 15 07/20/23 22:26: Troponin I High Sens 1018 H* 07/21/23 02:16: Troponin I High Sens 2425 H* 07/21/23 03:20: Urine Color Yellow, Urine Clarity Clear, Urine pH 7.0, Ur Specific [place] 1.005, Urine Protein Negative, Urine Glucose (UA) Normal, Urine Ketones Negative, Urine Occult Blood Negative, Urine Nitrite Negative, Urine Bilirubin Negative, Urine Urobilinogen Normal, Ur Leukocyte Esterase Negative 07/21/23 05:30: WBC 13.3 H, RBC 4.46, Hgb 12.5, Hct 38.5, MCV 86.3, MCH 28.0, M CHC 32.5 D, RDW Std Deviation 44.7 H, RDW Coeff of Cesar 14.2, Plt Count 259, MPV 11.3, APTT 144.7 H*, Sodium 141, Potassium 4.8, Chloride 111 H, Carbon Dioxide 24.0, Anion Gap 6, BUN 34 H, Creatinine 0.76, Estim Creat Clear Calc 54.03, Est GFR (MDRD) Af Amer 94, Est GFR (MDRD) Non-Af 78, BUN/Creatinine Ratio 44.6 H, G lucose 113 H, Calcium 8.4 L, Total Bilirubin 0.50, AST 19, ALT 25, Alkaline Phosphatase 71, Troponin I High Sens 2329 H*, Total Protein 5.9 L, Albumin 3.2, Globulin 2.7, Albumin/Globulin Ratio 1.2, Triglycerides 85, Cholesterol 205 H, LDL Cholesterol 119, VLDL Cholesterol 17, HDL Cholesterol 69, TSH 1.23 Clinical Impression(s) from Imaging Studies Chest X-Ray 07/20/23 20:38 IMPRESSION: No acute findings in the chest. Echocardiogram 07/21/23 05:55 Interpretation Summary The estimated ejection fraction is 25 %. There is evidence of diastolic dysfunction. Base of the LV and mid inferior wall are jhon well. Rest of the LV is severely hypokinetic to akinetic. Medications at Discharge Home Medications aspirin 81 mg tablet,delayed release 81 mg PO BREAKFAST #90 tabs 11/13/22 clopidogrel 75 mg tablet (Plavix) 75 mg PO QDAY #90 tabs 11/13/22 lisinopril 20 mg tablet 20 mg PO DAILY blood pressure #90 tabs 01/01/23 ezetimibe 10 mg tablet (Zetia) 10 mg PO DAILY #30 tabs 01/25/23 famotidine 40 mg tablet (Pepcid) 40 mg PO DAILY #90 tabs 03/14/23 albuterol sulfate 90 mcg/actuation aerosol inhaler 2 inh inhalation Q8H PRN shortness of breath or wheezing #8.5 grams 05/04/23 ergocalciferol (vitamin D2) 1,250 mcg (50,000 unit) capsule 50,000 unit PO QWEEK supplement #12 caps 05/04/23 amlodipine 5 mg tablet 5 mg PO QHS #90 tabs 05/10/23 budesonide-formoterol HFA 160 mcg-4.5 mcg/actuation aerosol inhaler (Symbicort) 2 puff inhalation BID #10.2 grams 06/04/23 carvedilol 12.5 mg tablet 12.5 mg PO BIDCM 30 days #60 tabs 07/22/23 spironolactone 25 mg tablet 12.5 mg (1/2 x 25 mg) PO DAILY #30 tabs 07/22/23 Physical Exam Narrative Seen and examined. Had cardiac cath yesterday. Mild swelling on the right forearm due to radial artery pressure clamp but no hematoma. Pressure was released and is getting better. No chest pain or shortness of breath. Physical exam General: Alert, Oriented x3, Cooperative HEENT: Atraumatic, PERRLA, EOMI, Normocephalic Oral: Oral mucosa moist. No Gingival or Mucosal Lesions/ Ulcerations Neck: Supple, No JVD, Negative Carotid Bruits Chest wall/Lungs: Air entry diminished in bilateral lung bases. No crepitation/rhonchi Cardiovascular: Regular rate, Regular Rhythm, Normal S1, Normal S2, No M/G/R Abdomen: Bowel Sounds Present, Soft, Non Tender, Non-Distended : No dysuria. No renal angle tenderness. No suprapubic tenderness. Extremities: No edema, Capillary Refill Less than 3 Seconds Skin: No rashes, No breakdown Musculoskeletal: No Tenderness to Palpation of Joints or Extremities Neurological: Cranial nerves II-XII grossly intact, DTR 2+/4. No acute focal neurological deficit. Psych/Mental Status: Normal Affect, Appropriate. Weight / BMI Weight Weight: 162 lb 4.163 oz Body Mass Index (BMI) 30.7 ABG / Lab / Microbiology Data 07/22/23 05:15 07/22/23 05:15 Laboratory: Laboratory Results - last 24 hr 07/21/23 05:30: B-Natriuretic Peptide 316.9 H 07/22/23 05:15: WBC 15.8 H, RBC 4.74, Hgb 13.6, Hct 40.9, MCV 86.3, MCH 28.7, MCHC 33.3, RDW Std Deviation 45.3 H, RDW Coeff of Cesar 14.2, Plt Count 280, MPV 11.8, Sodium 138, Potassium 4.4, Chloride 106, Carbon Dioxide 22.0, Anion Gap 10, BUN 26 H, Creatinine 0.83, Estim Creat Clear Calc 52.08, Est GFR (MDRD) Af Amer 85, Est GFR (MDRD) Non-Af 71, BUN/Creatinine Ratio 31.2 H, Glucose 118 H, Calcium 8.8, Total Bilirubin 0.40, AST 14 L, ALT 24, Alkaline Phosphatase 75, T otal Protein 6.1 L, Albumin 3.2, Globulin 2.9, Albumin/Globulin Ratio 1.1 Microbiology: Microbiology 07/21/23 09:36 Stool Stool Occult Blood (OLLIE) - Final Radiography Diagnostic Testing: Radiology Impression Echocardiogram 07/21/23 05:55 Interpretation Summary The estimated ejection fraction is 25 %. There is evidence of diastolic dysfunction. Base of the LV and mid inferior wall are jhon well. Rest of the LV is severely hypokinetic to akinetic. Ordering Physician: Rudi Mirza Referring Physician: Claudette Garrison M.D. Performed By: Kassidy Lamb RDCS Meaningful Use Info Meaningful Use Meaningful Use Diagnoses (Choose all that apply): AMI AMI/Post PCI/Angioplasty Aspirin given w/in 24hrs of arrival?: Yes ASA at discharge?: Yes Statins at discharge?: Yes Neo/ARB at discharge?: Yes Beta Donnell at discharge?: Yes Done w/ Acute [place] measure.: Yes Ischemic Stroke Statin Dosing Therapy Reference: STATIN DOSE THERAPY REFERENCE: * Patients > 75 years receive moderate or high dose statin therapy. * Patients 75 years or YOUNGER should receive HIGH intensity statin dose unless contraindicated. You will be required to document reason for non-treatment if statin daily dose does not meet guidelines. HIGH DOSE STATIN THERAPY DAILY Atorvastatin > than or = to 40 mg Rosuvastatin > than or = to 20 mg Amlodipine + Atorvastatin > than or = to 2.5/40 mg Ezetimibe + Simvastatin 10/80 mg Simvastatin 80mg Discharge Plan Admission Admit Date/Time: 07/21/23 00:32 Primary Reason for Your Visit: NSTEMI Attending Provider: Adria Kern Primary Care Provider: Claudette Garrison Consulting Providers: Karen Cole; Susan Xie; Blayne Alvarez; Oliver Fernando; Jaxon Mandel; Otf Tinsley; Tia Givens; Bobo Espinosa; Tonia Rubalcava; Tip Scott; Mani Alvarado TAPPER HELPER; Karen Sanabria TAPPER HELPER; Rima Smallwood PA; Rudi Mirza Discharge Orders/Prescriptions Prescriptions: New carvedilol 12.5 mg Tablet 12.5 mg PO BIDCM 30 Days Qty: 60 3RF Rx Instructions: Hold for heart less than 50 or systolic blood pressure less than 100 mmHg. spironolactone 25 mg tablet 12.5 mg PO DAILY Qty: 30 1RF Rx Instructions: Hold for serum potassium more than 5.0 Continued ezetimibe [Zetia] 10 mg tablet 10 mg PO DAILY Qty: 30 11RF aspirin 81 mg tablet,delayed release (DR/EC) 81 mg PO BREAKFAST Qty: 90 3RF clopidogrel [Plavix] 75 mg tablet 75 mg PO QDAY Qty: 90 3RF lisinopril 20 mg tablet 20 mg PO DAILY Qty: 90 3RF famotidine [Pepcid] 40 mg tablet 40 mg PO DAILY Qty: 90 1RF ergocalciferol (vitamin D2) 1,250 mcg (50,000 unit) capsule 50,000 unit PO QWEEK Qty: 12 3RF albuterol sulfate 90 mcg/actuation HFA aerosol inhaler 2 inh inhalation Q8H PRN (Reason: shortness of breath or wheezing) Qty: 8.5 2RF amlodipine 5 mg tablet 5 mg PO QHS Qty: 90 3RF budesonide-formoterol [Symbicort] 160-4.5 mcg/actuation HFA aerosol inhaler 2 puff inhalation BID Qty: 10.2 6RF Discontinued carvedilol 6.25 mg tablet 6.25 mg PO BID Rx Instructions: must administer with a meal/food isosorbide mononitrate 30 mg tablet extended release 24 hr 30 mg PO QAM Qty: 90 3RF Referrals / Follow Up: Claudette Garrison MD [Primary Care Provider] - Bobo Espinosa MD [Med Staff - Active Staff] - Within 2 Weeks Disposition Disposition (needs filled in before D/C Order can be placed): Home, Self Care Charges/Coding Visit Charges Inpatient E&M: 58088 Disch Hosp >30min
[2023-07-22 13:30] VITALS: BP 138/82; PULSE 68; RESP 18; TEMP 36.7; O2SAT 98
== END 2023-07-22 13:40 | disposition home or self-care (01) | DRG 250 ==
LOC: ED 07-21 00:06 → PCU 07-21 01:27
PROVIDERS: Emergency Medicine; Specialist; Admitting Provider Internal Medicine; Emergency Provider Emergency Medicine; PCP Internal Medicine; Referring Provider Internal Medicine; Visit Provider Internal Medicine
DX: I21.4 Non-ST elevation (NSTEMI) myocardial infarction (principal); I50.21 Acute systolic (congestive) heart failure; T82.855A Stenosis of coronary artery stent, initial encounter; E11.9 Type 2 diabetes mellitus without complications; I11.0 Hypertensive heart disease with heart failure; J44.89 Other specified chronic obstructive pulmonary disease; I44.7 Left bundle-branch block, unspecified; E78.2 Mixed hyperlipidemia; M19.90 Unspecified osteoarthritis, unspecified site; I25.10 Atherosclerotic heart disease of native coronary artery without angina pectoris; K21.9 Gastro-esophageal reflux disease without esophagitis; I25.2 Old myocardial infarction; E66.9 Obesity, unspecified; Y71.2 Prosthetic and other implants, materials and accessory cardiovascular devices associated with adverse incidents; Z79.02 Long term (current) use of antithrombotics/antiplatelets; Z79.51 Long term (current) use of inhaled steroids; Z79.82 Long term (current) use of aspirin; Z86.16 Personal history of COVID-19; Z95.5 Presence of coronary angioplasty implant and graft; Z79.899 Other long term (current) drug therapy; Z68.32 Body mass index [BMI] 32.0-32.9, adult
CPT/HCPCS: 36415; 71045; 80048; 80053; 80061; 81002; 82274; 83880; 84443; 84484; 85025; 85027; 85610; 85730; 92920; 93005; 93306; 93454; 94640; 97802; 99152; 99153; 99285; C1725; J7030; Q9957; Q9967; A4216; C1769; C1887; C1894; C8929

== ENCOUNTER → 2023-07-31 | Outpatient (CLI) | payer MEDICARE, SELFPAY ==
[2023-01-19 11:08] VITALS: BMI 30.2
[2023-07-31 11:53] LABS: Anion Gap 5 (5-15); BUN 26 mg/dL (7-18); BUN/Creat Ratio 28.4 RATIO (10-20); Calcium,Total 8.8 mg/dL (8.5-10.1); Chloride 108 mmol/L (98-107); Creatinine, Serum 0.92 mg/dL (0.55-1.02); EST Glomerular Filtration Rate 63 mL/min (>60); Est Glom Filt Rate - Afr Amer 76 mL/min (>60); Glucose 88 mg/dL (74-106); Potassium 4.9 mmol/L (3.5-5.1); Sodium Level 136 mmol/L (136-145)
== END | disposition home or self-care (01) ==
LOC: LAB 10:12
PROVIDERS: PCP Internal Medicine; Referring Provider Internal Medicine Cardiovascular Disease; Visit Provider Internal Medicine Cardiovascular Disease
DX: Z51.81 Encounter for therapeutic drug level monitoring (principal); I10 Essential (primary) hypertension; Z79.899 Other long term (current) drug therapy
CPT/HCPCS: 36415; 80048

== ENCOUNTER 2023-08-18 08:45 | Emergency (ER) | payer MEDICARE, SELFPAY ==
[2023-01-19 11:08] VITALS: BMI 30.2
[2023-08-18] VITALS (7 sets, daily range): BP systolic 106–136; BP diastolic 46–69; PULSE 60–99; RESP 13–20; TEMP 36.4; O2SAT 98–99; BMI 31.1
--- NOTE | 2023-08-18 09:11 | EKG12_ITS ---
Test Reason : CP Blood Pressure : / mmHG Vent. Rate : 069 BPM Atrial Rate : 069 BPM P-R Int : 136 ms QRS Dur : 116 ms QT Int : 422 ms P-R-T Axes : 048 001 150 degrees QTc Int : 452 ms Normal sinus rhythm Incomplete left bundle branch block ST & T wave abnormality, consider anterolateral ischemia Abnormal ECG Confirmed by Bobo Espinosa ([id number]), index editor GREG CALLE ([id number]) on 08/20/2023 9:06:22 AM Referred By: ZACHARY Confirmed By:Bobo Espinosa
[2023-08-18] MEDS: Aspirin 81 MG TAB.CHEW 324 MG PO (09:25)
[2023-08-18] MEDS: 0.9% Normal Saline (1000mL) 1,000 ML 150 ML IV (09:25)
--- NOTE | 2023-08-18 09:30 | RAD_ITS ---
EXAM: XR CHEST, 1 VIEW CLINICAL INDICATION: CP TECHNIQUE: Frontal view of the chest. COMPARISON: XR Chest dated 07/20/2023 FINDINGS: LUNGS AND PLEURAL SPACES: Calcified granuloma within the left lung again seen. Lungs are otherwise clear. No pleural effusion or pneumothorax. HEART: Normal heart size. MEDIASTINUM: No mediastinal or hilar mass. BONES/JOINTS: No acute abnormality. RAD/Chest 1 View (Portable) IMPRESSION: No acute cardiopulmonary abnormality. No interval change. Electronically Signed: Dino Wilkinson MD at 10:09 EDT ,
[2023-08-18 09:32] LABS: Absolute Lymphocyte Count 2.41 X10^3/uL (0.83-4.51); Absolute Neutrophil Count 4.7 X10^3/uL (2.0-7.7); Basophil# 0.03 X10^3/uL; Basophil% 0.4 % (0-1); Eosinophil# 0.12 X10^3/uL; Eosinophils% 1.5 % (0-5); Hematocrit 37.3 % (37-47); Hemoglobin 12.2 g/dL (12.0-15.0); Lymphocyte # 2.41 X10^3/ul (0.83-4.51); Lymphocyte % 30.6 % (19-41); Mean Corp Hgb Conc 32.7 g/dL (32-36); Mean Corpuscular Hgb 28.6 pg (27.0-32.0); Mean Corpuscular Volume 87.4 fL (81-99); Mean Platelet Vol. 10.6 fl (6.2-12.0); Monocyte# 0.62 X10^3/uL; Monocyte% 7.9 % (0-10); NRBC Flagged by Analyzer 0 % (0-5); Neutrophil # 4.66 X10^3/uL (2.7-7.7); Neutrophil % 59.2 % (47-70); Platelet Count 250 K/mm3 (150-450); RBC Distribution Width SD 44.7 fl (35.1-43.9); Red Blood Count 4.27 M/mm3 (4.2-5.4); White Blood Count 7.9 K/mm3 (4.4-11.0)
[2023-08-18 09:43] LABS: D-Dimer Quantitative (DVT/PE) 0.37 FEU/ug/m (0.27-0.49)
[2023-08-18 09:49] LABS: Anion Gap 5 (5-15); BUN 20 mg/dL (7-18); BUN/Creat Ratio 17.4 RATIO (10-20); Calcium,Total 9.1 mg/dL (8.5-10.1); Chloride 105 mmol/L (98-107); Creatinine, Serum 1.15 mg/dL (0.55-1.02); EST Glomerular Filtration Rate 49 mL/min (>60); Est Glom Filt Rate - Afr Amer 59 mL/min (>60); Estimated Creatinine Clearance 37.87 ml/min; Glucose 114 mg/dL (74-106); Potassium 4.6 mmol/L (3.5-5.1); Sodium Level 136 mmol/L (136-145); Troponin-I HS (w/2H Reflex) 16 pg/mL (3.0-54.0)
--- NOTE | 2023-08-18 10:45 | EDS_ITS ---
HPI History of Present Illness Chief Complaint: Chest Pain Informant: patient Onset/Context/Timing Onset: Days Timing: Waxes and wanes Narrative Narrative: Patient presents secondary to chest pain. She describes a sharp pain under the left breast that been waxing and waning for several days. Patient states she has had similar pain to this in the past without known cause. Patient was admitted to the hospital last month with an NSTEMI. She states at that time her pain was substernal and different from what she is experiencing today. She had a cath at that time where she states a balloon was used to break up some scar tissue from her prior stent. [facility] Medical History Viral URI Otitis externa of both ears Impacted cerumen of both ears Atherosclerosis of coronary artery of [place] heart without angina pectoris Chest pain LBBB (left bundle branch block) Gastric reflux Non-smoker History of stress test Epigastric pain Lower abdominal pain Acute flank pain Trigger finger Hearing problem Anxiety Seasonal allergies COVID-19 Home Medications ?Medication ?Instructions ?Recorded ?Last Taken ?Type aspirin 81 mg tablet,delayed 81 mg PO BREAKFAST #90 tabs 11/13/22 Unknown Rx release clopidogrel 75 mg tablet (Plavix) 75 mg PO QDAY #90 tabs 11/13/22 Unknown Rx ezetimibe 10 mg tablet (Zetia) 10 mg PO DAILY #30 tabs 01/25/23 Unknown Rx famotidine 40 mg tablet (Pepcid) 40 mg PO DAILY #90 tabs 03/14/23 Unknown Rx albuterol sulfate 90 mcg/actuation 2 inh inhalation Q8H PRN shortness 05/04/23 Unknown Rx aerosol inhaler of breath or wheezing #8.5 grams ergocalciferol (vitamin D2) 1,250 50,000 unit PO QWEEK supplement 05/04/23 07/20/23 08:00 Rx mcg (50,000 unit) capsule #12 caps budesonide-formoterol HFA 160 2 puff inhalation BID #10.2 grams 06/04/23 Unknown Rx mcg-4.5 mcg/actuation aerosol inhaler (Symbicort) spironolactone 25 mg tablet 12.5 mg (1/2 x 25 mg) PO DAILY #30 07/22/23 Unknown Rx tabs carvedilol 25 mg tablet 25 mg PO BIDCM 30 days #60 tabs 08/09/23 Unknown Rx rosuvastatin 5 mg tablet 5 mg PO DAILY #30 tabs 08/09/23 Unknown Rx lisinopril 20 mg tablet 20 mg PO QDAY blood pressure #90 08/17/23 Unknown Rx tabs Allergy/AdvReac Type Severity Reaction Status Date / Time shellfish derived Allergy Severe SOB Verified 08/18/23 08:48 amoxicillin Allergy Unknown Verified 08/18/23 08:48 erythromycin base (From Allergy Unknown Verified 08/18/23 08:48 Staticin) ethyl alcohol (From Staticin) Allergy Unknown Verified 08/18/23 08:48 Penicillins Allergy Unknown Verified 08/18/23 08:48 Sulfa (Sulfonamide Allergy Unknown Verified 08/18/23 08:48 Antibiotics) [id number] Reductase AdvReac Pain in Verified 08/18/23 08:48 Inhibitor joints Family History Mother Colon cancer Cancer Heart disease Grandmother Colon cancer Cancer Sister Cancer Brother Heart disease Mental disorder Father , 85 yrs old Dementia Other Acute non-ST elevation myocardial infarction (NSTEMI) Surgical History History of coronary artery stent placement (07/20/22) History of cataract extraction History of carpal tunnel release History of tonsillectomy Social History Smoking Status: Never smoker alcohol intake: never substance use type: does not use caffeine: Yes Type: carbonated beverages and coffee Number of servings: 1 what type of physical activity do you participate in: none ROS ROS ED Constitutional Constitutional ED: Denies chills or fever(s) Eyes Eyes: Denies change in vision ENT ENT ED: Denies rhinorrhea or sore throat Cardiovascular Cardiovascular: Reports chest pain; Denies palpitations Respiratory/Chest Respiratory/Chest: Reports dyspnea; Denies cough Gastrointestinal Gastrointestinal: Denies abdominal pain, nausea or vomiting Genitourinary Genitourinary ED: Denies dysuria Musculoskeletal Musculoskeletal: Denies back pain or extremity pain Integumentary Denies Abrasions or rash Neurologic Neurologic: Denies headache(s) or weakness Psychiatric Psychiatric: Denies anxiety or depression Allergic/Immunologic Allergic/Immunologic ED: Denies lip swelling or urticaria EXAM Physical Exam Const Vital Signs: 08/18/23 08:46 08/18/23 09:11 08/18/23 09:46 Temperature 97.5 F L Temperature Source Temporal Pulse Rate 99 67 Respiratory Rate 18 20 H Blood Pressure 136/69 H 106/46 L Blood Pressure Mean 91 66 Pulse Ox 99 98 Oxygen Delivery Method Room Air Room Air 08/18/23 10:00 08/18/23 11:00 08/18/23 11:45 Temperature Temperature Source Pulse Rate 68 60 65 Respiratory Rate 20 H 13 16 Blood Pressure 106/46 L 127/55 H 127/54 H Blood Pressure Mean 66 79 76 Pulse Ox 99 99 99 Oxygen Delivery Method Room Air Room Air 08/18/23 12:00 Temperature Temperature Source Pulse Rate 66 Respiratory Rate 16 Blood Pressure 131/53 H Blood Pressure Mean 73 Pulse Ox 98 Oxygen Delivery Method Positive well nourished and well developed General Appearance ED: well developed HEENT Reports moist mucous membranes Eyes EOMs intact bilaterally Chest Wall inspection of chest normal and palpation of chest normal Resp normal respiratory effort and clear to auscultation bilaterally Cardio regular rate and regular rhythm GI soft to palpation and non-tender Extremity normal to inspection Neuro oriented x3 and no sensory deficits noted Motor Exam: strength 5/5 throughout Psych mental status grossly normal Skin no rashes or lesions noted MDM MDM MDM Narrative Medical decision making narrative: 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 IV line initiated. Labwork obtained to evaluate for leukocytosis, anemia, and electrolyte derangement. EKG obtained to evaluate for cardiac arrhythmia/ischemia. Chest x-ray obtained to evaluate for acute lung pathology, cardiac size, or mediastinal abnormality. Patient was given aspirin on arrival. History & Record Review Discussion w/independent historian: Patient Additional record(s) reviewed:: Prior inpatient record, Prior outpatient record, Prior ED visit and Prior labs Lab Data Attestation: I reviewed the patient's lab results. Labs: Laboratory Results - last 24 hr 08/18/23 08/18/23 09:25 11:34 WBC 7.9 RBC 4.27 Hgb 12.2 Hct 37.3 MCV 87.4 MCH 28.6 MCHC 32.7 RDW Std Deviation 44.7 H RDW Coeff of Cesar 14.0 Plt Count 250 MPV 10.6 Immature Gran % (Auto) 0.400 Neut % (Auto) 59.2 Lymph % (Auto) 30.6 [place] % (Auto) 7.9 Eos % (Auto) 1.5 Baso % (Auto) 0.4 Absolute Neuts (auto) 4.7 Absolute Lymphs (auto) 2.41 Nucleated RBC % 0 D-Dimer Quant (PE/DVT) 0.37 Sodium 136 Potassium 4.6 Chloride 105 Carbon Dioxide 26.0 Anion Gap 5 BUN 20 H Creatinine 1.15 H Estim Creat Clear Calc 37.87 Est GFR (MDRD) Af Amer 59 L Est GFR (MDRD) Non-Af 49 L BUN/Creatinine Ratio 17.4 Glucose 114 H Calcium 9.1 Troponin I High Sens 16 16 Radiography Chest X-Ray - ED: 1 View, Read by ED Physician, Chronic Changes and No Infiltrates Diagnostic Testing: Clinical Impression(s) from Imaging Studies Chest X-Ray 08/18/23 09:30 IMPRESSION: No acute cardiopulmonary abnormality. No interval change. Electronically Signed: Dino Wilkinson MD at 10:09 EDT , EKG Initial EKG: Attestation: I personally reviewed and interpreted this EKG as follows: Interpretation: Sinus Rhythm (Sinus at 69 with lateral T inversions. This is unchanged when compared to prior study. Incomplete left bundle branch block.) Treatment and Re-Evaluation :: CBC was normal white count 7.9 with normal differential. Hemoglobin is 12.2. Chemistry studies are unremarkable other than a BUN of 20 and creatinine 1.15. D-dimer is normal at 0.37. Initial troponin is 16 with a 2-hour repeat troponin of 16. Portable chest x-ray per my interpretation reveals chronic changes with no evidence of infiltrate. Radiology interpretation reviewed and agrees. Patient just had a heart cath last month. I did review her recent cardiac visit from the office as well. With 2 negative troponins I do not feel patient needs admission at this time. She is to call the office next week for follow-up. Return instructions given. Discharge Plan Triage Chief Complaint: Chest Pain ED Provider: Joy Proctor Dx/Rx/DC Orders Clinical Impression: Chest pain Instructions: ED Chest Pain, Uncertain Cause Prescriptions: No Action ezetimibe [Zetia] 10 mg tablet 10 mg PO DAILY Qty: 30 11RF rosuvastatin 5 mg tablet 5 mg PO DAILY Qty: 30 11RF carvedilol 25 mg tablet 25 mg PO BIDCM 30 Days Qty: 60 11RF Rx Instructions: Hold for heart less than 50 or systolic blood pressure less than 100 mmHg. spironolactone 25 mg tablet 12.5 mg PO DAILY Qty: 30 1RF Rx Instructions: Hold for serum potassium more than 5.0 aspirin 81 mg tablet,delayed release (DR/EC) 81 mg PO BREAKFAST Qty: 90 3RF clopidogrel [Plavix] 75 mg tablet 75 mg PO QDAY Qty: 90 3RF famotidine [Pepcid] 40 mg tablet 40 mg PO DAILY Qty: 90 1RF ergocalciferol (vitamin D2) 1,250 mcg (50,000 unit) capsule 50,000 unit PO QWEEK Qty: 12 3RF albuterol sulfate 90 mcg/actuation HFA aerosol inhaler 2 inh inhalation Q8H PRN (Reason: shortness of breath or wheezing) Qty: 8.5 2RF budesonide-formoterol [Symbicort] 160-4.5 mcg/actuation HFA aerosol inhaler 2 puff inhalation BID Qty: 10.2 6RF lisinopril 20 mg tablet 20 mg PO QDAY Qty: 90 3RF Primary Care Provider: Claudette Garrison Referrals: Claudette Garrison MD [Primary Care Provider] - Bobo Espinosa MD [Med Staff - Active Staff] - As Needed Print Language: Tamazight Disposition Disposition: Home, Self Care
[2023-08-18 11:30] LABS: Reflex Troponin-HS? (from REC) Y
[2023-08-18 12:03] LABS: Troponin-I HS 16 pg/mL (3.0-54.0)
== END 2023-08-18 12:25 | disposition home or self-care (01) ==
PROVIDERS: Emergency Provider Emergency Medicine; PCP Internal Medicine; Visit Provider Emergency Medicine
DX: R07.9 Chest pain, unspecified (principal); I25.2 Old myocardial infarction; I25.10 Atherosclerotic heart disease of native coronary artery without angina pectoris; Z79.899 Other long term (current) drug therapy; R06.00 Dyspnea, unspecified
CPT/HCPCS: 71045; 80048; 84484; 85025; 85379; 93005; 96360; 96361; 99283; J7030; A4216

== ENCOUNTER → 2023-09-10 | Outpatient (CLI) | payer MEDICARE, SELFPAY ==
[2023-01-19 11:08] VITALS: BMI 30.2
--- NOTE | 2023-09-10 09:55 | CR.HP_ITS ---
CR - History & Physical General Arrival date:: 09/10/23 Arrival time:: 09:55 Date of Referral:: 07/24/23 Date of CR Evaluation:: 09/10/23 Referring Physician: Dr. Mandel Primary Diagnosis: PCI with Stent History of Present Cardiac Event Onset Date PTCA or coronary stenting:: Yes Vessel: LAD onset 07/21/2023 Medications Ambulatory Orders ?Medication ?Instructions ?Recorded aspirin 81 mg tablet,delayed 81 mg PO BREAKFAST #90 tabs 11/13/22 release ezetimibe 10 mg tablet (Zetia) 10 mg PO DAILY #30 tabs 01/25/23 famotidine 40 mg tablet (Pepcid) 40 mg PO DAILY #90 tabs 03/14/23 albuterol sulfate 90 mcg/actuation 2 inh inhalation Q8H PRN shortness 05/04/23 aerosol inhaler of breath or wheezing #8.5 grams ergocalciferol (vitamin D2) 1,250 50,000 unit PO QWEEK supplement 05/04/23 mcg (50,000 unit) capsule #12 caps budesonide-formoterol HFA 160 2 puff inhalation BID #10.2 grams 06/04/23 mcg-4.5 mcg/actuation aerosol inhaler (Symbicort) spironolactone 25 mg tablet 12.5 mg (1/2 x 25 mg) PO DAILY #30 07/22/23 tabs rosuvastatin 5 mg tablet 5 mg PO DAILY #30 tabs 08/09/23 carvedilol 12.5 mg tablet 12.5 mg PO BID 08/20/23 clopidogrel 75 mg tablet 75 mg PO DAILY #90 TABLETS 08/20/23 lisinopril 20 mg tablet 20 mg PO BID 08/20/23 Allergies Allergies shellfish derived Allergy (Severe, Verified 08/22/23 11:22) SOB amoxicillin Allergy (Verified 08/22/23 11:22) Unknown erythromycin base (From Staticin) Allergy (Verified 08/22/23 11:22) Unknown ethyl alcohol (From Staticin) Allergy (Verified 08/22/23 11:22) Unknown Penicillins Allergy (Verified 08/22/23 11:22) Unknown Sulfa (Sulfonamide Antibiotics) Allergy (Verified 08/22/23 11:22) Unknown Rarhwxn-CHF-RuC Reductase Inhibitor Adverse Reaction (Verified 08/22/23 11:22) Pain in joints Sleep Disorder Evaluation Hx of Sleep Apnea: No Do you snore loudly (louder than talking or can be heard through closed doors)?: Yes Do you often feel tired/ fatigued/ sleepy during daytime?: No Has anyone observed you stop breathing during sleep?: No History of Hypertension (for STOP score): Yes STOP Results: Positive Advanced Directives Advanced Directives 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 Living Will: Yes Advance Directives Information Provided: No Advance Directives on File: No DNR Order?:: No Past Medical History Covid-19 Screening Physicial Symptoms Other Clinical Concerns Exposure Risk Pertinent Comorbidities 65 years or older:: Yes Has a chronic lung disease or moderate to severe asthma:: Yes Has a serious heart condition:: Yes Past Medical Illness Medical History Viral URI Otitis externa of both ears Impacted cerumen of both ears Atherosclerosis of coronary artery of [place] heart without angina pectoris Chest pain LBBB (left bundle branch block) Gastric reflux Non-smoker History of stress test Epigastric pain Lower abdominal pain Acute flank pain Trigger finger Hearing problem Anxiety Seasonal allergies COVID-19 Past Surgical History Surgical History History of coronary artery stent placement (07/20/22) History of cataract extraction History of carpal tunnel release History of tonsillectomy Family History Summary Family History Mother Colon cancer Cancer Heart disease Grandmother Colon cancer Cancer Sister Cancer Brother Heart disease Mental disorder Father , 85 yrs old Dementia Other Acute non-ST elevation myocardial infarction (NSTEMI) Social History Smoking History Smoking Status: Never smoker Alcohol Use Alcohol Usage: No Substance Abuse Hx Substance Use: No Occupation Occupation (List type of work in comments):: Retired Hobbies, Recreation, Social Activities Hobbies: None Social Environment Status Marital Status: Current Living Arrangements Living Environment:: Alone Children How many children do you have?: 1 Do any of your children live nearby?: Yes Safety Do you feel safe in your surroundings?: Yes Assistance Do you need any assistance at home?: no Review of Systems Review of Systems Hints Review of Present Symptoms: Reports Shortness of Breath at Rest, Shortness of Breath with Exertion, Fatigue and Appetite - Normal; Denies PVD, Operative Discomfort, Angina, Wound Healing, Dizziness/Lightheadedness, Heart Arrhythmia/Irregularities, Appetite - Special Diet, Sleep - Normal or Sexual Changes Pain Is Patient Pain Free?: Yes Risk Factor Assessment Chief Complaint Chief Complaint: PCI with stent Vital Signs Pulse Ox: 97 Blood Pressure: 103/68 Pulse Pulse Rate: 65 Hypertension How long have you been treated?: 10 years Blood Pressure Sitting - Right Arm: 103/68 Stress Stress: Long-standing Obesity Height: 5 ft 1 in Weight:: 158 lb 8 oz Weight in Pounds: 158.5 lbs Body Mass Index (BMI): 29.9 Nutritional Referral for Obesity: No Physical Inactivity Physical Inactivity: None Risk Stratification Risk Guidelines: Moderate Risk: Risk Factor for Smoking, Risk Factor for Diabetes, Risk Factor for Obesity and Risk Factor for Sedentary Lifestyle and Highest Risk: Risk Factor for Dyslipidemia, Risk Factor for Hypertension and Risk Factor for Depression For Smoking Smoking Risk Guidelines For Dyslipidemia Dyslipidemia Risk Guidelines For Diabetes Mellitus Diabetes Risk Guidelines For Obesity/Overweight Obesity/Overweight Risk Guidelines For Hypertension Hypertension Risk Guidelines For Sedentary Lifestyle Sedentary Lifestyle Risk Guidelines For Depression Depression Risk Guidelines Family History Family History Mother Colon cancer Cancer Heart disease Grandmother Colon cancer Cancer Sister Cancer Brother Heart disease Mental disorder Father , 85 yrs old Dementia Other Acute non-ST elevation myocardial infarction (NSTEMI) Motivation Motivation to Participate On a scale of 1 to 10, how prepared are you to commit to attending program?: 3 What do you see as barriers to successfully being able to complete the program?: nothing What do you see as the benefits of succesfully completing the program? In other words, what do you hope to get out of participating in the program?: more energy Are there issues you are dealing with that will interfere with completing the program?: no Do you have a spouse or signficant other, family or friends who will help support you to complete the program?: yes
[2023-09-10 10:04] VITALS: BP 103/68; PULSE 65; O2SAT 97
--- NOTE | 2023-09-10 10:04 | CR.ITP_ITS ---
Diagnosis General Information Admitting Diagnosis: PCI with stent Personal Learning Style:: Audio/Visual Barriers to Learning: No Barriers Stage of change r/t lifestyle modifications:: Contemplation Gave educational material for:: Treating Heart Disease, How The Heart Works, What it means to have Heart Disease, How Coronary Artery Disease is Diagnosed, Heart Procedures, What Heart Medications Do, Risk Factors & Modifications, Living an Active Life, Nutrition, Emotions & Heart Disease, Stress Management & Relaxation and Sleep Disorders & Heart Disease Education/Goals Cardiac Rehabilitation Goals Personal Goals: Initial Assessment: Improve energy level and Improve muscle strength and endurance Scale for measuring improvement of personal goals Diagnosis & Disease Process Outcomes/Goals: Pt IDs own risk factors & lifestyle modifications by Session 10, Verbalizes symptoms of angina & response by session 3., Pt independently manages and Other Additional Outcomes/Goals: Plan/Interventions: Assist Pt to ID & engage in lifestyle modification to reduce CVD risk, Instruct on individual risk factors, Review symptoms of angina & emergency actions, Review secondary diagnosis & identify educational needs. and Other see comment 30 day Reassessments:: Not Met 30 day Reassessments:: Not Met 30 day Reassessments:: Not Met 30 day Reassessments:: Not Met Final Reassessments:: Not Met Safety Referral to Physical Therapy: No Referral to [facility] Case Management: No Fall Risk Assessed:: Yes Assistive Devices:: None Exercise - Initial Assessment Visit Date of Eval: 09/10/23 (initial eval ) Mets: Pre-: >3 METS for 30 minutes by discharge, >5 METS for 30 minutes by discharge, >7 METS for 30 minutes by discharge and Unable to meet goal due to: (see comment below) Physician Prescribed Exercise Modalities: Treadmill, Rower, Janel Airdyne AD-7, SciFit Stepper, SciFit Pro- II Ergometer and SciFit Lateral [place] Frequency: 2x/week for 18 weeks [36 sessions] and 3x/week for 12 weeks [36 sessions] Intensity: 60-80% of age predicted maximum heart rate reserve Duration: 30 - 45 minutes Current METSs:: 3 Target Heart Rate:: 94-123 Resting Blood Pressure: 103/68 EKG Type: NSR with incomplete LBBB Outcomes & Goals Goals:: Verbalizes understanding of THR, RPE & goal METS by session 6, Documents in home exercise log/reports 30 min aerobic 5 day/wk by DC, Demonstrates accurate pulse taking by DC and Other additional outcome/goals: see below Intervention & Plan Exercise Program Goals: Instruct on personal THR & RPE, Instruct on MET level & personal MET goal, Show patient to take own pulse /validate performance until accurate, Instruct on home exercise and Other additional plan/int Physical Activity Home Exercise Physical Activity - Home Exercise: Safe Exercise, Warm-up, Self-monitoring, Cool-Down, Home Exercise > 30 min Daily and Sitting Time <3 hours/daily Outcomes & Goals Outcomes/Goals: Demonstrates correct Warm-up/exercise Cool-Down (S3) if = 2.5 METs, Verbalizes symptoms of exercise intolerance by Session 3 (S3), Demonstrate safe equipment use (S3) & follows exercise prescrition (6) and Other: See below Intervention & Plan Plan/Intervention: Instruct warm-up & cool-down if exercising at > 2 METs, Instruct on symptoms of exercise intolerance & actions to take, Instruct & monitor on saf, Assess intial functional capacity & safety risk and Other See below Nutrition - Initial Assessment Program Goals Nutrition Program Goals Patient has diagnosis of Hyperlipidemia (ICD E78)?: Yes Visit Date of Eval: 09/10/23 (initial eval ) Cholesterol/Lipids (Other Core Measures) Determine presence & major risk factors that modify LDL goal: Hypertension or hypertensive medication, Low HDL cholesterol <40 mg/dL*, Family history of premature CHD in Male < 55 years: female <65 yearsFa and Age men > 45 years; women >/= 55 years Outcomes/Goals: Pt IDs own risk factors & lifestyle modifications by Session 10, Verbalizes symptoms of angina & response by session 3., Pt independently manages and Other Additional Outcomes/Goals: Intervention/Plan: Advocate for lipid panel cholesterol medication if applicable, Instruct on personal lipid levels & lipid goals/NCEP guidelines, Instruct on cholesterol and Other additional plan/int Referral to dietitian:: No Diabetes (Other Core Measures) Diabetes Type: Not Applicable Weight Mgt (Other Care) Height: 5 ft 1 in Weight:: 158 lb 8 oz BMI: 29.9 Diagnosis Overweight/Obesity BMI> 30% ICD-10 E66: No Diagnosis High BMI/Morbid Obesity BMI> 35% ICD-10 Z68: No Outcomes/Goals: Pt sets, maintains & shows weight loss goal & trend during rehab and Other additional outcomes/goals Intervention/Plan: Instruct on ideal BMI & set weight loss goal w/patient, Assist pt to ID & incorporate diet changes for weight loss by S9, Refer to Structured Weight Loss program as appropriate, Encourage goal of using 250- 300dcal per session for weight loss and Other additional plan/interventions Healthy Eating Habits Will attend diet classes:: Yes Outcomes/Goals:: Consume diet rich in vegs,fruits,whole grain/high fiber,fish,lean meat, Limit sat/trans fats,cholesterol & added salts & sugars and Other additional outcome/goals: Intervention/Plan:: Assess current eating habits and Other Additional plan/interventions Education Gave educational materials for:: Signs & symptoms of hypoglycemia, Signs & symptoms of hyperglycemia, Relate diabetes to coronary artery disease and Healthy eating Core - Initial Assessment Visit Date of Eval: 09/10/23 (initial eval ) Medication Compliance Preventative Medication(s):: Aspirin, KAT inhibitor, Ticagrelor/P2Y12 inhibitor, Statin/lipid and Beta johnna H/O mental health issues: depression, anxiety, or addiction?: Yes Doesn?t believe in the benefits of treatment?: No Believes medications are unnecessary or harmful?: No Has a concern about medication side effects?: No Expresses concern over the cost of medications?: No Outcomes/Goals: Verbalizes medications,desired effect & common side effects @ DC, Pt self-reports following medication regimen, Keeps card in wallet w/medications listed by DC and Other additional outcome/goals: Interventions/plans: Instruct on medication effects & side effects, Review medication list w/patient every two weeks, Instruct importance of taking meds as ordered & assist problem solving and Other additional Tobacco Use Tobacco Use: Non-smoker Hypertension Hypertension Diagnosis:: Hypertension ICD-10 I10 Resting Blood Pressure:: 103/68 [place] [employer] Hypertension Guidelines Outcomes/Goals: Able to verbalize/achieve optimal blood pressure <130/80, Incorporates diet changes & exercise for blood pressure control by DC and Other additional outcomes/goals Interventions/plan: Instruct on optimal blood pressure, hypertension & medications, Instruct on effects of sodium, alcohol, stress, exercise &hypertension and Other additional plan/interventions Tobacco Cessation Referral Smoking Cessation Referral:: No Individual Education/Counseling:: No Education Schedule Given:: Yes Psychosocial - Initial Assess VIsit Date of Eval: 09/10/23 (initial eval ) History of previous Mental disease:: Yes History of Emotional Disorders: Anxious Self-reported stressors: Other Target Goals Target Goals Outcomes/Goals: See list Psychosocial Outcomes/Goals:: ID's personal stressors & 2 strategies to manage stress by discharge and Other Additional outcome/goals: Intervention/Plan: See List Interventions/Plan:: Assess stressors,coping strategies & signs of derpression on admission, Instruct/assist pt to develop coping & personal stress Mgt strategies, Refer to Behavioral Health if appropriate, Refer to Physician if appropriate, Instruct patient to recognize signs & symptoms of depression, Instruct patient to recog and Other additional plan/intervention Patient Health Questionnaire PHQ-9 Screening Initial Assessment: 1. Little interest or pleasure in doing things: Not at all 2. Feeling down, depressed, or hopeless: Several days 3. Trouble falling or staying asleep, or sleeping too much: Several days 4. Feeling tired or having little energy: Nearly every day 5. Poor appetite or overeating: Not at all 6. Feeling bad about yourself -- or that you are a failure or have let yourself or your family down: Not at all 7. Trouble concentrating on things, such as reading the newspaper or watching television: Not at all 8. Moving or speaking so slowly that other people could have noticed. Or the opposite - being so fidgety or restless that you have been moving around a lot more than usual: Several days 9. Thoughts that you would be better off , or of hurting yourself in some way: Not at all How difficult have these problems made it for you to do your work, take care of things at home, or get along with other people?: Somewhat difficult Total Score: 6 CARMITA-Q SV Test Statements CAD is a disease of the arteries in the heart: False Examples of risk factors for heart disease: True Angina is chest pain or discomfort: True The benefits of resistance training include: True Eating more meat and dairy products: False Anti-platelet medications such as aspirin are important: True The only effective way to manage stress: False An exercise warm-up slowly increases heart rate: True Prepared, processed foods usually have high sodium: True Depression is common after a heart attack: True The statin medications lower cholesterol: True To control blood pressure, lower the amount of sodium: True If someone gets chest discomfort during walking: False Transfats are partially hydrogenated vegetable oils: True Sleep apnea that is not treated increases the risk: I Don't Know To control cholesterol, one should become a vegetarian: False Someone knows if he/she is exercising at the right level: I Don't Know Diabetes cannot be prevented with exercise & health eating: False Stress is a large risk for heart attack: True A diet that can help lower blood pressure is rich in: True Total Score Total Correct Responses: 18 Self-Efficacy 6-Item Scale Initial Assessment: We would like to know how confident you are in doing certain activities. Please select your confidence level for: Fatigue Select Number: 8 Physical Discomfort or Pain Select Number: 8 Emotional Distress Select Number: 8 Other Symptoms or Health Problems Select Number: 8 Different Tasks and Activities Select Number: 5 Medication Select Number: 8 Total Score:: 7 Nutrition Survey Nutrition Survey Instructions Scoring Instructions Nutrition Survey Initial: Have you lost >10 lbs over the past 2 months without trying?: No Are you following a special diet at home for diabetes, low fat, or low salt?: No Are you interested in meeting with a dietitian for help understanding your diet?: No Do you eat less than 3 meals a day?: Yes Do you eat fatty meats (kent, sausage, ribs, etc), fried foods, desserts, large amounts of salad dressings, margarine, butter, or cheese most days?: Yes Do you have food allergies? [Enter types in comment field]: Yes Do you eat in restaurants more than 3 times a week?: Yes Do you season food with salt, seasoning salt, or garlic salt?: Yes Do you used canned, boxed, frozen meals, or soups, seasoning packets?: Yes Total Score:: 6 Exercise - 30-day Assessment Physician Prescribed Exercise Modalities: Treadmill, Rower, Matinn Airdyne AD-7, SciFit Stepper, SciFit Pro- II Ergometer and SciFit Lateral [place] Exercise - 60-day Assessment Physician Prescribed Exercise Modalities: Treadmill, Rower, [place] Airdyne AD-7, SciFit Stepper, SciFit Pro- II Ergometer and SciFit Lateral [place] Exercise - 90-day Assessment Physician Prescribed Exercise Modalities: Treadmill, Rower, Schwinn Airdyne AD-7, SciFit Stepper, SciFit Pro- II Ergometer and SciFit Lateral [place] Exercise - Final/Discharge Physician Prescribed Exercise Modalities: Treadmill, Rower, Schwinn Airdyne AD-7, SciFit Stepper, SciFit Pro- II Ergometer and SciFit Lateral [place] Frequency: 2x/week for 18 weeks [36 sessions] and 3x/week for 12 weeks [36 sessions] Intensity: 60-80% of age predicted maximum heart rate reserve Current METSs:: 3 Target Heart Rate:: 94-123 Nutrition - 30-Day Assessment Weight Mgt (Other Care) Height: 5 ft 1 in Weight:: 158 lb 8 oz BMI: 29.9 Nutrition - 60-Day Assessment Weight Mgt (Other Care) Height: 5 ft 1 in Weight:: 158 lb 8 oz BMI: 29.9 Core - Final Assessment Hypertension Resting Blood Pressure:: 103/68 [place] [employer] Hypertension Guidelines Core - 60-Day Assessment Hypertension Resting Blood Pressure:: 103/68 [place] [employer] Hypertension Guidelines Psychosocial - 30-Day Assess Target Goals Target Goals Psychosocial - 60-Day Assess Target Goals Target Goals Psychosocial - 90-Day Assess Target Goals Target Goals Psychosocial - Final Assessmen Target Goals Target Goals Nutrition - 90-Day Assessment Weight Mgt (Other Care) Height: 5 ft 1 in Weight:: 158 lb 8 oz BMI: 29.9 Nutrition - Final Assessment Program Goals Patient has diagnosis of Hyperlipidemia (ICD E78)?: Yes Weight Mgt (Other Care) Height: 5 ft 1 in Weight:: 158 lb 8 oz BMI: 29.9
[2023-09-10 10:45] VITALS: BP 103/68; BMI 29.9
[2023-09-10 10:46] VITALS: BMI 29.9
== END | disposition home or self-care (01) ==
LOC: CR 09:48
PROVIDERS: PCP Internal Medicine; Referring Provider Internal Medicine Cardiovascular Disease; Visit Provider Internal Medicine Cardiovascular Disease
DX: Z00.00 Encounter for general adult medical examination without abnormal findings (principal)

== ENCOUNTER → 2023-09-13 | Outpatient (CLI) | payer MEDICARE, SELFPAY ==
[2023-09-10 10:45] VITALS: BMI 29.9
[2023-09-13 09:31] LABS: AST(SGOT) 9 U/L (15-37); Alanine Aminotransfer ALT/SGPT 26 U/L (13-56); Albumin, Serum 3.5 g/dL (3.2-5.0); Alkaline Phosphatase 61 U/L (45-117); Bilirubin, Direct 0.14 mg/dL (0.00-0.30); Cholesterol 152 mg/dL (200); Globulin 2.8 g/dL (2.2-4.2); High Density Lipoprotein 74 mg/dL; Protein, Total 6.3 g/dL (6.4-8.2); Triglycerides 98 mg/dL; Very Low Density Lipoprotein 20 mg/dL (5-40)
== END | disposition home or self-care (01) ==
LOC: LAB 08:25
PROVIDERS: PCP Internal Medicine; Referring Provider Internal Medicine Cardiovascular Disease; Visit Provider Internal Medicine Cardiovascular Disease
DX: I25.10 Atherosclerotic heart disease of native coronary artery without angina pectoris (principal); E78.2 Mixed hyperlipidemia
CPT/HCPCS: 36415; 80061; 80076

== ENCOUNTER 2023-09-26 09:30 | Outpatient (RCR) | payer MEDICARE, SELFPAY ==
[2023-09-10 10:45] VITALS: BMI 29.9
== END 2023-09-26 23:59 ==
LOC: CR 09:30
PROVIDERS: PCP Internal Medicine; Referring Provider Internal Medicine Cardiovascular Disease; Visit Provider Internal Medicine Cardiovascular Disease
DX: Z98.62 Peripheral vascular angioplasty status (principal); I21.4 Non-ST elevation (NSTEMI) myocardial infarction
CPT/HCPCS: 93798

== ENCOUNTER → 2023-10-15 | Outpatient (CLI) | payer MEDICARE, SELFPAY ==
[2023-10-11 07:41] VITALS: BMI 30.4
[2023-10-15 12:29] LABS: Bacteria 0 SEEN /hpf (None Seen); Mucous, Urine 0 SEEN /hpf (<or=2+); Red Blood Cells-Urine 0 SEEN /hpf (0-5); Squamous Epithelial Cells - UA 0 SEEN /hpf (5-10); White Blood Cells 0 SEEN /hpf (0-5)
[2023-10-15 12:43] LABS: Absolute Lymphocyte Count 2.72 X10^3/uL (0.83-4.51); Basophil# 0.03 X10^3/uL; Basophil% 0.4 % (0-1); Eosinophil# 0.16 X10^3/uL; Eosinophils% 1.9 % (0-5); Hemoglobin 12.1 g/dL (12.0-15.0); Lymphocyte # 2.72 X10^3/ul (0.83-4.51); Lymphocyte % 31.8 % (19-41); Mean Corp Hgb Conc 32.7 g/dL (32-36); Mean Corpuscular Hgb 29.1 pg (27.0-32.0); Mean Corpuscular Volume 88.9 fL (81-99); Mean Platelet Vol. 11.1 fl (6.2-12.0); Monocyte# 0.65 X10^3/uL; Monocyte% 7.6 % (0-10); NRBC Flagged by Analyzer 0 % (0-5); Neutrophil # 4.96 X10^3/uL (2.7-7.7); Neutrophil % 57.8 % (47-70); Platelet Count 222 K/mm3 (150-450); RBC Distribution Width CV 15.2 % (11.6-14.6); RBC Distribution Width SD 49.6 fl (35.1-43.9); Red Blood Count 4.16 M/mm3 (4.2-5.4); White Blood Count 8.6 K/mm3 (4.4-11.0)
[2023-10-15 12:45] LABS: Color, Urine Yellow (Yellow); Glucose, Dipstick Normal (Normal); Ketone-Dipstick Negative (Negative); Leukocyte Esterase-Dipstick Negative /ul (Negative); Nitrite-Dipstick Negative (Negative); Occult Blood-Urine Negative /ul (Negative); Protein-Dipstick Negative (Negative); Urine Bilirubin Dipstick Negative (Negative); Urine Clarity Clear (Clear); Urine Urobilinogen Normal (Normal)
[2023-10-15 13:43] LABS: ALB/GLOB Ratio 1.1 RATIO (0.9-2.4); AST(SGOT) 22 U/L (15-37); Alanine Aminotransfer ALT/SGPT 27 U/L (13-56); Albumin, Serum 3.4 g/dL (3.2-5.0); Alkaline Phosphatase 70 U/L (45-117); Anion Gap 5 (5-15); BUN 18 mg/dL (7-18); BUN/Creat Ratio 19.4 RATIO (10-20); Calcium,Total 8.8 mg/dL (8.5-10.1); Chloride 109 mmol/L (98-107); Creatinine, Serum 0.93 mg/dL (0.55-1.02); EST Glomerular Filtration Rate 62 mL/min (>60); Est Glom Filt Rate - Afr Amer 75 mL/min (>60); Globulin 3.1 g/dL (2.2-4.2); Glucose 93 mg/dL (74-106); Potassium 4.2 mmol/L (3.5-5.1); Protein, Total 6.5 g/dL (6.4-8.2); Sodium Level 140 mmol/L (136-145)
== END | disposition home or self-care (01) ==
LOC: LAB 12:22
PROVIDERS: PCP Internal Medicine; Referring Provider Internal Medicine; Visit Provider Internal Medicine
DX: R30.0 Dysuria (principal); R10.31 Right lower quadrant pain; R10.813 Right lower quadrant abdominal tenderness
CPT/HCPCS: 36415; 80053; 81001; 85025; 87086

== ENCOUNTER 2023-10-26 09:30 | Outpatient (RCR) | payer MEDICARE, SELFPAY ==
[2023-09-10 10:45] VITALS: BMI 29.9
--- NOTE | 2023-10-11 07:28 | PCM.CR.ITP ---
Exercise - Initial Assessment Visit Session #:: 11 Physician Prescribed Exercise Modalities: Treadmill, SciFit Stepper and SciFit Pro-II Ergometer Nutrition - Initial Assessment Visit Date of Eval: 10/11/23 Diabetes (Other Core Measures) Diabetes Type: Not Applicable Weight Mgt (Other Care) Height: 5 ft 1 in Weight:: 161 lb BMI: 30.4 Psychosocial - Initial Assess Target Goals Target Goals Patient Health Questionnaire PHQ-9 Screening 30-Day Re-eval Assessment: 1. Little interest or pleasure in doing things: Not at all 2. Feeling down, depressed, or hopeless: Several days 3. Trouble falling or staying asleep, or sleeping too much: Several days 4. Feeling tired or having little energy: Nearly every day 5. Poor appetite or overeating: Not at all 6. Feeling bad about yourself -- or that you are a failure or have let yourself or your family down: Not at all 7. Trouble concentrating on things, such as reading the newspaper or watching television: Not at all 8. Moving or speaking so slowly that other people could have noticed. Or the opposite - being so fidgety or restless that you have been moving around a lot more than usual: Several days 9. Thoughts that you would be better off , or of hurting yourself in some way: Not at all How difficult have these problems made it for you to do your work, take care of things at home, or get along with other people?: Somewhat difficult Total Score: 6 Self-Efficacy 6-Item Scale 30-Day Re-eval Assessment: We would like to know how confident you are in doing certain activities. Please select your confidence level for: Fatigue Select Number: 8 Physical Discomfort or Pain Select Number: 8 Emotional Distress Select Number: 8 Other Symptoms or Health Problems Select Number: 8 Different Tasks and Activities Select Number: 5 Medication Select Number: 8 Total Score:: 7 Nutrition Survey Nutrition Survey Instructions Scoring Instructions Exercise - 30-day Assessment Visit Date of Eval: 10/11/23 Session #:: 11 Physician Prescribed Exercise Modalities: Treadmill, SciFit Stepper and SciFit Pro-II Ergometer Frequency: 3x/week for 12 weeks [36 sessions] Intensity: 60-80% of age predicted maximum heart rate reserve Duration: 30 - 45 minutes Current METSs:: 3.3 Target Heart Rate:: 94-123 Current RPE:: 12-13 Maximum Excercise HR:: 78 Resting Blood Pressure: 110/60 Maximum Exercise Blood Pressure: 142/70 EKG Type: SB to NSR w/BBB Outcomes & Goals Goals:: Verbalizes understanding of THR, RPE & goal METS by session 6, Documents in home exercise log/reports 30 min aerobic 5 day/wk by DC, Demonstrates accurate pulse taking by DC and Other additional outcome/goals: see below Intervention & Plan Exercise Program Goals: Instruct on personal THR & RPE, Instruct on MET level & personal MET goal, Show patient to take own pulse /validate performance until accurate, Instruct on home exercise and Other additional plan/int 30-day Reassessments 30 day Reassessments:: Progressing Reassessment Notes & Comments:: RPE explained Physical Activity Home Exercise Physical Activity - Home Exercise: Safe Exercise, Warm-up, Self-monitoring, Cool-Down, Home Exercise > 30 min Daily and Sitting Time <3 hours/daily Outcomes & Goals Outcomes/Goals: Demonstrates correct Warm-up/exercise Cool-Down (S3) if = 2.5 METs, Verbalizes symptoms of exercise intolerance by Session 3 (S3), Demonstrate safe equipment use (S3) & follows exercise prescrition (6) and Other: See below Intervention & Plan Plan/Intervention: Instruct warm-up & cool-down if exercising at > 2 METs, Instruct on symptoms of exercise intolerance & actions to take, Instruct & monitor on saf, Assess intial functional capacity & safety risk and Other See below 30-day Reassessments 30 day Reassessments:: Progressing Reassessment Notes & Comments:: proper warm up encouraged Exercise - 60-day Assessment Physician Prescribed Exercise Modalities: Treadmill, SciFit Stepper and SciFit Pro-II Ergometer Exercise - 90-day Assessment Physician Prescribed Exercise Modalities: Treadmill, SciFit Stepper and SciFit Pro-II Ergometer Exercise - Final/Discharge Physician Prescribed Exercise Modalities: Treadmill, SciFit Stepper and SciFit Pro-II Ergometer Nutrition - 30-Day Assessment Program Goals Nutrition Program Goals Patient has diagnosis of Hyperlipidemia (ICD E78)?: Yes Visit Date of Eval: 10/11/23 Session #:: 11 Cholesterol/Lipids (Other Core Measures) Determine presence & major risk factors that modify LDL goal: Hypertension or hypertensive medication, Low HDL cholesterol <40 mg/dL*, Family history of premature CHD in Male < 55 years: female <65 yearsFa and Age men > 45 years; women >/= 55 years Outcomes/Goals: Pt IDs own risk factors & lifestyle modifications by Session 10, Verbalizes symptoms of angina & response by session 3., Pt independently manages and Other Additional Outcomes/Goals: Intervention/Plan: Advocate for lipid panel cholesterol medication if applicable, Instruct on personal lipid levels & lipid goals/NCEP guidelines, Instruct on cholesterol and Other additional plan/int 30-day Reassessments:: Progressing Reassessment Notes & Comments:: pt to attend nutrition class Diabetes (Other Core Measures) Diabetes Type: Not Applicable Weight Mgt (Other Care) Height: 5 ft 1 in Weight:: 161 lb BMI: 30.4 Diagnosis Overweight/Obesity BMI> 30% ICD-10 E66: Yes Diagnosis High BMI/Morbid Obesity BMI> 35% ICD-10 Z68: No Outcomes/Goals: Pt sets, maintains & shows weight loss goal & trend during rehab and Other additional outcomes/goals Intervention/Plan: Instruct on ideal BMI & set weight loss goal w/patient, Assist pt to ID & incorporate diet changes for weight loss by S9, Refer to Structured Weight Loss program as appropriate, Encourage goal of using 250-300dcal per session for weight loss and Other additional plan/interventions 30 day Reassessments:: Progressing Reassessment Notes & Comments:: pt to attend nutrition class Healthy Eating Habits Will attend diet classes:: Yes Outcomes/Goals:: Consume diet rich in vegs,fruits,whole grain/high fiber,fish,lean meat, Limit sat/trans fats,cholesterol & added salts & sugars and Other additional outcome/goals: Intervention/Plan:: Assess current eating habits and Other Additional plan/interventions 30-day Reassessments:: Progressing Reassessment Notes & Comments:: pt to attend nutrition class Education Gave educational materials for:: Signs & symptoms of hypoglycemia, Signs & symptoms of hyperglycemia, Relate diabetes to coronary artery disease and Healthy eating Nutrition - 60-Day Assessment Weight Mgt (Other Care) Height: 5 ft 1 in Weight:: 161 lb BMI: 30.4 Core - 30-Day Assessment Visit Date of Eval: 10/11/23 Session #:: 11 Medication Compliance Preventative Medication(s):: Aspirin, KAT inhibitor, Ticagrelor/P2Y12 inhibitor, Statin/lipid and Beta johnna H/O mental health issues: depression, anxiety, or addiction?: Yes Doesn?t believe in the benefits of treatment?: No Believes medications are unnecessary or harmful?: No Has a concern about medication side effects?: No Expresses concern over the cost of medications?: No Outcomes/Goals: Verbalizes medications,desired effect & common side effects @ DC, Pt self-reports following medication regimen, Keeps card in wallet w/medications listed by DC and Other additional outcome/goals: Interventions/plans: Instruct on medication effects & side effects, Review medication list w/patient every two weeks, Instruct importance of taking meds as ordered & assist problem solving and Other additional 30-day Reassessments:: Progressing Reassessment Notes & Comments:: 09/22 carvedilol increased to 6.25 mg BID and Coreg decreased Tobacco Use Tobacco Use: Non-smoker Hypertension Hypertension Diagnosis:: Hypertension ICD-10 I10 Resting Blood Pressure:: 110/60 [place] [employer] Hypertension Guidelines Peak Exercise Blood Pressure:: 142/70 Outcomes/Goals: Able to verbalize/achieve optimal blood pressure <130/80, Incorporates diet changes & exercise for blood pressure control by DC and Other additional outcomes/goals Interventions/plan: Instruct on optimal blood pressure, hypertension & medications, Instruct on effects of sodium, alcohol, stress, exercise &hypertension and Other additional plan/interventions 30 day Reassessments:: Progressing Reassessment Notes & Comments:: 09/22 carvedilol increased to 6.25 mg BID and Coreg decreased Tobacco Cessation Referral Smoking Cessation Referral:: No Individual Education/Counseling:: No Education Schedule Given:: Yes Psychosocial - 30-Day Assess VIsit Date of Eval: 10/11/23 Session #:: 11 History of previous Mental disease:: Yes History of Emotional Disorders: Anxious Self-reported stressors Other/Comments:: Other Target Goals Target Goals Outcomes/Goals: See list Psychosocial Outcomes/Goals:: ID's personal stressors & 2 strategies to manage stress by discharge and Other Additional outcome/goals: Intervention/Plan: See List Interventions/Plan:: Assess stressors,coping strategies & signs of derpression on admission, Instruct/assist pt to develop coping & personal stress Mgt strategies, Refer to Behavioral Health if appropriate, Refer to Physician if appropriate, Instruct patient to recognize signs & symptoms of depression, Instruct patient to recog and Other additional plan/intervention 30-day Reassessments: 30 day Reassessments:: Progressing Reassessment Notes & Comments:: pt is doing well Psychosocial - 60-Day Assess Target Goals Target Goals Outcomes/Goals: See list Psychosocial Outcomes/Goals:: ID's personal stressors & 2 strategies to manage stress by discharge and Other Additional outcome/goals: Psychosocial - 90-Day Assess Target Goals Target Goals Psychosocial - Final Assessmen Target Goals Target Goals Nutrition - 90-Day Assessment Weight Mgt (Other Care) Height: 5 ft 1 in Weight:: 161 lb BMI: 30.4 Nutrition - Final Assessment Weight Mgt (Other Care) Height: 5 ft 1 in Weight:: 161 lb BMI: 30.4
[2023-10-11 07:41] VITALS: BP 110/60; BMI 30.4
[2023-10-11 07:46] VITALS: BP 110/60
== END 2023-10-27 23:59 ==
LOC: CR 09:30
PROVIDERS: PCP Internal Medicine; Referring Provider Internal Medicine Cardiovascular Disease; Visit Provider Internal Medicine Cardiovascular Disease
DX: Z98.62 Peripheral vascular angioplasty status (principal); I21.4 Non-ST elevation (NSTEMI) myocardial infarction
CPT/HCPCS: 93798

== ENCOUNTER → 2023-10-26 | Outpatient (CLI) | payer MEDICARE, SELFPAY ==
[2023-10-11 07:41] VITALS: BMI 30.4
--- NOTE | 2023-10-26 07:38 | CT_ITS ---
STUDY: CT ABDOMEN AND PELVIS WITH CONTRAST REASON FOR EXAM: Female, 77 years old. Right lower abdominal pain -- 2 weeks intermittent rlq pain RADIATION DOSAGE (If Supplied By Facility): CTDIvol = ( 17.99 ) mGy, DLP = ( 963.88 ) mGycm TECHNIQUE: Transaxial images were obtained from the dome of the diaphragm to the symphysis pubis with oral contrast. 100mL Isovue-370 was administered. Sagittal and coronal images were reconstructed. Individualized dose optimization techniques were used for this CT. COMPARISON: None. FINDINGS: The visualized lung bases are unremarkable. The visualized portions of the heart are within normal limits. Normal liver. Normal gallbladder and extrahepatic biliary system. Normal spleen. Normal pancreas. Normal bilateral adrenal glands. Normal right kidney. There is 1.2 cm cyst of the left kidney. Normal visualized stomach. Normal small intestine. There are multiple colonic diverticula consistent with diverticulosis. The appendix is visualized and appears normal in size extending into right inguinal hernia. There is diffuse atherosclerotic calcification of the abdominal aorta, without a demonstrated aneurysm. Normal inferior vena cava. Normal retroperitoneum. Normal urinary bladder. There is atrophy of the uterus. There is no free fluid in the abdomen or pelvis. There are bilateral inguinal hernias containing fat . There is lumbar levoscoliosis with degenerative change of the spine. CT/Abdomen/Pelvis WITH Contrast IMPRESSION: Colonic diverticulosis. No obstruction. Electronically Signed: Samir Leung MD at 8:43 EDT ,
== END | disposition home or self-care (01) ==
LOC: CT 07:36
PROVIDERS: PCP Internal Medicine; Referring Provider Internal Medicine; Visit Provider Internal Medicine
DX: R10.31 Right lower quadrant pain (principal); R10.813 Right lower quadrant abdominal tenderness
CPT/HCPCS: 74177; Q9967

== ENCOUNTER → 2023-11-09 | Outpatient (CLI) | payer MEDICARE, SELFPAY ==
[2023-01-19 11:08] VITALS: BMI 30.2
[2023-09-10 10:45] VITALS: BMI 29.9
[2023-11-09 07:21] VITALS: BMI 30.6
--- NOTE | 2023-11-09 12:43 | ECHOLC_ITS ---
Reason For Study: s/p GA Procedure This was a limited 2D transthoracic echocardiogram. Contrast injection was performed. Exam performed in department. Left Ventricle Normal LV size. The estimated ejection fraction is 65 %. No evidence for diastolic dysfunction. No regional wall motion abnormalities noted. Right Ventricle Normal right ventricle. Normal systolic function. Atria The left and right atria are normal. No doppler evidence for ASD. Mitral Valve There is moderate mitral annular calcification. There is no mitral valve stenosis. No mitral valve insufficiency. Tricuspid Valve There is no tricuspid stenosis. Trivial tricuspid valve insufficiency. Pulmonary artery systolic pressure is 30 mmHg. Aortic Valve Mild diffuse aortic valve thickening. Mild aortic stenosis. No aortic valve insufficiency. Pulmonic Valve There is no pulmonic valvular stenosis. No pulmonic valve insufficiency. Great Vessels Normal aortic root. Pericardium/Pleural No pericardial effusion. Medication Diluted definity 1.5ml given slow IV push to enhance endocardial definition. MMode/2D Measurements & Calculations LVIDd: 4.2 cm IVSd: 0.81 cm LVIDs: 2.6 cm LVPWd: 0.91 cm LVAd ap4: 22.0 cm2 FS: 37.7 % LVLd ap4: 7.1 cm EDV(MOD-sp4): 54.6 ml EDV(sp4-el): 57.5 ml LVAs ap4: 10.2 cm2 LVLs ap4: 5.3 cm ESV(MOD-sp4): 16.5 ml ESV(sp4-el): 16.7 ml EF(MOD-sp4): 69.9 % EF(sp4-el): 70.9 % SV(MOD-sp4): 38.2 ml SV(sp4-el): 40.8 ml Doppler Measurements & Calculations Ao V2 max: 184.2 cm/sec LV V1 max: 131.7 cm/sec TR max katy: 262.5 cm/sec Ao max P.6 mmHg LV V1 max P.9 mmHg TR max P.6 mmHg Ao V2 mean: 128.0 cm/sec LV V1 mean P.9 mmHg Ao mean P.4 mmHg LV V1 mean: 92.0 cm/sec Ao V2 VTI: 44.8 cm LV V1 VTI: 30.5 cm AV (velocity ratio): 0.68 ECHO/Echo Limited w/Contrast Interpretation Summary The estimated ejection fraction is 65 %. No evidence for diastolic dysfunction. Mild aortic stenosis. Ordering Physician: Bobo Espinosa Referring Physician: Claudette Garrison Performed By: Frida Alvarado, MOHSEN, RVT
== END | disposition home or self-care (01) ==
PROVIDERS: PCP Internal Medicine; Referring Provider Internal Medicine Cardiovascular Disease; Visit Provider Internal Medicine Cardiovascular Disease
DX: I51.9 Heart disease, unspecified (principal)
CPT/HCPCS: 93308; Q9957; A4216; C8924

== ENCOUNTER 2023-11-26 09:30 | Outpatient (RCR) | payer MEDICARE, SELFPAY ==
[2023-10-28 00:28] VITALS: BP 110/60; BMI 29.9
--- NOTE | 2023-11-09 07:01 | PCM.CR.ITP ---
Exercise - Initial Assessment Physician Prescribed Exercise Modalities: Treadmill, SciFit Stepper and SciFit Pro-II Ergometer Nutrition - Initial Assessment Weight Mgt (Other Care) Height: 5 ft 1 in Weight:: 162 lb BMI: 30.6 Psychosocial - Initial Assess Target Goals Target Goals Referral to Behavioral Health PS - Interventions: Yes: Referral to [facility] and Yes: Attend Stress Management Classes Patient Health Questionnaire PHQ-9 Screening 60-Day Re-eval Assessment: 1. Little interest or pleasure in doing things: Not at all 2. Feeling down, depressed, or hopeless: Several days 3. Trouble falling or staying asleep, or sleeping too much: Several days 4. Feeling tired or having little energy: Nearly every day 5. Poor appetite or overeating: Not at all 6. Feeling bad about yourself -- or that you are a failure or have let yourself or your family down: Not at all 7. Trouble concentrating on things, such as reading the newspaper or watching television: Not at all 8. Moving or speaking so slowly that other people could have noticed. Or the opposite - being so fidgety or restless that you have been moving around a lot more than usual: Several days 9. Thoughts that you would be better off , or of hurting yourself in some way: Not at all How difficult have these problems made it for you to do your work, take care of things at home, or get along with other people?: Somewhat difficult Total Score: 6 Self-Efficacy 6-Item Scale 60-Day Re-eval Assessment: We would like to know how confident you are in doing certain activities. Please select your confidence level for: Fatigue Select Number: 8 Physical Discomfort or Pain Select Number: 8 Emotional Distress Select Number: 8 Other Symptoms or Health Problems Select Number: 8 Different Tasks and Activities Select Number: 5 Medication Select Number: 8 Total Score:: 7 Nutrition Survey Nutrition Survey Instructions Scoring Instructions Exercise - 30-day Assessment Physician Prescribed Exercise Modalities: Treadmill, SciFit Stepper and SciFit Pro-II Ergometer Exercise - 60-day Assessment Visit Date of Eval: 11/09/23 Session #:: 22 Physician Prescribed Exercise Modalities: Treadmill, SciFit Stepper and SciFit Pro-II Ergometer Frequency: 3x/week for 12 weeks [36 sessions] Intensity: 60-80% of age predicted maximum heart rate reserve Duration: 30 - 45 minutes Current METSs:: 3.7 Target Heart Rate:: 94-123 Current RPE:: 12-15 Maximum Excercise HR:: 81 Resting Blood Pressure: 108/68 Maximum Exercise Blood Pressure: 128/68 EKG Type: SB to NSR w/BBB with a rare pac. Outcomes & Goals Goals:: Verbalizes understanding of THR, RPE & goal METS by session 6, Documents in home exercise log/reports 30 min aerobic 5 day/wk by DC, Demonstrates accurate pulse taking by DC and Other additional outcome/goals: see below Intervention & Plan Exercise Program Goals: Instruct on personal THR & RPE, Instruct on MET level & personal MET goal, Show patient to take own pulse /validate performance until accurate, Instruct on home exercise and Other additional plan/int 30-day Reassessments 30 day Reassessments:: Progressing Reassessment Notes & Comments:: THR explained Physical Activity Home Exercise Physical Activity - Home Exercise: Safe Exercise, Warm-up, Self-monitoring, Cool-Down, Home Exercise > 30 min Daily and Sitting Time <3 hours/daily Outcomes & Goals Outcomes/Goals: Demonstrates correct Warm-up/exercise Cool-Down (S3) if = 2.5 METs, Verbalizes symptoms of exercise intolerance by Session 3 (S3), Demonstrate safe equipment use (S3) & follows exercise prescrition (6) and Other: See below Intervention & Plan Plan/Intervention: Instruct warm-up & cool-down if exercising at > 2 METs, Instruct on symptoms of exercise intolerance & actions to take, Instruct & monitor on saf, Assess intial functional capacity & safety risk and Other See below 30-day Reassessments 30 day Reassessments:: Progressing Reassessment Notes & Comments:: cool down explained and encouraged Exercise - 90-day Assessment Physician Prescribed Exercise Modalities: Treadmill, SciFit Stepper and SciFit Pro-II Ergometer Exercise - Final/Discharge Physician Prescribed Exercise Modalities: Treadmill, SciFit Stepper and SciFit Pro-II Ergometer Nutrition - 30-Day Assessment Weight Mgt (Other Care) Height: 5 ft 1 in Weight:: 162 lb BMI: 30.6 Nutrition - 60-Day Assessment Program Goals Nutrition Program Goals Patient has diagnosis of Hyperlipidemia (ICD E78)?: Yes Visit Date of Eval: 11/09/23 Session #:: 23 Cholesterol/Lipids (Other Core Measures) Determine presence & major risk factors that modify LDL goal: Cigarette smoking, Hypertension or hypertensive medication, Low HDL cholesterol <40 mg/dL*, Family history of premature CHD in Male < 55 years: female <65 yearsFa and Age men > 45 years; women >/= 55 years Outcomes/Goals: Pt IDs own risk factors & lifestyle modifications by Session 10, Verbalizes symptoms of angina & response by session 3., Pt independently manages and Other Additional Outcomes/Goals: Intervention/Plan: Advocate for lipid panel cholesterol medication if applicable, Instruct on personal lipid levels & lipid goals/NCEP guidelines, Instruct on cholesterol and Other additional plan/int 30-day Reassessments:: Progressing Reassessment Notes & Comments:: pt is to attend nutrition class Diabetes (Other Core Measures) Diabetes Type: Not Applicable Weight Mgt (Other Care) Height: 5 ft 1 in Weight:: 162 lb BMI: 30.6 Diagnosis Overweight/Obesity BMI> 30% ICD-10 E66: Yes Diagnosis High BMI/Morbid Obesity BMI> 35% ICD-10 Z68: No Outcomes/Goals: Pt sets, maintains & shows weight loss goal & trend during rehab and Other additional outcomes/goals Intervention/Plan: Instruct on ideal BMI & set weight loss goal w/patient, Assist pt to ID & incorporate diet changes for weight loss by S9, Refer to Structured Weight Loss program as appropriate, Encourage goal of using 250-300dcal per session for weight loss and Other additional plan/interventions 30 day Reassessments:: Progressing Reassessment Notes & Comments:: pt is to attend nutrition class Healthy Eating Habits Will attend diet classes:: Yes Outcomes/Goals:: Consume diet rich in vegs,fruits,whole grain/high fiber,fish,lean meat, Limit sat/trans fats,cholesterol & added salts & sugars and Other additional outcome/goals: Intervention/Plan:: Assess current eating habits and Other Additional plan/interventions 30-day Reassessments:: Progressing Reassessment Notes & Comments:: pt is to attend nutrition class Education Gave educational materials for:: Signs & symptoms of hypoglycemia, Signs & symptoms of hyperglycemia, Relate diabetes to coronary artery disease and Healthy eating Core - 60-Day Assessment Visit Date of Eval: 11/09/23 Session #:: 22 Medication Compliance Preventative Medication(s):: Aspirin, KAT inhibitor, Ticagrelor/P2Y12 inhibitor, Statin/lipid and Beta johnna H/O mental health issues: depression, anxiety, or addiction?: Yes Doesn?t believe in the benefits of treatment?: No Believes medications are unnecessary or harmful?: No Has a concern about medication side effects?: No Expresses concern over the cost of medications?: No Outcomes/Goals: Verbalizes medications,desired effect & common side effects @ DC, Pt self-reports following medication regimen, Keeps card in wallet w/medications listed by DC and Other additional outcome/goals: Interventions/plans: Instruct on medication effects & side effects, Review medication list w/patient every two weeks, Instruct importance of taking meds as ordered & assist problem solving and Other additional 30-day Reassessments:: Met Reassessment Notes & Comments:: pt is taking her meds as prescribed. will continue to monitor. Tobacco Use Tobacco Use: Non-smoker 30-day Reassessments:: Met Hypertension Hypertension Diagnosis:: Hypertension ICD-10 I10 Resting Blood Pressure:: 108/68 [place] [employer] Hypertension Guidelines Peak Exercise Blood Pressure:: 128/68 Outcomes/Goals: Able to verbalize/achieve optimal blood pressure <130/80, Incorporates diet changes & exercise for blood pressure control by DC and Other additional outcomes/goals Interventions/plan: Instruct on optimal blood pressure, hypertension & medications, Instruct on effects of sodium, alcohol, stress, exercise &hypertension and Other additional plan/interventions 30 day Reassessments:: Met Reassessment Notes & Comments:: pt's bp's are within AHA normal limits. Will continue to monitor and contact physician if necessary Tobacco Cessation Referral Smoking Cessation Referral:: No Individual Education/Counseling:: No Education Schedule Given:: Yes Psychosocial - 30-Day Assess Target Goals Target Goals Referral to Behavioral Health PS - Interventions: Yes: Referral to [facility] and Yes: Attend Stress Management Classes Outcomes/Goals: See list Psychosocial Outcomes/Goals:: ID's personal stressors & 2 strategies to manage stress by discharge and Other Additional outcome/goals: Psychosocial - 60-Day Assess VIsit Date of Eval: 11/09/23 Session #:: 22 History of previous Mental disease:: Yes History of Emotional Disorders: Anxious Target Goals Target Goals Psychosocial Test Tool Used:: [employer] QOL Cardiac and PHQ-9 Questionnaire phq-9 Severity Referral to Behavioral Health PS - Interventions: Yes: Referral to [facility] and Yes: Attend Stress Management Classes Outcomes/Goals: See list Psychosocial Outcomes/Goals:: ID's personal stressors & 2 strategies to manage stress by discharge and Other Additional outcome/goals: Intervention/Plan: See List Interventions/Plan:: Assess stressors,coping strategies & signs of derpression on admission, Instruct/assist pt to develop coping & personal stress Mgt strategies, Refer to Behavioral Health if appropriate, Refer to Physician if appropriate, Instruct patient to recognize signs & symptoms of depression, Instruct patient to recog and Other additional plan/intervention 30-day Reassessments: 30 day Reassessments:: Progressing Reassessment Notes & Comments:: pt states she is doing well and not in need of counseling at this time. Psychosocial - 90-Day Assess Target Goals Target Goals Referral to Behavioral Health PS - Interventions: Yes: Referral to [facility] and Yes: Attend Stress Management Classes Psychosocial - Final Assessmen Target Goals Target Goals Referral to Behavioral Health PS - Interventions: Yes: Referral to [facility] and Yes: Attend Stress Management Classes Nutrition - 90-Day Assessment Weight Mgt (Other Care) Height: 5 ft 1 in Weight:: 162 lb BMI: 30.6 Nutrition - Final Assessment Weight Mgt (Other Care) Height: 5 ft 1 in Weight:: 162 lb BMI: 30.6
[2023-11-09 07:21] VITALS: BP 108/68; BMI 30.6
== END 2023-11-26 23:59 ==
LOC: CR 09:30
PROVIDERS: PCP Internal Medicine; Referring Provider Internal Medicine Cardiovascular Disease; Visit Provider Internal Medicine Cardiovascular Disease
DX: I21.4 Non-ST elevation (NSTEMI) myocardial infarction (principal); Z98.62 Peripheral vascular angioplasty status
CPT/HCPCS: 93798

== ENCOUNTER 2023-12-10 09:30 | Outpatient (RCR) | payer MEDICARE, SELFPAY ==
[2023-11-27 00:38] VITALS: BP 108/68; BP 110/60; BMI 29.9
--- NOTE | 2023-12-11 07:30 | PCM.CR.ITP ---
Exercise - Initial Assessment Visit Session #:: 36 Physician Prescribed Exercise Modalities: Treadmill, SciFit Stepper and SciFit Pro-II Ergometer Nutrition - Initial Assessment Weight Mgt (Other Care) Height: 5 ft 1 in Weight:: 160 lb BMI: 30.2 Psychosocial - Initial Assess Target Goals Target Goals Referral to Behavioral Health PS - Interventions: Yes: Attend Stress Management Classes Nutrition Survey Nutrition Survey Instructions Scoring Instructions Exercise - 30-day Assessment Physician Prescribed Exercise Modalities: Treadmill, SciFit Stepper and SciFit Pro-II Ergometer Exercise - 60-day Assessment Physician Prescribed Exercise Modalities: Treadmill, SciFit Stepper and SciFit Pro-II Ergometer Exercise - 90-day Assessment Visit Date of Eval: 12/11/23 Session #:: 36 Physician Prescribed Exercise Modalities: Treadmill, SciFit Stepper and SciFit Pro-II Ergometer Frequency: 3x/week for 12 weeks [36 sessions] Intensity: 60-80% of age predicted maximum heart rate reserve Duration: 30 - 45 minutes Current METSs:: 3.8 Target Heart Rate:: 94-123 Maximum Excercise HR:: 83 Resting Blood Pressure: 122/74 Maximum Exercise Blood Pressure: 142/68 EKG Type: SB to NSR w/BBB and rare PAC's Outcomes & Goals Goals:: Verbalizes understanding of THR, RPE & goal METS by session 6, Documents in home exercise log/reports 30 min aerobic 5 day/wk by DC, Demonstrates accurate pulse taking by DC and Other additional outcome/goals: see below Intervention & Plan Exercise Program Goals: Instruct on personal THR & RPE, Instruct on MET level & personal MET goal, Show patient to take own pulse /validate performance until accurate, Instruct on home exercise and Other additional plan/int 30-day Reassessments 30 day Reassessments:: Met Physical Activity Home Exercise Physical Activity - Home Exercise: Safe Exercise, Warm-up, Self-monitoring, Cool-Down, Home Exercise > 30 min Daily and Sitting Time <3 hours/daily Outcomes & Goals Outcomes/Goals: Demonstrates correct Warm-up/exercise Cool-Down (S3) if = 2.5 METs, Verbalizes symptoms of exercise intolerance by Session 3 (S3), Demonstrate safe equipment use (S3) & follows exercise prescrition (6) and Other: See below Intervention & Plan Plan/Intervention: Instruct warm-up & cool-down if exercising at > 2 METs, Instruct on symptoms of exercise intolerance & actions to take, Instruct & monitor on saf, Assess intial functional capacity & safety risk and Other See below 30-day Reassessments 30 day Reassessments:: Met Exercise - Final/Discharge Physician Prescribed Exercise Modalities: Treadmill, SciFit Stepper and SciFit Pro-II Ergometer Nutrition - 30-Day Assessment Weight Mgt (Other Care) Height: 5 ft 1 in Weight:: 160 lb BMI: 30.2 Nutrition - 60-Day Assessment Weight Mgt (Other Care) Height: 5 ft 1 in Weight:: 160 lb BMI: 30.2 Core - 30-Day Assessment Visit Date of Eval: 12/11/23 Session #:: 36 Medication Compliance Preventative Medication(s):: Aspirin, KAT inhibitor, Clopidogrel/P2Y12 inhibit and Beta johnna H/O mental health issues: depression, anxiety, or addiction?: Yes Doesn?t believe in the benefits of treatment?: No Believes medications are unnecessary or harmful?: No Has a concern about medication side effects?: No Expresses concern over the cost of medications?: No Outcomes/Goals: Verbalizes medications,desired effect & common side effects @ DC, Pt self-reports following medication regimen, Keeps card in wallet w/medications listed by DC and Other additional outcome/goals: Interventions/plans: Instruct on medication effects & side effects, Review medication list w/patient every two weeks, Instruct importance of taking meds as ordered & assist problem solving and Other additional 30-day Reassessments:: Met Tobacco Use Tobacco Use: Non-smoker Hypertension Hypertension Diagnosis:: Hypertension ICD-10 I10 Resting Blood Pressure:: 122/74 [place] [employer] Hypertension Guidelines Peak Exercise Blood Pressure:: 142/68 Outcomes/Goals: Able to verbalize/achieve optimal blood pressure <130/80, Incorporates diet changes & exercise for blood pressure control by DC and Other additional outcomes/goals Interventions/plan: Instruct on optimal blood pressure, hypertension & medications, Instruct on effects of sodium, alcohol, stress, exercise &hypertension and Other additional plan/interventions 30 day Reassessments:: Met Tobacco Cessation Referral Smoking Cessation Referral:: No Individual Education/Counseling:: No Education Schedule Given:: Yes Psychosocial - 30-Day Assess Target Goals Target Goals Referral to Behavioral Health PS - Interventions: Yes: Attend Stress Management Classes Psychosocial - 60-Day Assess Target Goals Target Goals Referral to Behavioral Health PS - Interventions: Yes: Attend Stress Management Classes Psychosocial - 90-Day Assess VIsit Date of Eval: 12/11/23 Session #:: 36 History of Emotional Disorders: Anxious Target Goals Target Goals Psychosocial Test Tool Used:: [employer] QOL Cardiac and PHQ-9 Questionnaire phq-9 Severity Referral to Behavioral Health PS - Interventions: Yes: Attend Stress Management Classes Outcomes/Goals: See list Psychosocial Outcomes/Goals:: ID's personal stressors & 2 strategies to manage stress by discharge and Other Additional outcome/goals: Intervention/Plan: See List Interventions/Plan:: Assess stressors,coping strategies & signs of derpression on admission, Instruct/assist pt to develop coping & personal stress Mgt strategies, Refer to Behavioral Health if appropriate, Refer to Physician if appropriate, Instruct patient to recognize signs & symptoms of depression, Instruct patient to recog and Other additional plan/intervention 30-day Reassessments: 30 day Reassessments:: Met Psychosocial - Final Assessmen Target Goals Target Goals Referral to Behavioral Health PS - Interventions: Yes: Attend Stress Management Classes Nutrition - 90-Day Assessment Program Goals Nutrition Program Goals Patient has diagnosis of Hyperlipidemia (ICD E78)?: Yes Visit Date of Eval: 12/11/23 Session #:: 36 Cholesterol/Lipids (Other Core Measures) Determine presence & major risk factors that modify LDL goal: Hypertension or hypertensive medication, Low HDL cholesterol <40 mg/dL*, Family history of premature CHD in Male < 55 years: female <65 yearsFa and Age men > 45 years; women >/= 55 years Outcomes/Goals: Pt IDs own risk factors & lifestyle modifications by Session 10, Verbalizes symptoms of angina & response by session 3., Pt independently manages and Other Additional Outcomes/Goals: Intervention/Plan: Advocate for lipid panel cholesterol medication if applicable, Instruct on personal lipid levels & lipid goals/NCEP guidelines, Instruct on cholesterol and Other additional plan/int 30-day Reassessments:: Met Weight Mgt (Other Care) Height: 5 ft 1 in Weight:: 160 lb BMI: 30.2 Diagnosis Overweight/Obesity BMI> 30% ICD-10 E66: Yes Diagnosis High BMI/Morbid Obesity BMI> 35% ICD-10 Z68: No Outcomes/Goals: Pt sets, maintains & shows weight loss goal & trend during rehab and Other additional outcomes/goals Intervention/Plan: Instruct on ideal BMI & set weight loss goal w/patient, Assist pt to ID & incorporate diet changes for weight loss by S9, Refer to Structured Weight Loss program as appropriate, Encourage goal of using 250-300dcal per session for weight loss and Other additional plan/interventions Healthy Eating Habits Will attend diet classes:: Yes Outcomes/Goals:: Consume diet rich in vegs,fruits,whole grain/high fiber,fish,lean meat, Limit sat/trans fats,cholesterol & added salts & sugars and Other additional outcome/goals: Intervention/Plan:: Assess current eating habits and Other Additional plan/interventions 30-day Reassessments:: Met Education Gave educational materials for:: Signs & symptoms of hypoglycemia, Signs & symptoms of hyperglycemia, Relate diabetes to coronary artery disease and Healthy eating Nutrition - Final Assessment Weight Mgt (Other Care) Height: 5 ft 1 in Weight:: 160 lb BMI: 30.2
[2023-12-11 07:35] VITALS: BP 122/74; BMI 30.2
== END 2023-12-27 23:59 ==
LOC: CR 09:30
PROVIDERS: PCP Internal Medicine; Referring Provider Internal Medicine Cardiovascular Disease; Visit Provider Internal Medicine Cardiovascular Disease
DX: I21.4 Non-ST elevation (NSTEMI) myocardial infarction (principal); Z98.62 Peripheral vascular angioplasty status
CPT/HCPCS: 93798

== ENCOUNTER 2024-01-12 00:49 | Emergency (ER) | payer MEDICARE, SELFPAY ==
[2024-01-12 00:49] VITALS: BMI 30.2
[2024-01-12 00:50] VITALS: BP 172/82; PULSE 65; RESP 18; TEMP 36.5; O2SAT 98; BMI 31.0
--- NOTE | 2024-01-12 00:57 | EKG12_ITS ---
Test Reason : CP Blood Pressure : */* mmHG Vent. Rate : 60 BPM Atrial Rate : 60 BPM P-R Int : 144 ms QRS Dur : 112 ms QT Int : 428 ms P-R-T Axes : 57 4 94 degrees QTcB Int : 428 ms Normal sinus rhythm Incomplete left bundle branch block ST & T wave abnormality, consider lateral ischemia Abnormal ECG Confirmed by ALBA NEELY, DA ([id number]), design editor AMA TALAVERA ([id number]) on 01/15/2024 8:05:58 A M Referred By: LOS Confirmed By: DA WILLIS MD
--- NOTE | 2024-01-12 00:58 | EDS_ITS ---
HPI History of Present Illness Chief Complaint: Chest Pain Informant: patient Narrative Narrative: Patient presents almost 1 AM for chest pain left side radiation into her left shoulder and some tingling in her left arm that has been waxing and waning but present for the past 2 days she states. She has had 2 heart attacks in the past 1.5 years, resulting in stent and recently an angioplasty. She been compliant with her aspirin and clopidogrel and her other medications which have not changed recently. Symptoms do not seem to get worse with exertion and they are nonpleuritic, but she took a nitroglycerin almost 12 hours ago and it helped some. She states she took some Tylenol tonight but the pain was not going away. It is about a 2/10 at the current moment. She states she chronically has dyspnea on exertion that is a little worse lately. [facility] Medical History Chronic anxiety Hypertension Bilateral inguinal hernia Viral URI Otitis externa of both ears Impacted cerumen of both ears Atherosclerosis of coronary artery of [place] heart without angina pectoris Chest pain LBBB (left bundle branch block) Gastric reflux Non-smoker History of stress test Epigastric pain Lower abdominal pain Acute flank pain Trigger finger Hearing problem Anxiety Seasonal allergies COVID-19 Home Medications ?Medication ?Instructions ?Recorded ?Last Taken ?Type aspirin 81 mg tablet,delayed 81 mg PO BREAKFAST #90 tabs 11/13/22 Unknown Rx release albuterol sulfate 90 mcg/actuation 2 inh inhalation Q8H PRN shortness 05/04/23 Unknown Rx aerosol inhaler of breath or wheezing #8.5 grams ergocalciferol (vitamin D2) 1,250 50,000 unit PO QWEEK supplement 05/04/23 0 07/20/23 08:00 Rx mcg (50,000 unit) capsule #12 caps rosuvastatin 5 mg tablet 5 mg PO DAILY #30 tabs 08/09/23 Unknown Rx clopidogrel 75 mg tablet 75 mg PO DAILY #90 TABLETS 08/20/23 Unknown Rx nitroglycerin 0.4 mg sublingual 0.4 mg sublingual Q5-15M PRN chest 09/14/23 Unknown Rx tablet pain #25 tabs famotidine 40 mg tablet (Pepcid) 40 mg PO DAILY #90 tabs 09/17/23 Unknown Rx carvedilol 12.5 mg tablet 12.5 mg PO BID Dose decreased back 09/18/23 Unknown Rx to 12.5 bid on 08/20/23 #60 tabs ezetimibe 10 mg tablet 10 mg PO DAILY #90 TABLETS 10/15/23 Unknown Rx lactobacillus combination no.4 3 3,000 mmu cells PO DAILY 10/15/23 Unknown History billion cell capsule (Probiotic) lisinopril 20 mg tablet 20 mg PO BID #180 tabs 10/24/23 Unknown Rx spironolactone 25 mg tablet 12.5 mg (1/2 x 25 mg) PO DAILY #45 11/13/23 Unknown Rx tabs budesonide-formoterol HFA 160 2 puff inhalation BID #10.2 grams 12/10/23 Unknown Rx mcg-4.5 mcg/actuation aerosol inhaler (Symbicort) Disability Placard #1 ea 12/17/23 Unknown Rx Allergy/AdvReac Type Severity Reaction Status Date / Time shellfish derived Allergy Severe SOB Verified 01/12/24 00:50 amoxicillin Allergy Unknown Verified 01/12/24 00:50 erythromycin base (From Allergy Unknown Verified 01/12/24 00:50 Staticin) ethyl alcohol (From Staticin) Allergy Unknown Verified 01/12/24 00:50 Penicillins Allergy Unknown Verified 01/12/24 00:50 Sulfa (Sulfonamide Allergy Unknown Verified 01/12/24 00:50 Antibiotics) [id number] Reductase AdvReac Pain in Verified 01/12/24 00:50 Inhibitor joints Family History (Reviewed 12/06/23 @ 13:59 by Rosana Jaime QUALITY CONTROL ENGINEER, QUALITY CONTROL ENGINEER-C) Mother Colon cancer Cancer Heart disease Grandmother Colon cancer Cancer Sister Cancer Brother Heart disease Mental disorder Father , 85 yrs old Dementia Other Acute non-ST elevation myocardial infarction (NSTEMI) Surgical History History of coronary artery stent placement (07/20/22) History of cataract extraction History of carpal tunnel release History of tonsillectomy Social History Smoking Status: Never smoker alcohol intake: never substance use type: does not use caffeine: Yes Type: carbonated beverages and coffee Number of servings: 1 what type of physical activity do you participate in: none ROS ROS ED Constitutional Constitutional ED: Denies chills, fever(s) or sweats Eyes Eyes: Denies change in vision or diplopia ENT ENT ED: Denies rhinorrhea or sore throat Cardiovascular Cardiovascular: Reports as per HPI, chest pain and radiating jaw, neck or arm pain; Denies lightheadedness, palpitations or syncope Respiratory/Chest Respiratory/Chest: Reports dyspnea on exertion; Denies cough Gastrointestinal Gastrointestinal: Denies abdominal pain, diarrhea, nausea or vomiting Genitourinary Genitourinary ED: Denies dysuria or hematuria Musculoskeletal Musculoskeletal: Denies back pain or neck pain Integumentary Denies abscess or rash Neurologic Neurologic: Denies headache(s), paresthesias or weakness EXAM Physical Exam Const Vital Signs: 01/12/24 00:50 01/12/24 00:56 01/12/24 00:59 Temperature 97.7 F L Temperature Source Oral Pulse Rate 65 Respiratory Rate 18 Respiratory Effort Short of Breath Labored Respiratory Pattern Normal Blood Pressure 172/82 H Blood Pressure Mean 112 Pulse Ox 98 99 Oxygen Delivery Method Room Air Room Air 01/12/24 01:46 01/12/24 01:49 01/12/24 02:00 Temperature Temperature Source Pulse Rate 45 L 43 L 63 Respiratory Rate 16 16 Respiratory Effort Respiratory Pattern Blood Pressure 131/73 H Blood Pressure Mean 92 Pulse Ox 95 97 Oxygen Delivery Method Room Air Room Air Positive well nourished and well developed General Appearance ED: well developed and NAD HEENT Reports moist mucous membranes normocephalic and atraumatic Eyes PERRL and EOMs intact bilaterally Neck full ROM and supple Chest Wall inspection of chest normal and palpation of chest normal Chest: Negative for tenderness Resp normal respiratory effort and clear to auscultation bilaterally Cardio regular rate, regular rhythm and no murmurs Peripheral Pulses: radial pulses present bilateral 2+ GI non-tender and non-distended Auscultation: normoactive bowel sounds Palpation: soft Back/Spine no CVA tenderness General Back: other FROM Extremity normal to inspection Extremity Narrative: no calf tenderness, edema, or cords General Extremety ED: Negative for edema, pulses abnormal or tenderness General Extremity: Negative for edema or pulses abnormal Neuro oriented x3, CN's II-XII intact bilaterally and no sensory deficits noted Sensorium / Orientation: awake and alert Motor Exam: strength 5/5 throughout Skin no rashes or lesions noted and no wounds Heart Score History: Moderately Suspicious ECG: Nonspecific Repolarization (but unchanged c/w prior) Age: >/= 65 years Risk Factors: >/= 3 Risk Factors or History of CAD Troponin: </= Normal Limit Score: 6 MDM MDM MDM Narrative Medical decision making narrative: Certainly acute coronary syndrome in the differential diagnosis here, however her EKG looks reassuringly unchanged compared with her one in July. I offered her medication for discomfort but she declined and wants to see how it went while we obtained testing. 1 view chest x-ray on my interpretation shows no acute pneumothorax or mediastinal widening or other obvious etiology of her discomfort. Her troponin is less than 3. She has a history of Takotsubo, her beta natruretic peptide is 60, ruling that out today. She was amenable to a GI cocktail which we then gave her. That did help partially. Although her heart score is 6, this is mainly because of her prior history, symptoms were concerning but constant symptoms waxing and waning, not going away for over 2 days and a troponin less than 3, I do not think we need to repeat and she is stable for discharge home and follow-up as an outpatient she is comfortable with that plan as well. Lab Data Attestation: I reviewed the patient's lab results. Labs: Laboratory Results - last 24 hr 01/12/24 01:17 WBC 7.7 RBC 4.19 L Hgb 12.3 Hct 36.5 L MCV 87.1 MCH 29.4 MCHC 33.7 RDW Std Deviation 43.1 RDW Coeff of Cesar 13.5 Plt Count 216 MPV 10.9 Immature Gran % (Auto) 0.300 Neut % (Auto) 51.7 Lymph % (Auto) 37.1 Cottle % (Auto) 7.8 Eos % (Auto) 2.6 Baso % (Auto) 0.5 Absolute Neuts (auto) 4.0 Absolute Lymphs (auto) 2.85 Nucleated RBC % 0 Sodium 138 Potassium 4.0 Chloride 108 H Carbon Dioxide 25.0 Anion Gap 5 BUN 18 Creatinine 0.95 Estim Creat Clear Calc 45.06 Est GFR (MDRD) Af Amer 73 Est GFR (MDRD) Non-Af 61 BUN/Creatinine Ratio 19.0 Glucose 107 H Calcium 8.6 Troponin I High Sens < 3 L B-Natriuretic Peptide 59.9 Radiography Diagnostic Testing: Clinical Impression(s) from Imaging Studies Chest X-Ray 01/12/24 01:22 IMPRESSION: No evidence of active intrathoracic disease. Electronically Signed: Joan Grimaldo MD at 1:48 EST , Rhythm Strip Rhythm Strip: Sinus Rhythm Rate: 60 Ectopy: None EKG Initial EKG: Attestation: I personally reviewed and interpreted this EKG as follows: Interpretation: Sinus Rhythm, No Acute Injury Pattern and Inverted T-Waves (laterally) Prior EKG tracings: available for review Prior: Unchanged Discharge Plan Triage Chief Complaint: Chest Pain ED Provider: Samir Donald Dx/Rx/DC Orders Clinical Impression: Non-cardiac chest pain Instructions: ED Chest Pain, Noncardiac Prescriptions: No Action rosuvastatin 5 mg tablet 5 mg PO DAILY Qty: 30 11RF Probiotic 3 billion cell capsule 3,000 mmu cells PO DAILY Rx Instructions: administer with a meal aspirin 81 mg tablet,delayed release (DR/EC) 81 mg PO BREAKFAST Qty: 90 3RF ergocalciferol (vitamin D2) 1,250 mcg (50,000 unit) capsule 50,000 unit PO QWEEK Qty: 12 3RF albuterol sulfate 90 mcg/actuation HFA aerosol inhaler 2 inh inhalation Q8H PRN (Reason: shortness of breath or wheezing) Qty: 8.5 2RF clopidogrel 75 mg tablet 75 mg PO DAILY Qty: 90 3RF nitroglycerin 0.4 mg tablet, sublingual 0.4 mg sublingual Q5-15M PRN (Reason: chest pain) Qty: 25 3RF Rx Instructions: do not exceed 3 doses per episode famotidine [Pepcid] 40 mg tablet 40 mg PO DAILY Qty: 90 3RF carvedilol 12.5 mg tablet 12.5 mg PO BID Qty: 60 11RF Rx Instructions: must administer with a meal/food ezetimibe 10 mg tablet 10 mg PO DAILY Qty: 90 3RF lisinopril 20 mg tablet 20 mg PO BID Qty: 180 3RF spironolactone 25 mg tablet 12.5 mg PO DAILY Qty: 45 3RF Rx Instructions: Hold for serum potassium more than 5.0 budesonide-formoterol [Symbicort] 160-4.5 mcg/actuation HFA aerosol inhaler 2 puff inhalation BID Qty: 10.2 6RF (DME) Disability Placard See Rx Instructions .ROUTE .MEDSUPPLY Qty: 1 0RF Rx Instructions: Expires 12/16/2028 Primary Care Provider: Claudette Garrison Referrals: Claudette Garrison MD [Primary Care Provider] - 3-5 Days if not improving Print Language: Polish Disposition Disposition: Home, Self Care
[2024-01-12 00:59] VITALS: O2SAT 99
[2024-01-12 01:22] LABS: Absolute Lymphocyte Count 2.85 X10^3/uL (0.83-4.51); Basophil# 0.04 X10^3/uL; Basophil% 0.5 % (0-1); Eosinophils% 2.6 % (0-5); Hematocrit 36.5 % (37-47); Hemoglobin 12.3 g/dL (12.0-15.0); Lymphocyte # 2.85 X10^3/ul (0.83-4.51); Lymphocyte % 37.1 % (19-41); Mean Corp Hgb Conc 33.7 g/dL (32-36); Mean Corpuscular Hgb 29.4 pg (27.0-32.0); Mean Corpuscular Volume 87.1 fL (81-99); Mean Platelet Vol. 10.9 fl (6.2-12.0); Monocyte% 7.8 % (0-10); NRBC Flagged by Analyzer 0 % (0-5); Neutrophil # 3.97 X10^3/uL (2.7-7.7); Neutrophil % 51.7 % (47-70); Platelet Count 216 K/mm3 (150-450); RBC Distribution Width CV 13.5 % (11.6-14.6); RBC Distribution Width SD 43.1 fl (35.1-43.9); Red Blood Count 4.19 M/mm3 (4.2-5.4); White Blood Count 7.7 K/mm3 (4.4-11.0)
--- NOTE | 2024-01-12 01:22 | RAD_ITS ---
INDICATION: chest pain EXAMINATION/TECHNIQUE: X-RAY - XR Chest 1 View AP portable. 1:21 AM COMPARISON: Prior study dated: 08/18/2023 FINDINGS: LINES/DEVICES: None. LUNGS: No consolidation. Calcified granuloma left lung base. No pneumothorax. MEDIASTINUM: Unremarkable. CARDIAC SILHOUETTE: Not enlarged. BONES AND SOFT TISSUES: No acute abnormalities. RAD/Chest 1 View (Portable) IMPRESSION: No evidence of active intrathoracic disease. Electronically Signed: Joan Grimaldo MD at 1:48 EST ,
[2024-01-12 01:40] LABS: Anion Gap 5 (5-15); BUN 18 mg/dL (7-18); Calcium,Total 8.6 mg/dL (8.5-10.1); Chloride 108 mmol/L (98-107); Creatinine, Serum 0.95 mg/dL (0.55-1.02); EST Glomerular Filtration Rate 61 mL/min (>60); Est Glom Filt Rate - Afr Amer 73 mL/min (>60); Estimated Creatinine Clearance 45.06 ml/min; Glucose 107 mg/dL (74-106); Sodium Level 138 mmol/L (136-145); Troponin-I HS (w/2H Reflex) < 3 pg/mL (3.0-54.0)
[2024-01-12 01:46] VITALS: PULSE 45; RESP 16; O2SAT 95
[2024-01-12 01:49] VITALS: PULSE 43
[2024-01-12 02:00] VITALS: BP 131/73; PULSE 63; RESP 16; O2SAT 97
[2024-01-12 02:02] LABS: BNP,B-Type NATRIURETIC PEPTIDE 59.9 pg/mL (0-100)
[2024-01-12] MEDS: Lidocaine 2% Viscous15 ML UDC 15 ML PO (02:10)
[2024-01-12] MEDS: Mag Hydrox/Al Hydrox/Simeth 30 ML UDC PO (02:10)
[2024-01-12 02:32] VITALS: BP 144/64; PULSE 78; RESP 14; TEMP 36.7; O2SAT 98
[2024-01-12 03:19] LABS: Reflex Troponin-HS? (from REC) Y
== END 2024-01-12 02:38 | disposition home or self-care (01) ==
PROVIDERS: Emergency Provider Emergency Medicine; PCP Internal Medicine; Visit Provider Emergency Medicine
DX: R07.89 Other chest pain (principal); R06.09 Other forms of dyspnea; I25.10 Atherosclerotic heart disease of native coronary artery without angina pectoris; I10 Essential (primary) hypertension; I25.2 Old myocardial infarction; Z79.899 Other long term (current) drug therapy; Z86.16 Personal history of COVID-19; Z95.5 Presence of coronary angioplasty implant and graft
CPT/HCPCS: 71045; 80048; 83880; 84484; 85025; 93005; 99285; A4216

== ENCOUNTER 2024-01-15 08:26 | Emergency (ER) | payer MEDICARE, SELFPAY ==
[2024-01-15 08:27] VITALS: BP 118/85; PULSE 78; RESP 16; TEMP 36.6; O2SAT 98; BMI 29.7
--- NOTE | 2024-01-15 08:56 | EDS_ITS ---
HPI History of Present Illness Chief Complaint: Anxiety Informant: patient Onset/Context/Timing Onset: Yesterday Context: Sudden Onset Timing: Continuous Quality: On edge Location: generalized Worsened by: Nothing Relieved by: Activity Narrative Narrative: Patient presents with anxiety that began last night. Patient states it began rather suddenly. Patient states she was unable to sleep last night. Patient states she feels like she is on edge. Patient states she has a history of anxiety and had been on chronic benzodiazepines. Patient states she came off of that a few years ago. Patient states that her anxiety improved somewhat when she was active this morning. Patient denies any suicidal homicidal ideations. [facility] Medical History Chronic anxiety Hypertension Bilateral inguinal hernia Viral URI Otitis externa of both ears Impacted cerumen of both ears Atherosclerosis of coronary artery of [place] heart without angina pectoris Chest pain LBBB (left bundle branch block) Gastric reflux Non-smoker History of stress test Epigastric pain Lower abdominal pain Acute flank pain Trigger finger Hearing problem Anxiety Seasonal allergies COVID-19 Home Medications ?Medication ?Instructions ?Recorded ?Last Taken ?Type aspirin 81 mg tablet,delayed 81 mg PO BREAKFAST #90 tabs 11/13/22 Unknown Rx release albuterol sulfate 90 mcg/actuation 2 inh inhalation Q8H PRN shortness 05/04/23 Unknown Rx aerosol inhaler of breath or wheezing #8.5 grams ergocalciferol (vitamin D2) 1,250 50,000 unit PO QWEEK supplement 05/04/23 07/20/23 08:00 Rx mcg (50,000 unit) capsule #12 caps rosuvastatin 5 mg tablet 5 mg PO DAILY #30 tabs 08/09/23 Unknown Rx clopidogrel 75 mg tablet 75 mg PO DAILY #90 TABLETS 08/20/23 Unknown Rx nitroglycerin 0.4 mg sublingual 0.4 mg sublingual Q5-15M PRN chest 09/14/23 Unknown Rx tablet pain #25 tabs famotidine 40 mg tablet (Pepcid) 40 mg PO DAILY #90 tabs 09/17/23 Unknown Rx carvedilol 12.5 mg tablet 12.5 mg PO BID Dose decreased back 09/18/23 Unknown Rx to 12.5 bid on 08/20/23 #60 tabs ezetimibe 10 mg tablet 10 mg PO DAILY #90 TABLETS 08/19/24 Unknown Rx lactobacillus combination no.4 3 3,000 mmu cells PO DAILY 10/15/23 Unknown History billion cell capsule (Probiotic) lisinopril 20 mg tablet 20 mg PO BID #180 tabs 10/24/23 Unknown Rx spironolactone 25 mg tablet 12.5 mg (1/2 x 25 mg) PO DAILY #45 11/13/23 Unknown Rx tabs budesonide-formoterol HFA 160 2 puff inhalation BID #10.2 grams 12/10/23 Unknown Rx mcg-4.5 mcg/actuation aerosol inhaler (Symbicort) Disability Placard #1 ea 12/17/23 Unknown Rx hydroxyzine pamoate 25 mg capsule 50 mg (2 x 25 mg) PO TID PRN PRN 01/15/24 Unknown Rx Anxiety #30 CAPSULES Allergy/AdvReac Type Severity Reaction Status Date / Time shellfish derived Allergy Severe SOB Verified 01/15/24 10:14 amoxicillin Allergy Unknown Verified 01/15/24 10:14 erythromycin base (From Allergy Unknown Verified 01/15/24 10:14 Staticin) ethyl alcohol (From Staticin) Allergy Unknown Verified 01/15/24 10:14 Penicillins Allergy Unknown Verified 01/15/24 10:14 Sulfa (Sulfonamide Allergy Unknown Verified 01/15/24 10:14 Antibiotics) Yioexce-UAR-PbD Reductase AdvReac Pain in Verified 01/15/24 10:14 Inhibitor joints Family History Mother Colon cancer Cancer Heart disease Grandmother Colon cancer Cancer Sister Cancer Brother Heart disease Mental disorder Father , 85 yrs old Dementia Other Acute non-ST elevation myocardial infarction (NSTEMI) Surgical History History of coronary artery stent placement (07/20/22) History of cataract extraction History of carpal tunnel release History of tonsillectomy Social History Smoking Status: Never smoker alcohol intake: never substance use type: does not use caffeine: Yes Type: carbonated beverages and coffee Number of servings: 1 what type of physical activity do you participate in: none ROS ROS ED Constitutional Constitutional ED: Denies chills or fever(s) Eyes Eyes: Denies blurry vision or change in vision ENT ENT ED: Denies rhinorrhea or sore throat Cardiovascular Cardiovascular: Denies chest pain or palpitations Respiratory/Chest Respiratory/Chest: Denies cough or dyspnea Gastrointestinal Gastrointestinal: Denies nausea or vomiting Genitourinary Genitourinary ED: Denies dysuria or hematuria Musculoskeletal Musculoskeletal: Denies back pain or neck pain Integumentary Denies abscess or rash Neurologic Neurologic: Denies headache(s) or weakness Psychiatric Psychiatric: Reports anxiety; Denies suicidal ideation or suicidal thoughts Allergic/Immunologic Allergic/Immunologic ED: Denies mouth swelling or urticaria EXAM Physical Exam Const Vital Signs: 01/15/24 08:27 Temperature 97.8 F Temperature Source Oral Pulse Rate 78 Respiratory Rate 16 Blood Pressure 118/85 H Blood Pressure Mean 96 Pulse Ox 98 Oxygen Delivery Method Room Air Positive well nourished and well developed General Appearance ED: well developed and NAD HEENT Reports moist mucous membranes Neck supple and no JVD Resp normal respiratory effort and clear to auscultation bilaterally Cardio regular rate and regular rhythm GI non-tender and non-distended Palpation: soft Extremity normal to inspection General Extremety ED: Negative for edema or tenderness General Extremity: Negative for edema Neuro oriented x3, CN's II-XII intact bilaterally and no sensory deficits noted Sensorium / Orientation: alert Motor Exam: strength 5/5 throughout Psych mental status grossly normal Mood & Affect: anxious MDM MDM MDM Narrative Medical decision making narrative: Differential diagnosis includes anxiety, cardiac dysrhythmia, cardiac ischemia, electrolyte abnormality, urinary tract infection, and gastroesophageal reflux disease. EKG will be obtained to assess for cardiac dysrhythmia and cardiac ischemia. CBC will be obtained to assess for leukocytosis and anemia. Basic metabolic profile will be obtained to assess for electrolyte abnormality and renal function. Urinalysis will be obtained to assess for urinary tract infection and hematuria. High-sensitivity troponin will be obtained to assess for cardiac ischemia. Lab Data Attestation: I reviewed the patient's lab results. Lab results narrative: CBC was reviewed and was within normal limits. Basic metabolic profile was reviewed and was within normal limits. High-sensitivity troponin was reviewed and was normal at 4. Urinalysis was reviewed. There is no evidence of urinary tract infection or hematuria. Labs: Laboratory Results - last 24 hr 01/15/24 01/15/24 09:30 10:30 WBC 9.2 RBC 4.33 Hgb 12.6 Hct 38.4 MCV 88.7 MCH 29.1 MCHC 32.8 RDW Std Deviation 45.1 H RDW Coeff of Cesar 14.0 Plt Count 227 MPV 11.1 Immature Gran % (Auto) 0.400 Neut % (Auto) 69.5 Lymph % (Auto) 20.8 [place] % (Auto) 7.5 Eos % (Auto) 1.5 Baso % (Auto) 0.3 Absolute Neuts (auto) 6.4 Absolute Lymphs (auto) 1.91 Nucleated RBC % 0 Sodium 140 Potassium 4.2 Chloride 108 H Carbon Dioxide 26.0 Anion Gap 5 BUN 22 H Creatinine 0.98 Estim Creat Clear Calc 42.71 Est GFR (MDRD) Af Amer 70 Est GFR (MDRD) Non-Af 58 L BUN/Creatinine Ratio 22.4 H Glucose 101 Calcium 8.7 Troponin I High Sens 4 Urine Color Yellow Urine Clarity Clear Urine pH 5.0 Ur Specific [place] 1.020 Urine Protein Negative Urine Glucose (UA) Normal Urine Ketones Negative Urine Occult Blood Negative Urine Nitrite Negative Urine Bilirubin Negative Urine Urobilinogen Normal Ur Leukocyte Esterase 25 H Urine RBC 0-5 SEEN Urine WBC 0-5 SEEN Ur Squamous Epith Cells 0-5 SEEN Urine Bacteria 0 SEEN Hyaline Casts 0-5 SEEN Urine Mucus 2+ EKG Initial EKG: Attestation: I personally reviewed and interpreted this EKG as follows: Interpretation: Sinus Bradycardia (55), LBBB (Incomplete) and Non-Specific ST Changes Comments: EKG was obtained. On my independent interpretation, shows sinus bradycardia with a rate of 55. [place] interval was 142 ms. QRS interval was 112 ms. QTc interval is 428 ms. [place] was -7. There are nonspecific ST-T wave changes noted. There is an incomplete left bundle branch block pattern noted. This was unchanged compared to previous EKG. Prior EKG tracings: available for review Prior: Unchanged (01/12/2024) Treatment and Re-Evaluation :: Patient was given a dose of Tylenol here. Patient is feeling better on reevaluation. Patient was advised of her findings. Patient was given a prescription for a short course of hydroxyzine. Patient was instructed to follow-up with her primary care physician in 5 to 7 days. Patient was instructed to return if worse in any way. Patient understood and was agreeable with the plan. All questions were answered. Discharge Plan Triage Chief Complaint: Anxiety ED Provider: Kofi Hutton Dx/Rx/DC Orders Clinical Impression: Anxiety disorder, CAD (coronary artery disease) Instructions: ED Anxiety Reaction Prescriptions: New hydroxyzine pamoate 25 mg capsule 50 mg PO TID PRN PRN (Reason: Anxiety) Qty: 30 0RF No Action rosuvastatin 5 mg tablet 5 mg PO DAILY Qty: 30 11RF Probiotic 3 billion cell capsule 3,000 mmu cells PO DAILY Rx Instructions: administer with a meal aspirin 81 mg tablet,delayed release (DR/EC) 81 mg PO BREAKFAST Qty: 90 3RF ergocalciferol (vitamin D2) 1,250 mcg (50,000 unit) capsule 50,000 unit PO QWEEK Qty: 12 3RF albuterol sulfate 90 mcg/actuation HFA aerosol inhaler 2 inh inhalation Q8H PRN (Reason: shortness of breath or wheezing) Qty: 8.5 2RF clopidogrel 75 mg tablet 75 mg PO DAILY Qty: 90 3RF nitroglycerin 0.4 mg tablet, sublingual 0.4 mg sublingual Q5-15M PRN (Reason: chest pain) Qty: 25 3RF Rx Instructions: do not exceed 3 doses per episode famotidine [Pepcid] 40 mg tablet 40 mg PO DAILY Qty: 90 3RF carvedilol 12.5 mg tablet 12.5 mg PO BID Qty: 60 11RF Rx Instructions: must administer with a meal/food ezetimibe 10 mg tablet 10 mg PO DAILY Qty: 90 3RF lisinopril 20 mg tablet 20 mg PO BID Qty: 180 3RF spironolactone 25 mg tablet 12.5 mg PO DAILY Qty: 45 3RF Rx Instructions: Hold for serum potassium more than 5.0 budesonide-formoterol [Symbicort] 160-4.5 mcg/actuation HFA aerosol inhaler 2 puff inhalation BID Qty: 10.2 6RF (DME) Disability Placard See Rx Instructions .ROUTE .MEDSUPPLY Qty: 1 0RF Rx Instructions: Expires 12/16/2028 Primary Care Provider: Claudette Garrison Referrals: Claudette Garrison MD [Primary Care Provider] - 5-7 Days Print Language: Welsh Disposition Disposition: Home, Self Care
--- NOTE | 2024-01-15 09:02 | EKG12_ITS ---
Test Reason : Blood Pressure : */* mmHG Vent. Rate : 55 BPM Atrial Rate : 55 BPM P-R Int : 142 ms QRS Dur : 112 ms QT Int : 448 ms P-R-T Axes : 43 -7 86 degrees QTcB Int : 428 ms Sinus bradycardia Anterior infarct , age undetermined Abnormal ECG Confirmed by MANDY GUTIERREZ MD ([id number]), city editor GREG CALLE ([id number]) on 01/16/2024 8:14:53 AM Referred By: Confirmed By: MANDY GUTIERREZ MD
[2024-01-15 09:36] LABS: Absolute Lymphocyte Count 1.91 X10^3/uL (0.83-4.51); Absolute Neutrophil Count 6.4 X10^3/uL (2.0-7.7); Basophil# 0.03 X10^3/uL; Basophil% 0.3 % (0-1); Eosinophil# 0.14 X10^3/uL; Eosinophils% 1.5 % (0-5); Hematocrit 38.4 % (37-47); Hemoglobin 12.6 g/dL (12.0-15.0); Lymphocyte # 1.91 X10^3/ul (0.83-4.51); Lymphocyte % 20.8 % (19-41); Mean Corp Hgb Conc 32.8 g/dL (32-36); Mean Corpuscular Hgb 29.1 pg (27.0-32.0); Mean Corpuscular Volume 88.7 fL (81-99); Mean Platelet Vol. 11.1 fl (6.2-12.0); Monocyte# 0.69 X10^3/uL; Monocyte% 7.5 % (0-10); NRBC Flagged by Analyzer 0 % (0-5); Neutrophil # 6.38 X10^3/uL (2.7-7.7); Neutrophil % 69.5 % (47-70); Platelet Count 227 K/mm3 (150-450); RBC Distribution Width SD 45.1 fl (35.1-43.9); Red Blood Count 4.33 M/mm3 (4.2-5.4); White Blood Count 9.2 K/mm3 (4.4-11.0)
[2024-01-15 09:53] LABS: Anion Gap 5 (5-15); BUN 22 mg/dL (7-18); BUN/Creat Ratio 22.4 RATIO (10-20); Calcium,Total 8.7 mg/dL (8.5-10.1); Chloride 108 mmol/L (98-107); Creatinine, Serum 0.98 mg/dL (0.55-1.02); EST Glomerular Filtration Rate 58 mL/min (>60); Est Glom Filt Rate - Afr Amer 70 mL/min (>60); Estimated Creatinine Clearance 42.71 ml/min; Glucose 101 mg/dL (74-106); Potassium 4.2 mmol/L (3.5-5.1); Sodium Level 140 mmol/L (136-145); Troponin-I HS 4 pg/mL (3.0-54.0)
[2024-01-15] MEDS: Acetaminophen 325 MG Tablet 650 MG PO (10:06)
--- NOTE | 2024-01-15 10:12 | ED.RN ---
PT STATES SHE HAS HAD SOME ANXIETY AND DEPRESSION. HER AND HER HAVE BEEN LIVING SEPARATE FOR 2 YEARS. 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 PT IS SET TO SEE SOMEONE FOR PSYCHOTHERAPY AFTER THE FIRST OF THE YEAR; FEB 2024
[2024-01-15 10:32] LABS: Bacteria 0 SEEN /hpf (None Seen)
[2024-01-15 10:36] LABS: Color, Urine Yellow (Yellow); Glucose, Dipstick Normal (Normal); Ketone-Dipstick Negative (Negative); Leukocyte Esterase-Dipstick 25 /ul (Negative); Nitrite-Dipstick Negative (Negative); Occult Blood-Urine Negative /ul (Negative); Protein-Dipstick Negative (Negative); Urine Bilirubin Dipstick Negative (Negative); Urine Clarity Clear (Clear); Urine Urobilinogen Normal (Normal)
[2024-01-15 10:45] LABS: Hyaline Cast 0-5 SEEN /lpf (0-5); Mucous, Urine 2+ /hpf (<or=2+); Red Blood Cells-Urine 0-5 SEEN /hpf (0-5); White Blood Cells 0-5 SEEN /hpf (0-5)
[2024-01-15 10:46] LABS: Squamous Epithelial Cells - UA 0-5 SEEN /hpf (5-10)
[2024-01-15 11:10] VITALS: BP 141/67; PULSE 57; RESP 16; TEMP 36.7; O2SAT 98
== END 2024-01-15 11:16 | disposition home or self-care (01) ==
PROVIDERS: Emergency Provider Emergency Medicine; PCP Internal Medicine; Visit Provider Emergency Medicine
DX: F41.9 Anxiety disorder, unspecified (principal); I25.10 Atherosclerotic heart disease of native coronary artery without angina pectoris; I10 Essential (primary) hypertension; Z79.82 Long term (current) use of aspirin; Z79.899 Other long term (current) drug therapy; Z95.5 Presence of coronary angioplasty implant and graft; Z98.49 Cataract extraction status, unspecified eye
CPT/HCPCS: 80048; 81001; 84484; 85025; 93005; 99283; A4216

== ENCOUNTER → 2024-03-24 | Outpatient (CLI) | payer MEDICARE, SELFPAY ==
[2024-03-24 09:05] LABS: AST(SGOT) 11 U/L (15-37); Alanine Aminotransfer ALT/SGPT 28 U/L (13-56); Albumin, Serum 3.3 g/dL (3.2-5.0); Alkaline Phosphatase 68 U/L (45-117); Bilirubin, Direct 0.19 mg/dL (0.00-0.30); Cholesterol 147 mg/dL (200); Globulin 3.2 g/dL (2.2-4.2); High Density Lipoprotein 62 mg/dL; Protein, Total 6.5 g/dL (6.4-8.2); Triglycerides 104 mg/dL; Very Low Density Lipoprotein 21 mg/dL (5-40)
== END | disposition home or self-care (01) ==
LOC: LAB 07:53
PROVIDERS: PCP Internal Medicine; Referring Provider Nurse Practitioner Family; Visit Provider Nurse Practitioner Family
DX: E78.2 Mixed hyperlipidemia (principal)
CPT/HCPCS: 36415; 80061; 80076

== ENCOUNTER 2024-05-17 06:51 | Emergency (ER) | payer MEDICARE, SELFPAY ==
[2024-05-17] VITALS (7 sets, daily range): BP systolic 110–139; BP diastolic 56–68; PULSE 58–76; RESP 13–22; TEMP -7.7–36.6; O2SAT 95–98; BMI 30.7
--- NOTE | 2024-05-17 07:08 | EKG12_ITS ---
Test Reason : SOB Blood Pressure : */* mmHG Vent. Rate : 64 BPM Atrial Rate : 64 BPM P-R Int : 144 ms QRS Dur : 112 ms QT Int : 428 ms P-R-T Axes : 43 14 98 degrees QTcB Int : 441 ms Normal sinus rhythm Incomplete left bundle branch block Nonspecific T wave abnormality Abnormal ECG Confirmed by BRENDA NEELY, MANDY ([id number]), clinical editor AMA TALAVERA ([id number]) on 05/19/2024 6:39:31 AM Referred By: ROYA Confirmed By: MANDY GUTIERREZ MD
--- NOTE | 2024-05-17 07:09 | ED.VIS.DYS ---
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 She endorses dyspnea on exertion. She has an occasional nonproductive cough, denies fevers or chills, no nausea or vomiting. She has chest tightness. She presents to the emergency department because she is concerned because she has had history of coronary artery disease with [place], and increasing shortness of breath. She wants to make sure that her lungs are not congested, and she wants to make sure that her heart is okay. She denies any exacerbating or alleviating factors although her dyspnea becomes worse with exertion and walking. She has an albuterol inhaler that she has been using every 2 hours without relief. She states she has not been on oral steroids for her asthma in years. No pedal edema, no other symptoms. [facility] Medical History Chronic anxiety Hypertension Bilateral inguinal hernia Viral URI Otitis externa of both ears Impacted cerumen of both ears Atherosclerosis of coronary artery of [place] heart without angina pectoris Chest pain LBBB (left bundle branch block) Gastric reflux Non-smoker History of stress test Epigastric pain Lower abdominal pain Acute flank pain Trigger finger Hearing problem Anxiety Seasonal allergies COVID-19 Home Medications ?Medication ?Instructions ?Recorded ?Last Taken ?Type albuterol sulfate 90 mcg/actuation 2 inh inhalation Q8H PRN shortness 05/04/23 Unknown Rx aerosol inhaler of breath or wheezing #8.5 grams ergocalciferol (vitamin D2) 1,250 50,000 unit PO QWEEK supplement 05/04/23 07/20/23 08:00 Rx mcg (50,000 unit) capsule #12 caps rosuvastatin 5 mg tablet 5 mg PO DAILY #30 tabs 08/09/23 Unknown Rx clopidogrel 75 mg tablet 75 mg PO DAILY #90 TABLETS 08/20/23 Unknown Rx nitroglycerin 0.4 mg sublingual 0.4 mg sublingual Q5-15M PRN chest 09/14/23 Unknown Rx tablet pain #25 tabs famotidine 40 mg tablet (Pepcid) 40 mg PO DAILY #90 tabs 09/17/23 Unknown Rx carvedilol 12.5 mg tablet 12.5 mg PO BID Dose decreased back 09/18/23 Unknown Rx to 12.5 bid on 08/20/23 #60 tabs ezetimibe 10 mg tablet 10 mg PO DAILY #90 TABLETS 10/15/23 Unknown Rx lisinopril 20 mg tablet 20 mg PO BID #180 tabs 10/24/23 Unknown Rx spironolactone 25 mg tablet 12.5 mg (1/2 x 25 mg) PO DAILY #45 11/13/23 Unknown Rx tabs budesonide-formoterol HFA 160 2 puff inhalation BID #10.2 grams 12/10/23 Unknown Rx mcg-4.5 mcg/actuation aerosol inhaler (Symbicort) Disability Placard #1 ea 12/17/23 Unknown Rx aspirin 81 mg tablet,delayed 81 mg PO BREAKFAST #90 tabs 01/31/24 Unknown Rx release hydroxyzine pamoate 25 mg capsule 25 mg PO BID PRN Anxiety #60 02/28/24 Unknown Rx CAPSULES prednisone 20 mg tablet 40 mg (2 x 20 mg) PO DAILY 7 days 05/17/24 Unknown Rx #14 tabs Allergy/AdvReac Type Severity Reaction Status Date / Time shellfish derived Allergy Severe SOB Verified 05/17/24 06:54 amoxicillin Allergy Unknown Verified 05/17/24 06:54 erythromycin base (From Allergy Unknown Verified 05/17/24 06:54 Staticin) ethyl alcohol (From Staticin) Allergy Unknown Verified 05/17/24 06:54 Penicillins Allergy Unknown Verified 05/17/24 06:54 Sulfa (Sulfonamide Allergy Unknown Verified 05/17/24 06:54 Antibiotics) [id number] Reductase AdvReac Pain in Verified 05/17/24 06:54 Inhibitor joints Family History Mother Colon cancer Cancer Heart disease Grandmother Colon cancer Cancer Sister Cancer Brother Heart disease Mental disorder Father , 85 yrs old Dementia Other Acute non-ST elevation myocardial infarction (NSTEMI) Surgical History History of coronary artery stent placement (07/20/22) History of cataract extraction History of carpal tunnel release History of tonsillectomy Social History Smoking Status: Never smoker alcohol intake: never substance use type: does not use caffeine: Yes Type: carbonated beverages and coffee Number of servings: 1 what type of physical activity do you participate in: none ROS ROS ED ROS Narrative Constitutional: No fever, no chills. HEENT: No sore throat. No neck pain. No loss of vision. No rhinorrhea. Cardiovascular: No chest pain. No palpitations. No pedal edema. Respiratory: Occasional cough, increasing dyspnea on exertion and shortness of breath. Chest tightness. Abdominal: No abdominal pain. No nausea. No vomiting. Genitourinary: No dysuria. No hematuria. Musculoskeletal: No myalgias. No arthralgias. Neurologic: No headaches. No dizziness. No lightheadedness. EXAM Physical Exam Narrative Exam Narrative: Afebrile. Vital signs noted. Nontoxic-appearing. Cardiovascular examination reveals a regular rate and rhythm. Lungs are clear to auscultation bilaterally but decreased breath sounds bilateral bases. No wheezing or stridor. No accessory muscle use. Abdomen is soft and nontender without guarding or rebound. Positive bowel sounds. No overt pitting pedal edema. Logical examination nonfocal and nonlateralizing. Const Vital Signs: 05/17/24 06:52 05/17/24 06:54 05/17/24 07:08 Temperature 97.9 F 97.9 F Temperature Source Oral Oral Pulse Rate 69 76 Respiratory Rate 13 19 H Respiratory Effort Normal Non-Labored Respiratory Depth Respiratory Pattern Normal Blood Pressure 139/58 H 139/58 H Blood Pressure Mean 85 85 Pulse Ox 98 98 Oxygen Delivery Method Room Air Room Air 05/17/24 07:08 05/17/24 07:09 05/17/24 07:15 Temperature Temperature Source Pulse Rate 71 Respiratory Rate 16 Respiratory Effort Normal Non-Labored Respiratory Depth Normal Respiratory Pattern Normal Normal Blood Pressure Blood Pressure Mean Pulse Ox Oxygen Delivery Method Room Air Room Air 05/17/24 07:51 05/17/24 08:00 05/17/24 08:18 Temperature 97.9 F 97.9 F 18 F L Temperature Source Oral Oral Pulse Rate 58 L 58 L 71 Respiratory Rate 18 18 22 H Respiratory Effort Respiratory Depth Respiratory Pattern Blood Pressure 110/56 L 110/56 L 124/68 H Blood Pressure Mean 74 74 86 Pulse Ox 98 98 95 Oxygen Delivery Method Room Air Room Air MDM MDM MDM Narrative Medical decision making narrative: Differential diagnosis includes but not limited to asthma exacerbation versus bronchitis versus pneumonia. I have very low suspicion for pneumothorax based on her history and physical. She has equal breath sounds bilaterally. Also the differential would be ACS, but I do not feel that she necessarily needs serial troponins because she has been having shortness of breath and chest tightness for over a week. Chest x-ray interpreted by myself independently in 1 view shows no evidence of pneumonia or pleural effusion, no CHF. I reviewed the radiology report which confirms my independent interpretation. I do not feel she requires antibiotics. I reviewed her laboratory work, and she has normal white count of 7.2 with hemoglobin normal at 12.1 and platelet count normal at 202. BMP is remarkable for BUN of 22 and creatinine 0.97. Glucose is elevated at 124 but she has normal anion gap of 12. High-sensitivity troponin is 13. As her shortness of breath has been going on for a week and she is not having chest pressure or pain, I do not feel she requires serial enzymes. EKG was obtained and interpreted by myself independently as normal sinus rhythm at 64 bpm without ectopy or acute ST changes. No STEMI. Upon repeat examination, she feels improved. She is moving a better amount of air at approximately 8:05 AM. At this point in time, she states that her inhalers are freshly refilled. I will place her on a steroid burst for 7 days. She will follow-up with her lieutenant ballistics and/or her primary care provider. Patient is motivated for discharge. Return instructions were reviewed. Disposition is discharged home in stable condition. History & Record Review Discussion w/independent historian: Patient Lab Data Attestation: I reviewed the patient's lab results. Labs: Laboratory Results - last 24 hr 05/17/24 07:00 WBC 7.2 RBC 4.14 L Hgb 12.1 Hct 36.0 L MCV 87.0 MCH 29.2 MCHC 33.6 RDW Std Deviation 45.3 H RDW Coeff of Cesar 14.1 Plt Count 202 MPV 11.3 Immature Gran % (Auto) 0.300 Neut % (Auto) 60.9 Lymph % (Auto) 29.1 [place] % (Auto) 6.3 Eos % (Auto) 2.8 Baso % (Auto) 0.6 Absolute Neuts (auto) 4.4 Absolute Lymphs (auto) 2.09 Nucleated RBC % 0 Sodium 138 Potassium 4.4 Chloride 105 Carbon Dioxide 21.1 Anion Gap 12 BUN 22 H Creatinine 0.97 Estim Creat Clear Calc 43.89 L Est GFR (MDRD) Non-Af 60 BUN/Creatinine Ratio 22.6 H Glucose 124 H Calcium 8.9 Troponin T High Sens 13 Radiography Diagnostic Testing: Clinical Impression(s) from Imaging Studies Chest X-Ray 05/17/24 07:20 IMPRESSION: No evidence of acute disease. Reading Location: [facility] Discharge Plan Triage Chief Complaint: Shortness of Breath ED Provider: Ernseto Alvares Dx/Rx/DC Orders Clinical Impression: Asthma-COPD overlap syndrome, SOB (shortness of breath), Dyspnea on exertion Instructions: ED Asthma, Acute (Adult), ED COPD Flare, ED Dyspnea Prescriptions: New prednisone 20 mg tablet 40 mg PO DAILY 7 Days Qty: 14 0RF No Action rosuvastatin 5 mg tablet 5 mg PO DAILY Qty: 30 11RF ergocalciferol (vitamin D2) 1,250 mcg (50,000 unit) capsule 50,000 unit PO QWEEK Qty: 12 3RF albuterol sulfate 90 mcg/actuation HFA aerosol inhaler 2 inh inhalation Q8H PRN (Reason: shortness of breath or wheezing) Qty: 8.5 2RF clopidogrel 75 mg tablet 75 mg PO DAILY Qty: 90 3RF nitroglycerin 0.4 mg tablet, sublingual 0.4 mg sublingual Q5-15M PRN (Reason: chest pain) Qty: 25 3RF Rx Instructions: do not exceed 3 doses per episode famotidine [Pepcid] 40 mg tablet 40 mg PO DAILY Qty: 90 3RF carvedilol 12.5 mg tablet 12.5 mg PO BID Qty: 60 11RF Rx Instructions: must administer with a meal/food ezetimibe 10 mg tablet 10 mg PO DAILY Qty: 90 3RF lisinopril 20 mg tablet 20 mg PO BID Qty: 180 3RF spironolactone 25 mg tablet 12.5 mg PO DAILY Qty: 45 3RF Rx Instructions: Hold for serum potassium more than 5.0 budesonide-formoterol [Symbicort] 160-4.5 mcg/actuation HFA aerosol inhaler 2 puff inhalation BID Qty: 10.2 6RF (DME) Disability Placard See Rx Instructions .ROUTE .MEDSUPPLY Qty: 1 0RF Rx Instructions: Expires 12/16/2028 aspirin 81 mg tablet,delayed release (DR/EC) 81 mg PO BREAKFAST Qty: 90 3RF hydroxyzine pamoate 25 mg capsule 25 mg PO BID PRN (Reason: Anxiety) Qty: 60 0RF Primary Care Provider: Claudette Garrison Referrals: Deion Carter DO [Med Staff - Active Staff] - 3-5 Days if not improving Claudette Garrison MD [Primary Care Provider] - 3-5 Days if not improving Activity Restrictions/Additional Instructions: Take the steroid burst for the next week starting tomorrow. Continue to use your albuterol inhaler every 4-6 hours as needed. Return to the emergency department with increasing shortness of breath, new or worsening symptoms. Print Language: Emirati Disposition Disposition: Home, Self Care Discharge Date/Time: 05/17/24 08:19
[2024-05-17] MEDS: Ipratropium/Albuterol Sulfate 3 ML AMPUL.NEB INHALATION (07:15)
[2024-05-17] MEDS: MethylPREDNISolone 125 MG/2 ML Vial 60 MG IV (07:15)
[2024-05-17 07:16] LABS: Absolute Lymphocyte Count 2.09 X10^3/uL (0.83-4.51); Absolute Neutrophil Count 4.4 X10^3/uL (2.0-7.7); Basophil# 0.04 X10^3/uL; Basophil% 0.6 % (0-1); Eosinophils% 2.8 % (0-5); Hemoglobin 12.1 g/dL (12.0-15.0); Lymphocyte # 2.09 X10^3/ul (0.83-4.51); Lymphocyte % 29.1 % (19-41); Mean Corp Hgb Conc 33.6 g/dL (32-36); Mean Corpuscular Hgb 29.2 pg (27.0-32.0); Mean Platelet Vol. 11.3 fl (6.2-12.0); Monocyte# 0.45 X10^3/uL; Monocyte% 6.3 % (0-10); NRBC Flagged by Analyzer 0 % (0-5); Neutrophil # 4.37 X10^3/uL (2.7-7.7); Neutrophil % 60.9 % (47-70); Platelet Count 202 K/mm3 (150-450); RBC Distribution Width CV 14.1 % (11.6-14.6); RBC Distribution Width SD 45.3 fl (35.1-43.9); Red Blood Count 4.14 M/mm3 (4.2-5.4); White Blood Count 7.2 K/mm3 (4.4-11.0)
--- NOTE | 2024-05-17 07:20 | RAD_ITS ---
PROCEDURE: CHEST 1 VIEW (PORTABLE) 05/17/2024 REASON FOR EXAM: SHORTNESS OF BREATH TECHNIQUE: Frontal view of the chest. COMPARISON: 01/12/2024 FINDINGS: Patient is rotated to the left. Calcified granuloma left lung again noted. The lungs appear clear. Pulmonary vascularity appears within limits. No pleural effusion identified. Cardiac silhouette appears within limits for size. Again suggestion of possible small hiatal hernia. Coronary stent again noted. Bilateral shoulder osteoarthrosis again noted. RAD/Chest 1 View (Portable) IMPRESSION: No evidence of acute disease. Reading Location: [id number]
[2024-05-17 07:36] LABS: Anion Gap 12 (5-15); BUN 22 mg/dL (4-19); BUN/Creat Ratio 22.6 RATIO (10-20); Calcium,Total 8.9 mg/dL (7.6-11.0); Carbon Dioxide 21.1 mmol/L (21.0-32.0); Chloride 105 mmol/L (98-108); Creatinine, Serum 0.97 mg/dL (0.70-1.20); EST Glomerular Filtration Rate 60 (>60); Estimated Creatinine Clearance 43.89 ml/min (50-250); Glucose 124 mg/dL (70-99); Potassium 4.4 mmol/L (3.3-5.1); Sodium Level 138 mmol/L (133-145)
[2024-05-17 07:53] LABS: Troponin T High Sensitivity 13 ng/L (<=14)
== END 2024-05-17 08:19 | disposition home or self-care (01) ==
PROVIDERS: Emergency Provider Emergency Medicine; PCP Internal Medicine; Visit Provider Emergency Medicine
DX: J44.89 Other specified chronic obstructive pulmonary disease (principal); I25.10 Atherosclerotic heart disease of native coronary artery without angina pectoris; I10 Essential (primary) hypertension; K21.9 Gastro-esophageal reflux disease without esophagitis; R06.09 Other forms of dyspnea
CPT/HCPCS: 71045; 80048; 84484; 85025; 93005; 94640; 96374; 99285; A4216

== ENCOUNTER 2024-06-03 02:45 | Emergency (ER) | payer MEDICARE, SELFPAY ==
[2024-06-03] VITALS (13 sets, daily range): BP systolic 112–153; BP diastolic 56–72; PULSE 57–78; RESP 10–20; TEMP 36.6–36.9; O2SAT 98–100
--- NOTE | 2024-06-03 02:57 | EKG12_ITS ---
Test Reason : CP Blood Pressure : */* mmHG Vent. Rate : 59 BPM Atrial Rate : 59 BPM P-R Int : 140 ms QRS Dur : 110 ms QT Int : 430 ms P-R-T Axes : 47 4 78 degrees QTcB Int : 425 ms Sinus bradycardia Incomplete left bundle branch block Borderline ECG Confirmed by BRENDA NEELY, MANDY ([id number]), editor in chief newspaper AMA TALAVERA ([id number]) on 06/05/2024 8:28:13 AM Referred By: RICKIE Confirmed By: MANDY GUTIERREZ MD
--- NOTE | 2024-06-03 02:57 | RAD_ITS ---
PROCEDURE: CHEST PA AND LATERAL 06/03/2024 REASON FOR EXAM: CHEST PAIN TECHNIQUE: Frontal and lateral views of the chest. COMPARISON: None available FINDINGS: Hardware: None Heart: Cardiomediastinal silhouette is within normal limits. Normal pulmonary vascularity. Mediastinum: Unremarkable Lungs: Calcified granuloma within the left lower lobe. Bones: No acute osseous abnormality. RAD/Chest PA and Lateral IMPRESSION: No acute cardiopulmonary abnormality. Reading Location: [id number]
[2024-06-03 03:11] LABS: Absolute Lymphocyte Count 2.79 X10^3/uL (0.83-4.51); Basophil# 0.04 X10^3/uL; Basophil% 0.4 % (0-1); Eosinophils% 2.1 % (0-5); Hematocrit 36.6 % (37-47); Lymphocyte # 2.79 X10^3/ul (0.83-4.51); Lymphocyte % 28.6 % (19-41); Mean Corp Hgb Conc 32.8 g/dL (32-36); Mean Corpuscular Hgb 28.6 pg (27.0-32.0); Mean Corpuscular Volume 87.4 fL (81-99); Mean Platelet Vol. 10.9 fl (6.2-12.0); Monocyte# 0.69 X10^3/uL; Monocyte% 7.1 % (0-10); NRBC Flagged by Analyzer 0 % (0-5); Neutrophil # 5.98 X10^3/uL (2.7-7.7); Neutrophil % 61.4 % (47-70); Platelet Count 206 K/mm3 (150-450); RBC Distribution Width CV 14.9 % (11.6-14.6); RBC Distribution Width SD 47.8 fl (35.1-43.9); Red Blood Count 4.19 M/mm3 (4.2-5.4); White Blood Count 9.7 K/mm3 (4.4-11.0)
[2024-06-03 03:38] LABS: Anion Gap 10 (5-15); BUN 22 mg/dL (4-19); BUN/Creat Ratio 20.5 RATIO (10-20); Calcium,Total 8.8 mg/dL (7.6-11.0); Carbon Dioxide 22.3 mmol/L (21.0-32.0); Chloride 105 mmol/L (98-108); Creatinine, Serum 1.09 mg/dL (0.70-1.20); EST Glomerular Filtration Rate 52 (>60); Estimated Creatinine Clearance 38.63 ml/min (50-250); Glucose 103 mg/dL (70-99); Magnesium 2.2 mg/dL (1.5-2.2); Potassium 4.8 mmol/L (3.3-5.1); Sodium Level 138 mmol/L (133-145); Troponin T High Sensitivity 14 ng/L (<=14)
[2024-06-03 03:41] LABS: D-Dimer Quantitative (DVT/PE) 0.27 FEU/ug/m (0.27-0.49)
[2024-06-03 05:52] LABS: Troponin T High Sens 2 HR 14 ng/L (<=14)
--- NOTE | 2024-06-03 05:56 | EDS_ITS ---
HPI History of Present Illness Chief Complaint: Chest Pain Informant: patient and EMS Narrative Narrative: Patient is a 78-year-old female with past medical history hypertension and CAD as well as chronic anxiety. She states that she had a heart attack in June 27 for which she had a stent placed. She states then in June 2023 she also had chest pain and at that time was found that the stent was now occluded and she had to undergo angioplasty. She states she has been doing well but over the last few weeks has been having cough and shortness of breath and now has developed left-sided chest discomfort. She states that as it is almost June she is concerned that she may be having a repeat cardiac event and therefore called EMS to bring her in for evaluation. [facility] Medical History Chronic anxiety Hypertension Bilateral inguinal hernia Viral URI Otitis externa of both ears Impacted cerumen of both ears Atherosclerosis of coronary artery of [place] heart without angina pectoris Chest pain LBBB (left bundle branch block) Gastric reflux Non-smoker History of stress test Epigastric pain Lower abdominal pain Acute flank pain Trigger finger Hearing problem Anxiety Seasonal allergies COVID-19 Home Medications ?Medication ?Instructions ?Recorded ?Last Taken ?Type ergocalciferol (vitamin D2) 1,250 50,000 unit PO QWEEK supplement 05/04/23 07/20/23 08:00 Rx mcg (50,000 unit) capsule #12 caps rosuvastatin 5 mg tablet 5 mg PO DAILY #30 tabs 08/08 Unknown Rx clopidogrel 75 mg tablet 75 mg PO DAILY #90 TABLETS 0 08/20/23 Unknown Rx nitroglycerin 0.4 mg sublingual 0.4 mg sublingual Q5-1 5M PRN chest 09/14/23 Unknown Rx tablet pain #25 tabs famotidine 40 mg tablet (Pepcid) 40 mg PO DAILY #90 ta bs 09/17/23 Unknown Rx carvedilol 12.5 mg tablet 12.5 mg PO BID Dose decrease d back 09/18/23 Unknown Rx to 12.5 bid on 08/20/23 #60 tabs ezetimibe 10 mg tablet 10 mg PO DAILY #90 TABLETS 0 10/15/23 Unknown Rx lisinopril 20 mg tablet 20 mg PO BID #180 tabs 10/23 Unknown Rx spironolactone 25 mg tablet 12.5 mg (1/2 x 25 mg) PO D AILY #45 11/13/23 Unknown Rx tabs budesonide-formoterol HFA 160 2 puff inhalation BID #1 0.2 grams 12/10/23 Unknown Rx mcg-4.5 mcg/actuation aerosol inhaler (Symbicort) Disability Placard #1 ea 12/17/23 Unknown Rx aspirin 81 mg tablet,delayed 81 mg PO BREAKFAST #90 ta bs 01/31/24 Unknown Rx release hydroxyzine pamoate 25 mg capsule 25 mg PO BID PRN Anx iety #60 02/28/24 Unknown Rx CAPSULES albuterol sulfate 90 mcg/actuation 2 inh inhalation Q8 H PRN shortness 05/21/24 Unknown Rx aerosol inhaler of breath or wheezing #8.5 g nallely Allergy/AdvReac Type Severity Reaction Status Date / Time shellfish derived Allergy Severe SOB Verified 06/03/24 02:53 amoxicillin Allergy Unknown Verified 06/03/24 02:53 erythromycin base (From Allergy Unknown Verified 06/03/24 02:53 Staticin) ethyl alcohol (From Staticin) Allergy Unknown Verified 06/03/24 02:53 Penicillins Allergy Unknown Verified 06/03/24 02:53 Sulfa (Sulfonamide Allergy Unknown Verified 06/03/24 02:53 Antibiotics) [id number] Reductase AdvReac Pain in Verified 06/03/24 02:53 Inhibitor joints Family History Mother Colon cancer Cancer Heart disease Grandmother Colon cancer Cancer Sister Cancer Brother Heart disease Mental disorder Father , 85 yrs old Dementia Other Acute non-ST elevation myocardial infarction (NSTEMI) Surgical History History of coronary artery stent placement (07/20/22) History of cataract extraction History of carpal tunnel release History of tonsillectomy Social History Smoking Status: Never smoker alcohol intake: never substance use type: does not use caffeine: Yes Type: carbonated beverages and coffee Number of servings: 1 what type of physical activity do you participate in: none ROS ROS ED Constitutional Constitutional ED: Denies chills or fever(s) ENT ENT ED: Denies sore throat Cardiovascular Cardiovascular: Reports chest pain; Denies palpitations or racing heartbeat Respiratory/Chest Respiratory/Chest: Reports cough and dyspnea Gastrointestinal Gastrointestinal: Denies abdominal pain, diarrhea, nausea or vomiting Genitourinary Genitourinary ED: Denies dysuria Musculoskeletal Musculoskeletal: Reports back pain Integumentary Denies rash Neurologic Neurologic: Denies headache(s) Hematologic/Lymphatic Hematologic/Lymphatic: Denies easy bleeding or easy bruising EXAM Physical Exam Const Vital Signs: 06/03/24 02:46 06/03/24 02:48 06/03/24 03:15 Temperature 98.5 F Temperature Source Oral Pulse Rate 63 Respiratory Rate 18 Blood Pressure 153/60 H 132/72 H 143/56 H Blood Pressure Mean 91 92 78 Pulse Ox 100 Oxygen Delivery Method Room Air 06/03/24 03:23 06/03/24 03:30 06/03/24 03:45 Temperature Temperature Source Pulse Rate 73 66 Respiratory Rate 11 L 20 H 10 L Blood Pressure 148/59 H 134/56 H Blood Pressure Mean 85 82 Pulse Ox 98 100 100 Oxygen Delivery Method 06/03/24 03:45 06/03/24 04:00 06/03/24 04:00 Temperature Temperature Source Pulse Rate 62 57 L 78 Respiratory Rate 13 10 L 14 Blood Pressure 134/56 H 129/59 H 139/69 H Blood Pressure Mean 77 82 86 Pulse Ox 100 99 100 Oxygen Delivery Method Room Air 06/03/24 04:15 06/03/24 04:30 06/03/24 04:45 Temperature Temperature Source Pulse Rate 72 58 L Respiratory Rate 14 14 Blood Pressure 129/59 H 123/56 H 139/60 H Blood Pressure Mean 75 75 78 Pulse Ox 100 99 Oxygen Delivery Method 06/03/24 05:00 06/03/24 06:00 06/03/24 06:03 Temperature 97.9 F Temperature Source Pulse Rate 57 L 71 Respiratory Rate 14 16 Blood Pressure 112/57 L 112/57 L 112/57 L Blood Pressure Mean 72 75 75 Pulse Ox 99 99 Oxygen Delivery Method Positive well nourished and well developed General Appearance ED: well developed; Negative for pallor HEENT HEENT Narrative: No tongue or lip swelling no oral lesions no airway edema or compromise No secondary findings in the posterior pharynx to suggest infection Eyes PERRL and EOMs intact bilaterally General Eye ED: Negative for scleral icterus Neck supple and no JVD Chest Wall Chest Narrative: There is reproducible left anterior chest wall pain with palpation that patient states is the same pain she has been experiencing No bony deformity or subcutaneous emphysema noted No overlying soft tissue changes to suggest infection or trauma Resp normal respiratory effort and clear to auscultation bilaterally Cardio regular rate and regular rhythm Rate: other Other Details: Radial and carotid pulses are equal and symmetric GI normal to inspection, nondistended, normoactive bowel sounds, non-tender, non- distended and no masses Auscultation: normoactive bowel sounds Palpation: soft Extremity normal to inspection Extremity Narrative: No asymmetric edema no pitting edema negative Homans' sign bilaterally Neuro oriented x3, CN's II-XII intact bilaterally and no sensory deficits noted Sensorium / Orientation: alert Motor Exam: strength 5/5 throughout Psych mental status grossly normal Skin no rashes or lesions noted and no wounds General Skin Exam: Negative for jaundice or pallor MDM MDM MDM Narrative Medical decision making narrative: Patient arrived to the ER hypertensive otherwise with stable vitals. She reported 2 weeks of cough and then development of her left sided chest discomfort. She does not have radiation of the pain there is no associated nausea vomiting or diaphoresis. The pain is reproducible upon exam. Differential diagnosis is for acute coronary syndrome versus cardiac dysrhythmia versus intercostal muscle strain or rib contusion. There is also concern for pneumonia or pneumothorax versus PE or dissection. Secondary to this basic blood work was obtained. Labs showed initial troponin of 14 and a delta of 14 indicating no change and this falls within the rule out cardiac algorithm. Her D-dimer is also normal going against PE or dissection as the cause. Chest x-ray reveals no acute infiltrate pneumothorax or rib fracture. Therefore I feel that patient's chest discomfort is most likely related to musculoskeletal injury from recurrent coughing but as her EKG is sinus her troponins are normal and her dimer normal there is no need for further intervention and she is otherwise safe for discharge History & Record Review Discussion w/independent historian: EMS personnel and Patient Lab Data Attestation: I reviewed the patient's lab results. Labs: Laboratory Results - last 24 hr 06/03/24 06/03/24 03:05 05:05 WBC 9.7 RBC 4.19 L Hgb 12.0 Hct 36.6 L MCV 87.4 MCH 28.6 MCHC 32.8 RDW Std Deviation 47.8 H RDW Coeff of Cesar 14.9 H Plt Count 206 MPV 10.9 Immature Gran % (Auto) 0.400 Neut % (Auto) 61.4 Lymph % (Auto) 28.6 [place] % (Auto) 7.1 Eos % (Auto) 2.1 Baso % (Auto) 0.4 Absolute Neuts (auto) 6.0 Absolute Lymphs (auto) 2.79 Nucleated RBC % 0 D-Dimer Quant (PE/DVT) 0.27 Sodium 138 Potassium 4.8 Chloride 105 Carbon Dioxide 22.3 Anion Gap 10 BUN 22 H Creatinine 1.09 Estim Creat Clear Calc 38.63 L Est GFR (MDRD) Non-Af 52 L BUN/Creatinine Ratio 20.5 H Glucose 103 H Calcium 8.8 Magnesium 2.2 Troponin T High Sens 14 D Troponin T Hi Sens 2 Hr 14 Radiography Diagnostic Testing: Clinical Impression(s) from Imaging Studies Chest X-Ray 06/03/24 02:57 IMPRESSION: No acute cardiopulmonary abnormality. Reading Location: [facility] Chest x-ray as interpreted by the emergency medicine physician reveals no acute infiltrate pneumothorax pleural effusion or widening of the mediastinum Discharge Plan Triage Chief Complaint: Chest Pain ED Provider: Jesus Andujar Dx/Rx/DC Orders Clinical Impression: Nonspecific chest pain, Anxiety disorder, Benign essential hypertension, History of CAD (coronary artery disease) Instructions: ED Chest Pain, Uncertain Cause Prescriptions: No Action rosuvastatin 5 mg tablet 5 mg PO DAILY Qty: 30 11RF ergocalciferol (vitamin D2) 1,250 mcg (50,000 unit) capsule 50,000 unit PO QWEEK Qty: 12 3RF clopidogrel 75 mg tablet 75 mg PO DAILY Qty: 90 3RF nitroglycerin 0.4 mg tablet, sublingual 0.4 mg sublingual Q5-15M PRN (Reason: chest pain) Qty: 25 3RF Rx Instructions: do not exceed 3 doses per episode famotidine [Pepcid] 40 mg tablet 40 mg PO DAILY Qty: 90 3RF carvedilol 12.5 mg tablet 12.5 mg PO BID Qty: 60 11RF Rx Instructions: must administer with a meal/food ezetimibe 10 mg tablet 10 mg PO DAILY Qty: 90 3RF lisinopril 20 mg tablet 20 mg PO BID Qty: 180 3RF spironolactone 25 mg tablet 12.5 mg PO DAILY Qty: 45 3RF Rx Instructions: Hold for serum potassium more than 5.0 budesonide-formoterol [Symbicort] 160-4.5 mcg/actuation HFA aerosol inhaler 2 puff inhalation BID Qty: 10.2 6RF (DME) Disability Placard See Rx Instructions .ROUTE .MEDSUPPLY Qty: 1 0RF Rx Instructions: Expires 12/16/2028 aspirin 81 mg tablet,delayed release (DR/EC) 81 mg PO BREAKFAST Qty: 90 3RF hydroxyzine pamoate 25 mg capsule 25 mg PO BID PRN (Reason: Anxiety) Qty: 60 0RF albuterol sulfate 90 mcg/actuation HFA aerosol inhaler 2 inh inhalation Q8H PRN (Reason: shortness of breath or wheezing) Qty: 8.5 2RF Primary Care Provider: Claudette Garrison Referrals: Claudette Garrison MD [Primary Care Provider] - Activity Restrictions/Additional Instructions: Your chest x-ray revealed no lung pathology such as pneumonia or a fractured rib and your heart enzymes were normal going against a heart attack/active heart damage. Follow-up with your doctor for repeat evaluation and return to the ER should you have any further concerns Print Language: Moldovan Disposition Disposition: Home, Self Care Discharge Date/Time: 06/03/24 06:56
== END 2024-06-03 06:56 | disposition home or self-care (01) ==
PROVIDERS: Emergency Provider Emergency Medicine; PCP Internal Medicine; Visit Provider Emergency Medicine
DX: R07.89 Other chest pain (principal); I25.10 Atherosclerotic heart disease of native coronary artery without angina pectoris; F41.9 Anxiety disorder, unspecified; I10 Essential (primary) hypertension; R06.02 Shortness of breath; K21.9 Gastro-esophageal reflux disease without esophagitis
CPT/HCPCS: 71046; 80048; 83735; 84484; 85025; 85379; 93005; 99284; A4216

== ENCOUNTER → 2024-07-16 | Outpatient (CLI) | payer MEDICARE, SELFPAY | END | disposition home or self-care (01) | LOC: PSN 09:11 | PROVIDERS: PCP Internal Medicine; Referring Provider Nurse Practitioner Acute Care; Visit Provider Nurse Practitioner Acute Care | DX: R06.09 Other forms of dyspnea (principal) | CPT/HCPCS: 94060; 94726; 94729 ==

== ENCOUNTER → 2024-07-18 | Outpatient (CLI) | payer MEDICARE, SELFPAY ==
--- NOTE | 2024-07-18 10:45 | BI_ITS ---
EXAM: SCRN MAMM (CAD)W/OPAL BILAT 07/18/2024 CLINICAL HISTORY: F, Age 78 y/o , BREAST CANCER SCREENING TECHNIQUE: Bilateral screening digital breast tomosynthesis with 2D and 3D images. Computer aided detection. COMPARISON: Prior exam(s) dated 07/16/2023, 07/12/2022. FINDINGS: TISSUE DENSITY: The breast tissue is heterogenously dense, which may obscure small masses. The mammogram demonstrates that the patient has dense breasts. Supplemental screening with whole breast ultrasound or MRI may be considered for further evaluation. Bilateral Breast Mammographic Findings: No significant masses, calcifications or other abnormalities are identified. BI/SCRN MAMM (CAD)W/OPAL BILAT IMPRESSION: Right Breast: BIRADS 1 NEGATIVE. Left Breast: BIRADS 1 NEGATIVE. OVERALL FINAL ASSESSMENT: BIRADS 1 NEGATIVE. RECOMMENDATION: Routine annual follow-up in 1 Year A letter with findings and recommendations will be mailed to the patient. Reading Location: [id number]
== END | disposition home or self-care (01) ==
LOC: OPBI 10:05
PROVIDERS: PCP Internal Medicine; Referring Provider Internal Medicine; Visit Provider Internal Medicine
DX: Z12.31 Encounter for screening mammogram for malignant neoplasm of breast (principal)
CPT/HCPCS: 77063; 77067

== ENCOUNTER → 2024-07-24 | Outpatient (CLI) | payer MEDICARE, SELFPAY ==
[2024-07-24 11:31] LABS: Free T3 2.8 pg/mL (2.18-3.98); Magnesium 2.1 mg/dL (1.5-2.2); Vitamin B12 446 pg/mL (180-914); Vitamin D,25 Hydroxy 57.4 ng/mL (30-100)
== END | disposition home or self-care (01) ==
LOC: LAB 10:31
PROVIDERS: PCP Internal Medicine; Referring Provider Internal Medicine; Visit Provider Internal Medicine
DX: E03.9 Hypothyroidism, unspecified (principal); E53.8 Deficiency of other specified B group vitamins; E55.9 Vitamin D deficiency, unspecified
CPT/HCPCS: 36415; 82306; 82607; 83735; 84439; 84443; 84481

== ENCOUNTER → 2024-07-29 | Outpatient (CLI) | payer MEDICARE, SELFPAY ==
[2024-07-29 08:52] VITALS: PULSE 62; PULSE 68; PULSE 69; PULSE 72; PULSE 75; PULSE 78; PULSE 81; O2SAT 90; O2SAT 91; O2SAT 92; O2SAT 94; O2SAT 95; O2SAT 97; O2SAT 98; O2SAT 99
--- NOTE | 2024-08-01 13:12 | PCM.PSN.6M ---
PSN 6 Minute Walk Test 6 Minute Walk Test 6 Minute Walk Test: 6 Minute Walk Test PSN:6-Minute Walk Test Start: 07/29/24 08:52 Freq: Status: Discharge Protocol: [id number] Document 07/29/24 08:52 CATARINA (Rec: 07/29/24 08:55 ANGELIKAELIZABETHJUDIT [id number]) 6 Minute Walk Test Date Performed 07/29/24 Time Performed 08:20 Height 5 ft 1 in Weight: 152 lb Weight in Pounds 152.[address]: Rosana Jaime [employer] Assistive device None used: Pre-test Oxygen Delivery Room Air Method Pulse Ox (%) 97 Pulse Rate (60-100 62 beats/min) Dyspnea Otto Scale ( 0 0-10) Exertion Otto Scale 6 (6-20) 1st minute Oxygen Delivery Room Air Method Pulse Ox (%) 98 Pulse Rate (60-100 68 beats/min) 2nd minute Oxygen Delivery Room Air Method Pulse Ox (%) 95 Pulse Rate (60-100 72 beats/min) 3rd minute Oxygen Delivery Room Air Method Pulse Ox (%) 94 Pulse Rate (60-100 72 beats/min) 4th minute Oxygen Delivery Room Air Method Pulse Ox (%) 92 Pulse Rate (60-100 75 beats/min) 5th minute Oxygen Delivery Room Air Method Pulse Ox (%) 90 Pulse Rate (60-100 78 beats/min) 6th minute Oxygen Delivery Room Air Method Pulse Ox (%) 91 Pulse Rate (60-100 81 beats/min) Dyspnea Otto Scale ( 3 0-10) Exertion Otto Scale 12 (6-20) Post-test Oxygen Delivery Room Air Method Pulse Ox (%) 99 Pulse Rate (60-100 69 beats/min) Full Laps Walked 16 Partial Lap, Number 38 of Tiles Walked Total Distance 982 Walked (ft) Interpretation Interpretation: The patient ambulated 982 feet over the course of 6 minutes beginning on room air without assistive devices. Pretesting oxygen saturation was noted to be 97% on room air. With ambulation, the eliecer oxygen saturation was 90%. This represents a significant exertional oxygen desaturation, consistent with a pulmonary limitation to exercise tolerance. Recommendations Recommendations: There is no indication for the use of supplemental oxygen at this time. However, close interval follow-up was recommended, given the degree of oxygen desaturation noted during this study.
== END | disposition home or self-care (01) ==
PROVIDERS: PCP Internal Medicine; Referring Provider Nurse Practitioner Acute Care; Visit Provider Nurse Practitioner Acute Care
DX: R06.09 Other forms of dyspnea (principal); R09.02 Hypoxemia
CPT/HCPCS: 94618; 94762

== ENCOUNTER 2024-08-15 14:29 | Emergency (ER) | payer MEDICARE, SELFPAY ==
[2024-08-15] VITALS (8 sets, daily range): BP systolic 109–145; BP diastolic 58–66; PULSE 65–82; RESP 11–16; TEMP 36.1–36.2; O2SAT 97–100
--- NOTE | 2024-08-15 14:49 | EKG12_ITS ---
Test Reason : Blood Pressure : */* mmHG Vent. Rate : 77 BPM Atrial Rate : 77 BPM P-R Int : 136 ms QRS Dur : 110 ms QT Int : 400 ms P-R-T Axes : 43 9 89 degrees QTcB Int : 452 ms Normal sinus rhythm Cannot rule out Anterior infarct , age undetermined Abnormal ECG When compared with ECG of 03-Jun-2024 02:56, No significant change was found Confirmed by BRENDA NEELY, MANDY ([id number]), newspaper editor GREG CALLE ([id number]) on 08/19/2024 1:57:11 PM Referred By: Confirmed By: MANDY GUTIERREZ MD
--- NOTE | 2024-08-15 14:55 | EDS_ITS ---
HPI History of Present Illness Chief Complaint: Shortness of Breath Informant: patient Narrative Narrative: 78-year-old female presenting to the emergency room with a chief complaint of dyspnea. Patient states that she was saw pulmonary yesterday and has been aminah gnosed with asthma-COPD overlap. Patient states that this morning she woke up having some mild dyspnea which is not uncommon for her. She did her morning aerosol and Symbicort. She states that she was trying to mow the lawn but was unable to continue due to shortness of breath. She notes a cough that is not any different than normal. No rhinorrhea. She states that she tried more breathing treatments and her rescue inhaler without relief and came to emergency. She denies any chest pain. She does note a history of coronary artery disease having had stent placed in 2022. She follows locally with cardiology. She notes that a couple weeks ago she had some swelling of her lower legs that resolved with the medication that was prescribed by her PCP. She believes it was a diuretic but is not 100% sure. Patient had a heart cath in 2023 that showed in-stent stenosis and ejection fraction of 25% but has since improved with medical therapy. [facility] Medical History Fatigue Hypothyroidism Chronic anxiety Hypertension Bilateral inguinal hernia Viral URI Otitis externa of both ears Impacted cerumen of both ears Atherosclerosis of coronary artery of [place] heart without angina pectoris Chest pain LBBB (left bundle branch block) Gastric reflux Non-smoker History of stress test Epigastric pain Lower abdominal pain Acute flank pain Trigger finger Hearing problem Anxiety Seasonal allergies COVID-19 Home Medications ?Medication ?Instructions ?Recorded ?Last Taken ?Type clopidogrel 75 mg tablet 75 mg PO DAILY #90 TABLETS 0 08/20/23 Unknown Rx nitroglycerin 0.4 mg sublingual 0.4 mg sublingual Q5-1 5M PRN chest 09/14/23 Unknown Rx tablet pain #25 tabs famotidine 40 mg tablet (Pepcid) 40 mg PO DAILY #90 ta bs 09/17/23 Unknown Rx ezetimibe 10 mg tablet 10 mg PO DAILY #90 TABLETS 0 10/15/23 Unknown Rx lisinopril 20 mg tablet 20 mg PO BID #180 tabs 10/23 Unknown Rx spironolactone 25 mg tablet 12.5 mg (1/2 x 25 mg) PO D AILY #45 11/13/23 Unknown Rx tabs budesonide-formoterol HFA 160 2 puff inhalation BID #1 0.2 grams 12/10/23 Unknown Rx mcg-4.5 mcg/actuation aerosol inhaler (Symbicort) Disability Placard #1 ea 12/17/23 Unknown Rx hydroxyzine pamoate 25 mg capsule 25 mg PO BID PRN Anx iety #60 02/28/24 Unknown Rx CAPSULES rosuvastatin 5 mg tablet 5 mg PO DAILY #30 tabs 06/09 Unknown Rx ipratropium bromide 21 mcg (0.03 2 spray intranasal BI D-TID PRN 07/04/24 Unknown Rx %) nasal spray postnasal drainage #30 mL tiotropium bromide 2.5 2 puff inhalation QDAY #4 gr ams 07/15/24 Unknown Rx mcg/actuation mist for inhalation (Spiriva Respimat) carvedilol 12.5 mg tablet 12.5 mg PO BID 08/01/24 Unkn own History furosemide 20 mg tablet (Lasix) 20 mg PO Q OTHER DAY # 10 tabs 08/01/24 Unknown Rx albuterol sulfate 90 mcg/actuation 2 inh inhalation Q8 H PRN shortness 08/13/24 Unknown Rx aerosol inhaler of breath or wheezing #8.5 g nallely Allergy/AdvReac Type Severity Reaction Status Date / Time shellfish derived Allergy Severe SOB Verified 08/15/24 14:33 amoxicillin Allergy Unknown Verified 08/15/24 14:33 erythromycin base (From Allergy Unknown Verified 08/15/24 14:33 Staticin) ethyl alcohol (From Staticin) Allergy Unknown Verified 08/15/24 14:33 Penicillins Allergy Unknown Verified 08/15/24 14:33 Sulfa (Sulfonamide Allergy Unknown Verified 08/15/24 14:33 Antibiotics) [id number] Reductase AdvReac Pain in Verified 08/15/24 14:33 Inhibitor joints Family History Mother Colon cancer Cancer Heart disease Grandmother Colon cancer Cancer Sister Cancer Brother Heart disease Mental disorder Father , 85 yrs old Dementia Other Acute non-ST elevation myocardial infarction (NSTEMI) Surgical History History of coronary artery stent placement (07/20/22) History of cataract extraction History of carpal tunnel release History of tonsillectomy Social History Smoking Status: Never smoker alcohol intake: never substance use type: does not use caffeine: Yes Type: carbonated beverages and coffee Number of servings: 1 what type of physical activity do you participate in: none ROS ROS ED Constitutional Constitutional ED: Denies chills, fever(s) or weight loss Eyes Eyes: Denies change in vision or diplopia ENT ENT ED: Denies ear pain, rhinorrhea or sore throat Cardiovascular Cardiovascular: Denies chest pain, orthopnea, palpitations or racing heartbeat Respiratory/Chest Respiratory/Chest: Reports cough, dyspnea and dyspnea on exertion; Denies orthopnea Gastrointestinal Gastrointestinal: Denies abdominal pain, diarrhea, nausea or vomiting Genitourinary Genitourinary ED: Denies dysuria, hematuria or urinary frequency Musculoskeletal Musculoskeletal: Denies arthralgias or myalgias Integumentary Denies abscess or rash Neurologic Neurologic: Denies headache(s) or weakness Psychiatric
--- NOTE | 2024-08-15 14:55 | RAD_ITS ---
PROCEDURE: CHEST 1 VIEW (PORTABLE) 08/15/2024 REASON FOR EXAM: DYSPNEA TECHNIQUE: Frontal view of the chest. COMPARISON: Chest radiograph July 04, 2024 FINDINGS: Hardware: EKG lead wires project over the chest. Heart: Normal size Lungs: No consolidating airspace disease. 7 mm densely calcified granuloma in the lateral lower left face. Bones: No aggressive lesion. Other: RAD/Chest 1 View (Portable) IMPRESSION: No acute process detected. No change from prior exam. Reading Location: [facility]
--- NOTE | 2024-08-15 14:55 | ED.VIS.DYS ---
HPI History of Present Illness Chief Complaint: Shortness of Breath Informant: patient Narrative Narrative: 78-year-old female presenting to the emergency room with a chief complaint of dyspnea. Patient states that she was saw pulmonary yesterday and has been diagnosed with asthma-COPD overlap. Patient states that this morning she woke up having some mild dyspnea which is not uncommon for her. She did her morning aerosol and Symbicort. She states that she was trying to mow the lawn but was unable to continue due to shortness of breath. She notes a cough that is not any different than normal. No rhinorrhea. She states that she tried more breathing treatments and her rescue inhaler without relief and came to emergency. She denies any chest pain. She does note a history of coronary artery disease having had stent placed in 2022. She follows locally with cardiology. She notes that a couple weeks ago she had some swelling of her lower legs that resolved with the medication that was prescribed by her PCP. She believes it was a diuretic but is not 100% sure. Patient had a heart cath in 2023 that showed in-stent stenosis and ejection fraction of 25% but has since improved with medical therapy. [facility] Medical History Fatigue Hypothyroidism Chronic anxiety Hypertension Bilateral inguinal hernia Viral URI Otitis externa of both ears Impacted cerumen of both ears Atherosclerosis of coronary artery of [place] heart without angina pectoris Chest pain LBBB (left bundle branch block) Gastric reflux Non-smoker History of stress test Epigastric pain Lower abdominal pain Acute flank pain Trigger finger Hearing problem Anxiety Seasonal allergies COVID-19 Home Medications ?Medication ?Instructions ?Recorded ?Last Taken ?Type clopidogrel 75 mg tablet 75 mg PO DAILY #90 TABLETS 08/20/23 Unknown Rx nitroglycerin 0.4 mg sublingual 0.4 mg sublingual Q5-15M PRN chest 09/14/23 Unknown Rx tablet pain #25 tabs famotidine 40 mg tablet (Pepcid) 40 mg PO DAILY #90 tabs 09/17/23 Unknown Rx ezetimibe 10 mg tablet 10 mg PO DAILY #90 TABLETS 10/15/23 Unknown Rx lisinopril 20 mg tablet 20 mg PO BID #180 tabs 10/24/23 Unknown Rx spironolactone 25 mg tablet 12.5 mg (1/2 x 25 mg) PO DAILY #45 11/13/23 Unknown Rx tabs budesonide-formoterol HFA 160 2 puff inhalation BID #10.2 grams 12/10/23 Unknown Rx mcg-4.5 mcg/actuation aerosol inhaler (Symbicort) Disability Placard #1 ea 12/17/23 Unknown Rx hydroxyzine pamoate 25 mg capsule 25 mg PO BID PRN Anxiety #60 02/28/24 Unknown Rx CAPSULES rosuvastatin 5 mg tablet 5 mg PO DAILY #30 tabs 06/09/24 Unknown Rx ipratropium bromide 21 mcg (0.03 2 spray intranasal BID-TID PRN 07/04/24 Unknown Rx %) nasal spray postnasal drainage #30 mL tiotropium bromide 2.5 2 puff inhalation QDAY #4 grams 07/15/24 Unknown Rx mcg/actuation mist for inhalation (Spiriva Respimat) carvedilol 12.5 mg tablet 12.5 mg PO BID 08/01/24 Unknown History furosemide 20 mg tablet (Lasix) 20 mg PO Q OTHER DAY #10 tabs 08/01/24 Unknown Rx albuterol sulfate 90 mcg/actuation 2 inh inhalation Q8H PRN shortness 08/13/24 Unknown Rx aerosol inhaler of breath or wheezing #8.5 grams Allergy/AdvReac Type Severity Reaction Status Date / Time shellfish derived Allergy Severe SOB Verified 08/15/24 14:33 amoxicillin Allergy Unknown Verified 08/15/24 14:33 erythromycin base (From Allergy Unknown Verified 08/15/24 14:33 Staticin) ethyl alcohol (From Staticin) Allergy Unknown Verified 08/15/24 14:33 Penicillins Allergy Unknown Verified 08/15/24 14:33 Sulfa (Sulfonamide Allergy Unknown Verified 08/15/24 14:33 Antibiotics) [id number] Reductase AdvReac Pain in Verified 08/15/24 14:33 Inhibitor joints Family History Mother Colon cancer Cancer Heart disease Grandmother Colon cancer Cancer Sister Cancer Brother Heart disease Mental disorder Father , 85 yrs old Dementia Other Acute non-ST elevation myocardial infarction (NSTEMI) Surgical History History of coronary artery stent placement (07/20/22) History of cataract extraction History of carpal tunnel release History of tonsillectomy Social History Smoking Status: Never smoker alcohol intake: never substance use type: does not use caffeine: Yes Type: carbonated beverages and coffee Number of servings: 1 what type of physical activity do you participate in: none ROS ROS ED Constitutional Constitutional ED: Denies chills, fever(s) or weight loss Eyes Eyes: Denies change in vision or diplopia ENT ENT ED: Denies ear pain, rhinorrhea or sore throat Cardiovascular Cardiovascular: Denies chest pain, orthopnea, palpitations or racing heartbeat Respiratory/Chest Respiratory/Chest: Reports cough, dyspnea and dyspnea on exertion; Denies orthopnea Gastrointestinal Gastrointestinal: Denies abdominal pain, diarrhea, nausea or vomiting Genitourinary Genitourinary ED: Denies dysuria, hematuria or urinary frequency Musculoskeletal Musculoskeletal: Denies arthralgias or myalgias Integumentary Denies abscess or rash Neurologic Neurologic: Denies headache(s) or weakness Psychiatric Psychiatric: Denies anxiety, depression, suicidal ideation or suicidal thoughts Endocrine Endocrinology: Denies polydipsia, polyphagia or polyuria Allergic/Immunologic Allergic/Immunologic ED: Denies mouth swelling, tongue swelling or urticaria EXAM Physical Exam Const Vital Signs: 08/15/24 14:30 08/15/24 14:30 08/15/24 15:00 Temperature 96.9 F L 96.9 F L Temperature Source Temporal Temporal Pulse Rate 82 82 79 Respiratory Rate 16 16 13 Respiratory Effort Respiratory Depth Respiratory Pattern Blood Pressure 145/66 H 145/66 H Blood Pressure Mean 92 92 Pulse Ox 100 100 100 Oxygen Delivery Method Room Air 08/15/24 15:08 08/15/24 15:30 08/15/24 16:00 Temperature Temperature Source Pulse Rate 67 65 Respiratory Rate 11 L 12 Respiratory Effort Short of Breath Respiratory Depth Normal Respiratory Pattern Normal Blood Pressure 109/61 128/58 H Blood Pressure Mean 77 78 Pulse Ox 100 98 Oxygen Delivery Method Room Air 08/15/24 17:00 08/15/24 18:00 Temperature Temperature Source Pulse Rate 71 68 Respiratory Rate 11 L 13 Respiratory Effort Respiratory Depth Respiratory Pattern Blood Pressure 126/64 H 139/63 H Blood Pressure Mean 82 83 Pulse Ox 100 100 Oxygen Delivery Method Positive well nourished and well developed General Appearance ED: well developed and NAD HEENT Reports normocephalic, head/scalp atraumatic and moist mucous membranes Eyes PERRL and EOMs intact bilaterally Neck no lymphadenopathy, supple and no JVD Resp normal respiratory effort and clear to auscultation bilaterally Resp Narrative: Patient speaks in full sentences. Cardio regular rate, regular rhythm and no murmurs GI normal to inspection, nondistended, normoactive bowel sounds and non-tender Palpation: soft Back/Spine no CVA tenderness and normal ROM Extremity normal to inspection General Extremety ED: Negative for edema General Extremity: Negative for edema Neuro oriented x3 and CN's II-XII intact bilaterally Sensorium / Orientation: alert Motor Exam: strength 5/5 throughout Psych mental status grossly normal Mood & Affect: Negative for depressed or tearful Skin no rashes or lesions noted and no wounds MDM MDM MDM Narrative Medical decision making narrative: Differential diagnosis includes but not limited to acute coronary syndrome pneumothorax pulmonary embolism dehydration bronchospasm pleural effusion Patient's EKG is a normal sinus rhythm. It appears grossly unchanged from prior dated June 03, 2024. D-dimer is normal 0.44. White count is 8 hemoglobin is 12.1 platelet count 231 BMP showed glucose 132. Troponin 1 is 16. Troponin 2 is 15. My independent interpretation of the chest x-ray is no acute process. Patient ambulated and does not become hypoxic. I believe at this time the patient can be discharged home. She is comfortable with this plan. History & Record Review Discussion w/independent historian: Patient Additional record(s) reviewed:: Prior outpatient record, Prior ED visit and Prior labs Lab Data Attestation: I reviewed the patient's lab results. Labs: Laboratory Results - last 24 hr 08/15/24 08/15/24 14:55 17:00 WBC 8.0 RBC 4.21 Hgb 12.1 Hct 35.9 L MCV 85.3 MCH 28.7 MCHC 33.7 RDW Std Deviation 44.4 H RDW Coeff of Cesar 14.4 Plt Count 231 MPV 10.8 Immature Gran % (Auto) 0.300 Neut % (Auto) 64.8 Lymph % (Auto) 24.5 [place] % (Auto) 7.0 Eos % (Auto) 2.8 Baso % (Auto) 0.6 Absolute Neuts (auto) 5.2 Absolute Lymphs (auto) 1.95 Nucleated RBC % 0 D-Dimer Quant (PE/DVT) 0.44 Sodium 139 Potassium 4.5 Chloride 105 Carbon Dioxide 21.6 Anion Gap 12 BUN 18 Creatinine 1.15 Est GFR (MDRD) Non-Af 49 L BUN/Creatinine Ratio 15.9 Glucose 132 H Calcium 9.2 Troponin T High Sens 16 H D Troponin T Hi Sens 2 Hr 15 H Radiography Diagnostic Testing: Clinical Impression(s) from Imaging Studies Chest X-Ray 08/15/24 14:55 IMPRESSION: No acute process detected. No change from prior exam. Reading Location: [facility] EKG Initial EKG: Attestation: I personally reviewed and interpreted this EKG as follows: Comments: Normal sinus rhythm ventricular rate of 77 bpm. Prior EKG tracings: available for review Prior: Unchanged (June 03, 2024) Discharge Plan Triage Chief Complaint: Shortness of Breath ED Provider: Jose L Wilson Dx/Rx/DC Orders Clinical Impression: Acute dyspnea, Asthma-COPD overlap syndrome Instructions: ED Dyspnea Prescriptions: No Action ipratropium bromide 21 mcg (0.03 %) spray,non-aerosol 2 spray intranasal BID-TID PRN (Reason: postnasal drainage) Qty: 30 0RF Rx Instructions: administer into each nostril clopidogrel 75 mg tablet 75 mg PO DAILY Qty: 90 3RF nitroglycerin 0.4 mg tablet, sublingual 0.4 mg sublingual Q5-15M PRN (Reason: chest pain) Qty: 25 3RF Rx Instructions: do not exceed 3 doses per episode famotidine [Pepcid] 40 mg tablet 40 mg PO DAILY Qty: 90 3RF ezetimibe 10 mg tablet 10 mg PO DAILY Qty: 90 3RF lisinopril 20 mg tablet 20 mg PO BID Qty: 180 3RF spironolactone 25 mg tablet 12.5 mg PO DAILY Qty: 45 3RF Rx Instructions: Hold for serum potassium more than 5.0 budesonide-formoterol [Symbicort] 160-4.5 mcg/actuation HFA aerosol inhaler 2 puff inhalation BID Qty: 10.2 6RF (DME) Disability Placard See Rx Instructions .ROUTE .MEDSUPPLY Qty: 1 0RF Rx Instructions: Expires 12/16/2028 hydroxyzine pamoate 25 mg capsule 25 mg PO BID PRN (Reason: Anxiety) Qty: 60 0RF rosuvastatin 5 mg tablet 5 mg PO DAILY Qty: 30 11RF Spiriva Respimat 2.5 mcg/actuation mist 2 puff inhalation QDAY Qty: 4 11RF carvedilol 12.5 mg tablet 12.5 mg PO BID Rx Instructions: must administer with a meal/food furosemide [Lasix] 20 mg tablet 20 mg PO Q OTHER DAY Qty: 10 0RF Rx Instructions: Take one tab every other morning for 3 doses, then stop. albuterol sulfate 90 mcg/actuation HFA aerosol inhaler 2 inh inhalation Q8H PRN (Reason: shortness of breath or wheezing) Qty: 8.5 2RF Primary Care Provider: Claudette Garrison Referrals: Claudette Garrison MD [Primary Care Provider] - As Needed Print Language: Bulgarian Disposition Disposition: Home, Self Care
[2024-08-15 15:04] LABS: Absolute Lymphocyte Count 1.95 X10^3/uL (0.83-4.51); Absolute Neutrophil Count 5.2 X10^3/uL (2.0-7.7); Basophil# 0.05 X10^3/uL; Basophil% 0.6 % (0-1); Eosinophil# 0.22 X10^3/uL; Eosinophils% 2.8 % (0-5); Hematocrit 35.9 % (37-47); Hemoglobin 12.1 g/dL (12.0-15.0); Lymphocyte # 1.95 X10^3/ul (0.83-4.51); Lymphocyte % 24.5 % (19-41); Mean Corp Hgb Conc 33.7 g/dL (32-36); Mean Corpuscular Hgb 28.7 pg (27.0-32.0); Mean Corpuscular Volume 85.3 fL (81-99); Mean Platelet Vol. 10.8 fl (6.2-12.0); Monocyte# 0.56 X10^3/uL; NRBC Flagged by Analyzer 0 % (0-5); Neutrophil # 5.17 X10^3/uL (2.7-7.7); Neutrophil % 64.8 % (47-70); Platelet Count 231 K/mm3 (150-450); RBC Distribution Width CV 14.4 % (11.6-14.6); RBC Distribution Width SD 44.4 fl (35.1-43.9); Red Blood Count 4.21 M/mm3 (4.2-5.4)
[2024-08-15 15:35] LABS: D-Dimer Quantitative (DVT/PE) 0.44 FEU/ug/m (0.27-0.49)
[2024-08-15 15:36] LABS: Anion Gap 12 (5-15); BUN 18 mg/dL (4-19); BUN/Creat Ratio 15.9 RATIO (10-20); Calcium,Total 9.2 mg/dL (7.6-11.0); Carbon Dioxide 21.6 mmol/L (21.0-32.0); Chloride 105 mmol/L (98-108); Creatinine, Serum 1.15 mg/dL (0.70-1.20); EST Glomerular Filtration Rate 49 (>60); Glucose 132 mg/dL (70-99); Potassium 4.5 mmol/L (3.3-5.1); Sodium Level 139 mmol/L (133-145); Troponin T High Sensitivity 16 ng/L (<=14)
[2024-08-15 17:42] LABS: Troponin T High Sens 2 HR 15 ng/L (<=14)
== END 2024-08-15 18:33 | disposition home or self-care (01) ==
PROVIDERS: Emergency Provider Emergency Medicine; PCP Internal Medicine; Visit Provider Emergency Medicine
DX: R06.02 Shortness of breath (principal); J44.9 Chronic obstructive pulmonary disease, unspecified; I25.10 Atherosclerotic heart disease of native coronary artery without angina pectoris; I10 Essential (primary) hypertension; K21.9 Gastro-esophageal reflux disease without esophagitis; Z79.02 Long term (current) use of antithrombotics/antiplatelets
CPT/HCPCS: 71045; 80048; 84484; 85025; 85379; 93005; 99283; A4216

== ENCOUNTER → 2024-09-10 | Outpatient (CLI) | payer MEDICARE, SELFPAY ==
[2024-09-10 08:28] LABS: Hematocrit 35.6 % (37-47); Hemoglobin 11.5 g/dL (12.0-15.0); Immature Granulocytes Count 0.040 X10^3/uL (0.0-0.0); Mean Corp Hgb Conc 32.3 g/dL (32-36); Mean Corpuscular Volume 89.0 fL (81-99); Mean Platelet Vol. 11.1 fl (6.2-12.0); NRBC Flagged by Analyzer 0 % (0-5); Platelet Count 213 K/mm3 (150-450); RBC Distribution Width CV 15.1 % (11.6-14.6); RBC Distribution Width SD 49.1 fl (35.1-43.9); Red Blood Count 4.00 M/mm3 (4.2-5.4); White Blood Count 9.8 K/mm3 (4.4-11.0)
[2024-09-10 09:02] LABS: AST(SGOT) 15 U/L (<=31); Alanine Aminotransfer ALT/SGPT 21 U/L (<=34); Albumin, Serum 3.7 g/dL (3.4-4.8); Alkaline Phosphatase 60 U/L (35-104); Bilirubin, Direct 0.27 mg/dL (0.00-0.30); Cholesterol 168 mg/dL (<=200); Globulin 2.1 g/dL (2.2-4.2); Low Density Lipoprotein Calc. 68 mg/dL; Triglycerides 119 mg/dL; Very Low Density Lipoprotein 24 mg/dL (5-40); cholesterol:hdl ratio screen 2.20
== END | disposition home or self-care (01) ==
LOC: LAB 07:36
PROVIDERS: Internal Medicine Cardiovascular Disease; PCP Internal Medicine; Referring Provider Nurse Practitioner Family; Visit Provider Nurse Practitioner Family
DX: E78.2 Mixed hyperlipidemia (principal); R23.3 Spontaneous ecchymoses
CPT/HCPCS: 36415; 80061; 80076; 85025

== ENCOUNTER → 2024-12-02 | Outpatient (CLI) | payer MEDICARE, SELFPAY ==
--- NOTE | 2024-12-02 14:19 | RAD_ITS ---
PROCEDURE: CHEST PA AND LATERAL 12/02/2024 REASON FOR EXAM: COUGH TECHNIQUE: Procedure Code: RADCXR Modality: DX Procedure: CHEST PA AND LATERAL COMPARISON: Prior study dated August 15, 2024. FINDINGS: Hardware: None Heart: The heart is nonenlarged. Calcification of the aortic arch. Mediastinum: The mediastinal contour is unremarkable. Lungs: Calcific granuloma in the left lower lobe. No acute infiltrate is seen. Bones: Degenerative changes are identified within the thoracic spine. Increased kyphosis. RAD/Chest PA and Lateral IMPRESSION: NO ACUTE FINDINGS. Reading Location: [id number]
== END | disposition home or self-care (01) ==
LOC: MTRAD 14:17
PROVIDERS: PCP Internal Medicine; Referring Provider Physician Assistant; Visit Provider Physician Assistant
DX: R05.9 Cough, unspecified (principal)
CPT/HCPCS: 71046

== ENCOUNTER → 2024-12-02 | Outpatient (CLI) | payer MEDICARE, SELFPAY ==
[2024-12-02 17:48] LABS: Hematocrit 34.9 % (37-47); Hemoglobin 11.6 g/dL (12.0-15.0); Immature Granulocytes Count 0.020 X10^3/uL (0.0-0.0); Mean Corp Hgb Conc 33.2 g/dL (32-36); Mean Corpuscular Volume 86.4 fL (81-99); Mean Platelet Vol. 10.8 fl (6.2-12.0); NRBC Flagged by Analyzer 0 % (0-5); Platelet Count 288 K/mm3 (150-450); RBC Distribution Width CV 14.3 % (11.6-14.6); RBC Distribution Width SD 44.7 fl (35.1-43.9); Red Blood Count 4.04 M/mm3 (4.2-5.4); White Blood Count 6.0 K/mm3 (4.4-11.0)
[2024-12-08 12:08] LABS: Bluegrass, Kentucky <0.10 kU/L (Class 0); Cat Hair/Dander, Standard <0.10 kU/L (Class 0); Dog Epithelia <0.10 kU/L (Class 0); Elm, American White <0.10 kU/L (Class 0); Oak, White <0.10 kU/L (Class 0); Plantain, English <0.10 kU/L (Class 0); Ragweed, Short/Common <0.10 kU/L (Class 0)
[2024-12-09 16:09] LABS: Aspirgillus flavus Negative (Neg:<1:1); Aspirgillus fumigatus Negative (Neg:<1:1); Aspirgillus niger Negative (Neg:<1:1)
== END | disposition home or self-care (01) ==
LOC: MTLAB 15:00
PROVIDERS: PCP Internal Medicine; Referring Provider Nurse Practitioner Acute Care; Visit Provider Nurse Practitioner Acute Care
DX: J30.2 Other seasonal allergic rhinitis (principal)
CPT/HCPCS: 36415; 82785; 85025; 86003; 86606